=== PATIENT | female | born 1955 | race Caucasian/White ===

== ENCOUNTER 2019-05-03 12:09 | Emergency (ER) | payer MEDICARE, MEDICAID, SELFPAY ==
[2019-05-03 12:22] VITALS: BP 97/54; PULSE 56; RESP 16; TEMP 36.3; O2SAT 99
--- NOTE | 2019-05-03 13:05 | NUR.NOTE ---
Nursing Note: This scribe went in to perform secondary assessment on patient. Pt was not in room. This scribe checked the bathrooms and checked with front end drupal developer. PA saw patient leaving her room at one point but thought she was using the bathroom. Patient not seen. Per patient, patient was told to come to ER by [facility] for help with adjustment of medications per triage nurse. [facility] has been paged to notify them that she left without being seen.
== END 2019-05-03 13:05 | disposition left before discharge ==
PROVIDERS: Emergency Provider Physician Assistant; PCP Physician Assistant
DX: Z53.21 Procedure and treatment not carried out due to patient leaving prior to being seen by health care provider (principal)

== ENCOUNTER 2019-09-04 09:42 | Outpatient (CLI) | payer OTHER, MEDICAID, SELFPAY ==
[2019-09-04 10:14] LABS: Abs Immature Grans 0.02 k/cumm (0.0-0.09); Absolute Basophil Count 0.03 k/cumm (0.0-0.2); Absolute Eosinophil Count 0.23 k/cumm (0.0-0.7); Absolute Lymphocyte Count 2.85 k/cumm (1.2-3.4); Absolute Monocyte Count 0.62 k/cumm (0.11-0.7); Absolute Neutrophil Count 1.64 k/cumm (1.2-6.7); Basophils % 0.6; Eosinophils % 4.3; HCT 40.2 % (36.0-46.0); Immature Grans % 0.4 %; Lymphocytes % 52.9; Mean Corp. HGB Concentration 32.3 g/dL (32.0-36.0); Mean Corpuscular Hemoglobin 31.6 pg (27.0-33.0); Mean Corpuscular Volume 97.8 fL (80-95); Mean Platelet Volume 10.6 fL (8.0-11.0); Monocytes % 11.5; Neutrophils % 30.3; Platelet Count 169 x1000/uL (130-400); RBC 4.11 m/cumm (4.00-5.20); RBC Distribution Width 14.2 % (11.7-14.6); White Blood Cell Count 5.39 k/cumm (4.4-10.8)
[2019-09-04 10:27] LABS: VALPROIC ACID 104.6 ug/mL (50-100)
[2019-09-04 11:16] LABS: ALT 13 U/L (14-59); AST 23 U/L (15-37); Albumin 3.2 g/dL (3.4-5.0); Alkaline Phosphatase 89 U/L (46-116); Anion Gap 5.1 mmol/L (3-11); BUN 14 mg/dL (7-18); Bilirubin, Total 0.2 mg/dL (0.2-1.0); CO2 30.9 mmol/L (21.0-32.0); CREATININE 0.93 mg/dL (0.55-1.02); Calcium 9.3 mg/dL (8.5-10.1); Chloride 105 mmol/L (98-107); Glucose 76 mg/dL (74-106); Sodium 141 mmol/L (136-145); TSH 3.04 uIU/mL (0.36-3.74); Total Protein 6.3 g/dL (6.4-8.2)
== END 2019-09-04 10:02 ==
PROVIDERS: PCP Physician Assistant; Visit Provider Nurse Practitioner Family
DX: F31.73 Bipolar disorder, in partial remission, most recent episode manic (principal); Z51.81 Encounter for therapeutic drug level monitoring; Z79.899 Other long term (current) drug therapy; R53.83 Other fatigue
CPT/HCPCS: 36415; 80053; 80164; 84443; 85025

== ENCOUNTER 2020-04-01 01:45 | Outpatient (CLI) | payer OTHER, MEDICAID, SELFPAY ==
[2020-04-01 08:32] LABS: Abs Immature Grans 0.05 10^3/uL (0.0-0.06); Absolute Basophil Count 0.07 10^3/uL (0.0-0.2); Absolute Eosinophil Count 0.39 10^3/uL (0.0-0.7); Absolute Lymphocyte Count 3.06 10^3/uL (1.2-3.4); Absolute Monocyte Count 0.68 10^3/uL (0.1-0.8); Absolute Neutrophil Count 2.05 10^3/uL (1.2-6.7); Basophils % 1.1; Eosinophils % 6.2; HCT 43.5 % (36.0-46.0); HGB 13.7 g/dL (11.2-15.7); Immature Grans % 0.8; Lymphocytes % 48.6; MCH 32.5 pg (27.0-33.0); MCHC 31.5 % (32.0-36.0); MCV 103.1 fL (80-95); MPV 11.4 fL (8.0-11.0); Monocytes % 10.8; Neutrophils % 32.5; Nucleated RBC 0 %; Platelet Count 185 10^3/uL (130-400); RBC 4.22 10^6/uL (3.93-5.22); RDW 13.1 % (11.7-14.6); RDW-SD 49.9 fL
[2020-04-01 08:47] LABS: VALPROIC ACID 86.5 ug/mL (50-100)
[2020-04-01 08:48] LABS: ALT 16 U/L (14-59); AST 15 U/L (15-37); Albumin 3.3 g/dL (3.4-5.0); Alkaline Phosphatase 119 U/L (46-116); Anion Gap 2.6 mmol/L (3-11); BUN 14 mg/dL (7-18); Bilirubin, Total 0.3 mg/dL (0.2-1.0); CO2 32.4 mmol/L (21.0-32.0); CREATININE 0.94 mg/dL (0.55-1.02); Calcium 9.6 mg/dL (8.5-10.1); Chloride 104 mmol/L (98-107); Estimated GFR 59.95 (mL/min/1.73m2); Glucose 80 mg/dL (74-106); Potassium 4.6 mmol/L (3.5-5.1); Sodium 139 mmol/L (136-145); Total Protein 6.9 g/dL (6.4-8.2)
== END 2020-04-01 02:05 ==
PROVIDERS: PCP Physician Assistant; Visit Provider Nurse Practitioner Family
DX: F31.73 Bipolar disorder, in partial remission, most recent episode manic (principal); Z79.899 Other long term (current) drug therapy
CPT/HCPCS: 36415; 80053; 80164; 85025

== ENCOUNTER 2020-06-22 13:02 | Outpatient (REF) | payer OTHER, MEDICAID, SELFPAY ==
[2020-06-23 17:38] LABS: COVID-19 RT-PCR Result Not Detected
== END 2020-06-22 13:22 ==
LOC: LBN 13:02
PROVIDERS: PCP Physician Assistant; Visit Provider Nurse Practitioner Adult Health
DX: Z11.59 Encounter for screening for other viral diseases (principal)
CPT/HCPCS: U0003

== ENCOUNTER 2020-06-29 01:32 | Outpatient (CLI) | payer OTHER, SELFPAY ==
--- NOTE | 2020-06-29 | DI.US_ITS ---
EXAM: US LOWER EXTREMITY VENOUS LT CLINICAL HISTORY: SWELLING, S/P HIP FX AND SURGERY TECHNIQUE: Left lower extremity venous ultrasound performed using grayscale, color-flow, and spectra l Doppler analysis. COMPARISON: No exams were available for comparison FINDINGS: The left common femoral, femoral and popliteal veins demonstrate normal compressibility, augmentation , and color Doppler. The posterior tibial veins are patent. The saphenofemoral junction is unremarka ble. There is no evidence of a Blackmon cyst. Mild edema in the soft tissues of the calf. IMPRESSION: No DVT. DATA REPOSITORY:
== END 2020-06-29 01:52 ==
PROVIDERS: PCP Physician Assistant; Visit Provider Nurse Practitioner Adult Health
DX: R60.9 Edema, unspecified (principal)
CPT/HCPCS: 93971

== ENCOUNTER 2020-06-30 01:46 | Outpatient (REF) | payer OTHER, SELFPAY ==
[2020-07-01 16:16] LABS: SARS-CoV-2 RNA Not Detected (NotDetected); SARS-CoV-2 RNA Source Nasal/Nares
== END 2020-06-30 02:06 ==
LOC: LBN 01:46
PROVIDERS: Nurse Practitioner Adult Health; PCP Physician Assistant; Visit Provider Family Medicine
DX: Z11.59 Encounter for screening for other viral diseases (principal)
CPT/HCPCS: U0003

== ENCOUNTER 2021-08-10 23:06 | Outpatient (REF) | payer OTHER, SELFPAY ==
[2021-08-12 15:45] LABS: COVID-19 RT-PCR UVMMC Result Negative (Negative)
== END 2021-08-10 23:07 | disposition home or self-care (01) ==
LOC: LBN 23:06
PROVIDERS: PCP Physician Assistant; Visit Provider Physician Assistant Medical
DX: Z20.822 Contact with and (suspected) exposure to COVID-19 (principal); J06.9 Acute upper respiratory infection, unspecified
CPT/HCPCS: U0003; U0005

== ENCOUNTER 2021-08-19 16:22 | Outpatient (REF) | payer OTHER, MEDICAID, SELFPAY ==
[2021-08-19 18:18] LABS: Abs Immature Grans 0.01 10^3/uL (0.0-0.06); Absolute Basophil Count 0.02 10^3/uL (0.0-0.2); Absolute Eosinophil Count 0.07 10^3/uL (0.0-0.7); Absolute Lymphocyte Count 1.57 10^3/uL (1.2-3.4); Absolute Monocyte Count 0.55 10^3/uL (0.1-0.8); Basophils % 0.6; HCT 37.6 % (36.0-46.0); HGB 11.7 g/dL (11.2-15.7); Immature Grans % 0.3; Lymphocytes % 43.9; MCH 33.3 pg (27.0-33.0); MCHC 31.1 % (32.0-36.0); MCV 107.1 fL (80-95); MPV 12.3 fL (8.0-11.0); Monocytes % 15.4; Neutrophils % 37.8; Nucleated RBC 0 %; Platelet Count 106 10^3/uL (130-400); RBC 3.51 10^6/uL (3.93-5.22); RDW 11.9 % (11.7-14.6); RDW-SD 47.2 fL; WBC 3.58 10^3/uL (4.4-10.8)
[2021-08-19 18:34] LABS: Absolute Neutrophil Count 1.35 10^3/uL (1.2-6.7)
[2021-08-19 18:48] LABS: Anion Gap 4.8 mmol/L (3-11); BUN 19 mg/dL (7-18); CO2 30.2 mmol/L (21.0-32.0); CREATININE 0.7 mg/dL (0.55-1.02); Chloride 105 mmol/L (98-107); Glucose 69 mg/dL (74-106); Potassium 4.8 mmol/L (3.5-5.1); Sodium 140 mmol/L (136-145); TSH 1.09 uIU/mL (0.36-3.74)
== END 2021-08-19 16:23 | disposition home or self-care (01) ==
LOC: LBN 16:22
PROVIDERS: PCP Physician Assistant; Visit Provider Physician Assistant Medical
DX: R42 Dizziness and giddiness (principal); F41.9 Anxiety disorder, unspecified; J02.9 Acute pharyngitis, unspecified; H61.23 Impacted cerumen, bilateral
CPT/HCPCS: 80048; 84443; 85025

== ENCOUNTER 2021-08-26 16:49 | Outpatient (REF) | payer OTHER, MEDICAID, SELFPAY ==
[2021-08-29 09:56] LABS: COVID-19 RT-PCR UVMMC Result Negative (Negative)
== END 2021-08-26 16:50 | disposition home or self-care (01) ==
LOC: LBN 16:49
PROVIDERS: PCP Physician Assistant; Visit Provider Physician Assistant Medical
DX: Z20.822 Contact with and (suspected) exposure to COVID-19 (principal); J06.9 Acute upper respiratory infection, unspecified
CPT/HCPCS: U0003

== ENCOUNTER 2021-08-26 17:12 | Outpatient (CLI) | payer OTHER, MEDICAID, SELFPAY ==
--- NOTE | 2021-08-26 | DI.RAD_ITS ---
Exam(s) XR CHEST 2V PA LATERAL EXAM: XR CHEST 2V PA LATERAL CLINICAL HISTORY: UPPER RESPIRATORY INFECTION TECHNIQUE: COMPARISON: No exams were available for comparison FINDINGS: The lungs appear mildly hyperinflated but clear. No pleural effusion. Cardiac size within normal li mits. No mediastinal contour abnormality. IMPRESSION: No evidence of acute process. RADIATION DOSE DELIVERED: Total DLP
--- NOTE | 2021-08-26 18:03 | DI.VRAD_ITS ---
PROCEDURE INFORMATION: Exam: XR Chest Exam date and time: 08/26/2021 5:38 PM Age: 65 years old Clinical indication: Other: Upper respiratory infection TECHNIQUE: Imaging protocol: XR of the chest. Views: 2 views. Total images: 2 COMPARISON: No relevant prior studies available. FINDINGS: Lungs: Unremarkable. No consolidation. Pleural spaces: No pleural effusion. No pneumothorax. Heart/Mediastinum: Unremarkable. No cardiomegaly. Bones/joints: No acute bone abnormality. IMPRESSION: No acute findings. Dictated and Authenticated by: Naheed Griggs MD. Ordering:ALTAF Grayson MD
== END 2021-08-26 17:32 ==
PROVIDERS: PCP Physician Assistant; Visit Provider Physician Assistant Medical
DX: J06.9 Acute upper respiratory infection, unspecified (principal)
CPT/HCPCS: 71046

== ENCOUNTER 2021-09-02 15:22 | Outpatient (REF) | payer OTHER, MEDICAID, SELFPAY ==
[2021-09-05 15:36] LABS: Chlamydia Result Negative (Negative); GC Result Negative (Negative)
== END 2021-09-02 15:23 | disposition home or self-care (01) ==
LOC: LBN 15:22
PROVIDERS: PCP Physician Assistant; Visit Provider Physician Assistant Medical
DX: R30.0 Dysuria (principal); N89.9 Noninflammatory disorder of vagina, unspecified; Z11.3 Encounter for screening for infections with a predominantly sexual mode of transmission; Z72.51 High risk heterosexual behavior
CPT/HCPCS: 87491; 87591; 87086; 87480; 87510; 87660

== ENCOUNTER 2021-09-19 03:42 | Outpatient (CLI) | payer OTHER, MEDICAID, SELFPAY ==
[2021-09-19 14:09] LABS: Abs Immature Grans 0.01 10^3/uL (0.0-0.06); Absolute Basophil Count 0.03 10^3/uL (0.0-0.2); Absolute Eosinophil Count 0.11 10^3/uL (0.0-0.7); Absolute Lymphocyte Count 1.68 10^3/uL (1.2-3.4); Absolute Monocyte Count 0.58 10^3/uL (0.1-0.8); Absolute Neutrophil Count 1.15 10^3/uL (1.2-6.7); Basophils % 0.8; Eosinophils % 3.1; HCT 36.2 % (36.0-46.0); HGB 11.7 g/dL (11.2-15.7); Immature Grans % 0.3; Lymphocytes % 47.2; MCHC 32.3 % (32.0-36.0); MPV 10.9 fL (8.0-11.0); Monocytes % 16.3; Neutrophils % 32.3; Nucleated RBC 0 %; Platelet Count 133 10^3/uL (130-400); RBC 3.55 10^6/uL (3.93-5.22); RDW 11.9 % (11.7-14.6); RDW-SD 44.7 fL; WBC 3.56 10^3/uL (4.4-10.8)
[2021-09-19 14:29] LABS: VALPROIC ACID 143.6 ug/mL
[2021-09-19 14:31] LABS: Hemoglobin A1C 4.9 % (<5.7)
[2021-09-19 15:22] LABS: ALT 13 U/L (14-59); AST 16 U/L (15-37); Albumin 3.2 g/dL (3.4-5.0); Alkaline Phosphatase 88 U/L (46-116); Anion Gap 4.8 mmol/L (3-11); BUN 20 mg/dL (7-18); Bilirubin, Total 0.3 mg/dL (0.2-1.0); CO2 28.2 mmol/L (21.0-32.0); CREATININE 0.8 mg/dL (0.55-1.02); Calcium 9.2 mg/dL (8.5-10.1); Calculated LDL 98 mg/dL (<100); Chloride 99 mmol/L (98-107); Cholesterol 168 mg/dL (<200); Ferritin 129 ng/mL (8-252); Folate 13.9 ng/mL (8.6-20.0); Glucose 57 mg/dL (74-106); HDL Cholesterol 57 mg/dL (40-60); Magnesium 1.8 mg/dL (1.8-2.4); Potassium 3.8 mmol/L (3.5-5.1); Sodium 132 mmol/L (136-145); TSH 1.62 uIU/mL (0.36-3.74); Total Protein 6.6 g/dL (6.4-8.2); Triglyceride 66 mg/dL (<150); Vitamin B12 813 pg/mL (193-986)
[2021-09-19 15:43] LABS: C-Reactive Protein 0.16 mg/dL (0.0-0.3); FREE T4 1.12 ng/dL (0.76-1.46)
[2021-09-19 16:15] LABS: Vitamin D 25 Total 96.8 ng/mL (30-100)
[2021-09-19 22:44] LABS: T3,Free 3.2 pg/mL (2.8-5.3)
== END 2021-09-19 03:43 | disposition home or self-care (01) ==
LOC: LBO 03:43
PROVIDERS: PCP Physician Assistant; Visit Provider Psychiatry & Neurology Psychiatry
DX: F31.73 Bipolar disorder, in partial remission, most recent episode manic (principal); Z51.81 Encounter for therapeutic drug level monitoring; Z79.899 Other long term (current) drug therapy
CPT/HCPCS: 36415; 80053; 80061; 82306; 80164; 82607; 82728; 82746; 83036; 83735; 84439; 84443; 84481; 85025; 86140

== ENCOUNTER 2021-10-25 18:19 | Emergency (ER) | payer MEDICARE, MEDICAID, SELFPAY ==
[2021-10-25 18:31] VITALS: BP 126/52; PULSE 91; RESP 16; TEMP 36.4; O2SAT 99
--- NOTE | 2021-10-25 19:29 | ED.GENADUL_ITS ---
Discharge Plan Discharge Details Chief Complaint: PsychEval Primary Care Provider: Maryuri Shah V ED Provider: Daria Gallagher Home Meds and New Rx's Prescriptions: No Action albuterol sulfate 90 mcg/actuation HFA aerosol inhaler 2 puff inhalation Q6H PRN0RF ibuprofen 400 mg tablet 400 mg PO Q8H 0RF cholecalciferol (vitamin D3) 25 mcg (1,000 unit) capsule 25 mcg PO DAILY 0RF divalproex [Depakote] 500 mg tablet,delayed release (DR/EC) 500 mg PO BID 0RF venlafaxine [Effexor XR] 150 mg capsule,extended release 24hr 150 mg PO DAILY 0RF levothyroxine [Synthroid] 50 MCG tablet 50 mcg PO DAILY 0RF Medical Decision Making 65-year-old female presents to the ER with chief complaint of manic episode and inability to sleep. Patient reports that she has had recent changes to her medications for the last 2 to 3 weeks and ran out of her Depakote which he restarted approximately 4 days ago. Patient reports racing thoughts, inability to focus and inability to sleep. She does state that she did sleep Sunday nig but has not slept since and did not sleep approximately week or more before that. She denies any illicit drugs, alcohol. She does report suicidal thoughts but no plan. She denies any homicidal thoughts. She is alert and oriented. She is also complaining of some dysuria. Urine was taken at urgent care per report prior to arrival which showed no evidence for UTI. 1953: Spoke with Abhishek PARK regarding patient case and details she will pass along to her oncoming provider her shift is about 10 and. At this time medical clearance is ongoing. Urine drug screen is negative. Patient remains cooperative and appropriate. 2020: [facility] performing tele-health eval at this time. 2110: Spoke with Yulissa with [facility] who reports she evaluated patient in the office yesterday and patient is on list for care bed placement however they are full at this time. She is also going to seek inpatient placement for further treatment. Patient is voluntary at this time. 2233: Screening labs ordered, patient sleeping in room, remains cooperative and appears much more comfortable after Lorazepam administration. Labs appear largely at baseline, urinalysis shows trace ketones trace leukocytes with, contamination however due to the patient report of dysuria will give fosfomycin 3 g once. Urine drug screen is negative valproic acid level is 92.1, Tylenol level within normal limit salicylate within normal limits. Ethyl alcohol less than 3.0. Care is to be handed off to ER provider Dr. Jamie Rao pending placement and disposition. Patient has remained calm and cooperative and appropriate throughout her stay here in the ER. Sitter is at the bedside. Daily medication orders placed. HPI General Mode of arrival: ambulatory . Date/Time Provider Initiated Documentation: 10/25/21 18:22 . Limitations to Documentation: no limitations . Information obtained by: patient, RN/MD ([facility]), RN notes reviewed and old records reviewed . HPI Narrative: 65-year-old female presents to the ER with chief complaint of manic episode and inability to sleep. Patient reports that she has had recent changes to her medications for the last 2 to 3 weeks and ran out of her Depakote which he restarted approximately 4 days ago. Patient reports racing thoughts, inability to focus and inability to sleep. She does state that she did sleep Sunday night but has not slept since and did not sleep approximately week or more before that. She denies any illicit drugs, alcohol. She does report suicidal thoughts but no plan. She denies any homicidal thoughts. She is alert and oriented. She is also complaining of some dysuria. Urine was taken at urgent care per report prior to arrival which showed no evidence for UTI. Related Data Home Medications Medication Instructions Recorded Confirmed levothyroxine 50 mcg tablet 50 mcg PO DAILY 12/29/15 10/25/21 (Synthroid) albuterol sulfate 90 mcg/actuation 2 puff INHALATION Q6H PRN 09/22/21 10/25/21 aerosol inhaler cholecalciferol (vitamin D3) 25 25 mcg PO DAILY 09/22/21 10/25/21 mcg (1,000 unit) capsule divalproex 500 mg tablet,delayed 500 mg PO BID 09/22/21 10/25/21 release (Depakote) ibuprofen 400 mg tablet 400 mg PO Q8H 09/22/21 10/25/21 venlafaxine 150 mg 150 mg PO DAILY 09/22/21 10/25/21 capsule,extended release 24 hr (Effexor XR) Allergies Allergy/AdvReac Type Severity Reaction Status Date / Time acetaminophen [From Vicodin] Allergy Mild facial Verified 10/25/21 18:39 swelling bupropion [From Wellbutrin] Allergy Mild facial Verified 10/25/21 18:39 swelling doxycycline Allergy Mild unknown Verified 10/25/21 18:39 fluticasone Allergy Mild dizziness Verified 10/25/21 18:39 [From Advair Diskus] hydrocodone [From Vicodin] Allergy Mild facial Verified 10/25/21 18:39 swelling levofloxacin [From Levaquin] Allergy Mild dizziness Verified 10/25/21 18:39 morphine Allergy Mild hallucinati Verified 10/25/21 18:39 on omeprazole Allergy Mild rash, Verified 10/25/21 18:39 upset stomach oxycodone Allergy Mild hallucinati Verified 10/25/21 18:39 ons prednisone Allergy Mild dizziness Verified 10/25/21 18:39 quetiapine [From Seroquel] Allergy Mild dizziness Verified 10/25/21 18:39 risperidone Allergy Mild sever Verified 10/25/21 18:39 nightmares salmeterol Allergy Mild dizziness Verified 10/25/21 18:39 [From Advair Diskus] tramadol Allergy Mild dizziness, Verified 10/25/21 18:39 hallucinations erythromycin base Allergy Unverified 10/25/21 18:39 propoxyphene HCl Allergy Unverified 10/25/21 18:39 [From Darvon] General Stated Complaint: PsychEval SEB: 2 Review of Systems All systems reviewed & are unremarkable except as noted in HPI and below Neurologic Neurologic: Reports behavioral changes Psychiatric Psychiatric: Reports as per HPI, Reports behavioral changes, Reports difficulty concentrating and Reports suicidal ideation PFSH All Active Problems Bipolar 1 disorder, mixed (Acute) History of colon polyps (Acute) Diarrhea (Acute) Unintentional weight loss (Acute) Screening for colon cancer (Acute) Medical History Anxiety Cerumen impaction Dizziness Headache Weakness Social History Smoking/Tobacco Use Status: Current every day Tobacco Type: cigarettes Smoking risk assessment performed?: Yes Alcohol Intake: former Drug use: Never Substance use type: does not use Do you feel safe at home: Yes Do you feel safe in your relationship?: Yes Exam Narrative Exam Narrative: Constitutional: Alert and oriented x3. Appears stated age. Normal body habitus. Appears anxious. Head: Normocephalic, no trauma. Eyes: Pupils PERRL, Red reflex noted, EOM's intact. Eyelids symmetrical without lesions, discharge, or swelling. ENT: Bilateral TM's WNL, External ear normal to inspection, no mastoid TTP, swelling, or erythema, Nasal turbinates WNL, no nasal discharge. Normal dentition, Posterior pharynx WNL, no exudate. Chest: RRR, Normal S1, S2, distal pulses intact. Resp: Lungs clear to auscultation bilaterally, no wheezes, rales, or rhonchi. Abdomen: Soft, non-distended, Normoactive bowel sounds all 4 quads. Musculoskeletal: Normal gait, 5/5 strength to all four extremities. Skin: No suspicious rashes or lesions. Capillary refill less than 2 sec. Neurologic: Cranial nerves II-XII intact. Alert and oriented x 3. Motor: No deficits noted. Sensory: Intact bilaterally all 4 extremities. Reflexes: DTR's intact bilaterally.. Hematologic/Lymphatic: No ecchymosis, no lymphadenopathy. Psych Appearance: disheveled Speech and Movement: restless Mood: manic mood Affect: normal affect Attitude: cooperative Thought Process: flight of ideas Thought Content: normal and suicidality Insight: insight good Judgment: judgment good Course Vital Signs Vital signs: Vital Signs Temperature 36.4 C L 10/25/21 18:31 Pulse 91 H 10/25/21 18:31 Respiratory Rate 16 10/25/21 18:31 Blood Pressure 126/52 L 10/25/21 18:31 Pulse Oximetry 99 10/25/21 18:31 Temperature 36.4 C L 10/25/21 18:31 Temperature Source Skin 10/25/21 18:31 Pulse 91 H 10/25/21 18:31 Respiratory Rate 16 10/25/21 18:31 Respiratory Effort 10/25/21 18:31 Blood Pressure 126/52 L 10/25/21 18:31 Blood Pressure Position Sitting 10/25/21 18:31 Pulse Oximetry 99 10/25/21 18:31 Oxygen Delivery Method Room Air 10/25/21 18:31 Oxygen Flow Rate 0 10/25/21 18:31 Pain Level 9 10/25/21 18:31 Lab/Test Results Lab/Test Results: POC- Test(urine) Negative Sign Out Sign Out Data: Sign Out Comment: Pending Voluntary inpatient psych placement or care bed placement. Hx of Bipolar, Patient reports manic episode and trouble sleeping x 2-3 weeks. Recently out of Depakote but taking it last 4 days. Suicidal ideation, no concrete plan. Cooperative, appropriate, and calm. Last updated by Daria Gallagher at 10/25/21 23:11
[2021-10-25 19:45] LABS: *AMPHETAMINES SCREEN URINE Negative (Negative); *BARBITURATES SCREEN URINE Negative (Negative); *BENZODIAZEPINES SCREEN URINE Negative (Negative); Cannabinoids THC Negative (Negative); Cocaine Screen,Urine Negative (Negative); METHADONE URINE SCREEN Negative (Negative); OPIATES URINE SCREEN Negative (Negative)
[2021-10-25 19:47] LABS: Tricyclic Antidepressants Negative (Negative)
[2021-10-25 19:58] LABS: Bilirubin Negative (Negative); Blood Negative (Negative); Clarity Clear (Clear); Glucose Negative (Negative); Ketones Trace mg/dL (Negative); Leukocyte Esterase Trace (Negative); Nitrite Negative (Negative); Specific Gravity >= 1.030 (1.005-1.025); Urobilinogen 0.2 EU/dL (Up TO 0.2); pH 6.5 (5-8)
[2021-10-25] MEDS: LORazepam 0.5 MG TAB PO (20:03)
[2021-10-25 20:10] LABS: Bacteria Many HPF (Negative); C & S Indicated? No/Sq. Contamination; Casts Negative LPF (Negative); Crystals Negative HPF (Negative); Epithelial Cells Many HPF (Negative); Mucus Negative (Negative); RBC Negative HPF (0-2)
[2021-10-25] MEDS: Bacitracin 1 PACKET (20:17)
[2021-10-25 22:40] LABS: Abs Immature Grans 0.01 10^3/uL (0.0-0.06); Absolute Basophil Count 0.02 10^3/uL (0.0-0.2); Absolute Eosinophil Count 0.19 10^3/uL (0.0-0.7); Absolute Lymphocyte Count 2.38 10^3/uL (1.2-3.4); Absolute Monocyte Count 0.36 10^3/uL (0.1-0.8); Absolute Neutrophil Count 1.18 10^3/uL (1.2-6.7); Basophils % 0.5; Eosinophils % 4.6; HCT 30.6 % (36.0-46.0); HGB 9.6 g/dL (11.2-15.7); Immature Grans % 0.2; Lymphocytes % 57.5; MCH 31.9 pg (27.0-33.0); MCHC 31.4 % (32.0-36.0); MCV 101.7 fL (80-95); MPV 10.5 fL (8.0-11.0); Monocytes % 8.7; Neutrophils % 28.5; Nucleated RBC 0 %; Platelet Count 167 10^3/uL (130-400); RBC 3.01 10^6/uL (3.93-5.22); RDW 12.7 % (11.7-14.6); RDW-SD 47.2 fL; WBC 4.14 10^3/uL (4.4-10.8)
[2021-10-25 23:04] LABS: Acetaminophen 3 ug/mL (10-30); Salicylate < 2.8 mg/dL (<2.8)
[2021-10-25 23:10] LABS: VALPROIC ACID 92.1 ug/mL
[2021-10-25 23:13] LABS: Anion Gap 5.4 mmol/L (3-11); BUN 19 mg/dL (7-18); CO2 27.6 mmol/L (21.0-32.0); Calcium 8.7 mg/dL (8.5-10.1); Chloride 108 mmol/L (98-107); Estimated GFR 55.64 (mL/min/1.73m2); Glucose 119 mg/dL (74-106); Potassium 3.9 mmol/L (3.5-5.1); Sodium 141 mmol/L (136-145); TSH (W/Ref FT4) 0.62 uIU/mL (0.36-3.74)
[2021-10-25 23:14] LABS: ETHANOL BLOOD < 3.0 mg/dL (<10)
[2021-10-25] MEDS: Fosfomycin Tromethamine 3 GM PACKET PO (23:53)
[2021-10-26] MEDS: Levothyroxine 50 MCG TAB PO (06:30)
[2021-10-26 07:19] VITALS: BP 120/72; PULSE 86; RESP 16; TEMP 37.1; O2SAT 96
[2021-10-26 07:29] LABS: Source Nasal/Nares
[2021-10-26 08:20] LABS: COVID-19 PCR Negative (Negative)
[2021-10-26] MEDS: Venlafaxine 150 MG CAPCR PO (08:36)
[2021-10-26] MEDS: Cholecalciferol (Vitamin D3) 1,000 UNIT TAB 1000 UNITS PO (08:36)
[2021-10-26] MEDS: Divalproex 500 MG TABEC PO (08:36)
--- NOTE | 2021-10-26 10:59 | PDOC.CMSAFED ---
- If Service Date Differs Date of service: 10/26/21 Time of Service: 10:59 Care Management Safety Plan Status: Voluntary - Reason for Wait Reason for Wait: Inpatient Admission VOLUNTARY FOR INPATIENT PSYCHIATRIC STABILIZATION. Patient is appropriate in all interactions since arriving at [facility]; Pt has demonstrated appropriate coping and communication skills, has articulated his or her needs and concerns and is fully engaged during staff interactions. A huddle is done with Dr. Chay Howe, ED provider, Khushbu, nursing supervisor paste mixing, and DA Ordonez. Other staff are unable to attend huddle due to volume of patients in the ED. Safety plan has been established with patient, and care team, to adhere to patient goals, identify restrictions based on behavioral status, address nutrition, and determine allowed personal belongings, tools for hygiene and personal care. Determine level of activity including ambulation, level of supervision, visitors, and determine privileges based on behaviors and level of engagement by pt. SAFETY PLAN: 1. Will remain on suicide precautions. In Paper Clothes 2. Will remain in room under direct supervision of one-on-one staff at all times provided by [employer]PSO, CLEVE, ACCOUNTING AUDITOR fisher swordfish. 3. May have paper cups, plates, finger foods as well as a cardboard spoon with which to eat meals. 4. Follow [facility] Management of the Admitted Behavioral Health Patient policy. 5. Shower permitted with escort at RN discretion. 6. No personal belongings with the exception of eyeglasses. 7. Visitors-none at this time. 8. Activities: soft cart items, music tablet, television and remote, and other activities at RN discretion. 9. Bathroom privileges with escort in the ED, available in room without limitation on M/S. 10. Phone: May use [employer] phone at RN discretion. 11. Due to VOLUNTARY status, if patient wishes to leave [facility], staff will contact [facility] Crisis Screener ([phone]) and On-Call Manufactured Buildings Repairer ([phone]) as soon as possible. In the event of elopement, notify [place] [employer] ([phone]). Patient is currently voluntarily at [facility] and seeking inpatient admission when a bed becomes available. [facility] Frontline Fabricator Artificial Breast will continue seeking placement. Please contact the Artist Relationship Manager Manufactured Buildings Repairer ([phone]) and [facility] Fabricator Artificial Breast ([phone]) for any needed changes in the Safety Plan. Safety plan has been provided to interdepartmental care team.
--- NOTE | 2021-10-26 12:16 | NUR.NOTE ---
Addendum entered by Negar Kumar 10/26/21 14:24: Dominique Dacosta [phone] Original Note: Nursing Note: Patient gave permission to give Dominique Olesya, friend, information regarding her and her visit. I called her and gave Dominique information about the patient and at the patient's request I asked Dominique to call the patient's daughter and son and notify them that she is at [facility] waiting placement. Negar Kumar
[2021-10-26] MEDS: metroNIDAZOLE 500 MG TAB PO (12:20)
[2021-10-26] MEDS: Ibuprofen 400 MG TAB PO (12:20)
--- NOTE | 2021-10-26 13:45 | NUR.NOTE ---
1340 Received call from [facility] for possible acceptance . Will call for doc to doc report.
[2021-10-26 14:25] VITALS: BP 124/55; PULSE 72; RESP 12; TEMP 37; O2SAT 96
--- NOTE | 2021-10-26 14:52 | PDOC.ERCMPRO ---
- If Service Date Differs Date of service: 10/26/21 Time of Service: 14:52 Care Management Progress Note S/O: Cindy is a 65 year old female who lives alone in an apartment in [facility]. She has a diagnosis of record of Bipolar Disorder and receives services through [facility]. Padmini is sitting up in bed when CM comes to meet with her. She is pleasant and easily engages in conversation. She reports racing thoughts and an inability to sleep or eat for several days. DA discusses psychiatric inpatient hospitalization with her and Cindy shares that she was at the [facility] a while ago and would be agreeable to returning there for treatment. A: Cindy presents in the ED for an inability to sleep and a manic episode. P: Cindy is accepted for a voluntary admission at [facility]. She will follow up with her PCP, [facility] providers, and plan of care as instructed upon discharge from the [facility]. Cindy is transported by [facility] to [place]. - Status Status: Voluntary - Reason for Wait Reason for Wait: Inpatient Admission ([facility])
--- NOTE | 2021-10-26 15:39 | PDOC.MHCN ---
Date of service: 10/26/21 Time of Service: 11:27 Mental Health Crisis Note Presenting Issue How did you arrive at the ED and why did you come: Client was brought to ED by friend, Client reports Bipolar diagnosis and that she is current presenting with manic features. Precipitating Factors Client reports she has been depressed for the past two months and the last 3 weeks she describes herself as manic and having thoughts of SI with a plan of driving her car very fast and crashing with the intent to . Client reports she has found herself driving twice in the past 3 weeks. Disposition BEHAVIOR: Clients behavior is cooperative EYE CONTACT: Client makes consistent eye contact. MOOD: Client reports mood as pretty good but also reports she gets mad easily and has no patience. AFFECT: Client affect is unremarkable. APPETITE: Client reports her appetite has been good. SLEEP(trouble falling/staying asleep: Client reports prior to going to the hospital she was struggling to fall and stay asleep. Client reports with the assitance of a low dose of ativan last night she slept well and felt well rested in the morning. Plan Client is currently seeking voluntary placement for in patient treatment. Referrals have been sent to admitting psych hospitals. Client will be assessed daily while awaiting placement. Signature Clinician's Name/Title: Roni Chou BA
--- NOTE | 2021-10-26 16:01 | NUR.NOTE ---
Nursing Note: Called Ama intake nurse for [facility] and notified her that the patient just left and is on her way. Negar Kumar
== END 2021-10-26 15:33 | disposition short-term general hospital (02) ==
PROVIDERS: Registered Nurse Emergency; Student in an Organized Health Care Education/Training Program; Emergency Provider Emergency Medicine; PCP Physician Assistant
DX: F31.9 Bipolar disorder, unspecified (principal); N76.0 Acute vaginitis; B96.89 Other specified bacterial agents as the cause of diseases classified elsewhere; Z79.899 Other long term (current) drug therapy
CPT/HCPCS: 36415; 80048; 80307; 81025; 87635; 99285; 80164; 80320; 80329; 81003; 81015; 84443; 85025; J3490

== ENCOUNTER 2021-10-25 18:30 | Outpatient (REF) | payer OTHER, MEDICAID, SELFPAY ==
--- NOTE | 2021-10-25 21:06 | PDOC.MHCN_ITS ---
Date of service: 10/25/21 Time of Service: 21:06 Mental Health Crisis Note Presenting Issue How did you arrive at the ED and why did you come: Client arrived at [facility] ED after seeing PCP and feeling overwhelmed with depression and SI. Precipitating Factors Client states that she has fleeting thoughts of SI, It would be better off if I was no longer here.Client denies intent or plan at this time. Disposition BEHAVIOR: Client is laying down in hospital bed dressed in proper paper hospital attire when this proposal manager writer arrives via zoom. Client is familiar with this proposal manager writer as she was seen at the office yesterday 10/24/21. Client presents with pressured speech, however answers all questions that are asked of her. EYE CONTACT: Clients eye contact is minimal as she is fidgeting with things on the bed and the bandages on her fingers during the assessment. MOOD: Clients mood appears to be depressed, she is tearful at times throughout assessment as well. AFFECT: Clients affect is flat. APPETITE: Client states that her appetite has not been well, she has been eating minimally. SLEEP(trouble falling/staying asleep: Client states that she has not slept in about 3 weeks, states that she slept about 3 -4 hours last night. Plan Client will stay at [facility] pending care bed placement or inpatient voluntary placement. Due to client not following outpatient services this proposal manager writer does not feel a safety plan home would be the best option. Care bed is currently full, although referral has been made. Crisis beds across the [facility] will be explored tomorrow morning and inpatient referrals will be sent to [facility], [facility], [facility], and [facility]. Signature Clinician's Name/Title: Yulissa Glover [facility] Emergency Clinician.
== END 2021-10-25 18:31 | disposition home or self-care (01) ==
LOC: LBN 18:30
PROVIDERS: PCP Physician Assistant; Visit Provider Nurse Practitioner Family
DX: N89.8 Other specified noninflammatory disorders of vagina (principal)
CPT/HCPCS: 87480; 87510; 87660

== ENCOUNTER 2021-11-11 18:22 | Outpatient (REF) | payer MEDICARE, MEDICAID, SELFPAY ==
[2021-11-11 20:05] LABS: Anion Gap 8.8 mmol/L (3-11); BUN 14 mg/dL (7-18); CO2 26.2 mmol/L (21.0-32.0); CREATININE 0.7 mg/dL (0.55-1.02); Calcium 9.4 mg/dL (8.5-10.1); Chloride 106 mmol/L (98-107); Glucose 88 mg/dL (74-106); Potassium 4.1 mmol/L (3.5-5.1); Sodium 141 mmol/L (136-145)
[2021-11-11 20:10] LABS: HCT 35.5 % (36.0-46.0); MCH 31.4 pg (27.0-33.0); MCV 101.4 fL (80-95); Platelet Count 267 10^3/uL (130-400); RDW 13.5 % (11.7-14.6); RDW-SD 49.5 fL; WBC 4.96 10^3/uL (4.4-10.8)
== END 2021-11-11 18:23 | disposition home or self-care (01) ==
LOC: NCHCN 18:22
PROVIDERS: PCP Physician Assistant; Visit Provider Nurse Practitioner Family
DX: R60.0 Localized edema (principal); D64.9 Anemia, unspecified
CPT/HCPCS: 80048; 85027

== ENCOUNTER 2021-11-14 04:26 | Emergency (ER) | payer MEDICARE, MEDICAID, SELFPAY ==
[2021-11-14 04:37] VITALS: BP 140/73; PULSE 72; RESP 16; TEMP 36.4; O2SAT 99
--- NOTE | 2021-11-14 05:00 | DI.RAD_ITS ---
Exam(s) XR HIP PELVIS ADULT BL EXAM: XR HIP PELVIS ADULT BL CLINICAL HISTORY: bilateral chronic hip pain. TECHNIQUE: 2D digital imaging was performed. COMPARISON: No exams were available for comparison FINDINGS: Five views There are bilateral hip prostheses. No pelvic fractures. No loosening of either prosthesis. No rad iographic evidence of osteomyelitis. IMPRESSION: DATA REPOSITORY: RADIATION DOSE DELIVERED:
--- NOTE | 2021-11-14 05:00 | DI.CT_ITS ---
Exam(s) CT HEAD CERVICAL SPINE WO EXAM: CT HEAD CERVICAL SPINE WO CLINICAL HISTORY: neck and head pain after trauma. TECHNIQUE: Imaging Protocol: Axial computed tomography images with coronal and sagittal reformatted images were created and reviewed COMPARISON: CT HEAD WITH/WITHOUT CONTRAST from 03/12/2009 FINDINGS: BRAIN: There are no skull fractures nor fluid in the visualized paranasal sinuses. There is no evidence of intracranial hemorrhage, mass effect, or shift of midline structures. There are no extra-axial fluid collections. The ventricles are not enlarged or shifted and there is no blo od within the ventricular system nor within the basal cisterns. Septum cavum pellucidum again noted, unchanged. CERVICAL SPINE: There is no evidence of fracture. There is mild degenerative anterolisthesis of C4 upon C5, related to facet arthropathy.. No significant prevertebral soft tissue swelling. Advanced disc space narrowing at C5-6 and C6-7 levels and anterior osteophytes at these 2 levels. Multilevel facet arthropathy. There is no significant facet joint malalignment. No significant osseous lesions evident. IMPRESSION: No acute intracranial findings on this noninfused CT scan of the brain. No evidence of cervical spine fracture, malalignment, nor acute compromise of the cervical spinal can al. Mild degenerative anterolisthesis of C4 upon C5 noted as well as chronic degenerative disc space narrowing at C5-6 and C6-7 levels. RADIATION DOSE DELIVERED: 892.55mGy.cm Total DLP DATA REPOSITORY: All CT scans at this facility are submitted to the National Radiology Data Registry (NRDR) Dose Index Registry (DIR) with the [employer] (ACR). RADIATION OPTIMIZATION: All CT scans at this facility use at least one of these dose optimization te chniques: automated exposure control; mA and/or kV adjustment per patient size (includes targeted exa ms where dose is matched to clinical indication); or iterative reconstruction.
--- NOTE | 2021-11-14 05:02 | W.ED.GENAD ---
Discharge Plan Disposition Patient Disposition: HOME Condition: Good Discharge Details Clinical Impression: Bipolar disorder Primary Care Provider: Maryuri Shah V ED Provider: Andrzej Rao Home Meds and New Rx's Prescriptions: Continued albuterol sulfate 90 mcg/actuation HFA aerosol inhaler 2 puff inhalation Q6H PRN0RF ibuprofen 400 mg tablet 400 mg PO Q8H 0RF cholecalciferol (vitamin D3) 25 mcg (1,000 unit) capsule 25 mcg PO DAILY 0RF venlafaxine [Effexor XR] 150 mg capsule,extended release 24hr 75 mg PO DAILY 0RF levothyroxine [Synthroid] 50 MCG tablet 25 mcg PO DAILY 0RF haloperidol 0.5 mg tablet 1 mg PO HS 0RF haloperidol 1 mg tablet 0.5 mg PO DAILY 0RF vitamin B complex Capsule 1 cap PO DAILY 0RF Discharge Instructions Additional Instructions: Our mental health advocates will contact you tonight for tomorrow for close check-in's and reassessment. Please follow-up closely with your counselor and psychiatrist. If you notice any worsening of your symptoms, or any new symptoms such as vomiting, diarrhea, fever, chills, shortness of breath, chest pain, numbness, weakness, or fainting , please return immediately to the emergency department for reevaluation. Please follow up with your primary care provider as soon as possible for reassessment and reevaluation. As always, it was a pleasure participating in your medical care today. Referrals: Maryuri Shah V [Primary Care Provider] - Medical Decision Making This is a 65-year-old female with a past medical history of previous hip replacement, depression, bipolar, yu, thyroid dysfunction, reactive airway disease, who presents today for mental health evaluation. Patient was recently discharged from [facility] 5 days ago, and she states that she has felt manic since then. Today she was driving the car when she heard a funny sound, pulled over, called EMS, and requested to be brought to the ER for evaluation as she stated she felt too manic to go home. Currently the patient denies any homicidal or suicidal ideations. She states that she does feel down occasionally but not depressed. She denies any auditory or visual hallucinations. She does admit to chronic bilateral hip pain but denies any falls or trauma. No other complaints at this time. No other modifying factors. She has been taking some of her medications intermittently. Physical exam is unremarkable. Patient does not show any pressured speech, flight of ideas, or other signs of severe yu. She does complain of mild bilateral hip pain which she states is chronic. We will give the patient her morning medications for Haldol, we will have mental health evaluate patient after she has been medically cleared. I do feel that she will likely be a good candidate for outpatient management. She has no homicidal or suicidal ideations currently. No indication right now for a one-to-one observer. We will continue to monitor closely and reassess. 7:17 AM Patient has been medically cleared, CT scan of the head neck is negative for acute process. Laboratory work-up unremarkable. Patient remained stable, calm and shows no signs of significant yu. Patient feels well and feels comfortable going home. Mental health advocates will follow up closely with the patient again tonight and tomorrow per our conversation. I did contact the patient's daughter discussed this with her as well. She agrees to plan. Patient will be discharged home. I have extensively reviewed the treatment plan and discharge instructions with the patient. I have addressed all patient concerns at this time. The patient was made aware of what symptoms to monitor for that would warrant a return to the emergency department. Discussed the plan with the patient, they demonstrate verbal understanding and agreement with our assessment and plan at this time. The documentation in this chart was dictated using [employer] dictation software. Please excuse any dictation errors. FINDINGS: Generalized volume loss and periventricular white matter hypodensity consistent with chronic small vessel ischemic change. There is no evidence of intraparenchymal hemorrhage, mass effect or extra-axial collection. Ventricular size is concordant with degree of volume loss. Visualized intraorbital soft tissues are normal. The sinuses are well-aerated. IMPRESSION: No acute intracranial process. FINDINGS: Grade 1 anterolisthesis of C4 on C5 by 4 mm due to spondylosis. No acute fracture . Multilevel degenerative changes are noted. No critical canal stenosis. Multilevel moderate to severe foraminal stenoses. No evidence of prevertebral soft tissue swelling. IMPRESSION: 1. No evidence of fracture or dislocation. 2. Multilevel degenerative changes noted. Thank you for allowing us to participate in the care of your patient. Dictated and Authenticated by: Sophia Vega MD 11/14/2021 6:05 AM Eastern Time ([place] HPI General Date/Time Provider Initiated Documentation: 11/14/21 04:42. HPI Narrative: This is a 65-year-old female with a past medical history of previous hip replacement, depression, bipolar, yu, thyroid dysfunction, reactive airway disease, who presents today for mental health evaluation. Patient was recently discharged from [facility] 5 days ago, and she states that she has felt manic since then. Today she was driving the car when she heard a funny sound, pulled over, called EMS, and requested to be brought to the ER for evaluation as she stated she felt too manic to go home. Currently the patient denies any homicidal or suicidal ideations. She states that she does feel down occasionally but not depressed. She denies any auditory or visual hallucinations. She does admit to chronic bilateral hip pain but denies any falls or trauma. No other complaints at this time. No other modifying factors. She has been taking some of her medications intermittently. Related Data Home Medications Medication Instructions Recorded Confirmed levothyroxine 50 mcg tablet 25 mcg PO DAILY 12/29/15 11/14/21 (Synthroid) albuterol sulfate 90 mcg/actuation 2 puff INHALATION Q6H PRN 09/22/21 11/14/21 aerosol inhaler cholecalciferol (vitamin D3) 25 25 mcg PO DAILY 09/22/21 11/14/21 mcg (1,000 unit) capsule ibuprofen 400 mg tablet 400 mg PO Q8H 09/22/21 11/14/21 venlafaxine 150 mg 75 mg PO DAILY 09/22/21 11/14/21 capsule,extended release 24 hr (Effexor XR) haloperidol 0.5 mg tablet 1 mg PO HS 11/14/21 11/14/21 haloperidol 1 mg tablet 0.5 mg PO DAILY 11/14/21 11/14/21 vitamin B complex 1 cap PO DAILY 11/14/21 11/14/21 Allergies Allergy/AdvReac Type Severity Reaction Status Date / Time acetaminophen [From Vicodin] Allergy Mild facial Verified 11/14/21 04:43 swelling bupropion [From Wellbutrin] Allergy Mild facial Verified 11/14/21 04:43 swelling doxycycline Allergy Mild unknown Verified 11/14/21 04:43 fluticasone Allergy Mild dizziness Verified 11/14/21 04:43 [From Advair Diskus] hydrocodone [From Vicodin] Allergy Mild facial Verified 11/14/21 04:43 swelling levofloxacin [From Levaquin] Allergy Mild dizziness Verified 11/14/21 04:43 morphine Allergy Mild hallucinati Verified 11/14/21 04:43 on omeprazole Allergy Mild rash, Verified 11/14/21 04:43 upset stomach oxycodone Allergy Mild hallucinati Verified 11/14/21 04:43 ons prednisone Allergy Mild dizziness Verified 11/14/21 04:43 quetiapine [From Seroquel] Allergy Mild dizziness Verified 11/14/21 04:43 risperidone Allergy Mild sever Verified 11/14/21 04:43 nightmares salmeterol Allergy Mild dizziness Verified 11/14/21 04:43 [From Advair Diskus] tramadol Allergy Mild dizziness, Verified 11/14/21 04:43 hallucinations erythromycin base Allergy Unverified 11/14/21 04:43 propoxyphene HCl Allergy Unverified 11/14/21 04:43 [From Darvon] General Stated Complaint: PsychEval SEB: 2 Review of Systems All systems reviewed & are unremarkable except as noted in HPI and below PFSH All Active Problems (Updated 11/14/21 @ 07:15 by Andrzej Rao DO) Bipolar disorder (Acute) Suicidal thoughts (Acute) Bacterial vaginosis (Acute) Bipolar 1 disorder, mixed (Acute) History of colon polyps (Acute) Diarrhea (Acute) Unintentional weight loss (Acute) Screening for colon cancer (Acute) Medical History Anxiety Cerumen impaction Dizziness Headache Weakness Social History Smoking/Tobacco Use Status: Current every day Tobacco Type: cigarettes Smoking risk assessment performed?: Yes Alcohol Intake: former Drug use: Never Substance use type: does not use Do you feel safe at home: Yes Do you feel safe in your relationship?: Yes Exam Narrative Exam Narrative: 1.Const: Well-nourished, Well-developed, appearing stated age 2.Eyes: PERRL, no conjunctival injection, and symmetrical lids. 3.ENT: Atraumatic external nose and ears. Moist MM. Neck: Symmetric, trachea midline, No thyromegaly. 4.CVS: +S1/S2, No murmurs or gallops. Peripheral pulses 2+ and equal in all extremities. Brisk capillary refill in all extremities. 5.RESP: Unlabored respiratory effort. Clear to auscultation bilaterally. No wheezes rales or rhonchi 6.GI: Soft, Nontender/Nondistended, No hepatosplenomegaly. No guarding or rebound. 7.MSK: Normocephalic/Atraumatic, Extremities w/o deformity or ttp No cyanosis or clubbing, Normal movement of all extremities, however patient does complain of achiness in her head 8.Skin: Warm, Dry. No rashes or lesions. 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 Sensation grossly intact, no focal neurologic deficits. 10.Psych: (AAO) x3. Appropriate mood and affect, no pressured speech. Course Vital Signs Vital signs: Vital Signs Temperature 36.4 C L 11/14/21 04:37 Pulse 72 11/14/21 04:37 Respiratory Rate 16 11/14/21 04:37 Blood Pressure 140/73 11/14/21 04:37 Pulse Oximetry 99 11/14/21 04:37 Temperature 36.4 C L 11/14/21 04:37 Pulse 72 11/14/21 04:37 Respiratory Rate 16 11/14/21 04:37 Blood Pressure 140/73 11/14/21 04:37 Pulse Oximetry 99 11/14/21 04:37 Pain Level 4 11/14/21 04:37
[2021-11-14 05:26] LABS: Source Nasal/Nares
[2021-11-14 05:27] LABS: Abs Immature Grans 0.01 10^3/uL (0.0-0.06); Absolute Basophil Count 0.04 10^3/uL (0.0-0.2); Absolute Eosinophil Count 0.06 10^3/uL (0.0-0.7); Absolute Lymphocyte Count 1.99 10^3/uL (1.2-3.4); Absolute Monocyte Count 0.79 10^3/uL (0.1-0.8); Absolute Neutrophil Count 2.21 10^3/uL (1.2-6.7); Basophils % 0.8; Eosinophils % 1.2; HCT 35.6 % (36.0-46.0); HGB 11.2 g/dL (11.2-15.7); Immature Grans % 0.2; MCH 31.7 pg (27.0-33.0); MCHC 31.5 % (32.0-36.0); MCV 100.8 fL (80-95); MPV 10.6 fL (8.0-11.0); Monocytes % 15.5; Neutrophils % 43.3; Nucleated RBC 0 %; Platelet Count 238 10^3/uL (130-400); RBC 3.53 10^6/uL (3.93-5.22); RDW 13.2 % (11.7-14.6); RDW-SD 48.9 fL
[2021-11-14] MEDS: Acetaminophen 500 MG TAB 1000 MG PO (05:28)
[2021-11-14 05:38] LABS: Ammonia 15 umol/L (11-32)
[2021-11-14 05:41] LABS: Salicylate < 2.8 mg/dL (<2.8)
[2021-11-14 05:46] LABS: Acetaminophen < 2 ug/mL (10-30)
[2021-11-14 05:47] LABS: ALT 19 U/L (14-59); AST 21 U/L (15-37); Albumin 3.9 g/dL (3.4-5.0); Alkaline Phosphatase 91 U/L (46-116); Anion Gap 8.7 mmol/L (3-11); BUN 21 mg/dL (7-18); Bilirubin, Total 0.5 mg/dL (0.2-1.0); CO2 26.3 mmol/L (21.0-32.0); CREATININE 0.9 mg/dL (0.55-1.02); Calcium 9.3 mg/dL (8.5-10.1); Chloride 107 mmol/L (98-107); Glucose 75 mg/dL (74-106); Potassium 3.5 mmol/L (3.5-5.1); Sodium 142 mmol/L (136-145); Total Protein 7.4 g/dL (6.4-8.2)
[2021-11-14 05:48] LABS: *AMPHETAMINES SCREEN URINE Negative (Negative); *BARBITURATES SCREEN URINE Negative (Negative); *BENZODIAZEPINES SCREEN URINE Negative (Negative); Cannabinoids THC Negative (Negative); Cocaine Screen,Urine Negative (Negative); METHADONE URINE SCREEN Negative (Negative); OPIATES URINE SCREEN Negative (Negative)
[2021-11-14 05:49] LABS: Tricyclic Antidepressants Negative (Negative)
[2021-11-14 05:50] LABS: TSH (W/Ref FT4) 1.63 uIU/mL (0.36-3.74)
[2021-11-14 05:58] LABS: ETHANOL BLOOD < 3.0 mg/dL (<10)
[2021-11-14 06:01] LABS: COVID-19 PCR Negative (Negative)
--- NOTE | 2021-11-14 06:06 | DI.VRAD_ITS ---
PROCEDURE INFORMATION: Exam: CT Head Without Contrast Exam date and time: 11/14/2021 5:21 AM Age: 65 years old Clinical indication: Injury or trauma; Blunt trauma (contusions or hematomas); Consciousness not specified; Injury date: 11/13/21; Injury details: Fall yesterday, neck and head pain after trauma TECHNIQUE: Imaging protocol: Computed tomography of the head without contrast. Radiation optimization: All CT scans at this facility use at least one of these dose optimization techniques: automated exposure control; mA and/or kV adjustment per patient size (includes targeted exams where dose is matched to clinical indication); or iterative reconstruction. COMPARISON: No relevant prior studies available. FINDINGS: Generalized volume loss and periventricular white matter hypodensity consistent with chronic small vessel ischemic change. There is no evidence of intraparenchymal hemorrhage, mass effect or extra-axial collection. Ventricular size is concordant with degree of volume loss. Visualized intraorbital soft tissues are normal. The sinuses are well-aerated. IMPRESSION: No acute intracranial process. PROCEDURE INFORMATION: Exam: CT Cervical Spine Without Contrast Exam date and time: 11/14/2021 5:21 AM Age: 65 years old Clinical indication: Injury or trauma; Blunt trauma (contusions or hematomas); Consciousness not specified; Injury date: 11/13/21; Injury details: Fall yesterday, neck and head pain after trauma TECHNIQUE: Imaging protocol: Computed tomography images of the cervical spine without contrast. Radiation optimization: All CT scans at this facility use at least one of these dose optimization techniques: automated exposure control; mA and/or kV adjustment per patient size (includes targeted exams where dose is matched to clinical indication); or iterative reconstruction. COMPARISON: No relevant prior studies available. FINDINGS: Grade 1 anterolisthesis of C4 on C5 by 4 mm due to spondylosis. No acute fracture . Multilevel degenerative changes are noted. No critical canal stenosis. Multilevel moderate to severe foraminal stenoses. No evidence of prevertebral soft tissue swelling. IMPRESSION: 1. No evidence of fracture or dislocation. 2. Multilevel degenerative changes noted. Dictated and Authenticated by: Sophia Vega MD. Ordering:FERDINAND Donnelly MD
[2021-11-14] MEDS: Lactated Ringers 1,000 ML 1000 ML IV (06:22)
[2021-11-14 06:25] LABS: Bilirubin Negative (Negative); Blood Large (Negative); Clarity Clear (Clear); Glucose Negative (Negative); Ketones Negative (Negative); Leukocyte Esterase Negative (Negative); Nitrite Negative (Negative); Urobilinogen 0.2 EU/dL (Up TO 0.2); pH 6.5 (5-8)
[2021-11-14 06:26] LABS: Bacteria Few HPF (Negative); C & S Indicated? No; Casts Negative LPF (Negative); Crystals Negative HPF (Negative); Epithelial Cells Many HPF (Negative); Mucus Negative (Negative); RBC 20-50 HPF (0-2); WBC 0-2 HPF (0-5)
--- NOTE | 2021-11-14 07:30 | DI.VRAD_ITS ---
PROCEDURE INFORMATION: Exam: XR Right Hip Exam date and time: 11/14/2021 5:39 AM Age: 65 years old Clinical indication: Prior surgery; Surgery date: 6+ months; Surgery type: Bilat hip; Patient HX: Bilateral chronic hip pain TECHNIQUE: Imaging protocol: XR Right hip. Views: 2 or 3 views hip with pelvis when performed. COMPARISON: No relevant prior studies available. FINDINGS: Bones/joints: Post status post bilateral hip arthroplasty with intact hardware. No evidence of fracture or dislocation. Degenerative changes in the visualized lower spine. Soft tissues: Unremarkable. IMPRESSION: No acute fracture or dislocation. Bilateral hip replacements with intact hardware. Dictated and Authenticated by: Brandon Montano MD. Ordering:FERDINAND Donnelly MD
[2021-11-14 07:38] VITALS: BP 108/51; PULSE 76; RESP 20; TEMP 37; O2SAT 99
[2021-11-14 08:29] VITALS: BP 108/51; PULSE 76; RESP 20; TEMP 37; O2SAT 99
== END 2021-11-14 08:14 | disposition home or self-care (01) ==
PROVIDERS: Emergency Provider Student in an Organized Health Care Education/Training Program; PCP Physician Assistant
DX: F31.9 Bipolar disorder, unspecified (principal); M25.551 Pain in right hip; M25.552 Pain in left hip; R51.9 Headache, unspecified; M54.2 Cervicalgia; Z79.899 Other long term (current) drug therapy
CPT/HCPCS: 73521; 80053; 80307; 87635; 96360; 99284; 70450; 72125; 80320; 80329; 81003; 81015; 82140; 84443; 85025

== ENCOUNTER 2021-11-16 21:23 | Outpatient (REF) | payer MEDICARE, MEDICAID, SELFPAY ==
[2021-11-18 13:12] LABS: COVID-19 RT-PCR UVMMC Result Negative (Negative)
== END 2021-11-16 21:24 | disposition home or self-care (01) ==
LOC: LBN 21:23
PROVIDERS: PCP Physician Assistant; Visit Provider Physician Assistant Medical
DX: R42 Dizziness and giddiness (principal); N89.8 Other specified noninflammatory disorders of vagina
CPT/HCPCS: U0003; U0005; 87086; 87480; 87510; 87660

== ENCOUNTER 2021-11-26 22:37 | Emergency (ER) | payer MEDICARE, MEDICAID, SELFPAY ==
[2021-11-26 22:40] VITALS: BP 179/99; PULSE 104; RESP 20; TEMP 36.5; O2SAT 100
--- NOTE | 2021-11-26 22:56 | ED.GENADUL_ITS ---
Discharge Plan Disposition Patient Disposition: [facility] Condition: Stable Discharge Details Clinical Impression: Bipolar 1 disorder, mixed, Suicidal ideation Primary Care Provider: Maryuri Shah V ED Provider: Adnrzej Rao Home Meds and New Rx's Prescriptions: No Action albuterol sulfate 90 mcg/actuation HFA aerosol inhaler 2 puff inhalation Q6H PRN0RF ibuprofen 400 mg tablet 400 mg PO Q8H 0RF cholecalciferol (vitamin D3) 25 mcg (1,000 unit) capsule 25 mcg PO DAILY 0RF venlafaxine [Effexor XR] 150 mg capsule,extended release 24hr 75 mg PO DAILY 0RF levothyroxine [Synthroid] 50 MCG tablet 25 mcg PO DAILY 0RF furosemide 20 mg tablet 10 mg PO DAILY 0RF haloperidol 0.5 mg tablet 0.5 mg PO PRN PRN0RF haloperidol 1 mg tablet 0.5 mg PO BID 0RF vitamin B complex Capsule 1 cap PO DAILY 0RF Discharge Data Discharge Date/Time-TO BE ENTERED AT DEPARTURE: 11/30/21 20:40 Medical Decision Making 65 yo female with hx of bipolar who was released from [place] a few weeks ago comes in with her daughter with concerns for SI. Pt arrives speaking very fast and with pressured speech but is caox4. She states the last two days she has thoughts of wanting to kill herself by throwing herself off a bridge because she can't live with bipolar anymore. She denies ingesting anything or attempting to harm herself. The daughter reports she has been letting homeless people live in her home and use drugs and alcohol, patient denies using drugs or alcohol. She has no focal motor or sensation deficits, is intermittently agitated when she talks about living with bipolar but is redirectable. Suspect this is bipolar and has no findings on exam or history to suggest unerlying medical process. Will obtain labs and if no concerning findings will consult mental health. Will also order oral haldol and ativan to help calm her and she is agreeable to this pt's labs unremarkable, seen by mental health and is voluntary. She is now sleeping and easily arousable, will remain in the ED until placement found or beds available upstairs. 11/27/21 Dr. Munoz: 0800 --Case endorsed to continue to monitor while awaiting placement. 1000 --patient evaluated by Zeenat with [facility]. She is still endorsing thoughts of suicide. She remains voluntary. Likely no bed placement available today. 1530 --patient became agitated and demanding her belongings and would like to leave. Angela patterson called. Discussed with Zeenat who will now file EE due to persistent concern for poor judgement and self harm. Patient was able to be verbally deescalated and she willingly took p.o. Haldol and Ativan. 1920 --EE completed. Patient too drowsy to evaluate for second certificate so mental health and psychiatrist will reevaluate at 8:30 PM tonight. ML- Patient now involuntary as she wanted to leave earlier and took PO meds, sleeping now and plan for second cert tomorrow morning KJS, 1351: Patient signed out to me at time of shift change this morning with second completed. Patient stated that she felt somewhat anxious this morning and received 1 mg p.o. Ativan. Patient developed vomiting 1 to 2 hours thereafter. Patient states that she has had vomiting in the past secondary to multiple medications including benzodiazepines. Patient with persistent vomiting in the emergency department despite ODT Zofran, complaining of left lower quadrant pain. Patient had IV placement, IV fluid hydration, IV Zofran, screening labs sent, and underwent CT abdomen/pelvis. Per radiology there was no acute process on CT. Labs show lipase elevated at 554. Anion gap 6.6, WBC 7.97. Patient reassessed after CT and medications, reports feeling significantly improved. Patient did have encounter with Dr. Noble of psychiatry, who recommends patient receive olanzapine 2.5 mg p.o. twice daily and clonidine 0.05 mg 3 times daily. These were ordered. At this time, plan to leave IV in place, patient with no further vomiting, no abdominal pain. Patient signed out to Dr. Drew at time of shift change with reassessment, inpatient placement pending. Dr Rao Patient was signed out to me my colleague Dr. Chay Howe. Please refer to his HPI, physical exam, assessment and plan. At time of signout we are waiting reassessment by mental health and disposition. We have been contacted by mental health and they state that the patient is now appropriate for transfer to [place] for continued at health assessment. Patient remains medically stable. Case was discussed with Dr Whitley. I have extensively reviewed the treatment plan with the patient. I have addressed all patient concerns at this time. I have also discussed the plan with the admitting physician and they agree with the current assessment and plan and have agreed to assume responsibility for the patient. All parties demonstrate verbal understanding and agreement with our assessment and plan at this time. The documentation in this chart was dictated using [employer] dictation software. Please excuse any dictation errors. Differential Diagnosis Differential Diagnosis: manic, depression, bipolar Medical Records Medical records reviewed: Yes I reviewed the patient's medical records. Imaging Data Radiologic Study: Radiologist's impression: EXAM: ? CT ABDOMEN ? PELVIS W CLINICAL HISTORY: ? LLQ pain, vomiting. ? TECHNIQUE:? Imaging Protocol: Axial computed tomography images with coronal and sagittal reformatted images were created and reviewed CONTRAST MATERIAL:? Intravenous: Omnipaque 80cc Oral: None COMPARISON:? No exams were available for comparison FINDINGS: VISUALIZED LUNG BASES: No nodules nor pleural effusions evident.? ABDOMEN: There is no ascites. LIVER: There are no focal hepatic lesions evident .? GALLBLADDER/BILIARY: No obvious gallbladder pathology.? CBD is not dilated. PANCREAS: No evidence of pancreatic mass nor dilatation of the pancreatic duct.? SPLEEN: Spleen is not enlarged.? No obvious intrasplenic lesions.? Splenic and portal veins are patent. ADRENALS: There are no significant adrenal masses. KIDNEYS:There are small cysts in both kidneys.? The largest is in the superior pole of the left kidney and measures 1.3 x 1.1 cm.? No solid lesions seen in either kidney.? No calculi.? No hydronephrosis nor hydroureter.? Urinary bladder cannot be evaluated because of beam hardening artifact from bilateral hip prostheses.? The bladder, however, does not appear distended. ABDOMINAL AORTA: Abdominal aorta is not enlarged. LYMPH NODES:There is no retroperitoneal nor paraaortic adenopathy. ABDOMINAL WALL: No evidence of significant anterior abdominal wall nor inguinal hernia. GI: There is evidence of previous right partial hemicolectomy.? No bowel obstruction.? No free air.? Abundant fecal material is noted in the rectum and sigmoid but without obvious diverticular disease. However, please note that lower sigmoid is difficult to evaluate because of beam hardening artifact from the bilateral hip prostheses. PELVIS:? GI: Appendix is absent.No evidence of obvious diverticulitis. LYMPH NODES: There is no intrapelvic nor inguinal adenopathy. REPRODUCTIVE: Uterus is atrophic or surgically absent. URINARY BLADDER: Cannot be evaluated because of beam hardening artifact from bilateral hip prostheses OSSEOUS: Bilateral hip prostheses. Schmorl's node invagination in the superior aspect of L5.? Chronic advanced disc space narrowing at L4-5 and L5-S1 levels.? Moderate disc space narrowing at L3- 4 level. IMPRESSION: 1. There is evidence of partial right hemicolectomy.? There is no evidence of bowel obstruction, free air, nor abscess and there are no concerning focal hepatic lesions. 2. There is abundant fecal material in the rectosigmoid (which is itself redundant).? However, there is no evidence of volvulus nor obvious diverticulitis.? Please note that the lower sigmoid is difficult to evaluate because of beam hardening artifact from the bilateral hip prostheses.? Urinary bladder is also difficult to evaluate for the same reason. 3. Uterus is atrophic or surgically absent.? No free fluid 4. Bilateral hip prostheses.? No lytic osseous lesions evident Lab Data Lab results reviewed: Yes I reviewed the patient's lab results. Labs: Laboratory Tests Range/Units 11/26/21 11/26/21 11/26/21 22:50 22:50 23:00 WBC (4.4-10.8) 10^3/uL RBC (3.93-5.22) 10^6/uL Hgb (11.2-15.7) g/dL Hct (36.0-46.0) % MCV (80-95) fL MCH (27.0-33.0) pg MCHC (32.0-36.0) % RDW (11.7-14.6) % Plt Count (130-400) 10^3/uL MPV (8.0-11.0) fL Immature Gran % Neutrophils % Lymphocytes % Monocytes % Eosinophils % Basophils % Nucleated RBC % % Absolute Neutrophils (1.2-6.7) 10^3/uL Absolute Lymphocytes (1.2-3.4) 10^3/uL Absolute Monocytes (0.1-0.8) 10^3/uL Absolute Eosinophils (0.0-0.7) 10^3/uL Absolute Basophils (0.0-0.2) 10^3/uL Sodium (136-145) mmol/L Potassium (3.5-5.1) mmol/L Chloride (98-107) mmol/L Carbon Dioxide (21.0-32.0) mmol/L Anion Gap (3-11) mmol/L BUN (7-18) mg/dL Creatinine (0.55-1.02) mg/dL Estimated GFR/1.73 m2 (mL/min/1.73m2) Glucose (74-106) mg/dL Calcium (8.5-10.1) mg/dL Total Bilirubin (0.2-1.0) mg/dL AST (15-37) U/L ALT (14-59) U/L Alkaline Phosphatase (46-116) U/L Total Protein (6.4-8.2) g/dL Albumin (3.4-5.0) g/dL Lipase (73-393) U/L TSH (0.36-3.74) uIU/mL Urine Color (Yellow) Yellow Urine Clarity (Clear) Clear Urine pH (5-8) 6.0 Ur Specific [place] (1.005-1.025) 1.025 Urine Protein (Negative) mg/dL Negative Urine Ketones (Negative) mg/dL Negative Urine Blood (Negative) Trace-intact H Urine Nitrite (Negative) Negative Urine Bilirubin (Negative) Negative Urine Urobilinogen (Up TO 0.2) EU/dL 0.2 Ur Leukocyte Esterase (Negative) Negative Urine RBC (0-2) HPF 0-2 Urine WBC (0-5) HPF 0-2 Ur Epithelial Cells (Negative) HPF Moderate Urine Crystals (Negative) HPF Negative Urine Bacteria (Negative) HPF Rare Urine Casts (Negative) LPF Urine Mucus (Negative) Trace Urine Other (Negative) Ur Culture Indicated? No/Sq. Contamination Urine Glucose (Negative) mg/dL Negative Salicylates (<2.8) mg/dL Urine Opiates Screen (Negative) Negative Urine Methadone Screen (Negative) Negative Acetaminophen (10-30) ug/mL Ur Barbiturates Screen (Negative) Negative Ur Tricyclics Screen (Negative) Negative Ur Amphetamines Screen (Negative) Negative U Benzodiazepines Scrn (Negative) Negative Urine Cocaine Screen (Negative) Negative Ur THC Screen (Negative) Positive A Ethyl Alcohol (<10) mg/dL COVID-19 Source Nasal/Nares SARS-CoV-2 (PCR) (Negative) Negative Range/Units 11/26/21 11/26/21 11/26/21 23:03 23:10 23:10 WBC (4.4-10.8) 10^3/uL RBC (3.93-5.22) 10^6/uL Hgb (11.2-15.7) g/dL Hct (36.0-46.0) % MCV (80-95) fL MCH (27.0-33.0) pg MCHC (32.0-36.0) % RDW (11.7-14.6) % Plt Count (130-400) 10^3/uL MPV (8.0-11.0) fL Immature Gran % Neutrophils % Lymphocytes % Monocytes % Eosinophils % Basophils % Nucleated RBC % % Absolute Neutrophils (1.2-6.7) 10^3/uL Absolute Lymphocytes (1.2-3.4) 10^3/uL Absolute Monocytes (0.1-0.8) 10^3/uL Absolute Eosinophils (0.0-0.7) 10^3/uL Absolute Basophils (0.0-0.2) 10^3/uL Sodium (136-145) mmol/L 144 Potassium (3.5-5.1) mmol/L 3.6 Chloride (98-107) mmol/L 109 H Carbon Dioxide (21.0-32.0) mmol/L 24.0 Anion Gap (3-11) mmol/L 11.0 BUN (7-18) mg/dL 11 Creatinine (0.55-1.02) mg/dL 0.8 Estimated GFR/1.73 m2 (mL/min/1.73m2) >= 60.00 Glucose (74-106) mg/dL 100 Calcium (8.5-10.1) mg/dL 9.7 Total Bilirubin (0.2-1.0) mg/dL 0.6 AST (15-37) U/L 19 ALT (14-59) U/L 20 Alkaline Phosphatase (46-116) U/L 113 Total Protein (6.4-8.2) g/dL 7.6 Albumin (3.4-5.0) g/dL 4.1 Lipase (73-393) U/L TSH (0.36-3.74) uIU/mL 1.26 Urine Color (Yellow) Cancelled Urine Clarity (Clear) Cancelled Urine pH (5-8) Cancelled Ur Specific [place] (1.005-1.025) Cancelled Urine Protein (Negative) mg/dL Cancelled Urine Ketones (Negative) mg/dL Cancelled Urine Blood (Negative) Cancelled Urine Nitrite (Negative) Cancelled Urine Bilirubin (Negative) Cancelled Urine Urobilinogen (Up TO 0.2) EU/dL Cancelled Ur Leukocyte Esterase (Negative) Cancelled Urine RBC (0-2) HPF Urine WBC (0-5) HPF Ur Epithelial Cells (Negative) HPF Urine Crystals (Negative) HPF Urine Bacteria (Negative) HPF Urine Casts (Negative) LPF Urine Mucus (Negative) Urine Other (Negative) Ur Culture Indicated? Urine Glucose (Negative) mg/dL Cancelled Salicylates (<2.8) mg/dL < 2.8 Urine Opiates Screen (Negative) Urine Methadone Screen (Negative) Acetaminophen (10-30) ug/mL 10 Ur Barbiturates Screen (Negative) Ur Tricyclics Screen (Negative) Ur Amphetamines Screen (Negative) U Benzodiazepines Scrn (Negative) Urine Cocaine Screen (Negative) Ur THC Screen (Negative) Ethyl Alcohol (<10) mg/dL < 3.0 COVID-19 Source SARS-CoV-2 (PCR) (Negative) Range/Units 11/26/21 11/28/21 11/28/21 23:10 14:27 14:27 WBC (4.4-10.8) 10^3/uL 6.33 7.97 RBC (3.93-5.22) 10^6/uL 3.80 L 4.04 Hgb (11.2-15.7) g/dL 11.7 12.5 Hct (36.0-46.0) % 38.2 40.2 MCV (80-95) fL 100.5 H 99.5 H MCH (27.0-33.0) pg 30.8 30.9 MCHC (32.0-36.0) % 30.6 L 31.1 L RDW (11.7-14.6) % 13.0 13.0 Plt Count (130-400) 10^3/uL 305 282 MPV (8.0-11.0) fL 10.3 10.4 Immature Gran % 0.2 0.3 Neutrophils % 36.8 81.5 Lymphocytes % 49.1 12.3 Monocytes % 8.5 3.5 Eosinophils % 4.3 2.0 Basophils % 1.1 0.4 Nucleated RBC % % 0 0 Absolute Neutrophils (1.2-6.7) 10^3/uL 2.33 6.50 Absolute Lymphocytes (1.2-3.4) 10^3/uL 3.11 0.98 L Absolute Monocytes (0.1-0.8) 10^3/uL 0.54 0.28 Absolute Eosinophils (0.0-0.7) 10^3/uL 0.27 0.16 Absolute Basophils (0.0-0.2) 10^3/uL 0.07 0.03 Sodium (136-145) mmol/L 142 Potassium (3.5-5.1) mmol/L 4.5 D Chloride (98-107) mmol/L 107 Carbon Dioxide (21.0-32.0) mmol/L 28.4 Anion Gap (3-11) mmol/L 6.6 BUN (7-18) mg/dL 23 H D Creatinine (0.55-1.02) mg/dL 0.9 Estimated GFR/1.73 m2 (mL/min/1.73m2) >= 60.00 Glucose (74-106) mg/dL 104 Calcium (8.5-10.1) mg/dL 9.2 Total Bilirubin (0.2-1.0) mg/dL 0.5 AST (15-37) U/L 20 ALT (14-59) U/L 22 Alkaline Phosphatase (46-116) U/L 104 Total Protein (6.4-8.2) g/dL 7.2 Albumin (3.4-5.0) g/dL 3.7 Lipase (73-393) U/L 554 H TSH (0.36-3.74) uIU/mL Urine Color (Yellow) Urine Clarity (Clear) Urine pH (5-8) Ur Specific [place] (1.005-1.025) Urine Protein (Negative) mg/dL Urine Ketones (Negative) mg/dL Urine Blood (Negative) Urine Nitrite (Negative) Urine Bilirubin (Negative) Urine Urobilinogen (Up TO 0.2) EU/dL Ur Leukocyte Esterase (Negative) Urine RBC (0-2) HPF Urine WBC (0-5) HPF Ur Epithelial Cells (Negative) HPF Urine Crystals (Negative) HPF Urine Bacteria (Negative) HPF Urine Casts (Negative) LPF Urine Mucus (Negative) Urine Other (Negative) Ur Culture Indicated? Urine Glucose (Negative) mg/dL Salicylates (<2.8) mg/dL Urine Opiates Screen (Negative) Urine Methadone Screen (Negative) Acetaminophen (10-30) ug/mL Ur Barbiturates Screen (Negative) Ur Tricyclics Screen (Negative) Ur Amphetamines Screen (Negative) U Benzodiazepines Scrn (Negative) Urine Cocaine Screen (Negative) Ur THC Screen (Negative) Ethyl Alcohol (<10) mg/dL COVID-19 Source SARS-CoV-2 (PCR) (Negative) Range/Units 11/28/21 15:28 WBC (4.4-10.8) 10^3/uL RBC (3.93-5.22) 10^6/uL Hgb (11.2-15.7) g/dL Hct (36.0-46.0) % MCV (80-95) fL MCH (27.0-33.0) pg MCHC (32.0-36.0) % RDW (11.7-14.6) % Plt Count (130-400) 10^3/uL MPV (8.0-11.0) fL Immature Gran % Neutrophils % Lymphocytes % Monocytes % Eosinophils % Basophils % Nucleated RBC % % Absolute Neutrophils (1.2-6.7) 10^3/uL Absolute Lymphocytes (1.2-3.4) 10^3/uL Absolute Monocytes (0.1-0.8) 10^3/uL Absolute Eosinophils (0.0-0.7) 10^3/uL Absolute Basophils (0.0-0.2) 10^3/uL Sodium (136-145) mmol/L Potassium (3.5-5.1) mmol/L Chloride (98-107) mmol/L Carbon Dioxide (21.0-32.0) mmol/L Anion Gap (3-11) mmol/L BUN (7-18) mg/dL Creatinine (0.55-1.02) mg/dL Estimated GFR/1.73 m2 (mL/min/1.73m2) Glucose (74-106) mg/dL Calcium (8.5-10.1) mg/dL Total Bilirubin (0.2-1.0) mg/dL AST (15-37) U/L ALT (14-59) U/L Alkaline Phosphatase (46-116) U/L Total Protein (6.4-8.2) g/dL Albumin (3.4-5.0) g/dL Lipase (73-393) U/L TSH (0.36-3.74) uIU/mL Urine Color (Yellow) Yellow Urine Clarity (Clear) Clear Urine pH (5-8) 7.0 Ur Specific [place] (1.005-1.025) 1.015 Urine Protein (Negative) mg/dL Negative Urine Ketones (Negative) mg/dL Negative Urine Blood (Negative) Trace-intact H Urine Nitrite (Negative) Negative Urine Bilirubin (Negative) Negative Urine Urobilinogen (Up TO 0.2) EU/dL 0.2 Ur Leukocyte Esterase (Negative) Negative Urine RBC (0-2) HPF 0-2 Urine WBC (0-5) HPF 0-2 Ur Epithelial Cells (Negative) HPF Moderate Urine Crystals (Negative) HPF Negative Urine Bacteria (Negative) HPF Negative Urine Casts (Negative) LPF Negative Urine Mucus (Negative) Moderate Urine Other (Negative) Negative Ur Culture Indicated? No Urine Glucose (Negative) mg/dL Negative Salicylates (<2.8) mg/dL Urine Opiates Screen (Negative) Urine Methadone Screen (Negative) Acetaminophen (10-30) ug/mL Ur Barbiturates Screen (Negative) Ur Tricyclics Screen (Negative) Ur Amphetamines Screen (Negative) U Benzodiazepines Scrn (Negative) Urine Cocaine Screen (Negative) Ur THC Screen (Negative) Ethyl Alcohol (<10) mg/dL COVID-19 Source SARS-CoV-2 (PCR) (Negative) ECG Data Attestation: I personally reviewed and interpreted this ECG (s) as follows: Interpretation: EKG shows sinus rhythm at 63, normal axis, QTC 431, no STEMI HPI General Mode of arrival: ambulatory . Date/Time Provider Initiated Documentation: 11/26/21 22:38 . Limitations to Documentation: no limitations . Information obtained by: patient and family . History of Present Illness 65 year old F presents to the emergency department with the chief complaint of suicidal, described as moderate, Patient started experiencing this day(s) (2) and it has been constant. improves with No relieving factors improve symptom(s), No exacerbating factors reported . Related Data Home Medications Medication Instructions Recorded Confirmed levothyroxine 50 mcg tablet 25 mcg PO DAILY 12/29/15 11/26/21 (Synthroid) albuterol sulfate 90 mcg/actuation 2 puff INHALATION Q6H PRN 09/22/21 11/14/21 aerosol inhaler cholecalciferol (vitamin D3) 25 25 mcg PO DAILY 09/22/21 11/26/21 mcg (1,000 unit) capsule ibuprofen 400 mg tablet 400 mg PO Q8H 09/22/21 11/14/21 venlafaxine 150 mg 75 mg PO DAILY 09/22/21 11/26/21 capsule,extended release 24 hr (Effexor XR) haloperidol 0.5 mg tablet 0.5 mg PO PRN PRN 11/14/21 11/26/21 haloperidol 1 mg tablet 0.5 mg PO BID 11/14/21 11/26/21 vitamin B complex 1 cap PO DAILY 11/14/21 11/26/21 furosemide 20 mg tablet 10 mg PO DAILY 11/26/21 11/26/21 Allergies Allergy/AdvReac Type Severity Reaction Status Date / Time acetaminophen [From Vicodin] Allergy Mild facial Verified 11/26/21 22:46 swelling bupropion [From Wellbutrin] Allergy Mild facial Verified 11/26/21 22:46 swelling doxycycline Allergy Mild unknown Verified 11/26/21 22:46 fluticasone Allergy Mild dizziness Verified 11/26/21 22:46 [From Advair Diskus] hydrocodone [From Vicodin] Allergy Mild facial Verified 11/26/21 22:46 swelling levofloxacin [From Levaquin] Allergy Mild dizziness Verified 11/26/21 22:46 morphine Allergy Mild hallucinati Verified 11/26/21 22:46 on omeprazole Allergy Mild rash, Verified 11/26/21 22:46 upset stomach oxycodone Allergy Mild hallucinati Verified 11/26/21 22:46 ons prednisone Allergy Mild dizziness Verified 11/26/21 22:46 quetiapine [From Seroquel] Allergy Mild dizziness Verified 11/26/21 22:46 risperidone Allergy Mild sever Verified 11/26/21 22:46 nightmares salmeterol Allergy Mild dizziness Verified 11/26/21 22:46 [From Advair Diskus] tramadol Allergy Mild dizziness, Verified 11/26/21 22:46 hallucinations erythromycin base Allergy Unverified 11/26/21 22:46 propoxyphene HCl Allergy Unverified 11/26/21 22:46 [From Darananya] General Stated Complaint: PsychEval SEB: 2 Review of Systems All systems reviewed & are unremarkable except as noted in HPI and below Constitutional Constitutional: Denies chills, Denies fever(s) and Denies weakness Eyes Eyes: Denies loss of vision Cardiovascular Cardiovascular: Denies chest pain and Denies dyspnea Respiratory Respiratory: Denies cough and Denies dyspnea Gastrointestinal Gastrointestinal: Denies abdominal pain, Denies nausea and Denies vomiting Genitourinary Genitourinary: Denies dysuria Musculoskeletal Musculoskeletal: Denies joint swelling Integumentary/Breasts Skin/Breast: Denies rash Neurologic Neurologic: Denies loss of vision and Denies weakness PFSH All Active Problems (Updated 11/29/21 @ 19:53 by Chay Howe MD) Suicidal ideation (Acute) PTSD (post-traumatic stress disorder) (Acute) Bipolar 1 disorder, mixed (Acute) History of colon polyps (Acute) Diarrhea (Acute) Unintentional weight loss (Acute) Screening for colon cancer (Acute) Medical History Anxiety Cerumen impaction Dizziness Headache Weakness Social History Smoking/Tobacco Use Status: Current every day Tobacco Type: cigarettes Smoking risk assessment performed?: Yes Alcohol Intake: former Drug use: Never Substance use type: does not use Do you feel safe at home: Yes Do you feel safe in your relationship?: Yes Exam Const General: anxious Orientation: alert HENMT Head: normal to inspection Ears: external ears normal General nose exam: external nose normal Mouth: moist mucous membranes Eyes General: appearance normal, both eyes and all related structures Neck Neck: normal visual inspection Resp Effort & Inspection: normal respiratory effort and able to speak in complete sentences Cardio Rate: regular rate Skin General skin exam: no rashes or lesions noted Neuro General: patient alert and patient oriented x3 Extrem General: normal to inspection Psych Appearance: disheveled Course Vital Signs Vital signs: Vital Signs Temperature 36.5 C 11/26/21 22:40 Pulse 104 H 11/26/21 22:40 Respiratory Rate 20 11/26/21 22:40 Blood Pressure 179/99 H 11/26/21 22:40 Pulse Oximetry 100 11/26/21 22:40 Temperature 36.5 C 11/26/21 22:40 Temperature Source Skin 11/26/21 22:40 Pulse 104 H 11/26/21 22:40 Respiratory Rate 20 11/26/21 22:40 Blood Pressure 179/99 H 11/26/21 22:40 Pulse Oximetry 100 11/26/21 22:40 Sign Out Sign Out Data: Sign Out Comment: history of bipolar, came in for depression/thoughts of self harm. initially anxious and intermittently screaming but calm after oral meds. Voluntary currently Last updated by Miah Hair MD at 11/27/21 00:37 Sign Out Comment: Angela patterson called today after pt became agitated and demanding to leave. Able to verbally deescalate and she willingly took PO haldol and ativan. EE completed. Second certificate to happen this evening around 830pm. Last updated by Mahi Munoz DO at 11/27/21 19:21 Sign Out Comment: bipolar with SI, initially voluntary but then EE'd after she wanted to leave, was medicated and slept, awaiting second cert this morning Last updated by Miah Hair MD at 11/27/21 23:12 Sign Out Comment: Patient signed out to Dr. Drew at time of shift change with inpatient placement, reassessment for vomiting pending. Patient is EE status. Last updated by Lori Howe MD at 11/28/21 16:36 Sign Out Comment: EE. Awaits placement. Last updated by Paco Drew MD at 11/28/21 21:32 Sign Out Comment: no events overnight, sleeping; EE awaiting placement Last updated by Suleman Pineda MD at 11/29/21 08:00 Sign Out Comment: slight agitation overnight, relieved with ativan, resting comfortably, awaiting placement Last updated by Suleman Pineda MD at 11/30/21 07:17
[2021-11-26 23:02] LABS: Source Nasal/Nares
[2021-11-26 23:03] LABS: Bilirubin Negative (Negative); Blood Trace-intact (Negative); Clarity Clear (Clear); Glucose Negative (Negative); Ketones Negative (Negative); Leukocyte Esterase Negative (Negative); Nitrite Negative (Negative); Specific Gravity 1.025 (1.005-1.025); Urobilinogen 0.2 EU/dL (Up TO 0.2)
[2021-11-26 23:17] LABS: *AMPHETAMINES SCREEN URINE Negative (Negative); *BARBITURATES SCREEN URINE Negative (Negative); *BENZODIAZEPINES SCREEN URINE Negative (Negative); Cannabinoids THC Positive (Negative); Cocaine Screen,Urine Negative (Negative); METHADONE URINE SCREEN Negative (Negative); OPIATES URINE SCREEN Negative (Negative)
[2021-11-26 23:18] LABS: Abs Immature Grans 0.01 10^3/uL (0.0-0.06); Absolute Basophil Count 0.07 10^3/uL (0.0-0.2); Absolute Eosinophil Count 0.27 10^3/uL (0.0-0.7); Absolute Lymphocyte Count 3.11 10^3/uL (1.2-3.4); Absolute Monocyte Count 0.54 10^3/uL (0.1-0.8); Absolute Neutrophil Count 2.33 10^3/uL (1.2-6.7); Basophils % 1.1; Eosinophils % 4.3; HCT 38.2 % (36.0-46.0); HGB 11.7 g/dL (11.2-15.7); Immature Grans % 0.2; Lymphocytes % 49.1; MCH 30.8 pg (27.0-33.0); MCHC 30.6 % (32.0-36.0); MCV 100.5 fL (80-95); MPV 10.3 fL (8.0-11.0); Monocytes % 8.5; Neutrophils % 36.8; Nucleated RBC 0 %; Platelet Count 305 10^3/uL (130-400); RDW-SD 48.5 fL; WBC 6.33 10^3/uL (4.4-10.8)
[2021-11-26] MEDS: Haloperidol 5 MG TAB PO (23:22)
[2021-11-26 23:23] LABS: Tricyclic Antidepressants Negative (Negative)
[2021-11-26] MEDS: LORazepam 1 MG TAB PO (23:23)
[2021-11-26 23:30] LABS: Bacteria Rare HPF (Negative); C & S Indicated? No/Sq. Contamination; Crystals Negative HPF (Negative); Epithelial Cells Moderate HPF (Negative); Mucus Trace (Negative); RBC 0-2 HPF (0-2); WBC 0-2 HPF (0-5)
[2021-11-26 23:40] LABS: ALT 20 U/L (14-59); AST 19 U/L (15-37); Albumin 4.1 g/dL (3.4-5.0); Alkaline Phosphatase 113 U/L (46-116); BUN 11 mg/dL (7-18); Bilirubin, Total 0.6 mg/dL (0.2-1.0); CREATININE 0.8 mg/dL (0.55-1.02); Calcium 9.7 mg/dL (8.5-10.1); Chloride 109 mmol/L (98-107); Glucose 100 mg/dL (74-106); Potassium 3.6 mmol/L (3.5-5.1); Sodium 144 mmol/L (136-145); TSH (W/Ref FT4) 1.26 uIU/mL (0.36-3.74); Total Protein 7.6 g/dL (6.4-8.2)
[2021-11-26 23:42] LABS: COVID-19 PCR Negative (Negative)
[2021-11-26 23:55] LABS: ETHANOL BLOOD < 3.0 mg/dL (<10)
[2021-11-27 00:03] LABS: Acetaminophen 10 ug/mL (10-30); Salicylate < 2.8 mg/dL (<2.8)
[2021-11-27] MEDS: Ibuprofen 400 MG TAB PO (06:20)
[2021-11-27] MEDS: Furosemide 20 MG TAB 10 MG PO (07:50)
[2021-11-27] MEDS: Vitamins B Comp w/C TAB 1 TAB PO (07:51)
[2021-11-27] MEDS: Venlafaxine 37.5 MG CAPCR 75 MG PO (07:51)
[2021-11-27] MEDS: Levothyroxine 25 MCG TAB PO (07:51)
[2021-11-27 11:25] VITALS: BP 128/77; PULSE 78; RESP 16; TEMP 36.9; O2SAT 96
[2021-11-27] MEDS: Haloperidol 5 MG TAB PO ×2 (16:31→16:32)
[2021-11-27] MEDS: LORazepam 1 MG TAB 2 MG PO (16:31)
--- NOTE | 2021-11-27 18:25 | PDOC.MHCN ---
Date of service: 11/27/21 Time of Service: 18:26 Mental Health Crisis Note Presenting Issue How did you arrive at the ED and why did you come: Pt arrived on 11.26.2021 for a voluntary admission. When reassessed on 11.27.2021 she remained voluntary until the afternoon when she demanded to get her things and go home. Precipitating Factors Pt rates her SI at a 10/10 Pt was endorsing visual hallucinations. Disposition BEHAVIOR: Pt went from voluntary and cooperative to uncooperative during her 3rd assessment and not willing to stay so an EE will be written. EYE CONTACT: consistent MOOD: angry, verbally aggressive and demanding. AFFECT: congruent APPETITE: eating this am. SLEEP(trouble falling/staying asleep: reported sleeping well last night. Plan Pt will remain at [facility] on EE status pending her second certification. [facility] will re-assess twice daily until placement is found. Signature Clinician's Name/Title: Zeenat Guerrero MS, [facility], [place]
--- NOTE | 2021-11-27 18:42 | PDOC.CMSAFED ---
- If Service Date Differs Date of service: 11/27/21 Time of Service: 18:42 Care Management Safety Plan Status: Involuntary - Reason for Wait Reason for Wait: Inpatient Admission
--- NOTE | 2021-11-27 18:45 | CMSP_ITS ---
- If Service Date Differs Date of service: 11/27/21 Time of Service: 18:46 Care Management Safety Plan Status: Involuntary - Reason for Wait Reason for Wait: Inpatient Admission INVOLUNTARY FOR INPATIENT PSYCHIATRIC STABILIZATION. Cindy is a 65 year old woman with a history of bipolar disorder who presented to the ED with her daughter on 11/26/21 with SI. She verbalized that she had been thinking of killing herself by jumping off a bridge for the previous few days. She was admitting as voluntarily seeking psychiatric stabilization however her behavior escalated this afternoon and she informed staff she intended to leave. Zeenat Guerrero from [facility] spoke to her on Zoom. Cindy became verbally abusive and was shouting during the exchange. EE paperwork was filed and Cindy remains at [facility] in Involuntary status. Safety plan has been established to meet the needs of the patient, and consideration of the care team, to adhere to patient goals, identify restrictions based on behavioral status, address nutrition, and determine allowed personal belongings, tools for hygiene and personal care. Determine level of activity including ambulation, level of supervision, visitors, and determine privileges based on behaviors and level of engagement by pt. SAFETY PLAN: 1. Will remain on SI/HI precautions. In Paper Clothes 2. Will remain in room under direct supervision of one-on-one staff at all times provided by [employer]; CLEVE, CANDY DIPPER journeyman power plant operator. 3. May have paper cups, plates, finger foods as well as a cardboard spoon 4. Follow [facility] Management of the Admitted Behavioral Health Patient policy. 5. Comfort bath system only. May shower at nursing discretion. 6. No personal belongings 7. Visitors: none at this time. 8. Activities: may have soft items from activity cart and may watch tv if available 9. Bathroom privileges with supervision 10. Phone: may speak to daughter and other family members on hospital portable phone at nursing discretion.None at this time 11. Due to INVOLUNTARY status, patient is being held at [facility] by the Department of Mental Health (DM) until 2nd certification by [facility] Psychiatrist can be performed (within 24 hours). Staff will provide de-escalation support (CPI) as needed. If patient wishes to leave [facility], staff will contact [facility] Crisis Screener ([phone]) and On-Call Land Leasing Information Clerk ([phone]) as soon as possible. In the event of elopement, notify [facility] Police ([phone]). Patient is currently involuntarily at [facility]. [facility] Frontline Business Sales Consultant will continue seeking placement. Please contact the Superintendent Horticulture Land Leasing Information Clerk ) for any needed changes to Safety Plan. Safety plan has been provided to interdepartmental care team. Patient will be transported by poll clerk at time of discharge.
[2021-11-27 19:36] VITALS: BP 104/65; PULSE 88; RESP 16; TEMP 37.1; O2SAT 95
--- NOTE | 2021-11-28 03:30 | NUR.NOTE ---
unable to access patient observation tab in worklist. Pt remains asleep.
[2021-11-28] MEDS: Ibuprofen 400 MG TAB PO (05:22)
[2021-11-28] MEDS: Levothyroxine 25 MCG TAB PO (06:32)
[2021-11-28 07:14] VITALS: BP 133/80; PULSE 77; RESP 18; TEMP 36.6; O2SAT 95
[2021-11-28] MEDS: Furosemide 20 MG TAB 10 MG PO (09:05)
[2021-11-28] MEDS: Vitamins B Comp w/C TAB 1 TAB PO (09:05)
[2021-11-28] MEDS: Venlafaxine 37.5 MG CAPCR 75 MG PO (09:05)
[2021-11-28] MEDS: LORazepam 1 MG TAB PO (09:29)
[2021-11-28] MEDS: Ondansetron O.D.T. 4 MG TABEF (09:42)
--- NOTE | 2021-11-28 12:00 | RT.EKG_ITS ---
APPROVED REPORT Exam: Resting ECG Reason for Exam: QT [place] Patient Location: E HR:63 bpm ECG Measurements Heart Rate 63 AXIS MD 106 P 66 QRSd 83 QRS 69 QT 422 T 76 QTc 431 Conclusion Sinus rhythm...normal P axis, V-rate 60- 99 sinus rhythm at 63, normal axis, QTC 431, no STEMI
[2021-11-28] MEDS: Acetaminophen 500 MG TAB 1000 MG PO (12:15)
[2021-11-28] MEDS: Ondansetron O.D.T. 4 MG TABEF PO (12:19)
--- NOTE | 2021-11-28 13:45 | DI.CT_ITS ---
Exam(s) CT ABDOMEN PELVIS W EXAM: CT ABDOMEN PELVIS W CLINICAL HISTORY: LLQ pain, vomiting. TECHNIQUE: Imaging Protocol: Axial computed tomography images with coronal and sagittal reformatted images were created and reviewed CONTRAST MATERIAL: Intravenous: Omnipaque 80cc Oral: None COMPARISON: No exams were available for comparison FINDINGS: VISUALIZED LUNG BASES: No nodules nor pleural effusions evident. ABDOMEN: There is no ascites. LIVER: There are no focal hepatic lesions evident . GALLBLADDER/BILIARY: No obvious gallbladder pathology. CBD is not dilated. PANCREAS: No evidence of pancreatic mass nor dilatation of the pancreatic duct. SPLEEN: Spleen is not enlarged. No obvious intrasplenic lesions. Splenic and portal veins are paten t. ADRENALS: There are no significant adrenal masses. KIDNEYS:There are small cysts in both kidneys. The largest is in the superior pole of the left kidne y and measures 1.3 x 1.1 cm. No solid lesions seen in either kidney. No calculi. No hydronephrosis nor hydroureter. Urinary bladder cannot be evaluated because of beam hardening artifact from bilate ral hip prostheses. The bladder, however, does not appear distended. ABDOMINAL AORTA: Abdominal aorta is not enlarged. LYMPH NODES:There is no retroperitoneal nor paraaortic adenopathy. ABDOMINAL WALL: No evidence of significant anterior abdominal wall nor inguinal hernia. GI: There is evidence of previous right partial hemicolectomy. No bowel obstruction. No free air. Abundant fecal material is noted in the rectum and sigmoid but without obvious diverticular disease. However, please note that lower sigmoid is difficult to evaluate because of beam hardening artifact f rom the bilateral hip prostheses. PELVIS: GI: Appendix is absent.No evidence of obvious diverticulitis. LYMPH NODES: There is no intrapelvic nor inguinal adenopathy. REPRODUCTIVE: Uterus is atrophic or surgically absent. URINARY BLADDER: Cannot be evaluated because of beam hardening artifact from bilateral hip prostheses OSSEOUS: Bilateral hip prostheses. Schmorl's node invagination in the superior aspect of L5. Chronic advanced disc space narrowing at L 4-5 and L5-S1 levels. Moderate disc space narrowing at L3-4 level. IMPRESSION: 1. There is evidence of partial right hemicolectomy. There is no evidence of bowel obstruction, free air, nor abscess and there are no concerning focal hepatic lesions. 2. There is abundant fecal material in the rectosigmoid (which is itself redundant). However, there is no evidence of volvulus nor obvious diverticulitis. Please note that the lower sigmoid is difficu lt to evaluate because of beam hardening artifact from the bilateral hip prostheses. Urinary bladder is also difficult to evaluate for the same reason. 3. Uterus is atrophic or surgically absent. No free fluid 4. Bilateral hip prostheses. No lytic osseous lesions evident RADIATION DOSE DELIVERED: 555.81mGy.cm Total DLP DATA REPOSITORY: All CT scans at this facility are submitted to the National Radiology Data Registry (NRDR) Dose Index Registry (DIR) with the [employer] (ACR). RADIATION OPTIMIZATION: All CT scans at this facility use at least one of these dose optimization te chniques: automated exposure control; mA and/or kV adjustment per patient size (includes targeted exa ms where dose is matched to clinical indication); or iterative reconstruction.
[2021-11-28] MEDS: Normal Saline 500 ML IV (14:31)
[2021-11-28] MEDS: Ondansetron 4 MG/2 ML VIAL IVP (14:32)
[2021-11-28 14:39] LABS: Abs Immature Grans 0.02 10^3/uL (0.0-0.06); Absolute Basophil Count 0.03 10^3/uL (0.0-0.2); Absolute Eosinophil Count 0.16 10^3/uL (0.0-0.7); Absolute Lymphocyte Count 0.98 10^3/uL (1.2-3.4); Absolute Monocyte Count 0.28 10^3/uL (0.1-0.8); Basophils % 0.4; HCT 40.2 % (36.0-46.0); HGB 12.5 g/dL (11.2-15.7); Immature Grans % 0.3; Lymphocytes % 12.3; MCH 30.9 pg (27.0-33.0); MCHC 31.1 % (32.0-36.0); MCV 99.5 fL (80-95); MPV 10.4 fL (8.0-11.0); Monocytes % 3.5; Neutrophils % 81.5; Nucleated RBC 0 %; Platelet Count 282 10^3/uL (130-400); RBC 4.04 10^6/uL (3.93-5.22); RDW-SD 47.6 fL; WBC 7.97 10^3/uL (4.4-10.8)
[2021-11-28 14:51] LABS: ALT 22 U/L (14-59); AST 20 U/L (15-37); Albumin 3.7 g/dL (3.4-5.0); Alkaline Phosphatase 104 U/L (46-116); Anion Gap 6.6 mmol/L (3-11); BUN 23 mg/dL (7-18); Bilirubin, Total 0.5 mg/dL (0.2-1.0); CO2 28.4 mmol/L (21.0-32.0); CREATININE 0.9 mg/dL (0.55-1.02); Calcium 9.2 mg/dL (8.5-10.1); Chloride 107 mmol/L (98-107); Glucose 104 mg/dL (74-106); Lipase 554 U/L (73-393); Potassium 4.5 mmol/L (3.5-5.1); Sodium 142 mmol/L (136-145); Total Protein 7.2 g/dL (6.4-8.2)
[2021-11-28] MEDS: Omnipaque 350 MG/ML 100 ML BTL IJ (15:15)
[2021-11-28] MEDS: Normal Saline Flush 10 ML SYR IVP (15:16)
[2021-11-28 15:44] LABS: Bilirubin Negative (Negative); Blood Trace-intact (Negative); Clarity Clear (Clear); Glucose Negative (Negative); Ketones Negative (Negative); Leukocyte Esterase Negative (Negative); Nitrite Negative (Negative); Specific Gravity 1.015 (1.005-1.025); Urobilinogen 0.2 EU/dL (Up TO 0.2)
[2021-11-28 15:51] LABS: Bacteria Negative HPF (Negative); C & S Indicated? No; Casts Negative LPF (Negative); Crystals Negative HPF (Negative); Epithelial Cells Moderate HPF (Negative); Mucus Moderate (Negative); Other Cells Negative (Negative); RBC 0-2 HPF (0-2); WBC 0-2 HPF (0-5)
[2021-11-28] MEDS: Metoclopramide 10 MG/2 ML VIAL IVP (16:15)
--- NOTE | 2021-11-28 16:49 | CMSP_ITS ---
- If Service Date Differs Date of service: 11/28/21 Time of Service: 16:49 Care Management Safety Plan Status: Involuntary - Guarianship if Applicable Guardianship: Parent - Reason for Wait Reason for Wait: Inpatient Admission INVOLUNTARY FOR INPATIENT PSYCHIATRIC STABILIZATION. Cindy is a 65 year old woman with a history of bipolar disorder who presented to the ED with her daughter on 11/26/21 with SI. She verbalized that she had been thinking of killing herself by jumping off a bridge for the previous few days. She was admitting as voluntarily seeking psychiatric stabilization however her behavior escalated this afternoon and she informed staff she intended to leave. Zeenat Guerrero from [facility] spoke to her on Zoom. Cindy became verbally abusive and was shouting during the exchange. EE paperwork was filed and Cindy remains at [facility] in Involuntary status. Safety plan has been established to meet the needs of the patient, and consideration of the care team, to adhere to patient goals, identify restrictions based on behavioral status, address nutrition, and determine allowed personal belongings, tools for hygiene and personal care. Determine level of activity including ambulation, level of supervision, visitors, and determine privileges based on behaviors and level of engagement by pt. SAFETY PLAN: 1. Will remain on SI/HI precautions. In Paper Clothes 2. Will remain in room under direct supervision of one-on-one staff at all times provided by [employer]; CLEVE, RAIL SIGNAL WORKER director of teacher education. 3. May have paper cups, plates, finger foods as well as a cardboard spoon 4. Follow [facility] Management of the Admitted Behavioral Health Patient policy. 5. Comfort bath system only. May shower at nursing discretion. 6. No personal belongings 7. Visitors: none at this time. 8. Activities: may have soft items from activity cart and may watch tv if available 9. Bathroom privileges with supervision 10. Phone: may speak to daughter and other family members on hospital portable phone at nursing discretion. 11. Due to INVOLUNTARY status, patient is being held at [facility] by the Department of Mental Health (DM) until 2nd certification by [facility] Psychiatrist can be performed (within 24 hours). Staff will provide de-escalation support (CPI) as needed. If patient wishes to leave [facility], staff will contact [facility] Crisis Screener ([phone]) and On-Call Geology Teacher ([phone]) as soon as possible. In the event of elopement, notify [facility] Police ([phone]). Patient is currently involuntarily at [facility]. [facility] Frontline Therapy Director will continue seeking placement. Please contact the Felting Machine Operator Geology Teacher ([phone]) for any needed changes to Safety Plan. Safety plan has been provided to interdepartmental care team. Patient will be transported by solar project coordination specialist at time of discharge.
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
[2021-11-28] MEDS: Acetaminophen 325 MG TAB 650 MG PO (18:38)
--- NOTE | 2021-11-28 19:52 | PDOC.MHCN_ITS ---
Date of service: 11/28/21 Time of Service: 19:52 Mental Health Crisis Note Presenting Issue How did you arrive at the ED and why did you come: Pt arrived on 11.26.2021 seeking a voluntary admission for manic episode with SI, plan and intent. Precipitating Factors Pt denied SI today during her second certification. In the past 2 days she self-reported her risk in the past two days at a 10/10. She denied HI. She is not displaying delusions however is disorganized. Disposition BEHAVIOR: Pt was upset that this clinician was present during the second cert so this clinician shut off her camera. She is labile and angry. EYE CONTACT: Pt made fair eye contact with the screen. MOOD: Pt's mood is depressed and angry. AFFECT: congruent with mood APPETITE: Pt is eating well. SLEEP(trouble falling/staying asleep: Sleep is consistent with medications. Plan Pt will remain at [facility] and be screened twice daily by [facility] as Dr. Stanley certified her EE. She will remain at [facility] until placement is secured. Signature Clinician's Name/Title: Zeenat Guerrero MS, [facility] Emergency Services Clinician, [facility]
--- NOTE | 2021-11-28 20:09 | PDOC.MHCN_ITS ---
Date of service: 11/27/21 Time of Service: 20:09 Mental Health Crisis Note Presenting Issue How did you arrive at the ED and why did you come: Pt arrived on 11.26.2021 seeking voluntary admission for yu and SI. Precipitating Factors Pt rated her SI a 10/10 if she were to go home and not be admitted for treatment. Disposition BEHAVIOR: Pt was agitated at the initial assessment, tearful and apologetic during the second and agitated during the 3rd assessment today. She was seeking treatment initially and then was agitated demanding to get her things and leave. EYE CONTACT: Pt made fair eye contact. MOOD: labile and unpredictable. AFFECT: congruent. APPETITE: poor per report. SLEEP(trouble falling/staying asleep: Poor per report. Plan Pt was voluntary but when she demanded to leave after rating her SI a 10/10 she was placed on EE status. Pt will remain on EE status pending a second cert from [facility] psychiatrist. Signature Clinician's Name/Title: Zeenat Guerrero MS, [facility] Emergency Services Clinician, [facility]
[2021-11-28] MEDS: cloNIDine 0.1 MG TAB 0.05 MG PO (20:37)
[2021-11-28] MEDS: OLANZapine 2.5 MG TAB PO (20:37)
--- NOTE | 2021-11-28 20:48 | NUR.NOTE ---
Addendum entered by Shahida Abernathy 11/28/21 20:53: correct time was 2044 Original Note: Nursing Note: 1644 patient is lying on the bed, appears to be sleeping at this time, about 10 min ago she voided and we changed her bedding
--- NOTE | 2021-11-28 21:00 | NUR.NOTE ---
Nursing Note @2100 patient appears to be sleeping :
[2021-11-29 08:41] VITALS: BP 101/62; PULSE 86; RESP 16; TEMP 37.6; O2SAT 94
[2021-11-29] MEDS: Venlafaxine 37.5 MG CAPCR 75 MG PO (09:34)
[2021-11-29] MEDS: OLANZapine 2.5 MG TAB PO (09:34)
[2021-11-29] MEDS: Levothyroxine 25 MCG TAB PO (09:34)
[2021-11-29] MEDS: Furosemide 20 MG TAB 10 MG PO (09:34)
--- NOTE | 2021-11-29 09:34 | PDOC.CMSAFED ---
- If Service Date Differs Date of service: 11/29/21 Time of Service: 09:41 Care Management Safety Plan Status: Involuntary - Guarianship if Applicable Guardianship: Parent INVOLUNTARY FOR INPATIENT PSYCHIATRIC STABILIZATION. Cindy is a 65 year old woman with a history of bipolar disorder who presented to the ED with her daughter on 11/26/21 with SI. She verbalized that she had been thinking of killing herself by jumping off a bridge for the previous few days. She was admitting as voluntarily seeking psychiatric stabilization however her behavior escalated this afternoon and she informed staff she intended to leave. Zeenat Guerrero from [facility] spoke to her on Zoom. Cindy became verbally abusive and was shouting during the exchange. EE paperwork was filed and Cindy remains at [facility] in Involuntary status. 11/29/21 0845: DA spoke with RNCM through [facility]: Iris Drew who reports attempting to work with Cindy for an extended period of time; prior to her relocation to [facility] from [facility]. Iris reports that Cindy ran out of her medication prior to presenting to [facility] and Iris coordinated her blister pack medications to be provided from [facility]-and states she was not notified that medications were not delivered. Iris reports baseline bizarre behavior such as Cindy calling six times in a row but not leaving a message, and not answering the phone when Iris attempts to connect with her. Iris requests notification on discharge plan-offers coordination of community based services upon discharge from [facility] or psychiatric hospitalization. [facility] Nurse Floriculturist: Iris Viki (c) [facility] Counselor (temporarily filling in) Priscila Hurley Psychiatrist: Dr. Calero PCP: Sanya Baker Safety plan has been established to meet the needs of the patient, and consideration of the care team, to adhere to patient goals, identify restrictions based on behavioral status, address nutrition, and determine allowed personal belongings, tools for hygiene and personal care. Determine level of activity including ambulation, level of supervision, visitors, and determine privileges based on behaviors and level of engagement by pt. SAFETY PLAN: 1. Will remain on SI/HI precautions. In Paper Clothes 2. Will remain in room under direct supervision of one-on-one staff at all times provided by [employer]; CLEVE, WEAVING PROFESSOR ged tutor. 3. May have paper cups, plates, finger foods as well as a cardboard spoon 4. Follow [facility] Management of the Admitted Behavioral Health Patient policy. 5. Comfort bath system only. May shower at nursing discretion. 6. No personal belongings 7. Visitors: none at this time. 8. Activities: may have soft items from activity cart and may watch tv if available 9. Bathroom privileges with supervision 10. Phone: may speak to daughter and other family members on hospital portable phone at nursing discretion. 11. Due to INVOLUNTARY status, patient is being held at [facility] by the Department of Mental Health ([facility]) until 2nd certification by [facility] Psychiatrist can be performed (within 24 hours). Staff will provide de-escalation support (CPI) as needed. If patient wishes to leave [facility], staff will contact [facility] Crisis Screener ([phone]) and On-Call Wood Caulker ([phone]) as soon as possible. In the event of elopement, notify [facility] Police ([phone]). Patient is currently involuntarily at [facility]. [facility] Frontline Design Engineering Technician will continue seeking placement. Please contact the Asset Protection Assistant Wood Caulker ([phone]) for any needed changes to Safety Plan. Safety plan has been provided to interdepartmental care team. Patient will be transported by table games floor supervisor at time of discharge.
[2021-11-29] MEDS: cloNIDine 0.1 MG TAB 0.05 MG PO ×3 (09:35→20:17)
[2021-11-29] MEDS: Vitamins B Comp w/C TAB 1 TAB PO (09:35)
[2021-11-29] MEDS: Ibuprofen 400 MG TAB PO ×2 (13:10→23:38)
--- NOTE | 2021-11-29 13:11 | NUR.NOTE ---
Nursing Note: Pt c/o arthritis pain request & receive Motrin PO as ordered, cont. to monitor.
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
--- NOTE | 2021-11-29 19:51 | W.EDPROG ---
Date of service: 11/29/21 Time of Service: 19:54 Medical Decision Making Patient seen by Dr. Noble who recommended increasing olanzapine to 5 mg twice daily. Continue other medications as prescribed. Patient calm and cooperative today. Remains on EE hold awaiting bed placement. Sign Out Sign Out Data: Sign Out Comment: history of bipolar, came in for depression/thoughts of self harm. initially anxious and intermittently screaming but calm after oral meds. Voluntary currently Last updated by Miah Hair MD at 11/27/21 00:37 Sign Out Comment: Angela patterson called today after pt became agitated and demanding to leave. Able to verbally deescalate and she willingly took PO haldol and ativan. EE completed. Second certificate to happen this evening around 830pm. Last updated by Mahi Munoz DO at 11/27/21 19:21 Sign Out Comment: bipolar with SI, initially voluntary but then EE'd after she wanted to leave, was medicated and slept, awaiting second cert this morning Last updated by Miah Hair MD at 11/27/21 23:12 Sign Out Comment: Patient signed out to Dr. Drew at time of shift change with inpatient placement, reassessment for vomiting pending. Patient is EE status. Last updated by Lori Howe MD at 11/28/21 16:36 Sign Out Comment: EE. Awaits placement. Last updated by Paco Drew MD at 11/28/21 21:32 Sign Out Comment: no events overnight, sleeping; EE awaiting placement Last updated by Suleman Pineda MD at 11/29/21 08:00 Discharge Plan Disposition Patient Disposition: STILL A PATIENT Condition: Stable Discharge Details Clinical Impression: Bipolar 1 disorder, mixed, Suicidal ideation Primary Care Provider: Maryuri Shah V ED Provider: Chay Howe Home Meds and New Rx's Prescriptions: No Action albuterol sulfate 90 mcg/actuation HFA aerosol inhaler 2 puff inhalation Q6H PRN0RF ibuprofen 400 mg tablet 400 mg PO Q8H 0RF cholecalciferol (vitamin D3) 25 mcg (1,000 unit) capsule 25 mcg PO DAILY 0RF venlafaxine [Effexor XR] 150 mg capsule,extended release 24hr 75 mg PO DAILY 0RF levothyroxine [Synthroid] 50 MCG tablet 25 mcg PO DAILY 0RF furosemide 20 mg tablet 10 mg PO DAILY 0RF haloperidol 0.5 mg tablet 0.5 mg PO PRN PRN0RF haloperidol 1 mg tablet 0.5 mg PO BID 0RF vitamin B complex Capsule 1 cap PO DAILY 0RF
[2021-11-29] MEDS: OLANZapine 2.5 MG TAB 5 MG PO (20:18)
[2021-11-30] MEDS: LORazepam 1 MG TAB PO ×3 (02:39→17:35)
[2021-11-30] MEDS: Levothyroxine 25 MCG TAB PO (07:56)
[2021-11-30] MEDS: Vitamins B Comp w/C TAB 1 TAB PO (07:57)
[2021-11-30] MEDS: Venlafaxine 37.5 MG CAPCR 75 MG PO (07:57)
[2021-11-30] MEDS: OLANZapine 2.5 MG TAB 5 MG PO ×2 (07:59→20:20)
[2021-11-30] MEDS: cloNIDine 0.1 MG TAB 0.05 MG PO ×3 (08:05→20:20)
[2021-11-30] MEDS: Furosemide 20 MG TAB 10 MG PO (08:06)
[2021-11-30 11:20] VITALS: BP 90/46; PULSE 98; RESP 10; TEMP 37; O2SAT 98
[2021-11-30 11:49] VITALS: BP 118/67
[2021-11-30] MEDS: Ondansetron O.D.T. 4 MG TABEF PO (14:39)
--- NOTE | 2021-11-30 14:59 | PDOC.MHCN ---
<Zeenat Guerrero - Last Filed: 12/01/21 21:26> Date of service: 11/30/21 Time of Service: 14:59 Mental Health Crisis Note <Zeenat Guerrero - Last Filed: 12/01/21 21:26> Presenting Issue How did you arrive at the ED and why did you come: Pt arrived on 11.26.2021 seeking voluntary admission. By 11.27.2021 Pt was not voluntarily willing to stay and so an EE was written. Precipitating Factors Pt still reported a 10/10 for SI. She denied HI and did self injure last night during a flashback experience and nightmares. Disposition BEHAVIOR: Pt is cooperative and grateful that she got a piece of angle food cake (her favorite) to celebrate her birthday. She is smiling and happy today. EYE CONTACT: Consistent MOOD: Depressed and tired. AFFECT: tearful, smiling and falling asleep. APPETITE: Pt reported she wants to eat however, she has been getting sick and this happens when she has been eating dairy. She reported she is going to try to avoid dairy for a bit. SLEEP(trouble falling/staying asleep: Good. Plan Pt is still meeting criteria for inpatient treatment. [facility] has accepted her pending prior authorization. This clinician worked on this today and by 5:30 had finally heard back and got the prior auth code. This clinician made [facility] and [facility] as well as [facility] aware. Pt left [facility] via secure transport this evening to go to [facility]. Signature Clinician's Name/Title: Zeenat Guerrero MS, [facility] Emergency Services Clinician
--- NOTE | 2021-11-30 15:07 | W.EDPROG ---
Date of service: 11/30/21 Time of Service: 15:09 Medical Decision Making Patient has had intermittent anxiety today and was given Ativan as needed. She did have some mild nausea and was given Zofran. Patient otherwise stable. Awaiting psychiatric treatment center placement. Sign Out Sign Out Data: Sign Out Comment: history of bipolar, came in for depression/thoughts of self harm. initially anxious and intermittently screaming but calm after oral meds. Voluntary currently Last updated by Miah Hair MD at 11/27/21 00:37 Sign Out Comment: Angela patterson called today after pt became agitated and demanding to leave. Able to verbally deescalate and she willingly took PO haldol and ativan. EE completed. Second certificate to happen this evening around 830pm. Last updated by Mahi Munoz DO at 11/27/21 19:21 Sign Out Comment: bipolar with SI, initially voluntary but then EE'd after she wanted to leave, was medicated and slept, awaiting second cert this morning Last updated by Miah Hair MD at 11/27/21 23:12 Sign Out Comment: Patient signed out to Dr. Drew at time of shift change with inpatient placement, reassessment for vomiting pending. Patient is EE status. Last updated by Lori Howe MD at 11/28/21 16:36 Sign Out Comment: EE. Awaits placement. Last updated by Paco Drew MD at 11/28/21 21:32 Sign Out Comment: no events overnight, sleeping; EE awaiting placement Last updated by Suleman Pineda MD at 11/29/21 08:00 Sign Out Comment: slight agitation overnight, relieved with ativan, resting comfortably, awaiting placement Last updated by Suleman Pineda MD at 11/30/21 07:17 Discharge Plan Disposition Patient Disposition: STILL A PATIENT Condition: Stable Discharge Details Clinical Impression: Bipolar 1 disorder, mixed, Suicidal ideation Primary Care Provider: Maryuri Shah V ED Provider: Chay Howe Home Meds and New Rx's Prescriptions: No Action albuterol sulfate 90 mcg/actuation HFA aerosol inhaler 2 puff inhalation Q6H PRN0RF ibuprofen 400 mg tablet 400 mg PO Q8H 0RF cholecalciferol (vitamin D3) 25 mcg (1,000 unit) capsule 25 mcg PO DAILY 0RF venlafaxine [Effexor XR] 150 mg capsule,extended release 24hr 75 mg PO DAILY 0RF levothyroxine [Synthroid] 50 MCG tablet 25 mcg PO DAILY 0RF furosemide 20 mg tablet 10 mg PO DAILY 0RF haloperidol 0.5 mg tablet 0.5 mg PO PRN PRN0RF haloperidol 1 mg tablet 0.5 mg PO BID 0RF vitamin B complex Capsule 1 cap PO DAILY 0RF
--- NOTE | 2021-11-30 15:29 | CMSP_ITS ---
- If Service Date Differs Date of service: 11/30/21 Time of Service: 15:30 Care Management Safety Plan Status: Voluntary - Guarianship if Applicable Guardianship: Parent - Reason for Wait Reason for Wait: Inpatient Admission INVOLUNTARY FOR INPATIENT PSYCHIATRIC STABILIZATION. Cindy is a 65 year old woman with a history of bipolar disorder who presented to the ED with her daughter on 11/26/21 with SI. She verbalized that she had been thinking of killing herself by jumping off a bridge for the previous few days. She was admitting as voluntarily seeking psychiatric stabilization however her behavior escalated this afternoon and she informed staff she intended to leave. Zeenat Guerrero from [facility] spoke to her on Zoom. Cindy became verbally abusive and was shouting during the exchange. EE paperwork was filed and Cindy remains at [facility] in Involuntary status. 11/29/21 0845: DA spoke with RNCM through [facility]: Iris Drew who reports attempting to work with Cindy for an extended period of time; prior to her relocation to [facility] from [facility]. Iris reports that Cindy ran out of her medication prior to presenting to [facility] and Iris coordinated her blister pack medications to be provided from [facility]-and states she was not notified that medications were not delivered. Iris reports baseline bizarre behavior such as Cindy calling six times in a row but not leaving a message, and not answering the phone when Iris attempts to connect with her. Iris requests notification on discharge plan-offers coordination of community based services upon discharge from [facility] or psychiatric hospitalization. [facility] Nurse Migratory Game Bird Biologist: Iris Drew (c) [facility] Counselor (temporarily filling in) Priscila Hurley Psychiatrist: Dr. Calero PCP: Sanya Baker 11/30/21: CM huddled with staff in the ED; no changes to the safety plan. Per [facility], she is being considered at [facility] for admission. She was seen by Dr. Noble today, who reported that if she remains stable over the next few days, it may be appropriate to consider a step down to a care bed. Safety plan has been established to meet the needs of the patient, and cons ideration of the care team, to adhere to patient goals, identify restrictions based on behavioral status, address nutrition, and determine allowed personal belongings, tools for hygiene and personal care. Determine level of activity including ambulation, level of supervision, visitors, and determine privileges based on behaviors and level of engagement by pt. SAFETY PLAN: 1. Will remain on SI/HI precautions. In Paper Clothes 2. Will remain in room under direct supervision of one-on-one staff at all times provided by [employer]; CLEVE, COMPUTER DESIGNER senior electrical designer. 3. May have paper cups, plates, finger foods as well as a cardboard spoon 4. Follow [facility] Management of the Admitted Behavioral Health Patient policy. 5. Comfort bath system only. May shower at nursing discretion. 6. No personal belongings 7. Visitors: none at this time. 8. Activities: may have soft items from activity cart and may watch tv if available 9. Bathroom privileges with supervision 10. Phone: may speak to daughter and other family members on hospital portable phone at nursing discretion. 11. Due to INVOLUNTARY status, patient is being held at [facility] by the Department of Mental Health ([facility]) until 2nd certification by [facility] Psychiatrist can be performed (within 24 hours). Staff will provide de-escalation support (CPI) as needed. If patient wishes to leave [facility], staff will contact [facility] Crisis Screener ([phone]) and On-Call Slot Floorperson ([phone]) as soon as possible. In the event of elopement, notify [place] [employer] ([phone]). Patient is currently involuntarily at [facility]. [facility] Frontline [employer] will continue seeking placement. Please contact the Cab Supervisor Slot Floorperson ([phone]) for any needed changes to Safety Plan. Safety plan has been provided to interdepartmental care team. Patient will be transported by [employer] at time of discharge.
--- NOTE | 2021-11-30 16:15 | PDOC.MHCN ---
Date of service: 11/30/21 Time of Service: 16:15 Mental Health Crisis Note Presenting Issue How did you arrive at the ED and why did you come: Client presented with daughter at [facility] ED and reports experiencing a manic episode. Precipitating Factors Client reports daily thoughts of SI with intent and plan of driving at high speeds off embankment. Disposition BEHAVIOR: cooperative sitting on bed. EYE CONTACT: maintains normal eye contact. MOOD: Client reports irritable and tired. AFFECT: Congruent with mood. APPETITE: Client reports appetite has been fine but she has been struggling with bowel issues. SLEEP(trouble falling/staying asleep: Client reports some nights she sleeps a lot and last night she only slept what felt like an hour. Client reports issues falling and staying asleep. Plan Client is on an EE for involuntary placement and will be reassessed daily until placement is found. Signature Clinician's Name/Title: Roni Chou BA
[2021-11-30 19:31] VITALS: BP 98/60; RESP 16; TEMP 37; O2SAT 97
[2021-11-30 20:30] VITALS: BP 98/60; PULSE 98; RESP 16; TEMP 37; O2SAT 97
== END 2021-11-30 20:40 | disposition short-term general hospital (02) ==
PROVIDERS: Emergency Medicine; Student in an Organized Health Care Education/Training Program; Emergency Provider Student in an Organized Health Care Education/Training Program; PCP Physician Assistant
DX: F31.60 Bipolar disorder, current episode mixed, unspecified (principal); R45.851 Suicidal ideations
CPT/HCPCS: 36415; 80053; 80307; 83690; 87635; 93005; 96361; 96374; 96375; 99285; Q3014; 74177; 80320; 80329; 81003; 81015; 84443; 85025; 93010; J2405; J2765; J3490

== ENCOUNTER 2021-12-25 17:48 | Emergency (ER) | payer MEDICARE, MEDICAID, SELFPAY ==
[2021-12-25 17:59] VITALS: BP 128/59; PULSE 74; RESP 16; TEMP 36.4; O2SAT 99
--- NOTE | 2021-12-25 18:12 | ED.GENADUL_ITS ---
Discharge Plan Disposition Patient Disposition: HOME Condition: Improving Discharge Details Clinical Impression: Peripheral edema, Chest pain, Anemia Primary Care Provider: Maryuri Shah V ED Provider: Paco Drew Home Meds and New Rx's Prescriptions: Continued ibuprofen 400 mg tablet 400 mg PO Q8H 0RF cholecalciferol (vitamin D3) 25 mcg (1,000 unit) capsule 25 mcg PO DAILY 0RF levothyroxine [Synthroid] 50 MCG tablet 25 mcg PO DAILY 0RF furosemide 20 mg tablet 10 mg PO DAILY 0RF lamotrigine 25 mg tablet 25 mg PO DAILY 0RF prazosin 1 mg capsule 1 mg PO DAILY 0RF olanzapine [Zyprexa] 7.5 mg Tablet 7.5 mg PO DAILY 0RF multivitamin with folic acid [Daily-Deonte (with folic acid)] 400 mcg tablet 1 tab PO DAILY 0RF Discharge Instructions Instructions: Chest Pain (ED), Leg Edema (ED) Additional Instructions: Your work-up in the ER included a CAT scan of the chest, blood work with cardiac troponin. You will have a follow-up ultrasound tomorrow. It is recommended that you increase your Lasix from 10 mg to 40 mg once daily for the next 3 days. An order for an outpatient leg ultrasound has been placed. You will be contacted by the radiology department regarding scheduling this test. You will be given a dose of Eliquis here and doses for home until you are able to follow- up for outpatient leg ultrasound. Follow-up with your primary care doctor in 1 week. Return to the emergency department with any worsening or new concerning symptoms. Discharge Data Discharge Physician: Mahi Munoz Medical Decision Making <Mahi Munoz DO - Last Filed: 12/25/21 20:05> 1820 -- 66-year-old female with a history of anxiety, depression, PTSD and hypothyroidism presents for bilateral leg swelling for the past 2 days. Vitals within normal limits. Patient appears comfortable and nontoxic. She has 2+ pitting edema to the bilateral lower extremities. Distal pulses intact. There is very minimal faint erythema to the legs but they do not appear consistent with cellulitis. She does have tenderness to palpation of her legs, specifically her left leg. Suspect most likely dependent edema but will obtain screening labs including D-dimer and CRP to rule out possible cellulitis or DVT. We do not have ultrasound capability here but if D-dimer significantly elevated will consider treating with Eliquis with plan for outpatient ultrasound tomorrow. 1844 --patient now complaining of substernal cramping chest pain that is intermittent with occasional radiation to her right arm. Will obtain troponin, magnesium and chest x-ray. EKG notes rate of 60, sinus, no STEMI nondiagnostic. Labs and imaging reviewed. White blood cell count 5. Hemoglobin 9.6 which is decreased compared to her recent baseline at 12. D-dimer minimally elevated at 795. Troponin pending. Chest x-ray no obvious acute disease. Will order CT chest to rule out PE. 1999 --Case endorsed to follow-up on CT chest with plan for repeat troponin EKG at 2200. If work-up unremarkable and symptoms improved, will give a dose of Eliquis prior to discharge in addition to Eliquis to go on until able to obtain outpatient bilateral leg ultrasound. Also recommend increasing her Lasix to 40 mg once daily for the next 3 days. Medical Records Medical records reviewed: Yes I reviewed the patient's medical records. <Paco Drew MD - Last Filed: 12/25/21 22:04> Medical Records Medical records reviewed: Yes I reviewed the patient's medical records. Medical records narrative: Received signout from Dr. Munoz. Please see her note regarding details of the initial presentation, exam and plan of care. Patient remains comfortable with no further complaints at this time. Chest x-ray and subsequent CT scan of the chest showed dependent atelectasis, no other acute findings. Patient observed and repeat troponin obtained & negqtaive. As per Dr. Munoz's plan, we will initiate Leeis, patient to follow-up for lower extremity ultrasound tomorrow. HPI <Mahi Munoz DO - Last Filed: 12/25/21 20:05> General Mode of arrival: ambulatory . Date/Time Provider Initiated Documentation: 12/25/21 18:10 . Limitations to Documentation: no limitations . Information obtained by: patient . HPI Narrative: Patient is a 66-year-old female with a history of bipolar disorder, PTSD, hypothyroidism presents for bilateral leg swelling for the past 2 days. Patient states she was recently at [facility] for mental illness and was started on Lasix for leg swelling at that time. She states she had Doppler ultrasounds of her legs at that time which were negative for DVT. She states the leg swelling has become significantly worse since then, specifically since last night and she feels it is worse in her left leg. She denies any significant sodium intake. She does admit to pain in her legs but mainly her left leg. She denies any fever, cough, chest pain, shortness of breath, abdominal pain, vomiting, diarrhea, recent travel or recent surgery. Related Data Home Medications Medication Instructions Recorded Confirmed levothyroxine 50 mcg tablet 25 mcg PO DAILY 12/29/15 12/25/21 (Synthroid) cholecalciferol (vitamin D3) 25 25 mcg PO DAILY 09/22/21 12/25/21 mcg (1,000 unit) capsule ibuprofen 400 mg tablet 400 mg PO Q8H 09/22/21 12/25/21 furosemide 20 mg tablet 10 mg PO DAILY 11/26/21 12/25/21 lamotrigine 25 mg tablet 25 mg PO DAILY 12/25/21 12/25/21 multivitamin with folic acid 400 1 tab PO DAILY 12/25/21 12/25/21 mcg tablet (Daily-Deonte (with folic acid)) olanzapine 7.5 mg tablet (Zyprexa) 7.5 mg PO DAILY 12/25/21 12/25/21 prazosin 1 mg capsule 1 mg PO DAILY 12/25/21 12/25/21 Allergies Allergy/AdvReac Type Severity Reaction Status Date / Time acetaminophen [From Vicodin] Allergy Mild facial Verified 12/25/21 18:04 swelling bupropion [From Wellbutrin] Allergy Mild facial Verified 12/25/21 18:04 swelling doxycycline Allergy Mild unknown Verified 12/25/21 18:04 fluticasone Allergy Mild dizziness Verified 12/25/21 18:04 [From Advair Diskus] hydrocodone [From Vicodin] Allergy Mild facial Verified 12/25/21 18:04 swelling levofloxacin [From Levaquin] Allergy Mild dizziness Verified 12/25/21 18:04 morphine Allergy Mild hallucinati Verified 12/25/21 18:04 on omeprazole Allergy Mild rash, Verified 12/25/21 18:04 upset stomach oxycodone Allergy Mild hallucinati Verified 12/25/21 18:04 ons prednisone Allergy Mild dizziness Verified 12/25/21 18:04 quetiapine [From Seroquel] Allergy Mild dizziness Verified 12/25/21 18:04 risperidone Allergy Mild sever Verified 12/25/21 18:04 nightmares salmeterol Allergy Mild dizziness Verified 12/25/21 18:04 [From Advair Diskus] tramadol Allergy Mild dizziness, Verified 12/25/21 18:04 hallucinations erythromycin base Allergy Unverified 12/25/21 18:04 propoxyphene HCl Allergy Unverified 12/25/21 18:04 [From Darvon] General Stated Complaint: GenMedical SEB: 3 Review of Systems <Mahi Munoz DO - Last Filed: 12/25/21 20:05> All systems reviewed & are unremarkable except as noted in HPI and below Constitutional Constitutional: Denies chills, Denies excessive sweating, Denies fatigue, Denies fever(s), Denies weakness and Denies weight loss Eyes Eyes: Reports system reviewed and no additional complaints, except as documented and Denies blurry vision ENT Ears, Nose, Mouth, and Throat: Denies vertigo, Denies dizziness, Denies otalgia, Denies nasal congestion, Denies sore throat and Denies throat swelling Cardiovascular Cardiovascular: Reports chest pain, Denies syncope, Denies rapid heart rate, Reports leg edema and Denies dyspnea Respiratory Respiratory: Denies chest congestion, Denies cough, Denies pain on inspiration and Denies dyspnea Gastrointestinal Gastrointestinal: Denies abdominal pain, Denies diarrhea and Denies vomiting Genitourinary Genitourinary: Denies hematuria, Denies dysuria and Denies flank pain Musculoskeletal Musculoskeletal: Denies back pain and Denies joint swelling Comments: R arm pain Integumentary/Breasts Skin/Breast: Denies lesions and Denies rash Neurologic Neurologic: Denies behavioral changes, Denies confusion, Denies vertigo, Denies dizziness, Denies syncope, Denies localized weakness and Denies weakness Psychiatric Psychiatric: Denies behavioral changes, Denies confusion and Denies depression Endocrine Endocrine: Denies excessive sweating and Denies fatigue Hematologic/Lymphatic Hematologic/Lymphatic: Denies easy bruising and Denies lymphadenopathy Allergic/Immunologic Allergic/Immunologic: Denies throat swelling PFSH <Mahi Munoz DO - Last Filed: 12/25/21 20:05> All Active Problems (Updated 12/25/21 @ 20:05 by Mahi Munoz DO) Peripheral edema (Acute) Chest pain (Acute) Anemia (Chronic) Suicidal ideation (Acute) History of colon polyps (Acute) Diarrhea (Acute) Unintentional weight loss (Acute) Screening for colon cancer (Acute) Medical History (Updated 12/25/21 @ 20:05 by Mahi Munoz DO) Anxiety Bipolar 1 disorder, mixed PTSD (post-traumatic stress disorder) Surgical History (Updated 12/25/21 @ 19:42 by Mahi Munoz DO) History of hip replacement History of knee replacement Social History Smoking/Tobacco Use Status: Current every day Tobacco Type: cigarettes Smoking risk assessment performed?: Yes Alcohol Intake: former Drug use: Never Substance use type: does not use Do you feel safe at home: Yes Do you feel safe in your relationship?: Yes Exam <Mahi Munoz DO - Last Filed: 12/25/21 20:05> Const General: cooperative Orientation: alert, awake and oriented x3 HENMT Head: normal to inspection Ears: hearing grossly normal bilaterally, external ears normal and TM's normal bilaterally General nose exam: external nose normal Face and sinus: normal facial exam Mouth: oral mucosae normal Teeth and gingiva: dentition normal Throat: posterior oropharynx normal Eyes General: appearance normal, both eyes and all related structures Eyelids: eyelids normal Pupils: PERRL EOM: EOM intact bilaterally Neck Neck: normal visual inspection Lymphatic: no lymphadenopathy noted Chest Chest: normal inspection of the chest Resp Effort & Inspection: normal respiratory effort and able to speak in complete sentences Auscultation: clear to auscultation bilaterally Cardio Rate: regular rate Rhythm: regular rhythm GI Inspection: normal to inspection Palpation: soft, not firm, no guarding, no hepatosplenomegaly, no masses and nontender Auscultation: normal bowel sounds Back/Spine/Pelvis Back: no CVA tenderness Skin General skin exam: no rashes or lesions noted Neuro General: patient alert and patient awake Cognition: normal cognition Speech: speech normal Gait: normal gait Motor: muscle tone normal throughout Sensory Exam: no sensory deficits noted Extrem General: edema Laterality: bilateral (2+ pitting b/l lower extremities, minimal faint erythema) Psych Appearance: grossly normal Mental Status: mental status grossly normal Speech and Movement: speech and movement normal Affect: normal affect Thought Process: normal Course <Mahi Munoz DO - Last Filed: 12/25/21 20:05> Vital Signs Vital signs: Vital Signs Temperature 97.5 F L 12/25/21 17:59 Pulse 74 12/25/21 17:59 Respiratory Rate 16 12/25/21 17:59 Blood Pressure 128/59 L 12/25/21 17:59 Pulse Oximetry 99 12/25/21 17:59 Temperature 97.5 F L 12/25/21 17:59 Pulse 74 12/25/21 17:59 Respiratory Rate 16 12/25/21 17:59 Blood Pressure 128/59 L 12/25/21 17:59 Blood Pressure Position Sitting 12/25/21 17:59 Pulse Oximetry 99 12/25/21 17:59 Oxygen Delivery Method Room Air 12/25/21 17:59 Oxygen Flow Rate 0 12/25/21 17:59 Pain Level 10 12/25/21 17:59 Sign Out <Mahi Munoz DO - Last Filed: 12/25/21 20:05> Sign Out Data: Sign Out Comment: Follow-up on CT chest with plan for repeat troponin and EKG. If work-up unremarkable and pain improves, plan for return for outpatient leg ultrasound to rule out DVT with dose of Eliquis administered prior to discharge and for home in addition to increase in her Lasix to 40 mg once daily for the next 3 days. Last updated by Mahi Munoz DO at 12/25/21 19:50
--- NOTE | 2021-12-25 18:45 | DI.RAD_ITS ---
Exam(s) XR CHEST 2V PA LATERAL EXAM: XR CHEST 2V PA LATERAL CLINICAL HISTORY: chest pain, r/o acute disease TECHNIQUE: 2D digital imaging was performed. COMPARISON: CR,XR XR CHEST 2V PA LATERAL from 08/26/2021 FINDINGS: MEDIASTINUM: Normal. HEART: Normal. PULMONARY VASCULATURE: Normal. LUNGS: Minimal linear atelectasis left costophrenic angle, otherwise clear. PLEURAL SPACE: No pleural effusion or pneumothorax. BONE:Unremarkable for age. IMPRESSION: No acute abnormality. DATA REPOSITORY: RADIATION DOSE DELIVERED:
--- NOTE | 2021-12-25 18:45 | RT.EKG_ITS ---
APPROVED REPORT Exam: Resting ECG Reason for Exam: chest pain Patient Location: E HR:60 bpm ECG Measurements Heart Rate 60 AXIS MD 108 P 73 QRSd 81 QRS 74 QT 433 T 68 QTc 432 Conclusion Sinus rhythm...normal P axis, V-rate 60- 99
[2021-12-25 19:07] LABS: Abs Immature Grans 0.01 10^3/uL (0.0-0.06); Absolute Basophil Count 0.04 10^3/uL (0.0-0.2); Absolute Eosinophil Count 0.16 10^3/uL (0.0-0.7); Absolute Lymphocyte Count 2.17 10^3/uL (1.2-3.4); Absolute Monocyte Count 0.73 10^3/uL (0.1-0.8); Absolute Neutrophil Count 2.41 10^3/uL (1.2-6.7); Basophils % 0.7; Eosinophils % 2.9; HCT 30.2 % (36.0-46.0); HGB 9.6 g/dL (11.2-15.7); Immature Grans % 0.2; Lymphocytes % 39.3; MCH 30.9 pg (27.0-33.0); MCHC 31.8 % (32.0-36.0); MCV 97 fL (80-95); MPV 9.4 fL (8.0-11.0); Monocytes % 13.2; Neutrophils % 43.7; Platelet Count 271 10^3/uL (130-400); RBC 3.11 10^6/uL (3.93-5.22); RDW 13.3 % (11.7-14.6); RDW-SD 47.7 fL; WBC 5.52 10^3/uL (4.4-10.8)
[2021-12-25 19:29] LABS: ALT 25 U/L (14-59); AST 22 U/L (15-37); Albumin 3.6 g/dL (3.4-5.0); Alkaline Phosphatase 132 U/L (46-116); Anion Gap 6.9 mmol/L (3-11); BUN 12 mg/dL (7-18); Bilirubin, Total 0.2 mg/dL (0.2-1.0); CO2 26.1 mmol/L (21.0-32.0); CREATININE 0.8 mg/dL (0.55-1.02); Calcium 8.8 mg/dL (8.5-10.1); Chloride 109 mmol/L (98-107); Glucose 90 mg/dL (74-106); Potassium 3.7 mmol/L (3.5-5.1); Sodium 142 mmol/L (136-145); Total Protein 6.8 g/dL (6.4-8.2)
[2021-12-25 19:35] LABS: D-Dimer 795 ng/mlFEU (<500)
--- NOTE | 2021-12-25 19:45 | DI.CT_ITS ---
Exam(s) CT CHEST PE CTA EXAM: CT CHEST PE CTA CLINICAL HISTORY: pleuritic chest pain, elevated d dimer, r/o PE. TECHNIQUE: Imaging Protocol: Axial CT angiography was performed with multi-slice acquisition and mu lti-planar reconstructions as well as axial, coronal and sagittal MIP reconstructions. CONTRAST MATERIAL: Intravenous: Omnipaque 350 Contrast volume:100 ml COMPARISON: CT CT ABDOMEN PELVIS W from 11/28/2021 CR,XR XR CHEST 2V PA LATERAL from 12/25/2021 FINDINGS: Pulmonary Arteries: No evidence of filling defect to suggest pulmonary emboli. Tracheobronchial tree: Patent where visualized. Mediastinum and Nicol: No dominant adenopathy or fluid collection. Pulmonary parenchyma: No consolidation or dominant measurable mass. Pleura: No effusion or pneumothorax. Heart: The heart is not dilated. No coronary artery calcifications are seen. Aorta: Thoracic aorta non-dilated. No aneurysm. No dissection. Upper abdomen: Unremarkable. Bones: Unremarkable for age. Tubes, Catheters, and Lines: None IMPRESSION: No evidence of pulmonary embolism or other acute abnormality.. RADIATION DOSE DELIVERED: 233.15mGy.cm Total DLP DATA REPOSITORY: All CT scans at this facility are submitted to the National Radiology Data Registry (NRDR) Dose Index Registry (DIR) with the [employer] (A[employer]). RADIATION OPTIMIZATION: All CT scans at this facility use at least one of these dose optimization te chniques: automated exposure control; mA and/or kV adjustment per patient size (includes targeted exa ms where dose is matched to clinical indication); or iterative reconstruction.
[2021-12-25 19:46] LABS: C-Reactive Protein 0.54 mg/dL (0.0-0.3)
[2021-12-25] MEDS: Furosemide 40 MG TAB PO (19:53)
[2021-12-25] MEDS: Ibuprofen 600 MG TAB PO (19:53)
[2021-12-25] MEDS: Omnipaque 350 MG/ML 100 ML BTL IJ (20:01)
[2021-12-25] MEDS: Normal Saline Flush 10 ML SYR IVP (20:04)
[2021-12-25 20:07] LABS: Magnesium 2.1 mg/dL (1.8-2.4); Troponin I < 50 ng/L (<or=60)
--- NOTE | 2021-12-25 20:50 | DI.VRAD_ITS ---
PROCEDURE INFORMATION: Exam: CTA Chest With Contrast Exam date and time: 12/25/2021 8:04 PM Age: 66 years old Clinical indication: Pain and abnormal findings; Abnormal diagnostic tests; Elevated d-dimer; Patient HX: Pleuritic chest pain, elevated d dimer, R/O pe TECHNIQUE: Imaging protocol: Computed tomographic angiography of the chest with contrast. 3D rendering (Not supervised by radiologist): MIP and/or 3D reconstructed images were created by the technologist. Radiation optimization: All CT scans at this facility use at least one of these dose optimization techniques: automated exposure control; mA and/or kV adjustment per patient size (includes targeted exams where dose is matched to clinical indication); or iterative reconstruction. Contrast material: OMNIPAQUE 350; Contrast volume: 61 ml; Contrast route: INTRAVENOUS (IV); COMPARISON: CR XR CHEST 2V PA LATERAL 12/25/2021 7:41 PM FINDINGS: Pulmonary arteries: Normal. No pulmonary emboli. Aorta: Unremarkable. No aortic aneurysm. No aortic dissection. Lungs: There is bibasilar dependent atelectasis. There is no consolidation. Pleural spaces: No pneumothorax. No pleural effusion. Heart: No cardiomegaly. No pericardial effusion. Lymph nodes: No enlarged lymph nodes. Bones/joints: No acute fracture. Soft tissues: Unremarkable. IMPRESSION: 1. No acute pulmonary process. 2. No pulmonary embolism or aortic dissection. Dictated and Authenticated by: Clifton Dixon MD. Ordering:RAYMOND Champagne MD
--- NOTE | 2021-12-25 20:50 | DI.VRAD_ITS ---
PROCEDURE INFORMATION: Exam: XR Chest Exam date and time: 12/25/2021 7:41 PM Age: 66 years old Clinical indication: Other: General; Patient HX: Chest pain, R/O acute disease TECHNIQUE: Imaging protocol: XR of the chest. Views: 2 views. COMPARISON: CR XR CHEST 2V PA LATERAL 08/26/2021 5:36 PM FINDINGS: Lungs: There is left basilar subsegmental atelectasis. No focal consolidation. Pleural spaces: Unremarkable. No pleural effusion. No pneumothorax. Heart/Mediastinum: Unremarkable. No cardiomegaly. Diaphragm: There is ventilation of the right hemidiaphragm. Bones/joints: Unremarkable. IMPRESSION: No acute pulmonary process Dictated and Authenticated by: Clifton Dixon MD. Ordering:RAYMOND Champagne MD
[2021-12-25 21:33] VITALS: BP 122/78; PULSE 88; RESP 18; O2SAT 95
[2021-12-25 21:51] LABS: Troponin I < 50 ng/L (<or=60)
[2021-12-25] MEDS: Apixaban 5 MG TAB 10 MG PO ×2 (22:10→22:11)
== END 2021-12-25 22:09 | disposition home or self-care (01) ==
PROVIDERS: Physician Assistant; Emergency Provider Emergency Medicine; PCP Physician Assistant
DX: R60.0 Localized edema (principal); R07.9 Chest pain, unspecified; D64.9 Anemia, unspecified; R79.1 Abnormal coagulation profile
CPT/HCPCS: 71275; 80053; 93005; 99285; 71046; 83735; 83880; 84484; 85025; 85379; 86140; 93010; 99284; J3490

== ENCOUNTER → 2021-12-26 10:02 | Outpatient (CLI) | payer MEDICARE, MEDICAID, SELFPAY ==
--- NOTE | 2021-12-26 | DI.US_ITS ---
Exam(s) US EXTREMITY VENOUS BI EXAM: US EXTREMITY VENOUS BI CLINICAL HISTORY: BILAT LEG SWELLING. TECHNIQUE: Bilateral lower extremity venous ultrasound performed using grayscale, color-flow, and sp ectral Doppler analysis. COMPARISON: No exams were available for comparison FINDINGS: The bilateral common femoral, femoral and popliteal veins demonstrate normal compressibility, augment ation, and color Doppler. The posterior tibial veins are patent. No superficial venous thrombosis or Blackmon's cyst. Edema is noted in the subcutaneous fat of the lower legs, left greater than right. N o drainable collection. IMPRESSION: Right: Negative for DVT Left: Negative for DVT DATA REPOSITORY:
== END ==
PROVIDERS: PCP Physician Assistant; Visit Provider Physician Assistant
DX: R22.43 Localized swelling, mass and lump, lower limb, bilateral (principal)
CPT/HCPCS: 93970

== ENCOUNTER 2021-12-26 11:13 | Emergency (ER) | payer MEDICARE, MEDICAID, SELFPAY ==
[2021-12-26 11:16] VITALS: BP 125/62; PULSE 65; RESP 16; TEMP 36.7; O2SAT 100
--- NOTE | 2021-12-26 11:43 | ED.GENADUL_ITS ---
Discharge Plan Disposition Patient Disposition: HOME Condition: Stable Discharge Details Clinical Impression: Edema Primary Care Provider: Maryuri Shah V ED Provider: Suleman Pineda Home Meds and New Rx's Prescriptions: Continued ibuprofen 400 mg tablet 400 mg PO Q8H 0RF cholecalciferol (vitamin D3) 25 mcg (1,000 unit) capsule 25 mcg PO DAILY 0RF levothyroxine [Synthroid] 50 MCG tablet 25 mcg PO DAILY 0RF furosemide 20 mg tablet 10 mg PO DAILY 0RF lamotrigine 25 mg tablet 25 mg PO DAILY 0RF prazosin 1 mg capsule 1 mg PO DAILY 0RF olanzapine [Zyprexa] 7.5 mg Tablet 7.5 mg PO DAILY 0RF multivitamin with folic acid [Daily-Deonte (with folic acid)] 400 mcg tablet 1 tab PO DAILY 0RF Discharge Instructions Instructions: Edema (ED) Additional Instructions: Elevate leg, continue with activity, consider compression stockings, please return to emergency department if you develop redness fevers chills signs of infection worsening pain shortness of breath or other abnormal symptoms. Medical Decision Making 66-year-old female presents with a symmetric edema left lower extremity greater than right, negative work-up in the department yesterday presents today for ultrasound, ultrasound was negative for DVT, patient is on chronic Lasix, consider venous insufficiency versus poor lymphatic drainage versus mild chronic CHF without respiratory symptoms, no evidence of DVT on ultrasound, no evidence of cellulitis or deep space infection. Home care instructions and return precautions given. Patient will continue to take her Lasix will follow up with primary care. Given instructions to elevate leg consider compression stockings and continue with activity at home HPI General Date/Time Provider Initiated Documentation: 12/26/21 11:19 . HPI Narrative: 66-year-old female history of peripheral edema, presents for repeat examination for asymmetrical lower extreme edema left greater than right, negative work-up yesterday, had an ultrasound performed today. No shortness of breath no fevers no chills Related Data Home Medications Medication Instructions Recorded Confirmed levothyroxine 50 mcg tablet 25 mcg PO DAILY 12/29/15 12/25/21 (Synthroid) cholecalciferol (vitamin D3) 25 25 mcg PO DAILY 09/22/21 12/25/21 mcg (1,000 unit) capsule ibuprofen 400 mg tablet 400 mg PO Q8H 09/22/21 12/25/21 furosemide 20 mg tablet 10 mg PO DAILY 11/26/21 12/25/21 lamotrigine 25 mg tablet 25 mg PO DAILY 12/25/21 12/25/21 multivitamin with folic acid 400 1 tab PO DAILY 12/25/21 12/25/21 mcg tablet (Daily-Deonte (with folic acid)) olanzapine 7.5 mg tablet (Zyprexa) 7.5 mg PO DAILY 12/25/21 12/25/21 prazosin 1 mg capsule 1 mg PO DAILY 12/25/21 12/25/21 Allergies Allergy/AdvReac Type Severity Reaction Status Date / Time acetaminophen [From Vicodin] Allergy Mild facial Verified 12/25/21 18:04 swelling bupropion [From Wellbutrin] Allergy Mild facial Verified 12/25/21 18:04 swelling doxycycline Allergy Mild unknown Verified 12/25/21 18:04 fluticasone Allergy Mild dizziness Verified 12/25/21 18:04 [From Advair Diskus] hydrocodone [From Vicodin] Allergy Mild facial Verified 12/25/21 18:04 swelling levofloxacin [From Levaquin] Allergy Mild dizziness Verified 12/25/21 18:04 morphine Allergy Mild hallucinati Verified 12/25/21 18:04 on omeprazole Allergy Mild rash, Verified 12/25/21 18:04 upset stomach oxycodone Allergy Mild hallucinati Verified 12/25/21 18:04 ons prednisone Allergy Mild dizziness Verified 12/25/21 18:04 quetiapine [From Seroquel] Allergy Mild dizziness Verified 12/25/21 18:04 risperidone Allergy Mild sever Verified 12/25/21 18:04 nightmares salmeterol Allergy Mild dizziness Verified 12/25/21 18:04 [From Advair Diskus] tramadol Allergy Mild dizziness, Verified 12/25/21 18:04 hallucinations erythromycin base Allergy Unverified 12/25/21 18:04 propoxyphene HCl Allergy Unverified 12/25/21 18:04 [From Darvon] General Stated Complaint: Recheck SEB: 4 Review of Systems Narrative: Review of Systems Constitutional: negative Eyes: negative ENT: negative Cardiovascular: negative Respiratory: negative Gastrointestinal: negative : negative Musculoskeletal: Leg swelling Skin: negative Neurologic: negative Psych: negative PFSH All Active Problems (Updated 12/26/21 @ 11:47 by Suleman Pineda MD) Peripheral edema (Acute) Chest pain (Acute) Anemia (Chronic) Edema (Acute) Suicidal ideation (Acute) History of colon polyps (Acute) Diarrhea (Acute) Unintentional weight loss (Acute) Screening for colon cancer (Acute) Medical History (Updated 12/26/21 @ 11:47 by Suleman Pineda MD) Anxiety Bipolar 1 disorder, mixed PTSD (post-traumatic stress disorder) Surgical History (Updated 12/25/21 @ 19:42 by Mahi Munoz DO) History of hip replacement History of knee replacement Social History Smoking/Tobacco Use Status: Current every day Tobacco Type: cigarettes Smoking risk assessment performed?: Yes Alcohol Intake: former Drug use: Never Substance use type: does not use Do you feel safe at home: Yes Do you feel safe in your relationship?: Yes Exam Narrative Exam Narrative: Physical Examination General: alert, awake, cooperative, resting comfortably, no acute distress HEENT: normocephalic, atraumatic; PERRL, EOM intact, conjunctiva normal; no nasal discharge; moist mucous membranes, oral and pharyngeal mucosa normal, tolerating secretions Neck: supple, trachea midline; full ROM Chest: normal to inspection Respiratory: normal respiratory effort, speaking in full sentences, clear to auscultation, no wheezing, rales or rhonchi Cardiac: regular rate, regular rhythm, S1S2 intact, no murmurs rubs or gallops GI: abdomen soft, non-tender, non-distended; no palpable mass or hepatosplenomegaly Skin: no lesions, rashes or trauma appreciated Neuro: AAOx3, normal speech, moving all extremities Extremities: Left lower extremity edema pitting to level of shins, mild edema to level of ankle right lower extremity, left lower extremity is not red is no more warm than her right lower extremity, no signs of trauma, no crepitus no bulla Psych: Appropriate mood and affect Course Vital Signs Vital signs: Vital Signs Temperature 36.7 C 12/26/21 11:16 Pulse 65 12/26/21 11:16 Respiratory Rate 16 12/26/21 11:16 Blood Pressure 125/62 12/26/21 11:16 Pulse Oximetry 100 12/26/21 11:16 Temperature 36.7 C 12/26/21 11:16 Temperature Source Temporal Artery Scan 12/26/21 11:16 Pulse 65 12/26/21 11:16 Respiratory Rate 16 12/26/21 11:16 Respiratory Effort Non-Labored 12/26/21 11:20 Blood Pressure 125/62 12/26/21 11:16 Blood Pressure Position Sitting 12/26/21 11:16 Pulse Oximetry 100 12/26/21 11:16 Oxygen Delivery Method Room Air 12/26/21 11:16 Oxygen Flow Rate 0 12/26/21 11:16
== END 2021-12-26 11:50 | disposition home or self-care (01) ==
LOC: ER 11:48
PROVIDERS: Emergency Provider Emergency Medicine; PCP Physician Assistant
DX: R60.0 Localized edema (principal)

== ENCOUNTER 2021-12-27 11:28 | Outpatient (REF) | payer MEDICARE, MEDICAID, SELFPAY ==
[2021-12-27 14:23] LABS: ALT 24 U/L (14-59); AST 21 U/L (15-37); Albumin 3.7 g/dL (3.4-5.0); Alkaline Phosphatase 138 U/L (46-116); Anion Gap 8.8 mmol/L (3-11); BUN 8 mg/dL (7-18); Bilirubin, Total 0.2 mg/dL (0.2-1.0); CO2 27.2 mmol/L (21.0-32.0); CREATININE 0.8 mg/dL (0.55-1.02); Calcium 8.8 mg/dL (8.5-10.1); Chloride 108 mmol/L (98-107); Glucose 91 mg/dL (74-106); Potassium 4.1 mmol/L (3.5-5.1); Sodium 144 mmol/L (136-145); Total Protein 6.7 g/dL (6.4-8.2)
== END 2021-12-27 11:29 | disposition home or self-care (01) ==
LOC: LBN 11:28
PROVIDERS: PCP Nurse Practitioner Family; Visit Provider Nurse Practitioner Family
DX: R60.0 Localized edema (principal)
CPT/HCPCS: 80053

== ENCOUNTER 2022-01-10 10:20 | Observation (INO) | payer MEDICARE, MEDICAID, SELFPAY ==
[2022-01-10 10:51] VITALS: BP 108/62; PULSE 84; RESP 14; TEMP 36.7; O2SAT 98
--- NOTE | 2022-01-10 11:26 | ED.GENADUL_ITS ---
Discharge Plan Disposition Patient Disposition: [facility] INPATIENT Condition: Stable Discharge Details Clinical Impression: Suicidal ideation Primary Care Provider: Sanya Baker ED Provider: Daria Gallagher Home Meds and New Rx's Prescriptions: No Action ibuprofen 400 mg tablet 400 mg PO Q8H cholecalciferol (vitamin D3) 25 mcg (1,000 unit) capsule 25 mcg PO DAILY levothyroxine [Synthroid] 50 MCG tablet 25 mcg PO DAILY furosemide 20 mg tablet 10 mg PO DAILY lamotrigine 25 mg tablet 25 mg PO DAILY prazosin 1 mg capsule 1 mg PO DAILY olanzapine [Zyprexa] 7.5 mg Tablet 7.5 mg PO DAILY multivitamin with folic acid [Daily-Deonte (with folic acid)] 400 mcg tablet 1 tab PO DAILY Medical Decision Making 66-year-old female with a history of bipolar disorder PTSD and anxiety presents to the ER with chief complaint of suicidal ideation. Patient reports that for the last couple of weeks she has been super depressed she does become tearful when speaking with her, she has had thoughts of slashing my wrists. She denies taking any extra medications or doing anything to harm herself recently. She does have a history of suicidal ideation. She denies any abdominal pain, nausea vomiting , fever or chills. Report she does report some diarrhea over the last week which she attributes to nerves. She did take her normal daily medications today. 1130: UDS urinalysis ordered, CPSO at bedside, patient is in line of sight of nurses station, is in paper scrubs. Zeenat PARK is here in the department and is available for bedside assessment happening at this time. 1144: Per Zeenat PARK patient's SI is a rating of 9/10. They will be seeking voluntary psychiatric placement at this time. Patient is calm and cooperative is requesting lunch. Lab orders placed. 1413: Labs are all unremarkable, will page hospitalist for possible admission for voluntary psychiatric placement. 1448: Hospitalist Paged [phone]: Spoke with hospitalist team who accepts patient for admission. Patient is remained calm and cooperative throughout her stay here hemodynamically stable th roughout stay. Patient transported to floor hemodynamically stable and cooperative condition. Medical Records Medical records reviewed: Yes I reviewed the patient's medical records. Lab Data Lab results reviewed: Yes I reviewed the patient's lab results. Labs: Laboratory Tests Range/Units 01/10/22 01/10/22 01/10/22 11:19 11:19 12:21 WBC (4.4-10.8) 10^3/uL RBC (3.93-5.22) 10^6/uL Hgb (11.2-15.7) g/dL Hct (36.0-46.0) % MCV (80-95) fL MCH (27.0-33.0) pg MCHC (32.0-36.0) % RDW (11.7-14.6) % Plt Count (130-400) 10^3/uL MPV (8.0-11.0) fL Immature Gran % Neutrophils % Lymphocytes % Monocytes % Eosinophils % Basophils % Nucleated RBC % (0.0-0.3) % Absolute Neutrophils (1.2-6.7) 10^3/uL Absolute Lymphocytes (1.2-3.4) 10^3/uL Absolute Monocytes (0.1-0.8) 10^3/uL Absolute Eosinophils (0.0-0.7) 10^3/uL Absolute Basophils (0.0-0.2) 10^3/uL Sodium (136-145) mmol/L Potassium (3.5-5.1) mmol/L Chloride (98-107) mmol/L Carbon Dioxide (21.0-32.0) mmol/L Anion Gap (3-11) mmol/L BUN (7-18) mg/dL Creatinine (0.55-1.02) mg/dL Estimated GFR/1.73 m2 (mL/min/1.73m2) Glucose (74-106) mg/dL Calcium (8.5-10.1) mg/dL Total Bilirubin (0.2-1.0) mg/dL AST (15-37) U/L ALT (14-59) U/L Alkaline Phosphatase (46-116) U/L Total Protein (6.4-8.2) g/dL Albumin (3.4-5.0) g/dL TSH (0.36-3.74) uIU/mL Urine Color (Yellow) Yellow Urine Clarity (Clear) Clear Urine pH (5-8) 5.5 Ur Specific Astor (1.005-1.025) 1.015 Urine Protein (Negative) mg/dL Negative Urine Ketones (Negative) mg/dL Negative Urine Blood (Negative) Negative Urine Nitrite (Negative) Negative Urine Bilirubin (Negative) Negative Urine Urobilinogen (Up TO 0.2) EU/dL 0.2 Ur Leukocyte Esterase (Negative) Negative Urine Glucose (Negative) mg/dL Negative Salicylates (<2.8) mg/dL Urine Opiates Screen (Negative) Negative Urine Methadone Screen (Negative) Negative Acetaminophen (10-30) ug/mL Ur Barbiturates Screen (Negative) Negative Ur Tricyclics Screen (Negative) Negative Ur Amphetamines Screen (Negative) Negative U Benzodiazepines Scrn (Negative) Negative Urine Cocaine Screen (Negative) Negative Ur THC Screen (Negative) Negative Ethyl Alcohol (<10) mg/dL COVID-19 Source Nasal/Nares SARS-CoV-2 (PCR) (Negative) Negative Range/Units 01/10/22 01/10/22 01/10/22 13:19 13:19 13:19 WBC (4.4-10.8) 10^3/uL 5.87 RBC (3.93-5.22) 10^6/uL 3.90 L Hgb (11.2-15.7) g/dL 11.5 Hct (36.0-46.0) % 37.3 MCV (80-95) fL 96 H MCH (27.0-33.0) pg 29.5 MCHC (32.0-36.0) % 30.8 L RDW (11.7-14.6) % 12.8 Plt Count (130-400) 10^3/uL 333 MPV (8.0-11.0) fL 10.2 Immature Gran % 0.2 Neutrophils % 62.2 Lymphocytes % 27.6 Monocytes % 7.2 Eosinophils % 1.9 Basophils % 0.9 Nucleated RBC % (0.0-0.3) % 0.0 Absolute Neutrophils (1.2-6.7) 10^3/uL 3.66 Absolute Lymphocytes (1.2-3.4) 10^3/uL 1.62 Absolute Monocytes (0.1-0.8) 10^3/uL 0.42 Absolute Eosinophils (0.0-0.7) 10^3/uL 0.11 Absolute Basophils (0.0-0.2) 10^3/uL 0.05 Sodium (136-145) mmol/L 142 Potassium (3.5-5.1) mmol/L 4.1 Chloride (98-107) mmol/L 104 Carbon Dioxide (21.0-32.0) mmol/L 30.2 Anion Gap (3-11) mmol/L 7.8 BUN (7-18) mg/dL 14 Creatinine (0.55-1.02) mg/dL 0.8 Estimated GFR/1.73 m2 (mL/min/1.73m2) >= 60.00 Glucose (74-106) mg/dL 98 Calcium (8.5-10.1) mg/dL 9.5 Total Bilirubin (0.2-1.0) mg/dL 0.3 AST (15-37) U/L 17 ALT (14-59) U/L 19 Alkaline Phosphatase (46-116) U/L 150 H Total Protein (6.4-8.2) g/dL 8.1 Albumin (3.4-5.0) g/dL 4.1 TSH (0.36-3.74) uIU/mL 1.05 Urine Color (Yellow) Urine Clarity (Clear) Urine pH (5-8) Ur Specific Astor (1.005-1.025) Urine Protein (Negative) mg/dL Urine Ketones (Negative) mg/dL Urine Blood (Negative) Urine Nitrite (Negative) Urine Bilirubin (Negative) Urine Urobilinogen (Up TO 0.2) EU/dL Ur Leukocyte Esterase (Negative) Urine Glucose (Negative) mg/dL Salicylates (<2.8) mg/dL < 2.8 Urine Opiates Screen (Negative) Urine Methadone Screen (Negative) Acetaminophen (10-30) ug/mL < 2 Ur Barbiturates Screen (Negative) Ur Tricyclics Screen (Negative) Ur Amphetamines Screen (Negative) U Benzodiazepines Scrn (Negative) Urine Cocaine Screen (Negative) Ur THC Screen (Negative) Ethyl Alcohol (<10) mg/dL < 3.0 COVID-19 Source SARS-CoV-2 (PCR) (Negative) HPI General Mode of arrival: ambulatory . Date/Time Provider Initiated Documentation: 01/10/22 10:21 . Limitations to Documentation: no limitations . Information obtained by: patient, RN notes reviewed and old records reviewed . HPI Narrative: 66-year-old female with a history of bipolar disorder PTSD and anxiety presents to the ER with chief complaint of suicidal ideation. Patient reports that for the last couple of weeks she has been super depressed she does become tearful when speaking with her, she has had thoughts of slashing my wrists. She denies taking any extra medications or doing anything to harm herself recently. She does have a history of suicidal ideation. She denies any abdominal pain, nausea vomiting , fever or chills. Report she does report some diarrhea over the last week which she attributes to nerves. She did take her normal daily medications today. Related Data Home Medications Medication Instructions Recorded Confirmed levothyroxine 50 mcg tablet 25 mcg PO DAILY 12/29/15 01/10/22 (Synthroid) cholecalciferol (vitamin D3) 25 25 mcg PO DAILY 09/22/21 01/10/22 mcg (1,000 unit) capsule ibuprofen 400 mg tablet 400 mg PO Q8H 09/22/21 01/10/22 furosemide 20 mg tablet 10 mg PO DAILY 11/26/21 01/10/22 lamotrigine 25 mg tablet 25 mg PO DAILY 12/25/21 01/10/22 multivitamin with folic acid 400 1 tab PO DAILY 12/25/21 01/10/22 mcg tablet (Daily-Deonte (with folic acid)) olanzapine 7.5 mg tablet (Zyprexa) 7.5 mg PO DAILY 12/25/21 01/10/22 prazosin 1 mg capsule 1 mg PO DAILY 12/25/21 01/10/22 Allergies Allergy/AdvReac Type Severity Reaction Status Date / Time acetaminophen [From Vicodin] Allergy Mild facial Verified 01/10/22 10:59 swelling bupropion [From Wellbutrin] Allergy Mild facial Verified 01/10/22 10:59 swelling doxycycline Allergy Mild unknown Verified 01/10/22 10:59 fluticasone Allergy Mild dizziness Verified 01/10/22 10:59 [From Advair Diskus] hydrocodone [From Vicodin] Allergy Mild facial Verified 01/10/22 10:59 swelling levofloxacin [From Levaquin] Allergy Mild dizziness Verified 01/10/22 10:59 morphine Allergy Mild hallucinati Verified 01/10/22 10:59 on omeprazole Allergy Mild rash, Verified 01/10/22 10:59 upset stomach oxycodone Allergy Mild hallucinati Verified 01/10/22 10:59 ons prednisone Allergy Mild dizziness Verified 01/10/22 10:59 quetiapine [From Seroquel] Allergy Mild dizziness Verified 01/10/22 10:59 risperidone Allergy Mild sever Verified 01/10/22 10:59 nightmares salmeterol Allergy Mild dizziness Verified 01/10/22 10:59 [From Advair Diskus] tramadol Allergy Mild dizziness, Verified 01/10/22 10:59 hallucinations erythromycin base Allergy Unverified 01/10/22 10:59 propoxyphene HCl Allergy Unverified 01/10/22 10:59 [From Darvon] General Stated Complaint: PsychEval SEB: 2 Review of Systems All systems reviewed & are unremarkable except as noted in HPI and below Constitutional Constitutional: Denies fever(s) and Denies headache(s) Eyes Eyes: Denies loss of vision ENT Ears, Nose, Mouth, and Throat: Denies dizziness and Denies headache(s) Cardiovascular Cardiovascular: Denies chest pain and Denies dyspnea Respiratory Respiratory: Denies dyspnea Gastrointestinal Gastrointestinal: Denies abdominal pain, Reports diarrhea, Denies nausea and Denies vomiting Neurologic Neurologic: Denies abnormal speech, Denies dizziness, Denies headache(s) and Denies loss of vision Psychiatric Psychiatric: Reports as per HPI, Reports anxiety, Reports depression, Denies auditory hallucinations, Denies visual hallucinations, Denies homicidal ideation and Reports suicidal ideation PFSH All Active Problems (Updated 01/10/22 @ 14:59 by Niharika Lloyd NP) Bipolar 1 disorder, mixed (Acute) Peripheral edema (Acute) Chest pain (Acute) Anemia (Chronic) Edema (Acute) Suicidal ideation (Acute) Suicidal ideation (Acute) History of colon polyps (Acute) Diarrhea (Acute) Unintentional weight loss (Acute) Screening for colon cancer (Acute) Medical History Anxiety Bipolar 1 disorder, mixed PTSD (post-traumatic stress disorder) Surgical History History of hip replacement History of knee replacement Social History Smoking/Tobacco Use Status: Current every day Tobacco Type: cigarettes Smoking risk assessment performed?: Yes Alcohol Intake: former Drug use: Never Substance use type: does not use Do you feel safe at home: Yes Do you feel safe in your relationship?: Yes Exam Narrative Exam Narrative: Constitutional: Alert and oriented x3. Appears stated age. Normal body habitus. Head: Normocephalic, no trauma. Eyes: Pupils PERRL, Red reflex noted, EOM's intact. Eyelids symmetrical without lesions, discharge, or swelling. ENT: Bilateral TM's WNL, External ear normal to inspection, no mastoid TTP, swelling, or erythema, Nasal turbinates WNL, no nasal discharge. Normal denti tion, Posterior pharynx WNL, no exudate. Chest: RRR, Normal S1, S2, distal pulses intact. Resp: Lungs clear to auscultation bilaterally, no wheezes, rales, or rhonchi. Abdomen: Soft, non-distended, Normoactive bowel sounds all 4 quads. Musculoskeletal: Normal gait, 5/5 strength to all four extremities. Skin: No suspicious rashes or lesions. Capillary refill less than 2 sec. Neurologic: Cranial nerves II-XII intact. Alert and oriented x 3. Motor: No deficits noted. Sensory: Intact bilaterally all 4 extremities. Reflexes: DTR's intact bilaterally.. Hematologic/Lymphatic: No ecchymosis, no lymphadenopathy. Psych Appearance: grossly normal Speech and Movement: speech and movement normal Mood: congruent mood Affect: sad Attitude: cooperative Thought Process: normal Thought Content: no hallucinations, no homicidality and suicidality Insight: insight good Judgment: poor Course Vital Signs Vital signs: Vital Signs Temperature 36.7 C 01/10/22 10:51 Pulse 84 01/10/22 10:51 Respiratory Rate 14 01/10/22 10:51 Blood Pressure 108/62 01/10/22 10:51 Pulse Oximetry 98 01/10/22 10:51 Temperature 36.7 C 01/10/22 10:51 Temperature Source Tympanic 01/10/22 10:51 Pulse 84 01/10/22 10:51 Respiratory Rate 14 01/10/22 10:51 Respiratory Effort Non-Labored 01/10/22 10:55 Blood Pressure 108/62 01/10/22 10:51 Blood Pressure Position Sitting 01/10/22 10:51 Pulse Oximetry 98 01/10/22 10:51 Oxygen Delivery Method Room Air 01/10/22 10:51 Oxygen Flow Rate 0 01/10/22 10:51 Pain Level 0 01/10/22 10:51
[2022-01-10 11:47] LABS: Bilirubin Negative (Negative); Blood Negative (Negative); Clarity Clear (Clear); Glucose Negative (Negative); Ketones Negative (Negative); Leukocyte Esterase Negative (Negative); Nitrite Negative (Negative); Specific Gravity 1.015 (1.005-1.025); Urobilinogen 0.2 EU/dL (Up TO 0.2); pH 5.5 (5-8)
[2022-01-10 11:58] LABS: *AMPHETAMINES SCREEN URINE Negative (Negative); *BARBITURATES SCREEN URINE Negative (Negative); *BENZODIAZEPINES SCREEN URINE Negative (Negative); Cannabinoids THC Negative (Negative); Cocaine Screen,Urine Negative (Negative); METHADONE URINE SCREEN Negative (Negative); OPIATES URINE SCREEN Negative (Negative)
[2022-01-10 11:59] LABS: Tricyclic Antidepressants Negative (Negative)
--- NOTE | 2022-01-10 12:57 | CMSP_ITS ---
- If Service Date Differs Date of service: 01/10/22 Time of Service: 12:57 Care Management Safety Plan Status: Voluntary - Reason for Wait Reason for Wait: Inpatient Admission VOLUNTARY FOR INPATIENT PSYCHIATRIC STABILIZATION. Patient is appropriate in all interactions since arriving at [facility]; Pt has demonstrated appropriate coping and communication skills, has articulated his or her needs and concerns and is fully engaged during staff interactions. Chief Complaint: Cindy presents in the ED for worsening depression and suicidal ideation. She has a diagnosis of Bipolar Disorder and was hospitalized at [facility] last month due to yu. Since her discharge home on December 20, 2021, she has been sad and increasingly more depressed. Cindy was evaluated by Zeenat, [facility] crisis screener, in the ED and was found to meet criteria for a voluntary hospitalization. Referrals are faxed to [facility], [facility], and [facility] for review. Cindy will remain at [facility] and will be reassessed daily by [facility] until a placement can be secured for her. CM will continue to follow. Safety plan has been established with patient, and care team, to adhere to patient goals, identify restrictions based on behavioral status, address nutrition, and determine allowed personal belongings, tools for hygiene and personal care. Determine level of activity including ambulation, level of supervision, visitors, and determine privileges based on behaviors and level of engagement by pt. SAFETY PLAN: 1. Will remain on suicide precautions. In Paper Clothes 2. Will remain in room under direct supervision of one-on-one staff at all times provided by CPSO, [employer], [employer] director of reservations. 3. May have paper cups, plates, finger foods as well as a cardboard spoon with which to eat meals. 4. Follow [facility] Management of the Admitted Behavioral Health Patient policy. 5. Shower permitted with escort at RN discretion. 6. No personal belongings. 7. Visitors: Per [facility] visitor policy and at RN discretion. 8. Activities: soft cart items, music tablet, television, and other activities at RN discretion. 9. Bathroom privileges with escort in the ED, available in room without limitation on M/S. 10. Phone: may use [employer] hospital phone at RN discretion. 11. Due to VOLUNTARY status, if patient wishes to leave [facility], staff will contact [facility] Crisis Screener ([phone]) and On-Call Toys Inspector ([phone]) as soon as possible. In the event of elopement, notify [facility] Police ([phone]). Patient is currently voluntarily at [facility] and seeking inpatient admission when a bed becomes available. [facility] Frontline Nutrition Instructor will continue seeking placement. Please contact the Remote Ruby On Rails Developer Toys Inspector ([phone]) and [facility] Nutrition Instructor ([phone]) for any needed changes in the Safety Plan. Safety plan has been provided to interdepartmental care team.
--- NOTE | 2022-01-10 12:57 | PDOC.CMSAFED ---
- If Service Date Differs Date of service: 01/10/22 Time of Service: 12:57 Care Management Safety Plan Status: Voluntary - Reason for Wait Reason for Wait: Inpatient Admission VOLUNTARY FOR INPATIENT PSYCHIATRIC STABILIZATION. Patient is appropriate in all interactions since arriving at [facility]; Pt has demonstrated appropriate coping and communication skills, has articulated his or her needs and concerns and is fully engaged during staff interactions. Chief Complaint: Cindy presents in the ED for worsening depression and suicidal ideation. She has a diagnosis of Bipolar Disorder and was hospitalized at [facility] last month due to yu. Since her discharge home on December 20, 2021, she has been sad and increasingly more depressed. Cindy was evaluated by Zeenat, [facility] crisis screener, in the ED and was found to meet criteria for a voluntary hospitalization. Referrals are faxed to [facility], [facility], and [facility] for review. Cindy will remain at [facility] and will be reassessed daily by [facility] until a placement can be secured for her. CM will continue to follow. Safety plan has been established with patient, and care team, to adhere to patient goals, identify restrictions based on behavioral status, address nutrition, and determine allowed personal belongings, tools for hygiene and personal care. Determine level of activity including ambulation, level of supervision, visitors, and determine privileges based on behaviors and level of engagement by pt. SAFETY PLAN: 1. Will remain on suicide precautions. In Paper Clothes 2. Will remain in room under direct supervision of one-on-one staff at all times provided by [employer], MOBILE QA TESTER, RAILROAD CROSSING PROTECTION MAINTAINER structural steel worker apprentice. 3. May have paper cups, plates, finger foods as well as a cardboard spoon with which to eat meals. 4. Follow [facility] Management of the Admitted Behavioral Health Patient policy. 5. Shower permitted with escort at RN discretion. 6. No personal belongings. 7. Visitors: Per [facility] visitor policy and at RN discretion. 8. Activities: soft cart items, music tablet, television, and other activities at RN discretion. 9. Bathroom privileges with escort in the ED, available in room without limitation on M/S. 10. Phone: may use E96 hospital phone at RN discretion. 11. Due to VOLUNTARY status, if patient wishes to leave [facility], staff will contact [facility] Crisis Screener ([phone]) and On-Call Toucher Up ([phone]) as soon as possible. In the event of elopement, notify [facility] Police ([phone]). Patient is currently voluntarily at [facility] and seeking inpatient admission when a bed becomes available. [facility] Frontline Apparatus Engineering Technologist will continue seeking placement. Please contact the Fat Pressroom Worker Toucher Up ([phone]) and [facility] Apparatus Engineering Technologist ([phone]) for any needed changes in the Safety Plan. Safety plan has been provided to interdepartmental care team.
[2022-01-10 13:32] LABS: Source Nasal/Nares
[2022-01-10 13:35] LABS: Abs Immature Grans 0.01 10^3/uL (0.0-0.06); Absolute Basophil Count 0.05 10^3/uL (0.0-0.2); Absolute Eosinophil Count 0.11 10^3/uL (0.0-0.7); Absolute Lymphocyte Count 1.62 10^3/uL (1.2-3.4); Absolute Monocyte Count 0.42 10^3/uL (0.1-0.8); Absolute Neutrophil Count 3.66 10^3/uL (1.2-6.7); Basophils % 0.9; Eosinophils % 1.9; HCT 37.3 % (36.0-46.0); HGB 11.5 g/dL (11.2-15.7); Immature Grans % 0.2; Lymphocytes % 27.6; MCH 29.5 pg (27.0-33.0); MCHC 30.8 % (32.0-36.0); MCV 96 fL (80-95); MPV 10.2 fL (8.0-11.0); Monocytes % 7.2; Neutrophils % 62.2; Platelet Count 333 10^3/uL (130-400); RDW 12.8 % (11.7-14.6); RDW-SD 45.1 fL; WBC 5.87 10^3/uL (4.4-10.8)
[2022-01-10 13:56] LABS: Acetaminophen < 2 ug/mL (10-30); Salicylate < 2.8 mg/dL (<2.8)
[2022-01-10 13:57] LABS: ALT 19 U/L (14-59); AST 17 U/L (15-37); Albumin 4.1 g/dL (3.4-5.0); Alkaline Phosphatase 150 U/L (46-116); Anion Gap 7.8 mmol/L (3-11); BUN 14 mg/dL (7-18); Bilirubin, Total 0.3 mg/dL (0.2-1.0); CO2 30.2 mmol/L (21.0-32.0); CREATININE 0.8 mg/dL (0.55-1.02); Calcium 9.5 mg/dL (8.5-10.1); Chloride 104 mmol/L (98-107); ETHANOL BLOOD < 3.0 mg/dL (<10); Glucose 98 mg/dL (74-106); Potassium 4.1 mmol/L (3.5-5.1); Sodium 142 mmol/L (136-145); TSH (W/Ref FT4) 1.05 uIU/mL (0.36-3.74); Total Protein 8.1 g/dL (6.4-8.2)
[2022-01-10 14:24] LABS: COVID-19 PCR Negative (Negative)
--- NOTE | 2022-01-10 14:56 | HPE_ITS ---
Date of service: 01/10/22 Time of Service: 13:56 Assessment and Plan Assessment and plan (1) Suicidal ideation: Status: Acute Assessment and plan: medically cleared in ED screened by mental health and awaiting inpatient psychiatric placement maintain CPSO, and behavioral health plan with suicidal precautions/protocol. (2) Bipolar 1 disorder, mixed: Status: Acute Assessment and plan: continue home medication lamotrigine and olanzapine. check lamotrigine level (3) Hypothyroidism: Status: Chronic Assessment and plan: TSH is 1.05, will continue home levothyroxine dosing. (4) Discharge planning issues: Status: Acute Assessment and plan: anticipate discharge to inpatient psychiatric facility for further management and treatment. discussed with DR Allred. History of Present Illness History of Present Illness Chief Complaint: suicidal ideation Narrative: presents to the ED for evaluation of suicidal ideation. reports she wants to slit her wrists. medically screened with no acute medical condition identified. Mental health screening completed and patient is agreeable to voluntary inpatient psychiatric placement. she has had no behavioral issues while in the emergency department Review of Systems All systems reviewed & are unremarkable except as noted in HPI and below Constitutional Constitutional: Denies fever(s) and Reports lethargy Cardiovascular Cardiovascular: Denies chest pain Respiratory Respiratory: Denies cough Psychiatric Psychiatric: Reports depression and Reports suicidal ideation [facility] All Active Problems (Updated 01/10/22 @ 16:55 by Niharika Lloyd NP) Discharge planning issues (Acute) Hypothyroidism (Chronic) Bipolar 1 disorder, mixed (Acute) Peripheral edema (Acute) Chest pain (Acute) Anemia (Chronic) Edema (Acute) Suicidal ideation (Acute) Suicidal ideation (Acute) History of colon polyps (Acute) Diarrhea (Acute) Unintentional weight loss (Acute) Screening for colon cancer (Acute) Medical History Anxiety Bipolar 1 disorder, mixed PTSD (post-traumatic stress disorder) Surgical History History of hip replacement History of knee replacement Social History Smoking/Tobacco Use Status: Current every day Tobacco Type: cigarettes Smoking risk assessment performed?: Yes Alcohol Intake: former Drug use: Never Substance use type: does not use Do you feel safe at home: Yes Do you feel safe in your relationship?: Yes Meds Allergies and Home Medications Allergies Allergy/AdvReac Type Severity Reaction Status Date / Time acetaminophen [From Vicodin] Allergy Mild facial Verified 01/10/22 10:59 swelling bupropion [From Wellbutrin] Allergy Mild facial Verified 01/10/22 10:59 swelling doxycycline Allergy Mild unknown Verified 01/10/22 10:59 fluticasone Allergy Mild dizziness Verified 01/10/22 10:59 [From Advair Diskus] hydrocodone [From Vicodin] Allergy Mild facial Verified 01/10/22 10:59 swelling levofloxacin [From Levaquin] Allergy Mild dizziness Verified 01/10/22 10:59 morphine Allergy Mild hallucinati Verified 01/10/22 10:59 on omeprazole Allergy Mild rash, Verified 01/10/22 10:59 upset stomach oxycodone Allergy Mild hallucinati Verified 01/10/22 10:59 ons prednisone Allergy Mild dizziness Verified 01/10/22 10:59 quetiapine [From Seroquel] Allergy Mild dizziness Verified 01/10/22 10:59 risperidone Allergy Mild sever Verified 01/10/22 10:59 nightmares salmeterol Allergy Mild dizziness Verified 01/10/22 10:59 [From Advair Diskus] tramadol Allergy Mild dizziness, Verified 01/10/22 10:59 hallucinations erythromycin base Allergy Unverified 01/10/22 10:59 propoxyphene HCl Allergy Unverified 01/10/22 10:59 [From Darvon] Home Medications Medication Instructions Recorded Confirmed Type levothyroxine 50 mcg tablet 25 mcg PO DAILY 12/29/15 01/10/22 History (Synthroid) cholecalciferol (vitamin D3) 25 25 mcg PO DAILY 09/22/21 01/10/22 History mcg (1,000 unit) capsule ibuprofen 400 mg tablet 400 mg PO Q8H 09/22/21 01/10/22 History furosemide 20 mg tablet 10 mg PO DAILY 11/26/21 01/10/22 History lamotrigine 25 mg tablet 25 mg PO DAILY 12/25/21 01/10/22 History multivitamin with folic acid 400 1 tab PO DAILY 12/25/21 01/10/22 History mcg tablet (Daily-Deonte (with folic acid)) olanzapine 7.5 mg tablet (Zyprexa) 7.5 mg PO DAILY 12/25/21 01/10/22 History prazosin 1 mg capsule 1 mg PO DAILY 12/25/21 01/10/22 History Exam Const General: cooperative, healthy appearing, comfortable and no acute distress Nutritional Appearance: average body habitus Orientation: alert, awake and oriented x3 HENMT Head: normal to inspection, normocephalic and atraumatic Mouth: oral mucosae normal Chest Chest: normal inspection of the chest Resp Effort & Inspection: normal respiratory effort Cardio Rate: regular rate GI Palpation: soft and nontender Auscultation: normal bowel sounds Skin General skin exam: no rashes or lesions noted Neuro General: patient alert, patient awake, patient oriented x3 and no focal motor deficits Extrem General: normal to inspection and no pedal edema Psych Appearance: grossly normal Speech and Movement: speech and movement normal Mood: congruent mood Affect: sad Attitude: cooperative Thought Process: normal Thought Content: no hallucinations, no homicidality and suicidality Insight: insight good Judgment: poor Results Labs Result diagrams: 01/10/22 13:19 01/10/22 13:19 Labs: Laboratory Results - last 24 hr 01/10/22 01/10/22 01/10/22 11:19 11:19 12:21 WBC RBC Hgb Hct MCV MCH MCHC RDW Plt Count MPV Immature Gran % Neutrophils % Lymphocytes % Monocytes % Eosinophils % Basophils % Nucleated RBC % Absolute Neutrophils Absolute Lymphocytes Absolute Monocytes Absolute Eosinophils Absolute Basophils Sodium Potassium Chloride Carbon Dioxide Anion Gap BUN Creatinine Estimated GFR/1.73 m2 Glucose Calcium Total Bilirubin AST ALT Alkaline Phosphatase Total Protein Albumin TSH Urine Color Yellow Urine Clarity Clear Urine pH 5.5 Ur Specific [place] 1.015 Urine Protein Negative Urine Ketones Negative Urine Blood Negative Urine Nitrite Negative Urine Bilirubin Negative Urine Urobilinogen 0.2 Ur Leukocyte Esterase Negative Urine Glucose Negative Salicylates Urine Opiates Screen Negative Urine Methadone Screen Negative Acetaminophen Ur Barbiturates Screen Negative Ur Tricyclics Screen Negative Ur Amphetamines Screen Negative U Benzodiazepines Scrn Negative Urine Cocaine Screen Negative Ur THC Screen Negative Ethyl Alcohol COVID-19 Source Nasal/Nares SARS-CoV-2 (PCR) Negative 01/10/22 01/10/22 01/10/22 13:19 13:19 13:19 WBC 5.87 RBC 3.90 L Hgb 11.5 Hct 37.3 MCV 96 H MCH 29.5 MCHC 30.8 L RDW 12.8 Plt Count 333 MPV 10.2 Immature Gran % 0.2 Neutrophils % 62.2 Lymphocytes % 27.6 Monocytes % 7.2 Eosinophils % 1.9 Basophils % 0.9 Nucleated RBC % 0.0 Absolute Neutrophils 3.66 Absolute Lymphocytes 1.62 Absolute Monocytes 0.42 Absolute Eosinophils 0.11 Absolute Basophils 0.05 Sodium 142 Potassium 4.1 Chloride 104 Carbon Dioxide 30.2 Anion Gap 7.8 BUN 14 Creatinine 0.8 Estimated GFR/1.73 m2 >= 60.00 Glucose 98 Calcium 9.5 Total Bilirubin 0.3 AST 17 ALT 19 Alkaline Phosphatase 150 H Total Protein 8.1 Albumin 4.1 TSH 1.05 Urine Color Urine Clarity Urine pH Ur Specific [place] Urine Protein Urine Ketones Urine Blood Urine Nitrite Urine Bilirubin Urine Urobilinogen Ur Leukocyte Esterase Urine Glucose Salicylates < 2.8 Urine Opiates Screen Urine Methadone Screen Acetaminophen < 2 Ur Barbiturates Screen Ur Tricyclics Screen Ur Amphetamines Screen U Benzodiazepines Scrn Urine Cocaine Screen Ur THC Screen Ethyl Alcohol < 3.0 COVID-19 Source SARS-CoV-2 (PCR) Last Vital Signs Temp 36.7 C 01/10/22 10:51 Pulse 84 01/10/22 10:51 Resp 14 01/10/22 10:51 BP 108/62 01/10/22 10:51 Pulse Ox 98 01/10/22 10:51
[2022-01-10 15:45] VITALS: BP 132/80; PULSE 75; RESP 18; TEMP 36.8; O2SAT 99
[2022-01-10 15:48] VITALS: BP 147/79; PULSE 86; RESP 18; TEMP 36.8; O2SAT 99
[2022-01-10] MEDS: Ibuprofen 400 MG TAB PO (16:49)
[2022-01-10 19:57] VITALS: BP 106/56; PULSE 77; RESP 18; TEMP 35.9; O2SAT 100
[2022-01-10] MEDS: Prazosin 1 MG CAP PO (22:26)
[2022-01-10] MEDS: OLANZapine 2.5 MG TAB 7.5 MG PO (22:26)
[2022-01-10] MEDS: Melatonin 3 MG TAB PO (22:26)
[2022-01-11] MEDS: Levothyroxine 50 MCG TAB 25 MCG PO (06:40)
[2022-01-11] MEDS: Furosemide 20 MG TAB 10 MG PO (09:03)
[2022-01-11] MEDS: Multivitamin w/Minerals TAB 1 TAB PO (09:03)
[2022-01-11] MEDS: Nicotine 21 MG/24 HR PATCH TD (09:04)
[2022-01-11] MEDS: lamoTRIgine 25 MG TAB PO (09:04)
--- NOTE | 2022-01-11 09:22 | PGE_ITS ---
Date of Service Date of service: 01/11/22 Time of Service: 08:23 Objective Last Vital Signs Temp 96.6 F L 01/10/22 19:57 Pulse 77 01/10/22 19:57 Resp 18 01/10/22 19:57 BP 106/56 L 01/10/22 19:57 Pulse Ox 100 01/10/22 19:57 Laboratory Results - last 24 hr 01/10/22 01/10/22 01/10/22 11:19 11:19 12:21 WBC RBC Hgb Hct MCV MCH MCHC RDW Plt Count MPV Immature Gran % Neutrophils % Lymphocytes % Monocytes % Eosinophils % Basophils % Nucleated RBC % Absolute Neutrophils Absolute Lymphocytes Absolute Monocytes Absolute Eosinophils Absolute Basophils Sodium Potassium Chloride Carbon Dioxide Anion Gap BUN Creatinine Estimated GFR/1.73 m2 Glucose Calcium Total Bilirubin AST ALT Alkaline Phosphatase Total Protein Albumin TSH Urine Color Yellow Urine Clarity Clear Urine pH 5.5 Ur Specific [place] 1.015 Urine Protein Negative Urine Ketones Negative Urine Blood Negative Urine Nitrite Negative Urine Bilirubin Negative Urine Urobilinogen 0.2 Ur Leukocyte Esterase Negative Urine Glucose Negative Salicylates Urine Opiates Screen Negative Urine Methadone Screen Negative Acetaminophen Ur Barbiturates Screen Negative Ur Tricyclics Screen Negative Ur Amphetamines Screen Negative U Benzodiazepines Scrn Negative Urine Cocaine Screen Negative Ur THC Screen Negative Ethyl Alcohol COVID-19 Source Nasal/Nares SARS-CoV-2 (PCR) Negative 01/10/22 01/10/22 01/10/22 13:19 13:19 13:19 WBC 5.87 RBC 3.90 L Hgb 11.5 Hct 37.3 MCV 96 H MCH 29.5 MCHC 30.8 L RDW 12.8 Plt Count 333 MPV 10.2 Immature Gran % 0.2 Neutrophils % 62.2 Lymphocytes % 27.6 Monocytes % 7.2 Eosinophils % 1.9 Basophils % 0.9 Nucleated RBC % 0.0 Absolute Neutrophils 3.66 Absolute Lymphocytes 1.62 Absolute Monocytes 0.42 Absolute Eosinophils 0.11 Absolute Basophils 0.05 Sodium 142 Potassium 4.1 Chloride 104 Carbon Dioxide 30.2 Anion Gap 7.8 BUN 14 Creatinine 0.8 Estimated GFR/1.73 m2 >= 60.00 Glucose 98 Calcium 9.5 Total Bilirubin 0.3 AST 17 ALT 19 Alkaline Phosphatase 150 H Total Protein 8.1 Albumin 4.1 TSH 1.05 Urine Color Urine Clarity Urine pH Ur Specific [place] Urine Protein Urine Ketones Urine Blood Urine Nitrite Urine Bilirubin Urine Urobilinogen Ur Leukocyte Esterase Urine Glucose Salicylates < 2.8 Urine Opiates Screen Urine Methadone Screen Acetaminophen < 2 Ur Barbiturates Screen Ur Tricyclics Screen Ur Amphetamines Screen U Benzodiazepines Scrn Urine Cocaine Screen Ur THC Screen Ethyl Alcohol < 3.0 COVID-19 Source SARS-CoV-2 (PCR)
--- NOTE | 2022-01-11 10:28 | W.PM.DS.N ---
Date of service: 01/11/22 Time of Service: 10:28 DS: Diagnosis Discharge Diagnosis (1) Suicidal ideation: Status: Acute Asessment and Plan: ?Assessment and plan: medically cleared in ED screened by mental health yesterday and was awaiting inpatient psychiatric placement. She was accepted by [facility] and will go today Will maintain CPSO, and behavioral health plan with suicidal precautions/protocol until discharged. (2) Bipolar 1 disorder, mixed: Status: Acute Asessment and Plan: Will continue home medication until discharged lamotrigine and olanzapine in progress.? Lamotrigine level pending (3) Hypothyroidism: Status: Chronic Asessment and Plan: Will continue Levothyroxine as ordered as TSH level was 1.05 (4) Discharge planning issues: Status: Acute Asessment and Plan: Patient was accepted by [facility] for inpatient psychiatric care.She will be discharged and transported there today. Care management will coordinate transport. Discharge Plan Disposition Patient Disposition: [facility] Condition: Stable Discharge Details Reason For Visit: Suicidal ideation Admit Date/Time: 01/10/22 14:54 Admit Provider: Seth Allred Attending Provider: Seth Allred Primary Care Provider: Sanya Baker Hospital Course Hospital Course: Patient presented to ED department with chief complaint of suicidal ideation. She was evaluated for suicidal ideation as she reported wanting to slit her wrists.No acute medical condition found during screening at that time and she was agreeable to inpatient psychiatric placement post mental health screening. She was admitted with CPSO and behavioral health assessment as per policy. Patient did no exhibit any behavioral issues during her stay at [facility] but remains depressed. Provider to provider intervention was completed by Niharika Lloyd BUNDLE PACKER with Dr. French from [facility] where the patient was accepted. discharge discussed with Dr Allred I have independently examined the patient and am in agreement with with assessment and plan Home Meds and New Rx's Prescriptions: Continued ibuprofen 400 mg tablet 400 mg PO Q8H cholecalciferol (vitamin D3) 25 mcg (1,000 unit) capsule 25 mcg PO DAILY levothyroxine [Synthroid] 50 MCG tablet 25 mcg PO DAILY furosemide 20 mg tablet 10 mg PO DAILY lamotrigine 25 mg tablet 25 mg PO DAILY prazosin 1 mg capsule 1 mg PO DAILY olanzapine [Zyprexa] 7.5 mg Tablet 7.5 mg PO DAILY multivitamin with folic acid [Daily-Deonte (with folic acid)] 400 mcg tablet 1 tab PO DAILY Discharge Instructions Instructions: Depression (DC), Suicide Prevention (DC) Referrals: Sanya Baker BUNDLE PACKER [Primary Care Provider] - (pcp upon discharge from inpatient psychiatric hospitalization) Activity:: Activity as Tolerated Equipment/Supplies:: No Equipment Needed Diet:: Normal Diet Discharge Orders Discharge Orders: Discharge Order (Routine); Ordered 01/11/22 Ordered By: Niharika Lloyd DS: Summary Time Spent with Patient providing and/or coordinating discharge services: Greater than 30 minutes Status at Discharge Functional status at discharge: independent ambulation Overall status at discharge: patient is progressing back to baseline Mental Status: other (Depressed) Speech and Movement: speech and movement normal Mood: congruent mood and other (Depressed) Affect: sad Exam Narrative Exam Narrative: Patient is lying in bed, pleasant and cooperative; smiling [facility] Const General: cooperative, healthy appearing, comfortable and no acute distress Nutritional Appearance: average body habitus Orientation: alert, awake and oriented x3 HENMT Head: normal to inspection, normocephalic and atraumatic Mouth: oral mucosae normal Eyes General: appearance normal, both eyes and all related structures Neck Neck: normal visual inspection, full ROM and no lymphadenopathy Chest Chest: normal inspection of the chest Resp Effort & Inspection: normal respiratory effort Auscultation: clear to auscultation bilaterally Cardio Rate: regular rate Rhythm: regular rhythm Heart Sounds: S1 normal and S2 normal Pulses: radial pulses present and dorsalis pedis present GI Inspection: normal to inspection Palpation: soft and nontender Auscultation: normal bowel sounds General: No CVA tenderness Skin General skin exam: no rashes or lesions noted Other: Bilateral knee surgical scars noted. Neuro General: patient alert, patient awake, patient oriented x3 and no focal motor deficits Speech: speech normal Motor: strength 5/5 throughout Extrem General: normal to inspection and full ROM Psych Appearance: grossly normal Mental Status: other (Depressed) Speech and Movement: speech and movement normal Mood: congruent mood and other (Depressed) Affect: sad Attitude: cooperative Thought Process: normal Thought Content: no hallucinations, no homicidality and suicidality Insight: insight good Judgment: poor DS: Data Vitals/I&O Vitals and I&O: Vital Signs Temperature 96.6 F L 01/10/22 19:57 Temperature Source Tympanic 01/10/22 19:57 Pulse 77 01/10/22 19:57 Pulse Rhythm Regular 01/10/22 19:49 Respiratory Rate 18 01/10/22 19:57 Respiratory Effort 01/10/22 19:49 Respiratory Depth Normal 01/10/22 19:49 Respiratory Pattern Normal 01/10/22 19:49 Blood Pressure 106/56 L 01/10/22 19:57 Blood Pressure Position Sitting 01/10/22 10:51 Pulse Oximetry 100 01/10/22 19:57 Oxygen Delivery Method Room Air 01/10/22 19:57 Oxygen Flow Rate 0 01/10/22 19:57 Pain Level 0 01/10/22 19:57 Intake & Output 01/10/22 01/10/22 01/11/22 11:59 23:59 11:59 Intake Total 240 / 240 600 / 600 Balance 240 / 240 600 / 600 Weight 132 lb Intake: Oral 240 / 240 600 / 600 Other: Comment UA Obtained and sent to Lab. Urinated independently. Used Bathroom independently to urinate. No urinary complaints. pt voided in toilet and flushed Voiding Methods Toilet Toilet Toilet Data Completed and Pending Labs on day of discharge: Labs from last 24 hours 01/10/22 01/10/22 01/10/22 21:30 13:19 13:19 WBC 5.87 RBC 3.90 L Hgb 11.5 Hct 37.3 MCV 96 H MCH 29.5 MCHC 30.8 L RDW 12.8 Plt Count 333 MPV 10.2 Immature Gran % 0.2 Neutrophils % 62.2 Lymphocytes % 27.6 Monocytes % 7.2 Eosinophils % 1.9 Basophils % 0.9 Nucleated RBC % 0.0 Absolute Neutrophils 3.66 Absolute Lymphocytes 1.62 Absolute Monocytes 0.42 Absolute Eosinophils 0.11 Absolute Basophils 0.05 Sodium Potassium Chloride Carbon Dioxide Anion Gap BUN Creatinine Estimated GFR/1.73 m2 Glucose Calcium Total Bilirubin AST ALT Alkaline Phosphatase Total Protein Albumin TSH Urine Color Urine Clarity Urine pH Ur Specific [place] Urine Protein Urine Ketones Urine Blood Urine Nitrite Urine Bilirubin Urine Urobilinogen Ur Leukocyte Esterase Urine Glucose Salicylates < 2.8 Urine Opiates Screen Urine Methadone Screen Acetaminophen < 2 Ur Barbiturates Screen Lamotrigine Pending Ur Tricyclics Screen Ur Amphetamines Screen U Benzodiazepines Scrn Urine Cocaine Screen Ur THC Screen Ethyl Alcohol COVID-19 Source SARS-CoV-2 (PCR) 01/10/22 01/10/22 01/10/22 13:19 12:21 11:19 WBC RBC Hgb Hct MCV MCH MCHC RDW Plt Count MPV Immature Gran % Neutrophils % Lymphocytes % Monocytes % Eosinophils % Basophils % Nucleated RBC % Absolute Neutrophils Absolute Lymphocytes Absolute Monocytes Absolute Eosinophils Absolute Basophils Sodium 142 Potassium 4.1 Chloride 104 Carbon Dioxide 30.2 Anion Gap 7.8 BUN 14 Creatinine 0.8 Estimated GFR/1.73 m2 >= 60.00 Glucose 98 Calcium 9.5 Total Bilirubin 0.3 AST 17 ALT 19 Alkaline Phosphatase 150 H Total Protein 8.1 Albumin 4.1 TSH 1.05 Urine Color Yellow Urine Clarity Clear Urine pH 5.5 Ur Specific [place] 1.015 Urine Protein Negative Urine Ketones Negative Urine Blood Negative Urine Nitrite Negative Urine Bilirubin Negative Urine Urobilinogen 0.2 Ur Leukocyte Esterase Negative Urine Glucose Negative Salicylates Urine Opiates Screen Urine Methadone Screen Acetaminophen Ur Barbiturates Screen Lamotrigine Ur Tricyclics Screen Ur Amphetamines Screen U Benzodiazepines Scrn Urine Cocaine Screen Ur THC Screen Ethyl Alcohol < 3.0 COVID-19 Source Nasal/Nares SARS-CoV-2 (PCR) Negative 01/10/22 11:19 WBC RBC Hgb Hct MCV MCH MCHC RDW Plt Count MPV Immature Gran % Neutrophils % Lymphocytes % Monocytes % Eosinophils % Basophils % Nucleated RBC % Absolute Neutrophils Absolute Lymphocytes Absolute Monocytes Absolute Eosinophils Absolute Basophils Sodium Potassium Chloride Carbon Dioxide Anion Gap BUN Creatinine Estimated GFR/1.73 m2 Glucose Calcium Total Bilirubin AST ALT Alkaline Phosphatase Total Protein Albumin TSH Urine Color Urine Clarity Urine pH Ur Specific [place] Urine Protein Urine Ketones Urine Blood Urine Nitrite Urine Bilirubin Urine Urobilinogen Ur Leukocyte Esterase Urine Glucose Salicylates Urine Opiates Screen Negative Urine Methadone Screen Negative Acetaminophen Ur Barbiturates Screen Negative Lamotrigine Ur Tricyclics Screen Negative Ur Amphetamines Screen Negative U Benzodiazepines Scrn Negative Urine Cocaine Screen Negative Ur THC Screen Negative Ethyl Alcohol COVID-19 Source SARS-CoV-2 (PCR) PFSH All Active Problems (Updated 01/10/22 @ 16:55 by Niharika Lloyd NP) Discharge planning issues (Acute) Hypothyroidism (Chronic) Bipolar 1 disorder, mixed (Acute) Peripheral edema (Acute) Chest pain (Acute) Anemia (Chronic) Edema (Acute) Suicidal ideation (Acute) Suicidal ideation (Acute) History of colon polyps (Acute) Diarrhea (Acute) Unintentional weight loss (Acute) Screening for colon cancer (Acute) Medical History Anxiety Bipolar 1 disorder, mixed PTSD (post-traumatic stress disorder) Surgical History History of hip replacement History of knee replacement Social History Smoking/Tobacco Use Status: Current every day Tobacco Type: cigarettes Smoking risk assessment performed?: Yes Alcohol Intake: former Drug use: Never Substance use type: does not use Do you feel safe at home: Yes Do you feel safe in your relationship?: Yes
[2022-01-11] MEDS: Acetaminophen 325 MG TAB 650 MG PO (11:44)
[2022-01-11] MEDS: ARIPiprazole 5 MG TAB PO (13:16)
--- NOTE | 2022-01-11 15:45 | PDOC.CMPRO ---
- If Service Date Differs Date of service: 01/11/22 Time of Service: 15:46 Care Management Progress Note S/O: Cindy was lying in bed when DA met with her. She stated that she was informed already that she would be going to [facility] later this afternoon for inpatient psychiatric care. She stated that she is concerned that is not going to be able to help her. DA discussed this with her, stating that healing your mental health takes time, and her engagement with the program will be an important part of the healing process. CM encouraged her to connect with [facility] upon her discharge from in order to keep in contact with her support in the community. She is happy to be accepted to so quickly, and remains voluntary for inpatient psychiatric treatment. She will transport via [facility], coordinated by DA. CM will continue to follow. A: Cindy is a 66 year old female admitted to [facility] on 01/10/22 with suicidal ideation. P: Cindy in voluntary for inpatient psychiatric treatment. She was accepted today at [facility], and will transport there by [facility], coordinated by DA. She will follow up with [facility], her PCP and her discharge plan of care. CM will continue to follow.
--- NOTE | 2022-01-11 19:25 | PDOC.MHCN_ITS ---
Date of service: 01/10/22 Time of Service: 18:25 Mental Health Crisis Note Presenting Issue How did you arrive at the ED and why did you come: Pt arrived after she met with her med provider and was referred for placement. Precipitating Factors Pt endorsed SI and denied HI and NSSI. She is not experiencing delusions at this time however, presents as significantly depressed. Disposition BEHAVIOR: Pt is engaged in the assessment. She presents with good insight and judgment however, has poor short term memory. She is seeking voluntary inpatient treatment. EYE CONTACT: Good MOOD: Depressed, sad and sad. AFFECT: Tearful. APPETITE: Fair SLEEP(trouble falling/staying asleep: Pt reported that she wakes in the middle of the night. Plan Pt meets criteria for inpatient treatment and is voluntarily seeking treatment. Pt will remain at [facility] pending admission to a psychiatric hospital. Referrals were sent to [facility], [facility], and [facility]. She will be assessed daily by [facility] until placement is found. Signature Clinician's Name/Title: Zeenat Guerrero MS, [facility] Emergency Services Clinician, [facility]
[2022-01-12 16:31] LABS: Lamotrigine 0.6 mcg/mL (2.5 - 15.0)
== END 2022-01-11 15:22 | disposition short-term general hospital (02) ==
LOC: ER 14:57 → MS 15:37
PROVIDERS: Nurse Practitioner Acute Care; Admitting Provider Internal Medicine; Emergency Provider Registered Nurse Emergency; PCP Nurse Practitioner Family; Visit Provider Internal Medicine
DX: F31.60 Bipolar disorder, current episode mixed, unspecified (principal); R45.851 Suicidal ideations; F43.10 Post-traumatic stress disorder, unspecified; Z20.822 Contact with and (suspected) exposure to COVID-19; E03.9 Hypothyroidism, unspecified; D64.9 Anemia, unspecified; Z86.010 Personal history of colon polyps; F41.9 Anxiety disorder, unspecified; Z96.649 Presence of unspecified artificial hip joint; Z96.659 Presence of unspecified artificial knee joint; F17.210 Nicotine dependence, cigarettes, uncomplicated; Z79.899 Other long term (current) drug therapy
CPT/HCPCS: 36415; 80053; 80175; 80307; 87635; 99285; 80320; 80329; 81003; 84443; 85025; 99220; 99239; G0378

== ENCOUNTER 2022-01-27 10:25 | Emergency (ER) | payer MEDICARE, MEDICAID, SELFPAY ==
--- NOTE | 2022-01-27 10:32 | W.ED.GENAD ---
Discharge Plan Disposition Patient Disposition: HOME Condition: Stable Discharge Details Clinical Impression: Depression Primary Care Provider: Sanya Baker ED Provider: Brie Buck Home Meds and New Rx's Prescriptions: Continued ibuprofen 400 mg tablet 400 mg PO Q8H cholecalciferol (vitamin D3) 25 mcg (1,000 unit) capsule 25 mcg PO DAILY levothyroxine [Synthroid] 50 MCG tablet 25 mcg PO DAILY benzonatate 200 mg capsule 1 cap PO PRN PRN mirtazapine 15 mg tablet 15 mg PO .QHS albuterol sulfate 90 mcg/actuation HFA aerosol inhaler 2 inh INHALATION PRN fluticasone propionate 50 mcg/actuation [place],Suspension 2 spray INTRANASAL BID sertraline 50 mg tablet 50 mg PO DAILY vitamin B complex Capsule 1 cap PO DAILY docusate sodium 100 mg capsule 1 cap PO BID lamotrigine 25 mg tablet 50 mg PO DAILY multivitamin with folic acid [Daily-Deonte (with folic acid)] 400 mcg tablet 1 tab PO DAILY Discharge Instructions Instructions: Depression (ED), Suicide Prevention (ED) Additional Instructions: Plan is for you to go home with frequent check ins with mental health. They are [facility], 8:30 in the morning and 2 PM tomorrow afternoon. They will call you on the same times on Sunday as well. You also have an appointment with Janis on Sunday. If it anytime you would like to speak with mental health not during the scheduled time, you may call their phone number at [phone]. If you develop recurrent thoughts of harming yourself or harming someone else, please return to the emergency department. A message has been left with your daughter Lorena, please stay in contact with her, hopefully spending time at her house, so that you may also be with family this weekend. Please also follow up with your primary care next week. Referrals: Sanya Baker, [employer] [Primary Care Provider] - Discharge Data Discharge Date/Time-TO BE ENTERED AT DEPARTURE: 01/27/22 17:02 Medical Decision Making <Rcihard Cervantes MD - Last Filed: 01/27/22 12:01> Patient is medically cleared for psychiatric evaluation. 12:00 case d/w Zeenat Guerrero from [facility], Zeenat will reach out to [facility] and the patient's daughter <WHITNEY Sanford - Last Filed: 01/29/22 20:40> Patient is medically cleared for psychiatric evaluation. 12:00 case d/w Zeenat Guerrero from [facility], Zeenat will reach out to [facility] and the patient's daughter Heber Care transition myself from Dr. Cervantes, please see his initial note regarding history, presentation and exam. In brief, patient is a pleasant 66-year-old female past medical history of depression and bipolar who has been in and out of inpatient psychiatric facilities recently. At the time I assumed care, disposition pending based on recommendations for mental health. Patient was again evaluated by mental health. They recommended patient be discharged to home and that they will have scheduled check ins with her over the weekend, 8 PM tonight, 830 tomorrow morning and 2 PM tomorrow afternoon. They also arrange for a follow-up appointment with Janis, her medication prescriber on Sunday. Recommended that if possible, patient be able to stay with her daughter Lorena as she does find a large amount of macey with her grandchildren. I discussed this plan with the patient. She feels safe and comfortable going home with these frequent check-in. Her daughter does not get out of work till 5. I did offer to allow her to stay here until able to speak with her daughter but patient preferred to go home and will follow up with her daughter as her work is done. I did leave a message for her daughter, Kena [phone], after speaking with the patient to discuss disposition. Patient feels safe with the plan, feels like she will be successful and follow through. Return precautions and contact information for given to the patient. All of her qyestions and concerns were addressed, she is in agreement with this plan. HPI <Richard Cervantes MD - Last Filed: 01/27/22 12:01> General Date/Time Provider Initiated Documentation: 01/27/22 10:32. HPI Narrative: 66-year-old presented to the emergency department for evaluation of depression. She has been having ongoing feelings of sadness, recurrent thoughts of suicide. She is unsure if she would cut her wrists or take her pills. She was recently discharged from [facility], since Sunday, she was admitted for depression. During her hospitalization was talked about maybe sending her to [facility] for someECT, but she tells me she preferred the doctors that she was fine to go home. She has been taking occasions. She for 3 cigarettes a day. He denies any alcohol or any drug use. Severity of symptoms are moderate to severe. No aggravating factors. No alleviating factors. No associated factors. Related Data Home Medications Medication Instructions Recorded Confirmed levothyroxine 50 mcg tablet 25 mcg PO DAILY 12/29/15 01/27/22 (Synthroid) cholecalciferol (vitamin D3) 25 25 mcg PO DAILY 09/22/21 01/27/22 mcg (1,000 unit) capsule ibuprofen 400 mg tablet 400 mg PO Q8H 09/22/21 01/27/22 lamotrigine 25 mg tablet 50 mg PO DAILY 12/25/21 01/27/22 multivitamin with folic acid 400 1 tab PO DAILY 12/25/21 01/27/22 mcg tablet (Daily-Deonte (with folic acid)) albuterol sulfate 90 mcg/actuation 2 inh inhalation PRN 01/27/22 aerosol inhaler benzonatate 200 mg capsule 1 cap PO PRN PRN 01/27/22 01/27/22 docusate sodium 100 mg capsule 1 cap PO BID 01/27/22 01/27/22 fluticasone propionate 50 2 spray intranasal BID 01/27/22 01/27/22 mcg/actuation nasal spray,suspension mirtazapine 15 mg tablet 15 mg PO .QHS 01/27/22 01/27/22 sertraline 50 mg tablet 50 mg PO DAILY 01/27/22 01/27/22 vitamin B complex 1 cap PO DAILY 01/27/22 01/27/22 Allergies Allergy/AdvReac Type Severity Reaction Status Date / Time acetaminophen [From Vicodin] Allergy Mild facial Verified 01/27/22 10:39 swelling bupropion [From Wellbutrin] Allergy Mild facial Verified 01/27/22 10:39 swelling doxycycline Allergy Mild unknown Verified 01/27/22 10:39 fluticasone Allergy Mild dizziness Verified 01/27/22 10:39 [From Advair Diskus] hydrocodone [From Vicodin] Allergy Mild facial Verified 01/27/22 10:39 swelling levofloxacin [From Levaquin] Allergy Mild dizziness Verified 01/27/22 10:39 morphine Allergy Mild hallucinati Verified 01/27/22 10:39 on omeprazole Allergy Mild rash, Verified 01/27/22 10:39 upset stomach oxycodone Allergy Mild hallucinati Verified 01/27/22 10:39 ons prednisone Allergy Mild dizziness Verified 01/27/22 10:39 quetiapine [From Seroquel] Allergy Mild dizziness Verified 01/27/22 10:39 risperidone Allergy Mild sever Verified 01/27/22 10:39 nightmares salmeterol Allergy Mild dizziness Verified 01/27/22 10:39 [From Advair Diskus] tramadol Allergy Mild dizziness, Verified 01/27/22 10:39 hallucinations erythromycin base Allergy Unverified 01/27/22 10:39 propoxyphene HCl Allergy Unverified 01/27/22 10:39 [From Darvon] General SEB: 2 Review of Systems <Richard Cervantes MD - Last Filed: 01/27/22 12:01> Narrative: Constitutional negative for fevers chills, malaise and fatigue HEENT no sore throat Cardiovascular no chest pain or palpitations Respiratory no cough no shortness of breath GI no abdominal pain no diarrhea no nausea no vomiting no dysuria MSK no myalgias or arthralgias Neuro no headaches no paresthesias no focal weakness Skin no rashes Psych see HPI Endo mild weight gain Hematological not on blood thinners Allergic negative PFSH <Richard Cervantes MD - Last Filed: 01/27/22 12:01> All Active Problems (Updated 01/27/22 @ 16:50 by WHITNEY Sanford) Depression (Chronic) Hypothyroidism (Chronic) Bipolar 1 disorder, mixed (Acute) Suicidal ideation (Acute) Suicidal ideation (Acute) History of colon polyps (Acute) Diarrhea (Acute) Unintentional weight loss (Acute) Screening for colon cancer (Acute) Medical History Anxiety Bipolar 1 disorder, mixed PTSD (post-traumatic stress disorder) Surgical History History of hip replacement History of knee replacement Social History Smoking/Tobacco Use Status: Current every day Tobacco Type: cigarettes Smoking risk assessment performed?: Yes Alcohol Intake: former Drug use: Never Substance use type: does not use Do you feel safe at home: Yes Do you feel safe in your relationship?: Yes Exam <Richard Cervantes MD - Last Filed: 01/27/22 12:01> Narrative Exam Narrative: Awake alert oriented x3 calm tearful crying in the room cooperative PERRLA EOMI MMM anicteric Supple neck Chest is clear to auscultation bilaterally Regular rhythm and rate no murmurs Abdomen soft nontender nondistended Back no CVAT. Skin no rashes Neuro 2-12 grossly intact strength 5/5 bilateral Extremities no edema Psych tearful endorses suicidal ideation, Sign Out <Richard Cervantes MD - Last Filed: 01/27/22 12:01> Sign Out Data: Sign Out Comment: s/o - medically cleared. calm in the ED. Persistent SI. Three recent back toback admission at [facility]. Case d/w [facility]. Awaiting final psych dispo. admission vs crisis bed vs D/c home to care of daughter Last updated by Richard Cervantes MD at 01/27/22 15:24
[2022-01-27 10:33] VITALS: BP 134/72; PULSE 102; RESP 16; TEMP 36.8; O2SAT 98
[2022-01-27 11:05] LABS: Bilirubin Negative (Negative); Blood Trace-intact (Negative); Clarity Clear (Clear); Glucose Negative (Negative); Ketones Negative (Negative); Leukocyte Esterase Negative (Negative); Nitrite Negative (Negative); Specific Gravity 1.015 (1.005-1.025); Urobilinogen 0.2 EU/dL (Up TO 0.2); pH 6.5 (5-8)
[2022-01-27 11:11] LABS: *AMPHETAMINES SCREEN URINE Negative (Negative); *BARBITURATES SCREEN URINE Negative (Negative); *BENZODIAZEPINES SCREEN URINE Negative (Negative); Bacteria Rare HPF (Negative); C & S Indicated? No; Cannabinoids THC Negative (Negative); Casts Negative LPF (Negative); Cocaine Screen,Urine Negative (Negative); Crystals Negative HPF (Negative); Epithelial Cells Many HPF (Negative); METHADONE URINE SCREEN Negative (Negative); Mucus Negative (Negative); OPIATES URINE SCREEN Negative (Negative); RBC 0-2 HPF (0-2); Tricyclic Antidepressants Negative (Negative); WBC Negative HPF (0-5)
[2022-01-27 11:31] LABS: Source Nasal/Nares
[2022-01-27 11:36] LABS: Abs Immature Grans 0.04 10^3/uL (0.0-0.06); Absolute Basophil Count 0.06 10^3/uL (0.0-0.2); Absolute Eosinophil Count 0.18 10^3/uL (0.0-0.7); Absolute Lymphocyte Count 1.81 10^3/uL (1.2-3.4); Absolute Monocyte Count 0.58 10^3/uL (0.1-0.8); Absolute Neutrophil Count 5.11 10^3/uL (1.2-6.7); Basophils % 0.8; Eosinophils % 2.3; HCT 40.1 % (36.0-46.0); HGB 12.6 g/dL (11.2-15.7); Immature Grans % 0.5; Lymphocytes % 23.3; MCH 28.8 pg (27.0-33.0); MCHC 31.4 % (32.0-36.0); MCV 92 fL (80-95); MPV 10.2 fL (8.0-11.0); Monocytes % 7.5; Neutrophils % 65.6; Platelet Count 330 10^3/uL (130-400); RBC 4.37 10^6/uL (3.93-5.22); RDW 13.1 % (11.7-14.6); RDW-SD 44.6 fL; WBC 7.78 10^3/uL (4.4-10.8)
[2022-01-27 11:58] LABS: ALT 16 U/L (14-59); AST 18 U/L (15-37); Albumin 4.1 g/dL (3.4-5.0); Alkaline Phosphatase 152 U/L (46-116); Anion Gap 7.8 mmol/L (3-11); BUN 19 mg/dL (7-18); Bilirubin, Total 0.3 mg/dL (0.2-1.0); CO2 25.2 mmol/L (21.0-32.0); CREATININE 0.9 mg/dL (0.55-1.02); Calcium 9.7 mg/dL (8.5-10.1); Chloride 104 mmol/L (98-107); ETHANOL BLOOD < 3.0 mg/dL (<10); Glucose 96 mg/dL (74-106); Potassium 4.6 mmol/L (3.5-5.1); Sodium 137 mmol/L (136-145); TSH (W/Ref FT4) 0.74 uIU/mL (0.36-3.74); Total Protein 8.2 g/dL (6.4-8.2)
[2022-01-27 12:00] LABS: Acetaminophen < 2 ug/mL (10-30); Salicylate < 2.8 mg/dL (<2.8)
[2022-01-27 12:28] LABS: COVID-19 PCR Negative (Negative)
--- NOTE | 2022-01-27 14:03 | CMSP_ITS ---
- If Service Date Differs Date of service: 01/27/22 Time of Service: 14:03 Care Management Safety Plan Status: Voluntary - Reason for Wait Reason for Wait: Inpatient Admission VOLUNTARY FOR INPATIENT PSYCHIATRIC STABILIZATION. Patient is appropriate in all interactions since arriving at [facility]; Pt has demonstrated appropriate coping and communication skills, has articulated his or her needs and concerns and is fully engaged during staff interactions. Chief Complaint: Cindy presents in the ED for depression and intermittent suicidal ideation. She has a diagnosis of Bipolar Disorder and was hospitalized at [facility] in November due to yu and at [facility] in December for worsening depression. Cindy discharged home from the [facility] a few days ago. Cindy met with Zeenat [facility] crisis screener, via zoom today. Zeenat is arranging for Cindy to go to [facility] for ECT treatment and if [facility] is unable to accept Cindy in a timely manner, then Zeenat will contact Cindy's daughter to inquire if she can stay with her while she awaits an appointment for ECT at [facility]. CM will continue to follow. Safety plan has been established with patient, and care team, to adhere to patient goals, identify restrictions based on behavioral status, address nutrition, and determine allowed personal belongings, tools for hygiene and personal care. Determine level of activity including ambulation, level of sup ervision, visitors, and determine privileges based on behaviors and level of engagement by pt. SAFETY PLAN: 1. Will remain on suicide precautions. In Paper Clothes 2. Will remain in room under direct supervision of one-on-one staff at all times provided by CPS[employer], LIVESTOCK TRUCKER, CELL RELINER structural steel shop supervisor. 3. May have paper cups, plates, finger foods as well as a cardboard spoon with which to eat meals. 4. Follow [facility] Management of the Admitted Behavioral Health Patient policy. 5. Shower permitted with escort at RN discretion. 6. No personal belongings. 7. Visitors: Per [facility] visitor policy and at RN discretion. 8. Activities: soft cart items, music tablet, television, and other activities at RN discretion. 9. Bathroom privileges with escort in the ED, available in room without limitation on M/S. 10. Phone: may use [employer] phone at RN discretion. 11. Due to VOLUNTARY status, if patient wishes to leave [facility], staff will contact [facility] Crisis Screener ([phone]) and On-Call Film Producer ([phone]) as soon as possible. In the event of elopement, notify [facility] Police ([phone]). Patient is currently voluntarily at [facility] and seeking inpatient admission when a bed becomes available. [facility] [employer] will continue seeking placement. Please contact the Oxidized Finish Plater Film Producer ([phone]) and [facility] Water Proofer ([phone]) for any needed changes in the Safety Plan. Safety plan has been provided to interdepartmental care team.
--- NOTE | 2022-01-27 14:03 | PDOC.CMSAFED ---
- If Service Date Differs Date of service: 01/27/22 Time of Service: 14:03 Care Management Safety Plan Status: Voluntary - Reason for Wait Reason for Wait: Inpatient Admission VOLUNTARY FOR INPATIENT PSYCHIATRIC STABILIZATION. Patient is appropriate in all interactions since arriving at [facility]; Pt has demonstrated appropriate coping and communication skills, has articulated his or her needs and concerns and is fully engaged during staff interactions. Chief Complaint: Cindy presents in the ED for depression and intermittent suicidal ideation. She has a diagnosis of Bipolar Disorder and was hospitalized at [facility] in November due to yu and at [facility] in December for worsening depression. Cindy discharged home from the [place] a few days ago. Cindy met with Zeenat [facility] crisis screener, via zoom today. Zeenat is arranging for Cindy to go to [facility] for ECT treatment and if [facility] is unable to accept Cindy in a timely manner, then Zeenat will contact Cindy's daughter to inquire if she can stay with her while she awaits an appointment for ECT at [facility]. CM will continue to follow. Safety plan has been established with patient, and care team, to adhere to patient goals, identify restrictions based on behavioral status, address nutrition, and determine allowed personal belongings, tools for hygiene and personal care. Determine level of activity including ambulation, level of supervision, visitors, and determine privileges based on behaviors and level of engagement by pt. SAFETY PLAN: 1. Will remain on suicide precautions. In Paper Clothes 2. Will remain in room under direct supervision of one-on-one staff at all times provided by [employer], CLEVE, SLOT MACHINE MECHANIC gore cutter. 3. May have paper cups, plates, finger foods as well as a cardboard spoon with which to eat meals. 4. Follow [facility] Management of the Admitted Behavioral Health Patient policy. 5. Shower permitted with escort at RN discretion. 6. No personal belongings. 7. Visitors: Per [facility] visitor policy and at RN discretion. 8. Activities: soft cart items, music tablet, television, and other activities at RN discretion. 9. Bathroom privileges with escort in the ED, available in room without limitation on M/S. 10. Phone: may use [employer] phone at RN discretion. 11. Due to VOLUNTARY status, if patient wishes to leave [facility], staff will contact [facility] Crisis Screener ([phone]) and On-Call Council Member ([phone]) as soon as possible. In the event of elopement, notify [facility] Police ([phone]). Patient is currently voluntarily at [facility] and seeking inpatient admission when a bed becomes available. [facility] [employer]line [employer] will continue seeking placement. Please contact the Accountant Bookkeeper Council Member ([phone]) and [facility] Flake [employer]ats ([phone]) for any needed changes in the Safety Plan. Safety plan has been provided to interdepartmental care team.
[2022-01-27 17:02] VITALS: BP 139/82; PULSE 72; RESP 18; TEMP 36.4; O2SAT 95
--- NOTE | 2022-01-27 22:22 | PDOC.MHCN_ITS ---
Date of service: 01/27/22 Time of Service: 21:22 Mental Health Crisis Note Presenting Issue How did you arrive at the ED and why did you come: Client arrived via herself seeking her 4th inpatient placement in just a couple of months. Client was just released from [facility] two days ago. Precipitating Factors Client denied HI but endorsed SI initially and was not willing to go home. She is not displaying any symptoms of delusions. Disposition BEHAVIOR: Initially, client was strong willed and unwilling to accept anything less than inpatient treatment. This clinician was able to hold a discussion with the client that going back to a hospital this soon is not conducive to her senior care treatment plans and that if we are to seek placement which is already in place with her providers it should be with a hospital that offers ECT which is what she is in need of. During the follow up check in the client was more amendable to safety planning home. EYE CONTACT: Eye contact is good. MOOD: Mood is depressed, sad and emotional. AFFECT: Affect is congruent. APPETITE: Appetite is reported by client to be poor. SLEEP(trouble falling/staying asleep: Sleep is reported by client to be interrupted. Plan Client consequently agreed to a safety plan home. [facility] will outreach to her at 8:30 am, 1pm, and 8pm daily starting tonight. Client's med provider has already started the application for ECT treatments at both [facility] and [facility]. Client agreed to a referral for services with [facility] for case management and Dorinda from care management agreed to put that referral in for this clinician if client agreed. Signature Clinician's Name/Title: Zeenat Guerrero MS, [facility] Emergency Services Clinician, [facility]
== END 2022-01-27 17:02 | disposition home or self-care (01) ==
PROVIDERS: Emergency Medicine; Emergency Provider Physician Assistant; PCP Nurse Practitioner Family
DX: F32.A Depression, unspecified (principal); R45.851 Suicidal ideations
CPT/HCPCS: 80053; 80307; 87635; 99283; 99285; 80320; 80329; 81003; 81015; 84443; 85025

== ENCOUNTER 2022-02-05 10:23 | Emergency (ER) | payer MEDICARE, MEDICAID, SELFPAY ==
[2022-02-05 10:30] VITALS: BP 135/63; PULSE 63; RESP 16; TEMP 37; O2SAT 97
--- NOTE | 2022-02-05 10:40 | ED.GENADUL_ITS ---
Discharge Plan Disposition Patient Disposition: HOME Condition: Stable Discharge Details Clinical Impression: Dysuria Primary Care Provider: Sanya Baker ED Provider: Aki Murray Home Meds and New Rx's Prescriptions: New ibuprofen [IBU] 600 mg tablet 600 mg PO QID PRN (Reason: pain) Qty: 20 0RF phenazopyridine [Pyridium] 100 mg tablet 100 mg PO TID PRN (Reason: pain) Qty: 6 0RF Continued cholecalciferol (vitamin D3) 25 mcg (1,000 unit) capsule 25 mcg PO DAILY levothyroxine [Synthroid] 50 MCG tablet 25 mcg PO DAILY benzonatate 200 mg capsule 1 cap PO PRN PRN mirtazapine 15 mg tablet 15 mg PO .QHS albuterol sulfate 90 mcg/actuation HFA aerosol inhaler 2 inh INHALATION PRN fluticasone propionate 50 mcg/actuation [place],Suspension 2 spray INTRANASAL BID sertraline 50 mg tablet 50 mg PO DAILY vitamin B complex Capsule 1 cap PO DAILY docusate sodium 100 mg capsule 1 cap PO BID lamotrigine [Lamictal] 100 mg Tablet 100 mg PO DAILY aripiprazole [Abilify] 5 mg Tablet 5 mg PO DAILY lamotrigine 25 mg tablet 50 mg PO DAILY multivitamin with folic acid [Daily-Deonte (with folic acid)] 400 mcg tablet 1 tab PO DAILY Discontinued ibuprofen 400 mg tablet 400 mg PO Q8H Discharge Instructions Instructions: Dysuria (ED) Additional Instructions: At this time there were no signs of infection in your urine but we have sent for urine culture. You may take the prescribed urinary pain control as needed for comfort. This may make your urine turn orange to red and this is a normal finding and not worrisome. If you develop fever chills, nausea vomiting, or significant worsening of symptoms please return immediately to the emergency department for reassessment. I have also prescribed you some higher dose ibuprofen for your arm pain and you should follow-up with your orthopedist for reassessment as needed. Referrals: Sanya Baker, [employer] [Primary Care Provider] - (As needed for reassessment or if not improving) Discharge Data Discharge Date/Time-TO BE ENTERED AT DEPARTURE: 02/05/22 11:56 Medical Decision Making Patient presents to the emergency department for chief complaint of burning with urination and urinary frequency. She states this is similar to her previous episodes of urinary tract infections. Patient denies all other symptoms except for is requesting a prescription for ibuprofen due to her left wrist injury. She states that she was prescribed oxycodone but due to her allergies and intolerances cannot take it. She does states she has been taking acetaminophen. Physical exam is unremarkable and shows no worrisome findings for pyelonephritis or systemic illness. We will plan on checking urinalysis otherwise no other interventions are needed pending results. Review of urinalysis is unremarkable for any acute signs of infection. We will send for urine culture for further evaluation treat patient with Pyridium for symptoms until urine culture has returned. Given that patient is stating that she cannot take her prescribed narcotics will give her a prescription for ibuprofen. Patient encouraged to follow-up with primary care provider if not improving or return for new or worsening symptoms. After discussion of diagnosis and plan of care patient has no further needs, questions, or concerns and states clear understanding to return to the emergency department for any worsening symptoms. This documentation was generated using [employer] dictation system, please disregard any oddities of phrase or misspellings. Lab Data Lab results reviewed: Yes I reviewed the patient's lab results. Labs: Laboratory Tests Range/Units 02/05/22 10:47 Urine Color (Yellow) Yellow Urine Clarity (Clear) Clear Urine pH (5-8) 7.0 Ur Specific [place] (1.005-1.025) 1.020 Urine Protein (Negative) mg/dL Negative Urine Ketones (Negative) mg/dL Negative Urine Blood (Negative) Negative Urine Nitrite (Negative) Negative Urine Bilirubin (Negative) Negative Urine Urobilinogen (Up TO 0.2) EU/dL 0.2 Ur Leukocyte Esterase (Negative) Negative Urine Glucose (Negative) mg/dL Negative HPI General Mode of arrival: ambulatory . Date/Time Provider Initiated Documentation: 02/05/22 10:28 . Limitations to Documentation: no limitations . Information obtained by: patient, RN notes reviewed and old records reviewed . History of Present Illness 66 year old F presents to the emergency department with the chief complaint of UTI, burning, and frequency, described as moderate and similar to prior episodes, Quality is described as other (States left wrist pain secondary to previous injury), and is localized to the genitals. Patient reports no radiation. Patient started experiencing this day(s) (1) and it has been constant. No relieving factors improve symptom(s), No exacerbating factors reported . Patient notes no other symptoms.. Patient did receive the following treatments prior to arrival, NSAID Related Data Home Medications Medication Instructions Recorded Confirmed levothyroxine 50 mcg tablet 25 mcg PO DAILY 12/29/15 01/27/22 (Synthroid) cholecalciferol (vitamin D3) 25 25 mcg PO DAILY 09/22/21 01/27/22 mcg (1,000 unit) capsule lamotrigine 25 mg tablet 50 mg PO DAILY 12/25/21 01/27/22 multivitamin with folic acid 400 1 tab PO DAILY 12/25/21 01/27/22 mcg tablet (Daily-Deonte (with folic acid)) albuterol sulfate 90 mcg/actuation 2 inh inhalation PRN 01/27/22 aerosol inhaler benzonatate 200 mg capsule 1 cap PO PRN PRN 01/27/22 01/27/22 docusate sodium 100 mg capsule 1 cap PO BID 01/27/22 01/27/22 fluticasone propionate 50 2 spray intranasal BID 01/27/22 01/27/22 mcg/actuation nasal spray,suspension mirtazapine 15 mg tablet 15 mg PO .QHS 01/27/22 01/27/22 sertraline 50 mg tablet 50 mg PO DAILY 01/27/22 01/27/22 vitamin B complex 1 cap PO DAILY 01/27/22 01/27/22 aripiprazole 5 mg tablet (Abilify) 5 mg PO DAILY 02/05/22 02/05/22 ibuprofen 600 mg tablet (IBU) 600 mg PO QID PRN pain #20 tabs 02/05/22 lamotrigine 100 mg tablet 100 mg PO DAILY 02/05/22 02/05/22 (Lamictal) phenazopyridine 100 mg tablet 100 mg PO TID PRN pain 6 doses #6 02/05/22 (Pyridium) tabs Previous Rx's Medication Instructions Recorded ibuprofen 600 mg tablet (IBU) 600 mg PO QID PRN pain #20 tabs 02/05/22 phenazopyridine 100 mg tablet 100 mg PO TID PRN pain 6 doses #6 02/05/22 (Pyridium) tabs Allergies Allergy/AdvReac Type Severity Reaction Status Date / Time acetaminophen [From Vicodin] Allergy Mild facial Verified 02/05/22 10:34 swelling bupropion [From Wellbutrin] Allergy Mild facial Verified 02/05/22 10:34 swelling doxycycline Allergy Mild unknown Verified 02/05/22 10:34 fluticasone Allergy Mild dizziness Verified 02/05/22 10:34 [From Advair Diskus] hydrocodone [From Vicodin] Allergy Mild facial Verified 02/05/22 10:34 swelling levofloxacin [From Levaquin] Allergy Mild dizziness Verified 02/05/22 10:34 morphine Allergy Mild hallucinati Verified 02/05/22 10:34 on omeprazole Allergy Mild rash, Verified 02/05/22 10:34 upset stomach oxycodone Allergy Mild hallucinati Verified 02/05/22 10:34 ons prednisone Allergy Mild dizziness Verified 02/05/22 10:34 quetiapine [From Seroquel] Allergy Mild dizziness Verified 02/05/22 10:34 risperidone Allergy Mild sever Verified 02/05/22 10:34 nightmares salmeterol Allergy Mild dizziness Verified 02/05/22 10:34 [From Advair Diskus] tramadol Allergy Mild dizziness, Verified 02/05/22 10:34 hallucinations erythromycin base Allergy Unverified 02/05/22 10:34 propoxyphene HCl Allergy Unverified 02/05/22 10:34 [From Darvon] General Stated Complaint: Urinary SEB: 4 Review of Systems Constitutional Constitutional: Denies body ache(s), Denies chills, Denies fever(s), Denies malaise and Denies weakness Cardiovascular Cardiovascular: Denies chest pain Respiratory Respiratory: Reports system reviewed and no additional complaints, except as documented Gastrointestinal Gastrointestinal: Denies abdominal pain, Denies nausea and Denies vomiting Genitourinary Genitourinary: Reports as per HPI, Denies hematuria, Reports dysuria, Denies pelvic pain, Denies flank pain, Reports urinary urgency, Denies vaginal discharge and Denies vaginal odor Neurologic Neurologic: Denies weakness PFSH All Active Problems (Updated 02/05/22 @ 11:32 by Aki Murray NP) Depression (Chronic) Dysuria (Acute) Hypothyroidism (Chronic) Bipolar 1 disorder, mixed (Acute) Suicidal ideation (Acute) Suicidal ideation (Acute) History of colon polyps (Acute) Diarrhea (Acute) Unintentional weight loss (Acute) Screening for colon cancer (Acute) Medical History Anxiety PTSD (post-traumatic stress disorder) Surgical History History of hip replacement History of knee replacement Social History Smoking/Tobacco Use Status: Current every day Tobacco Type: cigarettes Smoking risk assessment performed?: Yes Alcohol Intake: former Drug use: Never Substance use type: does not use Do you feel safe at home: Yes Do you feel safe in your relationship?: Yes Exam Const General: cooperative and no acute distress Orientation: alert, awake and oriented x3 Resp Effort & Inspection: normal respiratory effort and able to speak in complete sentences Auscultation: clear to auscultation bilaterally Cardio Rate: regular rate Rhythm: regular rhythm Heart Sounds: S1 normal and S2 normal GI Palpation: nontender Back/Spine/Pelvis Back: no CVA tenderness Neuro General: patient alert, patient awake and patient oriented x3 Extrem General: capillary refill normal Course Vital Signs Vital signs: Vital Signs Temperature 37.0 C 02/05/22 10:30 Pulse 63 02/05/22 10:30 Respiratory Rate 16 02/05/22 10:30 Blood Pressure 135/63 02/05/22 10:30 Pulse Oximetry 97 02/05/22 10:30 Temperature 37.0 C 02/05/22 10:30 Pulse 63 02/05/22 10:30 Respiratory Rate 16 02/05/22 10:30 Respiratory Effort 02/05/22 10:36 Blood Pressure 135/63 02/05/22 10:30 Pulse Oximetry 97 02/05/22 10:30
[2022-02-05 11:06] LABS: Bilirubin Negative (Negative); Blood Negative (Negative); Clarity Clear (Clear); Glucose Negative (Negative); Ketones Negative (Negative); Leukocyte Esterase Negative (Negative); Nitrite Negative (Negative); Urobilinogen 0.2 EU/dL (Up TO 0.2)
[2022-02-05 11:40] VITALS: PULSE 68; RESP 16; O2SAT 99
== END 2022-02-05 11:56 | disposition home or self-care (01) ==
PROVIDERS: Emergency Provider Nurse Practitioner Family; PCP Nurse Practitioner Family
DX: R30.0 Dysuria (principal); M79.602 Pain in left arm; Z76.0 Encounter for issue of repeat prescription
CPT/HCPCS: 99283; 81003; 87086

== ENCOUNTER 2022-02-09 11:15 | Outpatient (CLI) | payer MEDICARE, MEDICAID, SELFPAY ==
[2022-02-09 10:55] LABS: Bilirubin Negative (Negative); Blood Negative (Negative); Clarity Clear (Clear); Glucose 100 mg/dL (Negative); Ketones Negative (Negative); Leukocyte Esterase Negative (Negative); Nitrite Positive (Negative); Urobilinogen 0.2 EU/dL (Up TO 0.2)
[2022-02-09 11:04] LABS: Epithelial Cells Many HPF (Negative); RBC 0-2 HPF (0-2); WBC 0-2 HPF (0-5)
[2022-02-09 11:05] LABS: Bacteria Rare HPF (Negative); C & S Indicated? No/Sq. Contamination; Casts 0-2 Hyaline LPF (Negative); Crystals Negative HPF (Negative); Mucus Trace (Negative)
[2022-02-09 11:24] LABS: Ammonia < 10 umol/L (11-32)
[2022-02-09 12:40] LABS: VALPROIC ACID < 3 ug/mL
== END 2022-02-09 11:16 | disposition home or self-care (01) ==
LOC: LBO 11:15
PROVIDERS: Nurse Practitioner Family; PCP Nurse Practitioner Family; Visit Provider Psychiatry & Neurology Psychiatry
DX: R30.0 Dysuria (principal); F31.73 Bipolar disorder, in partial remission, most recent episode manic; Z79.899 Other long term (current) drug therapy; Z51.81 Encounter for therapeutic drug level monitoring
CPT/HCPCS: 36415; 80164; 81003; 81015; 82140; 87086

== ENCOUNTER 2022-04-12 14:08 | Emergency (ER) | payer MEDICARE, MEDICAID, SELFPAY ==
[2022-04-12 14:08] VITALS: BP 127/67; PULSE 78; RESP 16; O2SAT 100
--- NOTE | 2022-04-12 14:14 | ED.GENADUL_ITS ---
Discharge Plan Disposition Patient Disposition: STILL A PATIENT Condition: Stable Discharge Details Chief Complaint: PsychEval Clinical Impression: Bipolar 1 disorder, mixed Primary Care Provider: Sanya Baker ED Provider: Seth Rojas Home Meds and New Rx's Prescriptions: No Action cholecalciferol (vitamin D3) 25 mcg (1,000 unit) capsule 25 mcg PO DAILY olanzapine 15 mg tablet 15 mg PO QHS divalproex 500 mg tablet,delayed release (DR/EC) 500 mg PO TID venlafaxine [Effexor XR] 37.5 mg capsule,extended release 24hr 75 mg PO DAILY valacyclovir 1 gram tablet 2,000 mg PO BID levothyroxine [Synthroid] 50 MCG tablet 25 mcg PO DAILY mirtazapine 15 mg tablet 15 mg PO .QHS albuterol sulfate 90 mcg/actuation HFA aerosol inhaler 2 inh INHALATION PRN PRN fluticasone propionate 50 mcg/actuation [place],Suspension 2 spray INTRANASAL BID sertraline 50 mg tablet 50 mg PO DAILY vitamin B complex Capsule 1 cap PO DAILY docusate sodium 100 mg capsule 1 cap PO BID aripiprazole [Abilify] 5 mg Tablet 5 mg PO DAILY ibuprofen [IBU] 600 mg tablet 600 mg PO QID PRN (Reason: pain) Qty: 20 0RF multivitamin with folic acid [Daily-Deonte (with folic acid)] 400 mcg tablet 1 tab PO DAILY clonazepam 1 mg tablet 1 tab PO QHS furosemide 20 mg tablet 0.5 tab PO DAILY Medical Decision Making This is a 66-year-old female presenting to the ER via EMS at the request of [facility] for a manic episode and placement to hopefully a [facility] hospital bed. Per our mental health screening team, patient has been noncompliant with her medications, selling her belongings, making other poor decisions and putting herself into compromising and unsafe situations. At this time she is a voluntary placement. Plan is to request a formal mental health evaluation, begin an interim care plan, and initiate a CPSO. We will obtain routine screening laboratory values as she has a history of hypothyroidism and does take Depakote. At time of signout patient is resting comfortably and has been cooperative. Urinalysis reveals moderate leuk esterase but negative for nitrates. 10-20 white cells, rare bacteria. Few epithelials. She denies any dysuria. Will await culture for treatment. Care signed out to my colleague RANDY Gallagher at 1530 This documentation was generated using [employer] dictation system, please disregard any oddities of phrase or misspellings. Medical Records Medical records reviewed: Yes I reviewed the patient's medical records. Lab Data Lab results reviewed: Yes I reviewed the patient's lab results. Labs: 04/12/22 14:15 Urine - Reflex from Ua Urine Culture - Pending Laboratory Tests Range/Units 04/12/22 04/12/22 14:15 15:05 Urine Color (Yellow) Yellow Urine Clarity (Clear) Clear Urine pH (5-8) 6.0 Ur Specific [place] (1.005-1.025) 1.015 Urine Protein (Negative) mg/dL Negative Urine Ketones (Negative) mg/dL Negative Urine Blood (Negative) Small H Urine Nitrite (Negative) Negative Urine Bilirubin (Negative) Negative Urine Urobilinogen (Up TO 0.2) EU/dL 0.2 Ur Leukocyte Esterase (Negative) Moderate H Urine RBC (0-2) HPF 3-5 H Urine WBC (0-5) HPF 10-20 H Ur Epithelial Cells (Negative) HPF Few Urine Crystals (Negative) HPF Negative Urine Bacteria (Negative) HPF Rare Urine Casts (Negative) LPF Negative Urine Mucus (Negative) Negative Urine Other (Negative) Moderate Renal Ur Culture Indicated? Yes Urine Glucose (Negative) mg/dL Negative COVID-19 Source Nasal/Nares HPI General Mode of arrival: EMS . Date/Time Provider Initiated Documentation: 04/12/22 14:12 . Limitations to Documentation: no limitations . Information obtained by: patient and EMS . HPI Narrative: This is a 66-year-old female, past medical history of hypothyroidism, bipolar type I disorder presenting to the ER via EMS for what she describes as a manic episode. Patient states that about 1 week ago she began making bad decisions, he is not sleeping well, began drinking alcohol which she has not drank in many years, smoking marijuana, etc. Patient states that she is taking all of her medication except her chronic pain which makes her sleepy the next day. She has no acute medical concerns or complaints. Denies any active suicidal or h omicidal ideations and reports feeling safe. Patient is voluntary but is afraid of going to a psychiatric facility because the other patients maker very uncomfortable. I was able to get additional information from Ariane from [facility] services, she reports that the patient has been selling her belongings, and putting herself into dangerous and compromising situations, and has not been compliant with her medications. She already spoke with the patient today and she would like to pursue care bed placement Related Data Home Medications Medication Instructions Recorded Confirmed levothyroxine 50 mcg tablet 25 mcg PO DAILY 12/29/15 04/12/22 (Synthroid) cholecalciferol (vitamin D3) 25 25 mcg PO DAILY 09/22/21 04/12/22 mcg (1,000 unit) capsule multivitamin with folic acid 400 1 tab PO DAILY 12/25/21 04/12/22 mcg tablet (Daily-Deonte (with folic acid)) albuterol sulfate 90 mcg/actuation 2 inh inhalation PRN PRN 01/27/22 04/12/22 aerosol inhaler docusate sodium 100 mg capsule 1 cap PO BID 01/27/22 04/12/22 fluticasone propionate 50 2 spray intranasal BID 01/27/22 01/27/22 mcg/actuation nasal spray,suspension mirtazapine 15 mg tablet 15 mg PO .QHS 01/27/22 01/27/22 sertraline 50 mg tablet 50 mg PO DAILY 01/27/22 04/12/22 vitamin B complex 1 cap PO DAILY 01/27/22 04/12/22 aripiprazole 5 mg tablet (Abilify) 5 mg PO DAILY 02/05/22 04/12/22 ibuprofen 600 mg tablet (IBU) 600 mg PO QID PRN pain #20 tabs 02/05/22 04/12/22 divalproex 500 mg tablet,delayed 500 mg PO TID 03/02/22 04/12/22 release olanzapine 15 mg tablet 15 mg PO QHS 03/02/22 04/12/22 valacyclovir 1 gram tablet 2,000 mg PO BID 03/02/22 venlafaxine 37.5 mg 75 mg PO DAILY 03/02/22 04/12/22 capsule,extended release 24 hr (Effexor XR) clonazepam 1 mg tablet 1 tab PO QHS 04/12/22 04/12/22 furosemide 20 mg tablet 0.5 tab PO DAILY 04/12/22 04/12/22 Previous Rx's Medication Instructions Recorded ibuprofen 600 mg tablet (IBU) 600 mg PO QID PRN pain #20 tabs 02/05/22 Allergies Allergy/AdvReac Type Severity Reaction Status Date / Time acetaminophen [From Vicodin] Allergy Mild facial Verified 04/12/22 14:22 swelling bupropion [From Wellbutrin] Allergy Mild facial Verified 04/12/22 14:22 swelling doxycycline Allergy Mild unknown Verified 04/12/22 14:22 fluticasone Allergy Mild dizziness Verified 04/12/22 14:22 [From Advair Diskus] hydrocodone [From Vicodin] Allergy Mild facial Verified 04/12/22 14:22 swelling levofloxacin [From Levaquin] Allergy Mild dizziness Verified 04/12/22 14:22 morphine Allergy Mild hallucinati Verified 04/12/22 14:22 on omeprazole Allergy Mild rash, Verified 04/12/22 14:22 upset stomach oxycodone Allergy Mild hallucinati Verified 04/12/22 14:22 ons prednisone Allergy Mild dizziness Verified 04/12/22 14:22 quetiapine [From Seroquel] Allergy Mild dizziness Verified 04/12/22 14:22 risperidone Allergy Mild sever Verified 04/12/22 14:22 nightmares salmeterol Allergy Mild dizziness Verified 04/12/22 14:22 [From Advair Diskus] tramadol Allergy Mild dizziness, Verified 04/12/22 14:22 hallucinations erythromycin base Allergy Unverified 04/12/22 14:22 propoxyphene HCl Allergy Unverified 04/12/22 14:22 [From Darvon] General SEB: 4 Review of Systems Constitutional Constitutional: Denies fever(s) and Denies weakness Eyes Eyes: Denies change in vision ENT Ears, Nose, Mouth, and Throat: Denies neck pain Cardiovascular Cardiovascular: Denies chest pain and Denies dyspnea Respiratory Respiratory: Denies cough and Denies dyspnea Gastrointestinal Gastrointestinal: Denies abdominal pain, Denies nausea and Denies vomiting Genitourinary Genitourinary: Denies dysuria Musculoskeletal Musculoskeletal: Denies neck pain Integumentary/Breasts Skin/Breast: Denies rash Neurologic Neurologic: Reports behavioral changes and Denies weakness Psychiatric Psychiatric: Reports behavioral changes, Denies homicidal ideation and Denies suicidal ideation Hematologic/Lymphatic Hematologic/Lymphatic: Denies easy bleeding and Denies easy bruising PFSH All Active Problems (Updated 04/12/22 @ 15:39 by WHITNEY Sanchez) Hypothyroidism (Chronic) Bipolar 1 disorder, mixed (Acute) Suicidal ideation (Acute) Suicidal ideation (Acute) History of colon polyps (Acute) Diarrhea (Acute) Unintentional weight loss (Acute) Screening for colon cancer (Acute) Medical History Anxiety Arm fracture Bipolar 1 disorder Chronic airway obstruction Chronic pain Diverticulitis Dizziness H/O adenomatous polyp of colon History of closed head injury Hypotension Ischemic colitis Late effect of fracture of neck of femur Lesion of skin of nose Lower extremity edema Neck pain Neuromuscular disorder Osteoarthritis, generalized Poor short term memory PTSD (post-traumatic stress disorder) Tremor Urinary incontinence Varicose veins of lower extremity Vitamin D deficiency Surgical History History of hip replacement History of knee replacement Social History Smoking/Tobacco Use Status: Current every day Tobacco Type: cigarettes Smoking risk assessment performed?: Yes Alcohol Intake: former Drug use: Daily Substance use type: marijuana Do you feel safe at home: Yes Do you feel safe in your relationship?: Yes Exam Const General: cooperative, healthy appearing, comfortable, no acute distress and other (Tearful) Orientation: alert, awake and oriented x3 HENMT Head: normal to inspection, normocephalic and atraumatic Face and sinus: normal facial exam Mouth: moist mucous membranes Eyes General: appearance normal, both eyes and all related structures Conjunctivae: conjunctivae normal Neck Neck: normal visual inspection, full ROM, no meningeal signs, trachea midline and supple Resp Effort & Inspection: normal respiratory effort and able to speak in complete sentences Auscultation: clear to auscultation bilaterally Cardio Rate: regular rate Rhythm: regular rhythm GI Palpation: soft and nontender Back/Spine/Pelvis Back: No back tenderness Skin General skin exam: no rashes or lesions noted Neuro General: patient alert, patient awake, patient oriented x3, moves all extremities and no focal motor deficits Cognition: normal cognition Speech: speech normal Gait: normal gait Motor: muscle tone normal throughout Sensory Exam: no sensory deficits noted Extrem General: normal to inspection, full ROM and capillary refill normal Psych Appearance: grossly normal Mental Status: mental status grossly normal Speech and Movement: speech and movement normal Mood: dysthymic mood Affect: sad Attitude: cooperative Thought Content: normal Insight: limited Judgment: limited
[2022-04-12 15:06] LABS: Bilirubin Negative (Negative); Blood Small (Negative); Clarity Clear (Clear); Glucose Negative (Negative); Ketones Negative (Negative); Leukocyte Esterase Moderate (Negative); Nitrite Negative (Negative); Specific Gravity 1.015 (1.005-1.025); Urobilinogen 0.2 EU/dL (Up TO 0.2)
[2022-04-12 15:10] LABS: Source Nasal/Nares
[2022-04-12 15:12] LABS: Epithelial Cells Few HPF (Negative)
[2022-04-12 15:13] LABS: Bacteria Rare HPF (Negative); C & S Indicated? Yes; Casts Negative LPF (Negative); Crystals Negative HPF (Negative); Mucus Negative (Negative); Other Cells Moderate Renal (Negative)
[2022-04-12 15:46] LABS: COVID-19 PCR Negative (Negative)
[2022-04-12] MEDS: Nicotine 4 MG LOZG (15:50)
--- NOTE | 2022-04-12 15:52 | ED.PROG_ITS ---
Date of service: 04/12/22 Time of Service: 15:52 Medical Decision Making Care assumed from provider (Seth OLSON) Please see their initial HPI, PE, and documentation. Discussed patient details and case and pending workup and disposition. Patient is hemodynamically stable, and alert and oriented. At the time of signout mental health, at this time. The. Psych liaison states that they are looking into 1 of 3 options hospitalization, care Bed, or discharged with a safety plan. 1915: Call made to with [facility] Doc-Doc report given. Patient has remained calm and cooperative throughout stay. Medical Records Medical records reviewed: Yes I reviewed the patient's medical records. Medical records narrative: I received signout on the patient morning of April 13. She has visibly been accepted to the facility, but refused transfer. She is reevaluated by crisis services for outpatient care and safety was made. Patient is stable and improved. She will be discharged to home. Exam Narrative Exam Narrative: Constitutional: Alert and oriented x3. Appears stated age. Normal body habitus. Head: Normocephalic, no trauma. Eyes: Pupils PERRL, Red reflex noted, EOM's intact. Eyelids symmetrical without lesions, discharge, or swelling. ENT: Bilateral TM's WNL, External ear normal to inspection, no mastoid TTP, swelling, or erythema, Nasal turbinates WNL, no nasal discharge. Normal dentition, Posterior pharynx WNL, no exudate. Chest: RRR, Normal S1, S2, distal pulses intact. Resp: Lungs clear to auscultation bilaterally, no wheezes, rales, or rhonchi. Abdomen: Soft, non-distended, Normoactive bowel sounds all 4 quads. Musculoskeletal: Normal gait, 5/5 strength to all four extremities. Skin: No suspicious rashes or lesions. Capillary refill less than 2 sec. Neurologic: Cranial nerves II-XII intact. Alert and oriented x 3. Motor: No deficits noted. Sensory: Intact bilaterally all 4 extremities. Reflexes: DTR's intact bilaterally.. Hematologic/Lymphatic: No ecchymosis, no lymphadenopathy. Psych Speech and Movement: pressured speech Mood: irritable mood Affect: animated Attitude: cooperative Insight: insight good Judgment: judgment good Sign Out Sign Out Data: Sign Out Comment: Bipolar, 1 week history of yu and poor decision-making. Voluntary placement. Hopeful for care bed. Awaiting laboratory values for medical clearance and then mental health evaluation. Patient has been cooperative. Last updated by Seth Rojas PA at 04/12/22 15:41 Sign Out Comment: Hx of Bipolar, Manic episode, awaiting admission to [facility] in morning. Doc-doc report given to . Regular meds ordered. Last updated by Daria Gallagher NP at 04/12/22 22:58 Sign Out Comment: Stable throughout the night. Pending admission in the morning to [facility] Last updated by Andrzej Rao DO at 04/13/22 06:57 Discharge Plan Disposition Patient Disposition: HOME Condition: Stable Discharge Details Clinical Impression: Bipolar 1 disorder, mixed Primary Care Provider: Sanya Baker ED Provider: Paco Drew Home Meds and New Rx's Prescriptions: Continued cholecalciferol (vitamin D3) 25 mcg (1,000 unit) capsule 25 mcg PO DAILY olanzapine 15 mg tablet 7.5 mg PO QHS divalproex 500 mg tablet,delayed release (DR/EC) 500 mg PO TID valacyclovir 1 gram tablet 2,000 mg PO BID mirtazapine 15 mg tablet 15 mg PO .QHS albuterol sulfate 90 mcg/actuation HFA aerosol inhaler 2 inh INHALATION PRN PRN fluticasone propionate 50 mcg/actuation [place],Suspension 2 spray INTRANASAL BID sertraline 50 mg tablet 50 mg PO DAILY vitamin B complex Capsule 1 cap PO DAILY docusate sodium 100 mg capsule 1 cap PO BID aripiprazole [Abilify] 5 mg Tablet 5 mg PO DAILY ibuprofen [IBU] 600 mg tablet 600 mg PO QID PRN (Reason: pain) Qty: 20 0RF multivitamin with folic acid [Daily-Deonte (with folic acid)] 400 mcg tablet 1 tab PO DAILY clonazepam 1 mg tablet 1 tab PO QHS furosemide 20 mg tablet 0.5 tab PO DAILY levothyroxine 25 mcg Tablet 25 mcg PO DAILY@0600 venlafaxine 75 mg Tablet Extended Release 24hr 75 mg PO DAILY Discharge Instructions Instructions: Bipolar Disorder (ED) Additional Instructions: Follow-up with the mental health team as discussed with them Continue your routine medications. Discharge Data Discharge Date/Time-TO BE ENTERED AT DEPARTURE: 04/13/22 11:36
--- NOTE | 2022-04-12 16:07 | NUR.NOTE ---
Once Lupis completed her interview with patient she called back to say that the patient needed something for nicotine. She also stated that they were going to look into hopsitalization, crisis bed, or safety plan with another person to go home. Nursing Note:
[2022-04-12 16:46] LABS: Abs Immature Grans 0.03 10^3/uL (0.0-0.06); Absolute Basophil Count 0.04 10^3/uL (0.0-0.2); Absolute Eosinophil Count 0.22 10^3/uL (0.0-0.7); Absolute Lymphocyte Count 1.83 10^3/uL (1.2-3.4); Absolute Monocyte Count 0.62 10^3/uL (0.1-0.8); Absolute Neutrophil Count 2.47 10^3/uL (1.2-6.7); Basophils % 0.8; Eosinophils % 4.2; HCT 36.4 % (36.0-46.0); HGB 11.9 g/dL (11.2-15.7); Immature Grans % 0.6; Lymphocytes % 35.1; MCH 28.6 pg (27.0-33.0); MCHC 32.7 % (32.0-36.0); MCV 88 fL (80-95); MPV 10.7 fL (8.0-11.0); Monocytes % 11.9; Neutrophils % 47.4; Platelet Count 166 10^3/uL (130-400); RBC 4.16 10^6/uL (3.93-5.22); RDW 15.7 % (11.7-14.6); RDW-SD 50.5 fL; WBC 5.21 10^3/uL (4.4-10.8)
--- NOTE | 2022-04-12 17:08 | CMSP_ITS ---
- If Service Date Differs Date of service: 04/12/22 Time of Service: 17:08 Care Management Safety Plan Status: Voluntary - Reason for Wait Reason for Wait: Inpatient Admission CHIEF COMPLAINT: Cindy presents in the ED via EMS for medical clearance as she is seeking a voluntary placement. She is sent to [facility] today by [facility] as she reportedly is noncompliant with medications and is engaging in unsafe behaviors. Cindy has a diagnosis of record of Bipolar Disorder. She has a significant psychiatric history with multiple hospitalizations for episodes of yu or severe depression. She was last hospitalized at [facility] in December of 2021. CM will continue to follow. VOLUNTARY FOR INPATIENT PSYCHIATRIC STABILIZATION. Patient is appropriate in all interactions since arriving at [facility]; Pt has demonstrated appropriate coping and communication skills, has articulated his or her needs and concerns and is fully engaged during staff interactions. Safety plan has been established with patient, and care team, to adhere to patient goals, identify restrictions based on behavioral status, address nutrition, and determine allowed personal belongings, tools for hygiene and personal care. Determine level of activity including ambulation, level of supervision, visitors, and determine privileges based on behaviors and level of engagement by pt. SAFETY PLAN: 1. Will remain on suicide precautions. In Paper Clothes 2. Will remain in room under direct supervision of one-on-one staff at all times provided by [employer], [employer] nuclear operator. 3. May have paper cups, plates, finger foods as well as a cardboard spoon with which to eat meals. 4. Follow [facility] Management of the Admitted Behavioral Health Patient policy. 5. Shower permitted with escort at RN discretion. 6. No personal belongings. 7. Visitors: Per [facility] visitor policy and at RN discretion. 8. Activities: soft cart items, music tablet, television, and other activities at RN discretion. 9. Bathroom privileges with escort in the ED, available in room without limitation on M/S. 10. Phone: may use [employer] hospital phone at RN discretion. 11. Due to VOLUNTARY status, if patient wishes to leave [facility], staff will contact [facility] Crisis Screener ([phone]) and On-Call Pourer ([phone]) as soon as possible. In the event of elopement, notify [facility] Police ([phone]). Patient is currently voluntarily at [facility] and seeking inpatient admission when a bed becomes available. [facility] Frontline Director Money will continue seeking placement. Please contact the Cooling Room Attendant Pourer ([phone]) and [facility] Director Money ([phone]) for any needed changes in the Safety Plan. Safety plan has been provided to interdepartmental care team.
[2022-04-12 17:09] LABS: ALT 13 U/L (14-59); AST 13 U/L (15-37); Albumin 3.3 g/dL (3.4-5.0); Alkaline Phosphatase 104 U/L (46-116); Anion Gap 5.8 mmol/L (3-11); BUN 13 mg/dL (7-18); Bilirubin, Total 0.2 mg/dL (0.2-1.0); CO2 31.2 mmol/L (21.0-32.0); CREATININE 0.8 mg/dL (0.55-1.02); Calcium 9.1 mg/dL (8.5-10.1); Chloride 105 mmol/L (98-107); Glucose 144 mg/dL (74-106); Potassium 4.3 mmol/L (3.5-5.1); Sodium 142 mmol/L (136-145); TSH (W/Ref FT4) 0.53 uIU/mL (0.36-3.74); Total Protein 7.1 g/dL (6.4-8.2)
[2022-04-12 17:17] LABS: VALPROIC ACID 86.4 ug/mL
[2022-04-12 17:21] LABS: ETHANOL BLOOD < 3.0 mg/dL (<10)
--- NOTE | 2022-04-12 18:31 | PDOC.MHCN ---
Date of service: 04/12/22 Time of Service: 15:05 PHQ-9 Over the last 2 weeks, how often have you been bothered by any of the following problems? 1. Little interest or pleasure in doing things: not at all 2. Feeling down, depressed, or hopeless: several days 3. Trouble falling or staying asleep, or sleeping too much: nearly every day 4. Feeling tired or having little energy: more than half the days 5. Poor appetite or overeating: nearly every day 6. Feeling bad about yourself - or that you are a failure or have let yourself and your family down: more than half the days 7. Trouble concentrating on things, such as reading the newspaper or watching television: not at all 8. Moving or speaking so slowly that other people could have noticed? - Or the opposite - being so fidgety or restless that you have been moving around a lot more than usual: several days 9. Thoughts that you would be better off or of hurting yourself in some way: not at all Total score: 12 If you checked off any problems, how difficult have these problems made it for you to do your work, take care of things at home, or get along with other people?: somewhat difficult Source: Developed by Drs. Alistair Kellogg, Deborah Ortiz, Pierre Abreu and colleagues, with an educational jacque from [employer]. Suicide Severity Rate CSSRS Have you wished you were or wished you could go to sleep and not wake up?: No Have you actually had any thoughts of killing yourself?: No CSSRS2 Have you been thinking about how you might do this?: No Have you had these thoughts and had some intention of acting on them?: No Have you started to work out or worked out the details of how to kill yourself? Do you intend to carry out this plan?: No CSSRS3 Have you ever done anything, started to do anything or prepared to do anything to end your life?: Yes CSSRS4 Was this within the past three months?: Yes Screening Score Total Score: 4 Screening: Positive Mental Health Emergency Note Release [facility] release signed:: Yes Reason for Visit Client is in a manic state and is making dangerous decisions In the last 2 weeks has the pt presented for ES prior to today?: No Client Information Client is: Adult Outpatient Current Treatment Team if applicable First care boarder steam: Name: Kim Martin Role: Enhanced Crisis Paleology ProfessorMonotyper Info: [phone] Non Suicidal Self Injury Current: No History: No Safety Risk/Harm to Self or Others Current Ideation to Harm Self or Others: No Risk: Does risk to harm exist?: No Duty to warn indicated: No Asssessment/Mental Status Appearance: Disheveled Attitude: Cooperative and Guarded Behavior: Unremarkable Speech: Pressured and Soft Affect: Constricted and Cogruent with mood Mood: Sad, Stressed, Depressed, Anxious and Irritable Thought process: Unremarkable Hallucinations: yes, (Client reports when she is in a manic state and drinks that she hears and see's things) Visual and Auditory Delusions: No Attention: Unremarkable Perception: Not impaired Orientation: Fully orientated Insight: Poor Judgement: Poor Neurovegetative Symptoms Sleep: Decrease Appetitie: Decrease Interests: No change Energy: Decrease Libido: Not applicable Substance Use: ETOH dependence and Other (Client reports she is using Marijuana) Do you use nicotine?: Yes Have you used substances in the last 7 days?: yes, Marijuana Additional Issues: Assaultive/Threatening Behavior: No Medical Concerns: No Client engaged in active self harm w/weapon: No Threatening to run away: No Voluntarily presenting for services: Yes Domestic violence is a concern: No Extreme Psychosis or extreme behavior is present: Yes Impression Client states she is in a state of yu and has made dangerous choices that has placed her in danger Resources Reosurces reviewed and given:: 988 and Crisis Bed Plan/Disposition Recommended Disposition: Hospitalization ([facility] [place], [place], [place], [place]) facilities contacted and Med management. Plan: Client will remain at [facility] ED until voluntary hospitalization can be secured or the Care bed has available beds. Facilities contacted if Applicable [facility] (No Beds Available) Not accepted, No bed available [facility] (No Beds Available) Not accepted, No bed available [facility] (Only accepting inhouse) Not accepted, No bed available, [facility] [place] 2[facility] (Pending acceptance) Not accepted, No bed available Reports/communication Reports: Reports made to [facility] Outcome discussed with: ED/Personnel Final Disposition/Discharge Transportation Checklist completed and faxed: No
[2022-04-12 18:32] LABS: *AMPHETAMINES SCREEN URINE Negative (Negative); *BARBITURATES SCREEN URINE Negative (Negative); *BENZODIAZEPINES SCREEN URINE Negative (Negative); Cannabinoids THC Negative (Negative); Cocaine Screen,Urine Negative (Negative); METHADONE URINE SCREEN Negative (Negative); OPIATES URINE SCREEN Negative (Negative)
[2022-04-12 18:35] LABS: Tricyclic Antidepressants Negative (Negative)
[2022-04-12] MEDS: clonazePAM 1 MG TAB PO (21:48)
[2022-04-12] MEDS: OLANZapine 10 MG, OLANZapine 5 MG 15 MG PO (21:48)
[2022-04-12] MEDS: Divalproex Sodium 500 MG TAB.ER.24H PO (21:48)
[2022-04-12] MEDS: Ibuprofen 600 MG TAB PO (21:50)
[2022-04-12] MEDS: Docusate Sodium 100 MG CAP PO (21:50)
[2022-04-12 22:55] VITALS: BP 112/64; PULSE 69; RESP 16; TEMP 37; O2SAT 95
[2022-04-13] MEDS: Levothyroxine 25 MCG TAB PO (06:32)
[2022-04-13] MEDS: Furosemide 20 MG TAB 10 MG PO (08:16)
[2022-04-13] MEDS: ARIPiprazole 5 MG TAB PO (08:16)
[2022-04-13] MEDS: Ibuprofen 600 MG TAB PO (08:16)
[2022-04-13] MEDS: Multivitamin TAB 1 TAB PO (08:16)
[2022-04-13] MEDS: Sertraline 50 MG TAB PO (08:17)
[2022-04-13] MEDS: Venlafaxine 75 MG CAPCR PO (08:17)
[2022-04-13 11:31] VITALS: BP 135/77; PULSE 66; RESP 16; TEMP 36.4; O2SAT 96
--- NOTE | 2022-04-13 11:32 | CMPROGNOTE_ITS ---
- If Service Date Differs Date of service: 04/13/22 Time of Service: 11:32 Care Management Progress Note Cindy is accepted by [facility] but refuses the inpatient placement. She meets with [facility] for a reassessment. A safety plan is created and she is discharged home. She will follow up with [facility] as agreed.
--- NOTE | 2022-04-13 11:32 | PDOC.ERCMPRO ---
- If Service Date Differs Date of service: 04/13/22 Time of Service: 11:32 Care Management Progress Note Cindy is accepted by [facility] but refuses the inpatient placement. She meets with [facility] for a reassessment. A safety plan is created and she is discharged home. She will follow up with [facility] as agreed.
--- NOTE | 2022-04-13 12:49 | PDOC.MHPN2 ---
Date of service: 04/13/22 Time of Service: 10:15 Mental Health Emergency Note Release [facility] release signed:: No Reason for Visit Client presented to [facility] ED on 04/12/22 in a manic state and demonstrating poor impulse control and poor insight and judgment. In the last 2 weeks has the pt presented for ES prior to today?: Yes, presented at [facility] and Therapist Client Information Client is: Adult Outpatient Well Housed: Yes Current Treatment Team if applicable First care steamship agent: Name: Kim Martin Role: ES case brieferclinical research manager Info: [phone] Second care steamship agent: Name: Janis Ray Role: [facility] medication provider Contact Info: [phone] Third care steamship agent: Name: Di Angely Role: [facility] therapist Contact Info: [phone] Non Suicidal Self Injury Current: No History: yes, Client has previously overdosed on her medications and driven erratically when in a manic state. Safety Risk/Harm to Self or Others Current Ideation to Harm Self or Others: No Risk: Does risk to harm exist?: No Duty to warn indicated: No Asssessment/Mental Status Appearance: Unremarkable Attitude: Cooperative Behavior: Unremarkable Speech: Normal Affect: Cogruent with mood Mood: Sad Thought process: Unremarkable Hallucinations: No Delusions: No Attention: Unremarkable Perception: Not impaired Orientation: Fully orientated Memory: Intact Insight: Good Judgement: Good Neurovegetative Symptoms Sleep: Increase Appetitie: No change Interests: No change Energy: No change Libido: No change Substance Use: Do you use nicotine?: Yes Have you used substances in the last 7 days?: yes, Client reports that she has drank alcohol and smoked marijuana Additional Issues: Assaultive/Threatening Behavior: No Medical Concerns: No Client engaged in active self harm w/weapon: No Threatening to run away: No Child reported abuse/neglect: No Voluntarily presenting for services: Yes Domestic violence is a concern: No Extreme Psychosis or extreme behavior is present: No Impression Client appears to be showing better insight and judgment as to what got her to the hospital at [facility] yesterday. Client was offered inpatient admission to [facility] for admission today, however declined as she states that she has been to treatment a lot and does not feel like her current state warrants inpatient treatment. This marine underwriter has conversation with client regarding what a safety plan would like. She states that she could stay with either her sister or her ex-, who is a positive support for her. Conversation was held with ex- who agrees to take responsibility of client and support her throughout the weekend. Resources Reosurces reviewed and given:: 988 (Clinet will utilize 988 as needed for support. ), Crisis Bed (Referral has been made for [facility] Care bed. ) and [facility] (Client has scheduled appoitment with [facility] therapist at 2:00 p.m. on 04/14/22. ) Plan/Disposition Recommended Disposition: Crisis bed, ([facility] crisis bed, no current bed available. ) facility contacted. Status of Crisis Bed acceptance: Other (Client was accepted at [facility], however client declined bed. ) and [facility] Services (Client dorcas follow-up with [facility] therapist tomorrow afternoon. ) [facility] Services: [employer] and Therapy. Person reported agreement to plan: Yes Reports/communication Outcome discussed with: ED/Personnel (Verbal passover given to [facility] ED before and after school daycare worker Mery Callahan) Final Disposition/Discharge Transportation Checklist completed and faxed: No
== END 2022-04-13 11:36 | disposition home or self-care (01) ==
PROVIDERS: Physician Assistant; Registered Nurse Emergency; Emergency Provider Emergency Medicine; PCP Nurse Practitioner Family
DX: F31.60 Bipolar disorder, current episode mixed, unspecified (principal); F17.210 Nicotine dependence, cigarettes, uncomplicated; Z20.822 Contact with and (suspected) exposure to COVID-19
CPT/HCPCS: 80053; 80307; 81025; 87635; 99283; 99284; 80164; 80320; 81003; 81015; 84443; 85025; 87086; J3490

== ENCOUNTER → 2022-05-10 11:00 | Outpatient (BNVA) | payer MEDICARE, MEDICAID, SELFPAY | PROVIDERS: Referring Provider Nurse Practitioner Family; Visit Provider Surgery | DX: R10.32 Left lower quadrant pain (principal); Z86.010 Personal history of colon polyps; Z98.890 Other specified postprocedural states | CPT/HCPCS: 99214 ==

== ENCOUNTER 2022-06-01 09:58 | Day surgery (SDC) | payer MEDICARE, MEDICAID, SELFPAY ==
--- NOTE | 2022-06-01 06:10 | W.PM.DSUDISC ---
Discharge Plan Disposition Patient Disposition: HOME Condition: Good Discharge Details Reason For Visit: Surveillance colonoscopy after hemicolectomy Attending Provider: Esteban Martinez Primary Care Provider: Unknown,Unknown Home Meds and New Rx's Prescriptions: Continued cholecalciferol (vitamin D3) 25 mcg (1,000 unit) capsule 25 mcg PO DAILY divalproex 500 mg tablet,delayed release (DR/EC) 500 mg PO TID valacyclovir 1 gram tablet 2,000 mg PO BID mirtazapine 15 mg tablet 15 mg PO .QHS albuterol sulfate 90 mcg/actuation HFA aerosol inhaler 2 inh INHALATION PRN PRN sertraline 50 mg tablet 50 mg PO DAILY vitamin B complex Capsule 1 cap PO DAILY docusate sodium 100 mg capsule 1 cap PO BID ibuprofen [IBU] 600 mg tablet 600 mg PO QID PRN (Reason: pain) Qty: 20 0RF multivitamin with folic acid [Daily-Deonte (with folic acid)] 400 mcg tablet 1 tab PO DAILY furosemide 20 mg tablet 0.5 tab PO DAILY levothyroxine 25 mcg Tablet 25 mcg PO DAILY@0600 venlafaxine 75 mg Tablet Extended Release 24hr 75 mg PO DAILY Discontinued polyethylene glycol 3350 17 gram/dose powder 238 g PO ONCE Qty: 238 0RF Rx Instructions: take per colonoscopy instructions bisacodyl [Dulcolax (bisacodyl)] 5 mg tablet,delayed release (DR/EC) 5 mg PO ONCE Qty: 4 0RF Rx Instructions: take per colonoscopy instructions No Action olanzapine 15 mg tablet 1 tab PO HS lamotrigine 100 mg tablet 1 tab PO HS aripiprazole 5 mg tablet 1 tab PO DAILY Discharge Instructions Instructions: Diverticulosis (DC), Colorectal Polyps (DC) Additional Instructions: 1. If tolerated, consume a soft, low fiber diet for 1-2 days. 2[address] Do not drive, drink alcohol, operate machinery, make critical decisions, or do activities that require coordination or balance for 24 hours. 3. Because air was put into your colon during the procedure, expelling air from your rectum (passing gas or farting) is normal. 4. You may not have a bowel movement for 1-3 days because of the colonoscopy prep. This is normal. 5. Go directly to the emergency room if you notice any of the following: Develop chills (warm to touch), or if you have a thermometer and your temperature is above 101 Difficulty breathing or difficultly swallowing Persistent vomiting Severe abdominal pain, other than gas cramps Severe chest pain Black, tarry stools Any bleeding ? exceeding one tablespoon 6. Call your physician if the site where your intravenous was started becomes red, swollen, painful, and warm to touch. 7. Your physician has reviewed your pre-procedure medications. Please continue to take those medications as previously ordered. You will be given specific information/education regarding any changes to your medications before leaving. Activity:: Activity as Tolerated Diet:: As Tolerated Discharge Orders Discharge Orders: Discharge Order (Routine); Ordered 06/01/22 Ordered By: Esteban Martinez
--- NOTE | 2022-06-01 06:14 | W.COLOREPORT ---
Colonoscopy Report Date of procedure: 06/01/22 Pre-op diagnosis general: Surveillance colonoscopy Post-op diagnosis procedure note: other (Colorectal polyps) Procedure: Colonoscopy Surgeon: Esteban Martinez Anesthesia Type: General:No Airway Estimated blood loss (mL): 30 Pathology: other (Polyp at 65 cm, polyp at 60 cm polyp at 45 cm) Complications: None Disposition: same day Indications: Cindy is a 66-year-old woman with past medical history of a right hemicolectomy for a concerning polyp. She was recommended to follow-up within the past year for another colonoscopy. Unfortunately, she was not able to make those appointments, and she returns this year for surveillance colonoscopy. Prep: Miralax/Dulcolax Procedure Start Time: 11:10 Procedure End Time: 11:37 Retraction Time: 14 Procedure Description: After the induction of monitored anesthetic care, and with the patient in left lateral decubitus position, I began by performing an external anorectal exam.? Perineum and skin were normal, as was the anal verge.? Next, I performed a digital rectal exam.? I did not appreciate any abnormal findings.? Next, I advanced a colonoscope into the rectal vault.? I performed retroflexion.?Using insufflation, I then advanced the colonoscope beyond the rectal folds and into the sigmoid colon before advancing towards the cecum.? The quality of the prep was adequate.? The scope was noted to be in the cecum by identification of the ileocecal valve and appendiceal orifice.? I then began withdrawing the colonoscope using repeated irrigation as necessary for full evaluation of the colonic mucosa. Around 65 cm from the anal verge I identified a 0.75 cm polyp. ?It appeared sessile in character. ?I was able to remove this with a cold forcep. Similarly, a 0.75 cm was identified at 60 cm, and a 0.5 cm polyp was identified at 45 cm. These were also removed with cold for?I examined the sites, and there was minimal bleeding. ?Once this was completed, I continued to withdraw the scope and examine the remainder of the colonic mucosa.?Once the scope was withdrawn to the level of the rectum, great care was taken to examine portions of the rectal folds.? Finally, the scope was withdrawn and the patient was brought to the same-day surgery recovery unit as the anesthetic wore off. ?The findings and instructions were shared with the patient prior to discharge.
[2022-06-01 10:41] VITALS: BP 102/65; PULSE 87; RESP 20; TEMP 37.1; O2SAT 95
--- NOTE | 2022-06-01 10:45 | W.ANESPRE ---
General Info Date of Service Date Performed: 06/01/22 Height: 5 ft 3 in Weight: 64 kg Body Mass Index (BMI): 25.0 Surgical Procedure: Operation Date: 06/01/22 11:35 Proposed Procedure Side Surgeon uyen Martinez MD Meds Allergies and Home Medications Allergies Allergy/AdvReac Type Severity Reaction Status Date / Time acetaminophen [From Vicodin] Allergy Mild facial Verified 06/01/22 10:28 swelling bupropion [From Wellbutrin] Allergy Mild facial Verified 06/01/22 10:28 swelling doxycycline Allergy Mild unknown Verified 06/01/22 10:28 hydrocodone [From Vicodin] Allergy Mild facial Verified 06/01/22 10:28 swelling omeprazole Allergy Mild rash, Verified 06/01/22 10:28 upset stomach erythromycin base Allergy Unknown Unverified 06/01/22 10:28 propoxyphene HCl Allergy Unknown Unverified 06/01/22 10:28 [From Darvon] fluticasone AdvReac Mild dizziness Verified 06/01/22 10:28 [From Advair Diskus] levofloxacin [From Levaquin] AdvReac Mild dizziness Verified 06/01/22 10:28 morphine AdvReac Mild hallucinati Verified 06/01/22 10:28 on oxycodone AdvReac Mild hallucinati Verified 06/01/22 10:28 ons prednisone AdvReac Mild dizziness Verified 06/01/22 10:28 quetiapine [From Seroquel] AdvReac Mild dizziness Verified 06/01/22 10:28 risperidone AdvReac Mild sever Verified 06/01/22 10:28 nightmares salmeterol AdvReac Mild dizziness Verified 06/01/22 10:28 [From Advair Diskus] tramadol AdvReac Mild dizziness, Verified 06/01/22 10:28 hallucinations Home Medication Medication Instructions Recorded cholecalciferol (vitamin D3) 25 25 mcg PO DAILY 09/22/21 mcg (1,000 unit) capsule multivitamin with folic acid 400 1 tab PO DAILY 12/25/21 mcg tablet (Daily-Deonte (with folic acid)) albuterol sulfate 90 mcg/actuation 2 inh inhalation PRN PRN 01/27/22 aerosol inhaler docusate sodium 100 mg capsule 1 cap PO BID 01/27/22 mirtazapine 15 mg tablet 15 mg PO .QHS 01/27/22 sertraline 50 mg tablet 50 mg PO DAILY 01/27/22 vitamin B complex 1 cap PO DAILY 01/27/22 ibuprofen 600 mg tablet (IBU) 600 mg PO QID PRN pain #20 tabs 02/05/22 divalproex 500 mg tablet,delayed 500 mg PO TID 03/02/22 release valacyclovir 1 gram tablet 2,000 mg PO BID 03/02/22 furosemide 20 mg tablet 0.5 tab PO DAILY 04/12/22 levothyroxine 25 mcg tablet 25 mcg PO DAILY@0600 04/13/22 venlafaxine 75 mg tablet,extended 75 mg PO DAILY 04/13/22 release 24 hr aripiprazole 5 mg tablet 1 tab PO DAILY 06/01/22 lamotrigine 100 mg tablet 1 tab PO HS 06/01/22 olanzapine 15 mg tablet 1 tab PO HS 06/01/22 Current Visit Medications: Current Medications Generic Name Dose Route Start Last Admin Trade Name Freq PRN Reason Stop Dose Admin Hyoscyamine Sulfate 0.125 mg 06/01/22 06:13 Hyoscyamine 0.125 Mg Sl/Oral/Chew SL DIRECTED PRN Ringer's Solution 1,000 mls @ 80 mls/hr 06/01/22 06:00 IV 06/30/22 23:59 [facility] IV Miscellaneous Supplies 1 each 06/01/22 06:00 Iv Access IV 06/30/22 23:59 DIRECTED CIRILO Ondansetron HCl 4 mg 06/01/22 06:13 Ondansetron 4 Mg/2 Ml Vial IVP Q4H PRN PRN Nausea / Vomiting Sodium Chloride 0 ml 06/01/22 06:00 Normal Saline Flush 10 Ml Syr IV 06/30/22 23:59 PRN PRN Sodium Chloride 0 ml 06/01/22 06:00 Normal Saline 10 Ml Vial IJ 06/30/22 23:59 DIRECTED PRN Sterile Water 0 ml 06/01/22 06:00 Water,Injection,Sterile 10 Ml Vial IJ 06/30/22 23:59 DIRECTED PRN PFSH Active Problems Active Problems: Problem Status Onset Code Screening for colon cancer Z12.11 Unintentional weight loss R63.4 Diarrhea R19.7 History of colon polyps Z86.010 Bipolar 1 disorder, mixed F31.60 Suicidal ideation R45.851 Suicidal ideation R45.851 Hypothyroidism E03.9 Tubulovillous adenoma ~12/01/20 D36.9 Medical History Medical History Anxiety Arm fracture Bipolar 1 disorder Chronic airway obstruction Chronic pain Diverticulitis Dizziness H/O adenomatous polyp of colon History of closed head injury Hypotension Ischemic colitis Late effect of fracture of neck of femur Lesion of skin of nose Lower extremity edema Neck pain Neuromuscular disorder Osteoarthritis, generalized Poor short term memory PTSD (post-traumatic stress disorder) Tremor Urinary incontinence Varicose veins of lower extremity Vitamin D deficiency Medical History Comments:: Gladis daily Surgical History Surgical History History of hemicolectomy (~12/14/20) History of hip replacement bilateral History of knee replacement left Hx of tubal ligation Tobacco Smoking/Tobacco Use Status: Current every day Tobacco Type: cigarettes Smoking cigarettes per day: 3 Alcohol Alcohol Intake: former Substance Use Substance use: Daily Substance use type: marijuana Vital Signs and Lab Results Vital Signs Most Recent Vital Signs in EMR: Most Recent Vital Signs Temp Pulse Resp BP Pulse Ox 37.1 C 87 20 102/65 95 06/01/22 10:41 06/01/22 10:41 06/01/22 10:41 06/01/22 10:41 06/01/22 10:41 Lab Results Blood Type / Crossmatch: No Data to Display Complete Blood Count: No Data to Display Complete Metabolic Panel: No Data to Display Liver Function Panel: No Data to Display Coagulation Panel: No Data to Display Cardiac Panel: No Data to Display Arterial Blood Gas: No Data to Display Venous Blood Gas: No Data to Display Pancreas Panel: No Data to Display Thyroid Panel: No Data to Display Infectious Disease: No Data to Display Blood Cultures: No Data to Display Toxicology Panel: No Data to Display Anesthesia Assessment and Plan Anesthesia History Personal History: No History of Anesthesia Complications Family History: No Family History of Anesthesia Complications Exercise Tolerance Exercise Tolerance: Metabolic Equivalents>4 Pertinent Negatives Pertinent Negatives: No Symptoms of GERD, No Major Cardiovascular Symptoms or Complaints and No Major Pulmonary Symptoms or Complaints (1/2 ppd cigarettes x 40 years, COPD, quit daily smoking marijuana 2 weeks agp) Cardiac & Pulmonary Exam Cardiac Exam: Normal S1/S2 Heart Sounds Pulmonary Exam: Clear Bilateral Breath Sounds Implantable Cardiac Device Does patient have a Pacemaker or an ICD?: No Airway Exam Known Difficult Airway: No Mallampati Class: 1 Mouth Opening: Normal (> 3cm) Thyromental Distance: Greater than 3 cm Neck Range of Motion: Full ROM Neck Circumference: Normal Teeth Condition: Generalized Poor Dentition (Bottom front teeth rotting, states that they are not loose) and Removable Dentures/Plates Lower ASA Classification ASA Score: ASA 2 Emergency Case?: No NPO Status NPO Status: NPO Clears >2 hours, Solids >8 hours Anesthesia Plan Resuscitation Status: Full Code Anesthesia Technique: General Anesthesia Airway Planned: Natural Airway Monitors Used: Standard Monitors
[2022-06-01] MEDS: Lactated Ringers 1,000 ML 80 ML IV (10:50)
[2022-06-01 10:52] VITALS: BMI 25.0
--- NOTE | 2022-06-01 11:26 | BOWEL_PTH ---
PATIENT: Cindy Roblero LOC: [facility] U#:[id number] AGE/SX: 66/F ROOM: RE06/01/[address]: Esteban Martinez MD : 1955 BED: DIS: 06/01/2022 SPEC #: [id number] RECD: 06/01/22 13:08 STATUS: SEAN REQ #: [id number] ERMA: 06/01/22 11:[address]: Esteban Martinez DEPT: Surgical Specimen RECD BY: Linda Maloney ENTERED: 06/01/22 13:10 SP TYPE: Bowel OTHR DR: Unknown,Unknown Tissues: 1 - BIOPSY BOWEL 2 - BIOPSY BOWEL 3 - BIOPSY BOWEL Procedures: GROSS AND MICRO LEVEL 4 Comments: [id number]
[2022-06-01 11:37] VITALS: BP 116/64; PULSE 73; RESP 20; TEMP 36.3; O2SAT 97
[2022-06-01] MEDS: Acetaminophen 500 MG TAB 1000 MG PO (12:02)
[2022-06-01 12:08] VITALS: BP 120/65; PULSE 60; RESP 18; TEMP 36.9; O2SAT 97
--- NOTE | 2022-06-01 13:05 | W.ANESPOSTOP ---
Postoperative Evaluation Date, Time and Location Date Performed: 06/01/22 Time Performed: 13:05 Patient Location: Day Surgery Unit Vital Signs Most Recent Imported Vital Signs: Most Recent Vital Signs Temp Pulse Resp BP Pulse Ox 36.9 C 60 18 120/65 97 06/01/22 12:08 06/01/22 12:08 06/01/22 12:08 06/01/22 12:08 06/01/22 12:08 Pain Score Most Recent Pain Score: Most Recent Pain Score Pain Level 3 06/01/22 12:08 Assessment Mental Status: Awake (Alert & Oriented to Patient Baseline) Airway and Respiratory Function: Patent airway with normal (patient baseline) respiratory exam Cardiovascular Function: Hemodynamically Stable Hydration Status: Adequately Hydrated Nausea & Vomiting: No Nausea or Vomiting Pain: Pt. Denies Any Pain Peripheral Nerve Block: Patient did not receive a nerve block Postoperative Comments:: Patient seen earlier today, denied questions and VS stable. Patient appropriate for discharge.
== END 2022-06-01 12:37 | disposition home or self-care (01) ==
PROVIDERS: Visit Provider Surgery
PROC: 0DJD8ZZ Inspection of Lower Intestinal Tract, Via Natural or Artificial Opening Endoscopic (ICD-10-PCS; CPT 45378; principal; 2022-06-01 11:30)
DX: Z09 Encounter for follow-up examination after completed treatment for conditions other than malignant neoplasm (principal); Z90.49 Acquired absence of other specified parts of digestive tract; R63.4 Abnormal weight loss; K63.5 Polyp of colon; Z86.010 Personal history of colon polyps
CPT/HCPCS: 45380; 88305; J2250

== ENCOUNTER 2022-08-13 21:26 | Emergency (ER) | payer MEDICARE, MEDICAID, SELFPAY ==
[2022-08-13 21:30] VITALS: BP 101/57; PULSE 69; RESP 16; TEMP 36.9; O2SAT 96
[2022-08-13] MEDS: Acetaminophen 325 MG TAB 650 MG PO (21:40)
--- NOTE | 2022-08-13 21:40 | ED.GENADUL_ITS ---
Discharge Plan Disposition Patient Disposition: Home Condition: Improving Discharge Details Clinical Impression: Left ankle sprain Primary Care Provider: Nuha Baker RN,[place] ED Provider: Paco Drew Home Meds and New Rx's Prescriptions: Continued cholecalciferol (vitamin D3) 25 mcg (1,000 unit) capsule 25 mcg PO DAILY divalproex 500 mg tablet,delayed release (DR/EC) 500 mg PO TID valacyclovir 1 gram tablet 2,000 mg PO BID mirtazapine 15 mg tablet 15 mg PO .QHS albuterol sulfate 90 mcg/actuation HFA aerosol inhaler 2 inh INHALATION PRN PRN sertraline 50 mg tablet 50 mg PO DAILY vitamin B complex Capsule 1 cap PO DAILY docusate sodium 100 mg capsule 1 cap PO BID ibuprofen [IBU] 600 mg tablet 600 mg PO QID PRN (Reason: pain) Qty: 20 0RF multivitamin with folic acid [Daily-Deonte (with folic acid)] 400 mcg tablet 1 tab PO DAILY furosemide 20 mg tablet 0.5 tab PO DAILY levothyroxine 25 mcg Tablet 25 mcg PO DAILY@0600 venlafaxine 75 mg Tablet Extended Release 24hr 75 mg PO DAILY olanzapine 15 mg tablet 1 tab PO HS lamotrigine 100 mg tablet 1 tab PO HS aripiprazole 5 mg tablet 1 tab PO DAILY Discharge Instructions Instructions: Ankle Sprain (ED) Additional Instructions: Remove Paul bandage at bedtime. May use during the daytime 2 to 3 days. Return for any acute concerns. Medical Decision Making 66-year-old female slipped on the ice. She presents with mild ankle sprain. She is ambulatory without change to her gait. Minimal pain. Consistent with mild sprain/contusion. Do not feel she requires radiograph. Given Paul bandage and she is stable for discharge to home HPI General Mode of arrival: ambulatory . Date/Time Provider Initiated Documentation: 08/13/22 21:29 . Limitations to Documentation: no limitations . Information obtained by: patient . History of Present Illness 66 year old F presents to the emergency department with the chief complaint of Left ankle injury, described as mild, Quality is described as dull and constant, and is localized to the left and lower extremity. Patient reports no radiation. Patient started experiencing this minute(s) and it has been constant. No relieving factors improve symptom(s), Movement worsens symptoms . Patient notes no other symptoms.. Patient did receive the following treatments prior to arrival, none Related Data Home Medications Medication Instructions Recorded Confirmed cholecalciferol (vitamin D3) 25 25 mcg PO DAILY 09/22/21 06/01/22 mcg (1,000 unit) capsule multivitamin with folic acid 400 1 tab PO DAILY 12/25/21 06/01/22 mcg tablet (Daily-Deonte (with folic acid)) albuterol sulfate 90 mcg/actuation 2 inh inhalation PRN PRN 01/27/22 06/01/22 aerosol inhaler docusate sodium 100 mg capsule 1 cap PO BID 01/27/22 06/01/22 mirtazapine 15 mg tablet 15 mg PO .QHS 01/27/22 06/01/22 sertraline 50 mg tablet 50 mg PO DAILY 01/27/22 06/01/22 vitamin B complex 1 cap PO DAILY 01/27/22 06/01/22 ibuprofen 600 mg tablet (IBU) 600 mg PO QID PRN pain #20 tabs 02/05/22 06/01/22 divalproex 500 mg tablet,delayed 500 mg PO TID 03/02/22 06/01/22 release valacyclovir 1 gram tablet 2,000 mg PO BID 03/02/22 06/01/22 furosemide 20 mg tablet 0.5 tab PO DAILY 04/12/22 06/01/22 levothyroxine 25 mcg tablet 25 mcg PO DAILY@0600 04/13/22 06/01/22 venlafaxine 75 mg tablet,extended 75 mg PO DAILY 04/13/22 06/01/22 release 24 hr aripiprazole 5 mg tablet 1 tab PO DAILY 06/01/22 06/01/22 lamotrigine 100 mg tablet 1 tab PO HS 06/01/22 06/01/22 olanzapine 15 mg tablet 1 tab PO HS 06/01/22 06/01/22 Previous Rx's Medication Instructions Recorded ibuprofen 600 mg tablet (IBU) 600 mg PO QID PRN pain #20 tabs 02/05/22 Allergies Allergy/AdvReac Type Severity Reaction Status Date / Time acetaminophen [From Vicodin] Allergy Mild facial Verified 06/01/22 10:28 swelling bupropion [From Wellbutrin] Allergy Mild facial Verified 06/01/22 10:28 swelling doxycycline Allergy Mild unknown Verified 06/01/22 10:28 hydrocodone [From Vicodin] Allergy Mild facial Verified 06/01/22 10:28 swelling omeprazole Allergy Mild rash, Verified 06/01/22 10:28 upset stomach erythromycin base Allergy Unknown Unverified 06/01/22 10:28 propoxyphene HCl Allergy Unknown Unverified 06/01/22 10:28 [From Darvon] fluticasone AdvReac Mild dizziness Verified 06/01/22 10:28 [From Advair Diskus] levofloxacin [From Levaquin] AdvReac Mild dizziness Verified 06/01/22 10:28 morphine AdvReac Mild hallucinati Verified 06/01/22 10:28 on oxycodone AdvReac Mild hallucinati Verified 06/01/22 10:28 ons prednisone AdvReac Mild dizziness Verified 06/01/22 10:28 quetiapine [From Seroquel] AdvReac Mild dizziness Verified 06/01/22 10:28 risperidone AdvReac Mild sever Verified 06/01/22 10:28 nightmares salmeterol AdvReac Mild dizziness Verified 06/01/22 10:28 [From Advair Diskus] tramadol AdvReac Mild dizziness, Verified 06/01/22 10:28 hallucinations General Stated Complaint: Orthopedic SEB: 4 Review of Systems Narrative: Denies other injury. Ambulatory. 6 systems reviewed and otherwise negative. PFSH All Active Problems (Updated 08/13/22 @ 21:42 by Paco Drew MD) Screening for colon cancer (Acute) Unintentional weight loss (Acute) Diarrhea (Acute) History of colon polyps (Acute) Bipolar 1 disorder, mixed (Acute) Suicidal ideation (Acute) Suicidal ideation (Acute) Hypothyroidism (Chronic) Tubulovillous adenoma (Acute ~12/01/20) Left ankle sprain (Acute) Medical History Anxiety Arm fracture Bipolar 1 disorder Chronic airway obstruction Chronic pain Diverticulitis Dizziness H/O adenomatous polyp of colon History of closed head injury Hypotension Ischemic colitis Late effect of fracture of neck of femur Lesion of skin of nose Lower extremity edema Neck pain Neuromuscular disorder Osteoarthritis, generalized Poor short term memory PTSD (post-traumatic stress disorder) Tremor Urinary incontinence Varicose veins of lower extremity Vitamin D deficiency Surgical History History of hemicolectomy (~12/14/20) History of hip replacement bilateral History of knee replacement left Hx of tubal ligation Social History Smoking/Tobacco Use Status: Current every day Tobacco Type: cigarettes Smoking risk assessment performed?: Yes Alcohol Intake: former Drug use: Daily Substance use type: marijuana Do you feel safe at home: Yes Do you feel safe in your relationship?: Yes Additional Social history: lives alone Exam Narrative Exam Narrative: GEN: awake, alert, oriented 3. Pleasant, well groomed, interactive. HEAD: Normocephalic, atraumatic ENT: Mucous membranes moist, oropharynx unremarkable, External ear exam unremark able EYES: PERRL, EOMI NECK: Full ROM, no LENNY, no menigismus CHEST/RESP: No respiratory distress EXT: Full ROM, no edema, no rash, subtle tenderness left lateral malleolus. Neuro: Grossly normal neurologic exam, conversant, interactive. Psych: Speech fluent, thoughts congruent, affect normal Course Vital Signs Vital signs: Vital Signs Temperature 36.9 C 08/13/22 21:30 Pulse 69 08/13/22 21:30 Respiratory Rate 16 08/13/22 21:30 Blood Pressure 101/57 L 08/13/22 21:30 Pulse Oximetry 96 08/13/22 21:30 Temperature 36.9 C 08/13/22 21:30 Pulse 69 08/13/22 21:30 Respiratory Rate 16 08/13/22 21:30 Respiratory Effort 08/13/22 21:35 Blood Pressure 101/57 L 08/13/22 21:30 Blood Pressure Position Sitting 08/13/22 21:30 Pulse Oximetry 96 08/13/22 21:30 Oxygen Delivery Method Room Air 08/13/22 21:30 Oxygen Flow Rate 0 08/13/22 21:30 Pain Level 6 08/13/22 21:35
--- NOTE | 2022-08-13 21:41 | NUR.NOTE ---
Nursing Note: Paul bandage applied by to L ankle. +CSMTs NAD noted. Able to ambulate independently without difficulty.
== END 2022-08-13 21:47 | disposition home or self-care (01) ==
PROVIDERS: Emergency Provider Emergency Medicine
DX: S93.492A Sprain of other ligament of left ankle, initial encounter (principal); W00.0XXA Fall on same level due to ice and snow, initial encounter
CPT/HCPCS: 99282

== ENCOUNTER 2022-08-26 18:57 | Outpatient (REF) | payer MEDICARE, MEDICAID, SELFPAY ==
[2022-08-26 20:08] LABS: Abs Immature Grans 0.01 10^3/uL (0.0-0.06); Absolute Basophil Count 0.03 10^3/uL (0.0-0.2); Absolute Eosinophil Count 0.15 10^3/uL (0.0-0.7); Absolute Lymphocyte Count 1.59 10^3/uL (1.2-3.4); Absolute Monocyte Count 0.46 10^3/uL (0.1-0.8); Absolute Neutrophil Count 1.36 10^3/uL (1.2-6.7); Basophils % 0.8; Eosinophils % 4.2; HGB 11.8 g/dL (11.2-15.7); Immature Grans % 0.3; Lymphocytes % 44.2; MCH 30.6 pg (27.0-33.0); MCHC 31.9 % (32.0-36.0); MCV 96 fL (80-95); MPV 11.1 fL (8.0-11.0); Monocytes % 12.8; Neutrophils % 37.7; Platelet Count 181 10^3/uL (130-400); RBC 3.85 10^6/uL (3.93-5.22); RDW 13.8 % (11.7-14.6); RDW-SD 48.9 fL
[2022-08-26 20:24] LABS: ALT 14 U/L (14-59); AST 16 U/L (15-37); Albumin 3.4 g/dL (3.4-5.0); Alkaline Phosphatase 95 U/L (46-116); Anion Gap 5.4 mmol/L (3-11); BUN 17 mg/dL (7-18); Bilirubin, Total 0.4 mg/dL (0.2-1.0); CO2 29.6 mmol/L (21.0-32.0); CREATININE 0.8 mg/dL (0.55-1.02); Calcium 9.1 mg/dL (8.5-10.1); Chloride 107 mmol/L (98-107); Estimated GFR 81.21 (mL/min/1.73m2); Glucose 78 mg/dL (74-106); Potassium 4.7 mmol/L (3.5-5.1); Sodium 142 mmol/L (136-145); TSH (W/Ref FT4) 0.68 uIU/mL (0.36-3.74); Total Protein 6.5 g/dL (6.4-8.2)
[2022-08-28 20:44] LABS: COVID-19 RT-PCR UVMMC Result Negative (Negative)
== END 2022-08-26 18:58 | disposition home or self-care (01) ==
LOC: LBN 18:57
PROVIDERS: Visit Provider Physician Assistant Medical
DX: R53.83 Other fatigue (principal); B34.9 Viral infection, unspecified; R05.8 Other specified cough; S00.01XA Abrasion of scalp, initial encounter
CPT/HCPCS: 80053; U0003; 84443; 85025

== ENCOUNTER 2022-09-13 09:44 | Outpatient (CLI) | payer MEDICARE, MEDICAID, SELFPAY ==
[2022-09-13 10:10] LABS: Abs Immature Grans 0.01 10^3/uL (0.0-0.06); Absolute Basophil Count 0.04 10^3/uL (0.0-0.2); Absolute Eosinophil Count 0.09 10^3/uL (0.0-0.7); Absolute Lymphocyte Count 1.45 10^3/uL (1.2-3.4); Absolute Monocyte Count 0.34 10^3/uL (0.1-0.8); Absolute Neutrophil Count 1.55 10^3/uL (1.2-6.7); Basophils % 1.1; Eosinophils % 2.6; HCT 41.1 % (36.0-46.0); HGB 13.2 g/dL (11.2-15.7); Immature Grans % 0.3; Lymphocytes % 41.7; MCH 30.6 pg (27.0-33.0); MCHC 32.1 % (32.0-36.0); MCV 95 fL (80-95); MPV 10.7 fL (8.0-11.0); Monocytes % 9.8; Neutrophils % 44.5; Platelet Count 193 10^3/uL (130-400); RBC 4.32 10^6/uL (3.93-5.22); RDW 13.5 % (11.7-14.6); RDW-SD 47.5 fL; WBC 3.48 10^3/uL (4.4-10.8)
[2022-09-13 10:31] LABS: VALPROIC ACID 75.7 ug/mL
[2022-09-13 11:35] LABS: ALT 14 U/L (14-59); AST 18 U/L (15-37); Albumin 3.5 g/dL (3.4-5.0); Alkaline Phosphatase 103 U/L (46-116); Anion Gap 0.3 mmol/L (3-11); BUN 22 mg/dL (7-18); Bilirubin, Total 0.4 mg/dL (0.2-1.0); CO2 30.7 mmol/L (21.0-32.0); Calcium 9.5 mg/dL (8.5-10.1); Chloride 105 mmol/L (98-107); Estimated GFR 62.13 (mL/min/1.73m2); FREE T4 0.77 ng/dL (0.76-1.46); Glucose 82 mg/dL (74-106); Magnesium 1.8 mg/dL (1.8-2.4); Potassium 4.2 mmol/L (3.5-5.1); Sodium 136 mmol/L (136-145); TSH 1.24 uIU/mL (0.36-3.74); Total Protein 7.3 g/dL (6.4-8.2)
[2022-09-13 12:12] LABS: Vitamin B12 862 pg/mL (193-986)
[2022-09-13 12:20] LABS: Folate > 20.0 ng/mL (8.6-20.0)
[2022-09-15 08:19] LABS: Homocysteine 14.7 umol/L (5.0-13.9)
== END 2022-09-13 09:45 | disposition home or self-care (01) ==
LOC: LBO 09:44
PROVIDERS: Visit Provider Psychiatry & Neurology Psychiatry
DX: F60.3 Borderline personality disorder (principal); F31.73 Bipolar disorder, in partial remission, most recent episode manic; F43.9 Reaction to severe stress, unspecified; Z79.899 Other long term (current) drug therapy
CPT/HCPCS: 36415; 80053; 80061; 83090; 80164; 82607; 82746; 83036; 83735; 84439; 84443; 85025

== ENCOUNTER 2022-11-17 16:04 | Emergency (ER) | payer MEDICARE, MEDICAID, SELFPAY ==
[2022-11-17 16:06] VITALS: BP 107/61; PULSE 75; RESP 18; TEMP 36.6; O2SAT 97
--- NOTE | 2022-11-17 16:14 | ED.GENADUL_ITS ---
Discharge Plan Disposition Patient Disposition: Home Condition: Good Discharge Details Clinical Impression: Metacarpal bone fracture Primary Care Provider: [facility] Provider: Alistair Abbasi Meds and New Rx's Prescriptions: Continued cholecalciferol (vitamin D3) 25 mcg (1,000 unit) capsule 25 mcg PO DAILY divalproex 500 mg tablet,delayed release (DR/EC) 500 mg PO TID mirtazapine 15 mg tablet 15 mg PO .QHS albuterol sulfate 90 mcg/actuation HFA aerosol inhaler 2 inh INHALATION PRN PRN sertraline 50 mg tablet 50 mg PO DAILY vitamin B complex Capsule 1 cap PO DAILY docusate sodium 100 mg capsule 1 cap PO BID ibuprofen [IBU] 600 mg tablet 600 mg PO QID PRN (Reason: pain) Qty: 20 0RF multivitamin with folic acid [Daily-Deonte (with folic acid)] 400 mcg tablet 1 tab PO DAILY furosemide 20 mg tablet 0.5 tab PO DAILY levothyroxine 25 mcg Tablet 25 mcg PO DAILY@0600 venlafaxine 75 mg Tablet Extended Release 24hr 75 mg PO DAILY olanzapine 15 mg tablet 1 tab PO HS aripiprazole 5 mg tablet 1 tab PO DAILY Discharge Instructions Instructions: Splint Care (ED) Additional Instructions: You were seen after a fall this morning. You sustained fractures to the fourth and fifth metacarpal bones in your hand. You should wear the splint at all times and follow-up with orthopedics next week. You may call the office tomorrow to make an appointment. Keep your hand elevated, use acetaminophen or ibuprofen for pain, do not let your splint get wet. Return to ED for significantly worsening pain, numbness, discolored fingertips. Referrals: [facility] [Provider Group] Medical Decision Making Patient presenting with left hand injury. She sustained this this morning after a fall. Denies injury elsewhere. Will obtain x-ray of left hand to evaluate for potential fracture. X-ray per my read shows fourth and fifth metacarpal fractures. Minimal angulation to the fractures. No reduction attempted. Patient placed in a ulnar gutter splint by me. She tolerated this well. She will be referred to orthopedics for follow-up next week. Encouraged to keep her hand elevated, ice, acetaminophen or ibuprofen for pain. Return precautions provided. HPI General Date/Time Provider Initiated Documentation: 11/17/22 16:12 . Information obtained by: patient . HPI Narrative: Patient is a [id number] female presenting with left hand injury that occurred this morning while getting out of bed. She got tangled up in the bedding and fell forward landing on her left hand. She did not strike her head. She has no complaint of neck pain, back pain, chest pain, shortness of breath. Left hand has been swollen and bruised despite elevation, ice, ibuprofen. She had presented to express care and was referred to ED for evaluation. She denies injury elsewhere. She denies numbness or weakness to the hand but has difficulty with the ring and little finger of that hand because of pain. Related Data Home Medications Medication Instructions Recorded Confirmed cholecalciferol (vitamin D3) 25 25 mcg PO DAILY 09/22/21 11/17/22 mcg (1,000 unit) capsule multivitamin with folic acid 400 1 tab PO DAILY 12/25/21 11/17/22 mcg tablet (Daily-Deonte (with folic acid)) albuterol sulfate 90 mcg/actuation 2 inh inhalation PRN PRN 01/27/22 11/17/22 aerosol inhaler docusate sodium 100 mg capsule 1 cap PO BID 01/27/22 11/17/22 mirtazapine 15 mg tablet 15 mg PO .QHS 01/27/22 11/17/22 sertraline 50 mg tablet 50 mg PO DAILY 01/27/22 11/17/22 vitamin B complex 1 cap PO DAILY 01/27/22 11/17/22 ibuprofen 600 mg tablet (IBU) 600 mg PO QID PRN pain #20 tabs 02/05/22 11/17/22 divalproex 500 mg tablet,delayed 500 mg PO TID 03/02/22 11/17/22 release furosemide 20 mg tablet 0.5 tab PO DAILY 04/12/22 11/17/22 levothyroxine 25 mcg tablet 25 mcg PO DAILY@0600 04/13/22 11/17/22 venlafaxine 75 mg tablet,extended 75 mg PO DAILY 04/13/22 11/17/22 release 24 hr aripiprazole 5 mg tablet 1 tab PO DAILY 06/01/22 11/17/22 olanzapine 15 mg tablet 1 tab PO HS 06/01/22 11/17/22 Previous Rx's Medication Instructions Recorded ibuprofen 600 mg tablet (IBU) 600 mg PO QID PRN pain #20 tabs 02/05/22 Allergies Allergy/AdvReac Type Severity Reaction Status Date / Time acetaminophen [From Vicodin] Allergy Mild facial Verified 11/17/22 18:10 swelling bupropion [From Wellbutrin] Allergy Mild facial Verified 11/17/22 18:10 swelling doxycycline Allergy Mild unknown Verified 11/17/22 18:10 hydrocodone [From Vicodin] Allergy Mild facial Verified 11/17/22 18:10 swelling omeprazole Allergy Mild rash, Verified 11/17/22 18:10 upset stomach erythromycin base Allergy Unknown Unverified 11/17/22 18:10 propoxyphene HCl Allergy Unknown Unverified 11/17/22 18:10 [From Darvon] fluticasone AdvReac Mild dizziness Verified 11/17/22 18:10 [From Advair Diskus] levofloxacin [From Levaquin] AdvReac Mild dizziness Verified 11/17/22 18:10 morphine AdvReac Mild hallucinati Verified 11/17/22 18:10 on oxycodone AdvReac Mild hallucinati Verified 11/17/22 18:10 ons prednisone AdvReac Mild dizziness Verified 11/17/22 18:10 quetiapine [From Seroquel] AdvReac Mild dizziness Verified 11/17/22 18:10 risperidone AdvReac Mild sever Verified 11/17/22 18:10 nightmares salmeterol AdvReac Mild dizziness Verified 11/17/22 18:10 [From Advair Diskus] tramadol AdvReac Mild dizziness, Verified 11/17/22 18:10 hallucinations General Stated Complaint: Orthopedic SEB: 4 Review of Systems Narrative: per HPI PFSH All Active Problems (Updated 11/17/22 @ 18:04 by Alistair Abbasi MD) Metacarpal bone fracture (Acute) Lower extremity edema (Acute) Neck pain (Acute) Screening for colon cancer (Acute) Unintentional weight loss (Acute) Diarrhea (Acute) History of colon polyps (Acute) Bipolar 1 disorder, mixed (Acute) Suicidal ideation (Acute) Suicidal ideation (Acute) Hypothyroidism (Chronic) Tubulovillous adenoma (Acute ~12/01/20) Medical History Anxiety Bipolar 1 disorder Chronic airway obstruction Chronic pain Diverticulitis Dizziness H/O adenomatous polyp of colon History of closed head injury Ischemic colitis Late effect of fracture of neck of femur Lesion of skin of nose Neuromuscular disorder Osteoarthritis, generalized Poor short term memory PTSD (post-traumatic stress disorder) Tremor Urinary incontinence Varicose veins of lower extremity Vitamin D deficiency Surgical History History of hemicolectomy (~12/14/20) History of hip replacement bilateral History of knee replacement left Hx of tubal ligation Social History Smoking/Tobacco Use Status: Current every day Tobacco Type: cigarettes Smoking risk assessment performed?: Yes Alcohol Intake: former Drug use: Daily Substance use type: marijuana Do you feel safe at home: Yes Do you feel safe in your relationship?: Yes Additional Social history: lives alone Exam Narrative Exam Narrative: Const: WDWN female in NAD. HEENT: NC/AT. Normal facial exam. Neck: Supple. Trachea midline. No tenderness. Lungs: Normal respiratory effort. Cor: RRR. Good radial pulses. Neuro: A+O x 3. Normal speech, mentation, gait. Cranial nerves II - XII grossly intact. No gross motor or sensory deficit. Ext: No C/C/E. Left elbow, forearm, wrist are normal. Left hand with bruising, swelling, tenderness to the ulnar aspect of the hand as well as the ring finger. Skin: Warm and dry without rash. Course Vital Signs Vital signs: Vital Signs Temperature 97.9 F 11/17/22 16:06 Pulse 75 11/17/22 16:06 Respiratory Rate 18 11/17/22 16:06 Blood Pressure 107/61 11/17/22 16:06 Pulse Oximetry 97 11/17/22 16:06 Temperature 97.9 F 11/17/22 16:06 Temperature Source Skin 11/17/22 16:06 Pulse 75 11/17/22 16:06 Respiratory Rate 18 11/17/22 16:06 Blood Pressure 107/61 11/17/22 16:06 Blood Pressure Position Sitting 11/17/22 16:06 Pulse Oximetry 97 11/17/22 16:06 Oxygen Delivery Method Room Air 11/17/22 16:06 Oxygen Flow Rate 0 11/17/22 16:06 Pain Level 10 11/17/22 16:06 Procedures Orthopedic Splinting/Casting Injury #1: Side: left Upper Extremity Injury Location: hand Upper Extremity Immobilizer: ulnar gutter
--- NOTE | 2022-11-17 17:32 | DI.RAD_ITS ---
Exam(s) XR HAND LT COMPLETE EXAM: XR HAND LT COMPLETE CLINICAL HISTORY: trauma. TECHNIQUE: 2D digital imaging was performed. Three views. COMPARISON: No exams were available for comparison FINDINGS: BONES: Acute oblique fractures proximal metaphyses fourth and fifth metacarpals. Mild displacement a nd angulation.No extension to the articular surface. No bony destructive lesion is seen. Bones are o steopenic. Chronic deformities distal radius and ulna. JOINTS: No dislocation present. SOFT TISSUE: Mild swelling. IMPRESSION: Fractures 4th and 5th metacarpals. DATA REPOSITORY: RADIATION DOSE DELIVERED:
--- NOTE | 2022-11-17 17:53 | DI.VRAD_ITS ---
PROCEDURE INFORMATION: Exam: XR Left Hand Exam date and time: 11/17/2022 5:32 PM Age: 66 years old Clinical indication: Injury or trauma; Fall; Blunt trauma (contusions or hematomas); Hand; Left; Injury date: 11/17/22 TECHNIQUE: Imaging protocol: Radiologic exam of the left hand. Views: 3 or more views. COMPARISON: US EXTREMITY VENOUS BI 12/26/2021 10:46 AM FINDINGS: Bones/joints: The bones are demineralized. Chronic distal ulnar deformity and chronic wrist findings could be assessed with wrist films. Acute oblique fractures, 4th and 5th metacarpal diaphysis, without intra-articular involvement. Mild apex dorsal angulation at both locations. Degenerative changes in the wrist and hand. Soft tissues: Soft tissue swelling surrounding the fracture sites. IMPRESSION: Acute oblique fractures, 4th and 5th metacarpal diaphysis, without intra-articular involvement. Mild apex dorsal angulation at both locations. Dictated and Authenticated by: Shelley Sprague MD. Ordering:SHAMA Sainz MD
== END 2022-11-17 18:29 | disposition home or self-care (01) ==
PROVIDERS: Emergency Provider Emergency Medicine; PCP Nurse Practitioner Family
DX: S62.395A Other fracture of fourth metacarpal bone, left hand, initial encounter for closed fracture (principal); S62.397A Other fracture of fifth metacarpal bone, left hand, initial encounter for closed fracture; W06.XXXA Fall from bed, initial encounter
CPT/HCPCS: 29125; 99283; 73130; 99284

== ENCOUNTER 2022-11-23 13:20 | Emergency (ER) | payer MEDICARE, MEDICAID, SELFPAY ==
[2022-11-23 13:21] VITALS: BP 118/78; PULSE 70; RESP 16; TEMP 36; O2SAT 97
--- NOTE | 2022-11-23 14:17 | ED.GENADUL_ITS ---
Discharge Plan Disposition Patient Disposition: Home Discharge Details Clinical Impression: Aftercare for cast or splint check or change Primary Care Provider: LA OLIVARES ED Provider: Aki Murray Home Meds and New Rx's Prescriptions: New ibuprofen [IBU] 400 mg tablet 400 mg PO Q6H PRNQty: 20 0RF Continued cholecalciferol (vitamin D3) 25 mcg (1,000 unit) capsule 25 mcg PO DAILY divalproex 500 mg tablet,delayed release (DR/EC) 500 - 1,000 mg PO BID Rx Instructions: 500mg qam 1000mg qpm mirtazapine 15 mg tablet 15 mg PO .QHS albuterol sulfate 90 mcg/actuation HFA aerosol inhaler 2 inh INHALATION PRN PRN vitamin B complex Capsule 1 cap PO DAILY docusate sodium 100 mg capsule 1 cap PO BID multivitamin with folic acid [Daily-Deonte (with folic acid)] 400 mcg tablet 1 tab PO DAILY furosemide 20 mg tablet 10 mg PO DAILY levothyroxine 25 mcg Tablet 25 mcg PO DAILY@0600 venlafaxine 75 mg Tablet Extended Release 24hr 37.5 mg PO DAILY olanzapine 15 mg tablet 5 mg PO HS aripiprazole 5 mg tablet 5 mg PO DAILY Discontinued ibuprofen [IBU] 600 mg tablet 400 mg PO QID PRN (Reason: pain) Discharge Instructions Additional Instructions: You may continue to use [id number] pain medications as needed for discomfort. Please keep splinting in place until you are seen and cleared by orthopedics. Please keep dry and clean and do not take splinting off. If you develop any new or significant worsening symptoms return the emergency department for reassessment. Referrals: [facility] [Provider Group] - 12/04/22 9:30 am Medical Decision Making Patient presenting to the emergency department for need of reassessment of splint. Patient attempted to call orthopedic office and was informed to come to the emergency department for casting of her broken metacarpals. Patient was seen approximately 1 week ago and was splinted in the emergency department referred to orthopedics. Patient denies any new or worsening condition and states she was only presenting due to the recommendation of the orthopedic office. Physical exam shows ulnar guttural splint in place no other worrisome findings noted. We did change patient's Paul wrap otherwise do not feel that any other interventions are needed. Did obtain appointment for patient to follow-up in orthopedic office. After discussion of diagnosis and plan of care patient has no further needs, questions, or concerns and states clear understanding to return to the emergency department for any worsening symptoms. This documentation was generated using [employer] system, please disregard any oddities of phrase or misspellings. HPI General Mode of arrival: ambulatory . Date/Time Provider Initiated Documentation: 11/23/22 13:35 . Information obtained by: patient and RN notes reviewed . History of Present Illness 66 year old F presents to the emergency department with the chief complaint of hand injury, Patient started experiencing this week(s) (1) and it has been constant. Patient notes no other symptoms.. Related Data Home Medications Medication Instructions Recorded Confirmed cholecalciferol (vitamin D3) 25 25 mcg PO DAILY 09/22/21 11/23/22 mcg (1,000 unit) capsule multivitamin with folic acid 400 1 tab PO DAILY 12/25/21 11/23/22 mcg tablet (Daily-Deonte (with folic acid)) albuterol sulfate 90 mcg/actuation 2 inh inhalation PRN PRN 01/27/22 11/23/22 aerosol inhaler docusate sodium 100 mg capsule 1 cap PO BID 01/27/22 11/23/22 mirtazapine 15 mg tablet 15 mg PO .QHS 01/27/22 11/23/22 vitamin B complex 1 cap PO DAILY 01/27/22 11/23/22 divalproex 500 mg tablet,delayed 500 - 1,000 mg PO BID 03/02/22 11/23/22 release furosemide 20 mg tablet 10 mg PO DAILY 04/12/22 11/23/22 levothyroxine 25 mcg tablet 25 mcg PO DAILY@0600 04/13/22 11/23/22 venlafaxine 75 mg tablet,extended 37.5 mg PO DAILY 04/13/22 11/23/22 release 24 hr aripiprazole 5 mg tablet 5 mg PO DAILY 06/01/22 11/23/22 olanzapine 15 mg tablet 5 mg PO HS 06/01/22 11/23/22 ibuprofen 400 mg tablet (IBU) 400 mg PO Q6H PRN #20 tabs 11/23/22 Previous Rx's Medication Instructions Recorded ibuprofen 400 mg tablet (IBU) 400 mg PO Q6H PRN #20 tabs 11/23/22 Allergies Allergy/AdvReac Type Severity Reaction Status Date / Time acetaminophen [From Vicodin] Allergy Mild facial Verified 11/23/22 13:33 swelling bupropion [From Wellbutrin] Allergy Mild facial Verified 11/23/22 13:33 swelling doxycycline Allergy Mild unknown Verified 11/23/22 13:33 hydrocodone [From Vicodin] Allergy Mild facial Verified 11/23/22 13:33 swelling omeprazole Allergy Mild rash, Verified 11/23/22 13:33 upset stomach erythromycin base Allergy Unknown Unverified 11/23/22 13:33 propoxyphene HCl Allergy Unknown Unverified 11/23/22 13:33 [From Darvon] fluticasone AdvReac Mild dizziness Verified 11/23/22 13:33 [From Advair Diskus] levofloxacin [From Levaquin] AdvReac Mild dizziness Verified 11/23/22 13:33 morphine AdvReac Mild hallucinati Verified 11/23/22 13:33 on oxycodone AdvReac Mild hallucinati Verified 11/23/22 13:33 ons prednisone AdvReac Mild dizziness Verified 11/23/22 13:33 quetiapine [From Seroquel] AdvReac Mild dizziness Verified 11/23/22 13:33 risperidone AdvReac Mild sever Verified 11/23/22 13:33 nightmares salmeterol AdvReac Mild dizziness Verified 11/23/22 13:33 [From Advair Diskus] tramadol AdvReac Mild dizziness, Verified 11/23/22 13:33 hallucinations General Stated Complaint: Orthopedic SEB: 4 Review of Systems Narrative: 6 systems reviewed and unremarkable except what is marked below. Musculoskeletal Musculoskeletal: Reports as per HPI Neurologic Neurologic: Denies paresthesias PFSH All Active Problems Metacarpal bone fracture (Acute) Aftercare for cast or splint check or change (Acute) Lower extremity edema (Acute) Neck pain (Acute) Screening for colon cancer (Acute) Unintentional weight loss (Acute) Diarrhea (Acute) History of colon polyps (Acute) Bipolar 1 disorder, mixed (Acute) Suicidal ideation (Acute) Suicidal ideation (Acute) Hypothyroidism (Chronic) Tubulovillous adenoma (Acute ~12/01/20) Medical History Anxiety Bipolar 1 disorder Chronic airway obstruction Chronic pain Diverticulitis Dizziness H/O adenomatous polyp of colon History of closed head injury Ischemic colitis Late effect of fracture of neck of femur Lesion of skin of nose Neuromuscular disorder Osteoarthritis, generalized Poor short term memory PTSD (post-traumatic stress disorder) Tremor Urinary incontinence Varicose veins of lower extremity Vitamin D deficiency Surgical History History of hemicolectomy (~12/14/20) History of hip replacement bilateral History of knee replacement left Hx of tubal ligation Social History Smoking/Tobacco Use Status: Current every day Tobacco Type: cigarettes Smoking risk assessment performed?: Yes Alcohol Intake: former Drug use: Daily Substance use type: marijuana Do you feel safe at home: Yes Do you feel safe in your relationship?: Yes Additional Social history: lives alone Exam Const General: cooperative, no acute distress and not ill appearing Orientation: alert, awake and oriented x3 Resp Effort & Inspection: normal respiratory effort, able to speak in complete sentences and no respiratory distress Neuro General: patient alert, patient awake, patient oriented x3 and no focal motor deficits Sensory Exam: no sensory deficits noted Extrem Left upper extremity: hand Details: ecchymosis Location: of the dorsal hand, of the 3rd digit, of the 4th digit and of the 5th digit and other (Ulnar guttural splinting in place) Course Vital Signs Vital signs: Vital Signs Temperature 36.0 C L 11/23/22 13:21 Pulse 70 11/23/22 13:21 Respiratory Rate 16 11/23/22 13:21 Blood Pressure 118/78 11/23/22 13:21 Pulse Oximetry 97 11/23/22 13:21 Temperature 36.0 C L 11/23/22 13:21 Temperature Source Tympanic 11/23/22 13:21 Pulse 70 11/23/22 13:21 Respiratory Rate 16 11/23/22 13:21 Blood Pressure 118/78 11/23/22 13:21 Blood Pressure Position Sitting 11/23/22 13:21 Pulse Oximetry 97 11/23/22 13:21 Oxygen Delivery Method Room Air 11/23/22 13:21 Oxygen Flow Rate 0 11/23/22 13:21 Pain Level 0 11/23/22 13:21
== END 2022-11-23 14:33 | disposition home or self-care (01) ==
PROVIDERS: Emergency Provider Nurse Practitioner Family; PCP Nurse Practitioner Family
DX: Z04.3 Encounter for examination and observation following other accident (principal)

== ENCOUNTER 2022-12-26 21:05 | Outpatient (REF) | payer MEDICARE, MEDICAID, SELFPAY ==
[2022-12-28 10:15] LABS: Hepatitis C Ab w Rflx HCV PCR Negative (Negative)
[2022-12-28 10:37] LABS: HIV-1/2 Ag & Ab Screen Negative (Negative)
[2022-12-28 11:20] LABS: Syphilis Serology (RPR) Negative (Negative)
[2022-12-28 12:40] LABS: Chlamydia Result Negative (Negative); GC Result Negative (Negative)
== END 2022-12-26 21:06 | disposition home or self-care (01) ==
LOC: LBN 21:05
PROVIDERS: PCP Nurse Practitioner Family; Visit Provider Nurse Practitioner Family
DX: Z11.3 Encounter for screening for infections with a predominantly sexual mode of transmission (principal); Z11.4 Encounter for screening for human immunodeficiency virus [HIV]; R39.15 Urgency of urination; Z11.59 Encounter for screening for other viral diseases
CPT/HCPCS: 86803; 87389; 87491; 87591; 86592; 87086

== ENCOUNTER 2023-01-07 16:02 | Emergency (ER) | payer OTHER, SELFPAY ==
[2023-01-07 16:08] VITALS: BP 129/74; PULSE 76; RESP 16; TEMP 36.6; O2SAT 96
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
[2023-01-07] MEDS: Acetaminophen 500 MG TAB 1000 MG PO (16:59)
[2023-01-07] MEDS: Lidocaine 5% Patch 1 PATCH TP (17:00)
== END 2023-01-07 17:13 | disposition home or self-care (01) ==
PROVIDERS: Emergency Provider Emergency Medicine; PCP Nurse Practitioner Family
DX: M54.9 Dorsalgia, unspecified (principal); V89.2XXA Person injured in unspecified motor-vehicle accident, traffic, initial encounter
CPT/HCPCS: 99283

== ENCOUNTER 2023-01-10 11:08 | Emergency (ER) | payer OTHER, MEDICAID, SELFPAY ==
[2023-01-10 11:18] VITALS: BP 97/60; PULSE 51; RESP 18; TEMP 36.9; O2SAT 100
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
[2023-01-10 12:19] LABS: Absolute Basophil Count 0.04 10^3/uL (0.0-0.2); Absolute Eosinophil Count 0.09 10^3/uL (0.0-0.7); Absolute Lymphocyte Count 1.83 10^3/uL (1.2-3.4); Absolute Monocyte Count 0.48 10^3/uL (0.1-0.8); Absolute Neutrophil Count 1.95 10^3/uL (1.2-6.7); Basophils % 0.9; Eosinophils % 2.1; HCT 40.7 % (36.0-46.0); HGB 13.1 g/dL (11.2-15.7); Lymphocytes % 41.7; MCH 30.1 pg (27.0-33.0); MCHC 32.2 % (32.0-36.0); MCV 94 fL (80-95); MPV 10.9 fL (8.0-11.0); Monocytes % 10.9; Neutrophils % 44.4; Platelet Count 184 10^3/uL (130-400); RBC 4.35 10^6/uL (3.93-5.22); RDW 12.6 % (11.7-14.6); RDW-SD 43.5 fL; WBC 4.39 10^3/uL (4.4-10.8)
[2023-01-10 12:34] LABS: ALT 13 U/L (14-59); AST 13 U/L (15-37); Albumin 3.4 g/dL (3.4-5.0); Alkaline Phosphatase 105 U/L (46-116); Anion Gap 2.7 mmol/L (3-11); BUN 20 mg/dL (7-18); Bilirubin, Total 0.4 mg/dL (0.2-1.0); CO2 32.3 mmol/L (21.0-32.0); CREATININE 0.9 mg/dL (0.55-1.02); Calcium 9.8 mg/dL (8.5-10.1); Chloride 104 mmol/L (98-107); Estimated GFR 70.07 (mL/min/1.73m2); Glucose 75 mg/dL (74-106); Potassium 4.7 mmol/L (3.5-5.1); Sodium 139 mmol/L (136-145)
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
[2023-01-10] MEDS: Omnipaque 350 MG/ML 100 ML BTL IJ (14:12)
[2023-01-10] MEDS: Normal Saline - Diluent 50 ML VIAL IJ (14:13)
[2023-01-10 15:34] VITALS: BP 117/62; PULSE 67; TEMP 36.7; O2SAT 97
== END 2023-01-10 15:38 | disposition home or self-care (01) ==
PROVIDERS: Emergency Provider Emergency Medicine; PCP Nurse Practitioner Family
DX: R51.9 Headache, unspecified (principal); R11.0 Nausea; Z04.1 Encounter for examination and observation following transport accident
CPT/HCPCS: 74177; 80053; 99284; 70450; 71260; 72125; 84484; 85025; J3490

== ENCOUNTER 2023-01-11 02:54 | Outpatient (CLI) | payer MEDICARE, MEDICAID, SELFPAY ==
[2023-01-11 10:57] LABS: VALPROIC ACID 71.2 ug/mL
== END 2023-01-11 02:55 | disposition home or self-care (01) ==
LOC: LBO 02:55
PROVIDERS: PCP Nurse Practitioner Family; Visit Provider Nurse Practitioner Psychiatric/Mental Health
DX: F31.89 Other bipolar disorder (principal); Z51.81 Encounter for therapeutic drug level monitoring; Z79.899 Other long term (current) drug therapy
CPT/HCPCS: 36415; 80164

== ENCOUNTER 2023-01-16 20:09 | Outpatient (REF) | payer MEDICARE, MEDICAID, SELFPAY | END 2023-01-16 20:10 | disposition home or self-care (01) | LOC: LBN 20:09 | PROVIDERS: PCP Nurse Practitioner Family; Visit Provider Nurse Practitioner Family | DX: R30.0 Dysuria (principal) | CPT/HCPCS: 87086 ==

== ENCOUNTER 2023-01-21 14:23 | Emergency (ER) | payer MEDICARE, MEDICAID, SELFPAY ==
[2023-01-21 14:26] VITALS: BP 111/53; PULSE 63; RESP 18; TEMP 36.9; O2SAT 98
[2023-01-21 14:41] LABS: Bilirubin Negative (Negative); Blood Trace-intact (Negative); Clarity Clear (Clear); Glucose Negative (Negative); Ketones Negative (Negative); Leukocyte Esterase Trace (Negative); Nitrite Negative (Negative); Urobilinogen 0.2 mg/dL (Up to 0.2); pH 5.5 (5-8)
[2023-01-21 14:48] LABS: Bacteria Rare HPF (Negative); C & S Indicated? Yes; Casts Negative LPF (Negative); Crystals Negative HPF (Negative); Epithelial Cells Rare HPF (Negative); Mucus Negative (Negative); RBC 0-2 HPF (0-2); WBC 0-2 HPF (0-5)
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
[2023-01-21] MEDS: Fosfomycin Tromethamine 3 GM PACKET PO (15:35)
[2023-01-21] MEDS: Fluconazole 150 MG TAB PO (15:35)
== END 2023-01-21 15:42 | disposition home or self-care (01) ==
PROVIDERS: Emergency Provider Emergency Medicine; PCP Nurse Practitioner Family
DX: R30.0 Dysuria (principal); R35.0 Frequency of micturition
CPT/HCPCS: 99283; 81003; 81015; 87086; J3490

== ENCOUNTER 2023-01-25 11:55 | Outpatient (REF) | payer MEDICARE, MEDICAID, SELFPAY | END 2023-01-25 11:56 | disposition home or self-care (01) | LOC: NCHCN 11:55 | PROVIDERS: PCP Nurse Practitioner Family; Visit Provider Nurse Practitioner Family | DX: L29.8 Other pruritus (principal) | CPT/HCPCS: 87480; 87510; 87660 ==

== ENCOUNTER 2023-03-09 15:03 | Outpatient (REF) | payer MEDICARE, MEDICAID, SELFPAY ==
[2023-03-09 14:44] LABS: Abs Immature Grans 0.02 10^3/uL (0.0-0.06); Absolute Basophil Count 0.04 10^3/uL (0.0-0.2); Absolute Eosinophil Count 0.23 10^3/uL (0.0-0.7); Absolute Lymphocyte Count 1.96 10^3/uL (1.2-3.4); Absolute Monocyte Count 0.59 10^3/uL (0.1-0.8); Basophils % 0.7; Eosinophils % 3.7; HCT 36.9 % (36.0-46.0); HGB 11.9 g/dL (11.2-15.7); Immature Grans % 0.3; Lymphocytes % 31.9; MCH 30.6 pg (27.0-33.0); MCHC 32.2 % (32.0-36.0); MCV 95 fL (80-95); MPV 11.6 fL (8.0-11.0); Monocytes % 9.6; Neutrophils % 53.8; Platelet Count 190 10^3/uL (130-400); RBC 3.89 10^6/uL (3.93-5.22); RDW 14.9 % (11.7-14.6); RDW-SD 51.8 fL; WBC 6.14 10^3/uL (4.4-10.8)
[2023-03-09 15:30] LABS: ALT 15 U/L (14-59); AST 19 U/L (15-37); Albumin 3.6 g/dL (3.4-5.0); Alkaline Phosphatase 103 U/L (46-116); Anion Gap 9.8 mmol/L (3-11); BUN 19 mg/dL (7-18); Bilirubin, Total 0.4 mg/dL (0.2-1.0); CO2 27.2 mmol/L (21.0-32.0); CREATININE 0.8 mg/dL (0.55-1.02); Calcium 9.5 mg/dL (8.5-10.1); Chloride 105 mmol/L (98-107); Estimated GFR 80.71 (mL/min/1.73m2); Glucose 77 mg/dL (74-106); Potassium 4.2 mmol/L (3.5-5.1); Sodium 142 mmol/L (136-145); TSH (W/Ref FT4) 0.66 uIU/mL (0.36-3.74); Total Protein 6.7 g/dL (6.4-8.2)
[2023-03-10 13:18] LABS: HIV-1/2 Ag & Ab Screen Negative (Negative)
[2023-03-12 09:25] LABS: Hepatitis B Surface Ag Negative (Negative)
[2023-03-12 10:22] LABS: Hepatitis C Ab w Rflx HCV PCR Negative (Negative)
== END 2023-03-09 15:04 | disposition home or self-care (01) ==
LOC: LBN 15:03
PROVIDERS: PCP Nurse Practitioner Family; Visit Provider Physician Assistant Medical
DX: E03.9 Hypothyroidism, unspecified (principal); Z11.3 Encounter for screening for infections with a predominantly sexual mode of transmission; Z11.4 Encounter for screening for human immunodeficiency virus [HIV]; Z11.59 Encounter for screening for other viral diseases; Z13.0 Encounter for screening for diseases of the blood and blood-forming organs and certain disorders involving the immune mechanism; Z01.84 Encounter for antibody response examination
CPT/HCPCS: 80053; 86803; 87340; 87389; 87491; 87591; 84443; 85025

== ENCOUNTER 2023-03-12 16:43 | Outpatient (REF) | payer MEDICARE, MEDICAID, SELFPAY ==
[2023-03-14 12:57] LABS: Chlamydia Result Negative (Negative); GC Result Negative (Negative)
== END 2023-03-12 16:44 | disposition home or self-care (01) ==
LOC: NCHCN 16:43
PROVIDERS: PCP Nurse Practitioner Family; Visit Provider Nurse Practitioner Family
DX: Z11.3 Encounter for screening for infections with a predominantly sexual mode of transmission (principal)
CPT/HCPCS: 87491; 87591

== ENCOUNTER 2023-03-14 10:43 | Outpatient (CLI) | payer MEDICARE, MEDICAID, SELFPAY ==
[2023-03-14 11:19] LABS: VALPROIC ACID 112.2 ug/mL
== END 2023-03-14 10:44 | disposition home or self-care (01) ==
LOC: LBO 10:43
PROVIDERS: PCP Nurse Practitioner Family; Visit Provider Nurse Practitioner Family
DX: Z51.81 Encounter for therapeutic drug level monitoring (principal)
CPT/HCPCS: 36415; 80164

== ENCOUNTER 2023-04-24 13:13 | Outpatient (REF) | payer MEDICARE, MEDICAID, SELFPAY | END 2023-04-24 13:14 | disposition home or self-care (01) | LOC: LBN 13:13 | PROVIDERS: PCP Nurse Practitioner Family; Visit Provider Nurse Practitioner Family | DX: N89.8 Other specified noninflammatory disorders of vagina (principal) | CPT/HCPCS: 87480; 87510; 87660 ==

== ENCOUNTER 2023-05-11 14:50 | Inpatient (IN) | payer MEDICARE, MEDICAID, SELFPAY ==
[2023-05-11] VITALS (175 sets, daily range): BP systolic 48–116; BP diastolic 24–100; PULSE 71–104; RESP 4–33; TEMP 36.7–37.7; O2SAT 84–97
--- NOTE | 2023-05-11 14:45 | RT.EKG_ITS ---
APPROVED REPORT Exam: Resting ECG Reason for Exam: Dyspnea Patient Location: E HR:74 bpm ECG Measurements Heart Rate 74 AXIS HI 120 P 67 QRSd 80 QRS 68 QT 344 T 224 QTc 384 Conclusion Sinus rhythm...normal P axis, V-rate 60- [address]-T changes Normal [place] There are no significant changes compared to prior EKG performed on 12/25/2021 at 19:03.
--- NOTE | 2023-05-11 15:00 | DI.RAD_ITS ---
Exam(s) XR CHEST 2V PA LATERAL EXAM: XR CHEST 2V PA LATERAL CLINICAL HISTORY: cough, SOB TECHNIQUE: 2D digital imaging was performed. COMPARISON: CR,XR XR CHEST 2V PA LATERAL from 12/25/[address] CHEST/ABD/PEL W from 01/10/2023 FINDINGS: HEART: Normal size. Aorta: Not dilated. PULMONARY VASCULATURE: Normal. LUNGS: Bibasilar infiltrates suspicious for pneumonia. PLEURAL SPACE: No pleural effusion or pneumothorax. BONE:Unremarkable for age. IMPRESSION: Bilateral lower lobe infiltrates. DATA REPOSITORY: RADIATION DOSE DELIVERED:
--- NOTE | 2023-05-11 15:01 | W.ED.GENAD ---
Discharge Plan Disposition Patient Disposition: Admit to [facility] Condition: Poor Discharge Details Clinical Impression: Bilateral pneumonia, Hypotension, AKASH (acute kidney injury), Hypoglycemia Admit Date/Time: 05/11/23 19:06 Admit Provider: Tono Meng Attending Provider: Tono Meng Primary Care Provider: LA OLIVARES ED Provider: Alistair Abbasi Discharge Data Discharge Date/Time-TO BE ENTERED AT DEPARTURE: 05/11/23 20:50 Medical Decision Making Patient is a 67-year-old female with history of COPD presenting with increasing cough and shortness of breath. Reports negative home COVID test. Does have congestion, vomiting, diarrhea in addition to her cough and shortness of breath. 88% room air sat per EMS and currently on 2 L nasal cannula. Lungs with only scattered wheeze at this time, diffuse rhonchi, diminished at right base. EKG from triage is sinus rhythm nonspecific ST changes unchanged from previous. She is only having chest pain with cough. Will obtain COVID PCR, laboratory studies, chest x-ray. Currently minimal wheezing and feels better after 1 DuoNeb so we will hold further nebs or steroids until chest x-ray and COVID test return. Patient's laboratory studies with a white count of 13. She is anemic with a hemoglobin of 10. She is also thrombocytopenic at this point with a platelet of 76. These have been normal in the past. Her VBG with slight amount of CO2 retention at 60 with a pH of 7.28. Electrolytes are normal. She does have evidence of AKASH with a BUN of 41 and creatinine 1.9 previously normal. Surprisingly glucose is low at 56 and a fingerstick done here after lab return is 60. She was given oral glucose, Korsh juice, able to eat half a tunafish sandwich. Magnesium a little low and that will be repleted. Liver function is normal. Nasal swab negative for COVID, flu, RSV. Chest x-ray per my read with bilateral lower lobe infiltrates. Patient written for IV ceftriaxone and oral Zithromax. Patient's blood pressure found to be low and given her AKASH and hypoglycemia suspect this is related to malnutrition and dehydration more so than sepsis. May be a component of sepsis. She is written for 2 L of LR and then we will reassess for floor admission versus ICU admission. Patient received 2 L LR and blood pressure better for about 45 minutes. She then began to drop. She received another 500 mL bolus of LR. Again blood pressure responded and she seemed to be good for close to an hour. Discussed with hospitalist for admission to [facility]. Patient accepted but while waiting for bed in the ED pressures began to drift down again. Oxygen saturation would also dip into the high 80s especially when she fell asleep. Currently on 4 L nasal cannula. She is mentating normally for the most part. However, because of her tenuous pressures and saturations we will plan to change to ICU admission for close monitoring. Lab Data Lab results reviewed: Yes I reviewed the patient's lab results. ECG Data Attestation: I personally reviewed and interpreted this ECG (s) as follows: Prior ECG tracings: available for review Interpretation: See EKG HPI General Date/Time Provider Initiated Documentation: 05/11/23 15:00. Information obtained by: patient. HPI Narrative: Patient presents to ED with increasing shortness of breath and cough since Sunday. She was seen at urgent care on Sunday. She had a home COVID test which was negative. She denies having fever. She has congestion, worsening cough, worsening shortness of breath. She has chest pain only with coughing. She has had some vomiting and diarrhea this week. Denies any abdominal pain. Does report history of COPD but is not on home oxygen and reports no nebulizer just inhalers. When questioned regarding rescue inhaler she reports that she does not think she has one. Today is worse than any other this week. She was found to be hypoxic for EMS and placed on oxygen. She received a DuoNeb in route and reports significant improvement in her shortness of breath but not her cough. Related Data Home Medications Medication Instructions Recorded Confirmed cholecalciferol (vitamin D3) 25 25 mcg PO DAILY 09/22/21 05/11/23 mcg (1,000 unit) capsule multivitamin with folic acid 400 1 tab PO DAILY 12/25/21 05/11/23 mcg tablet (Daily-Deonte (with folic acid)) albuterol sulfate 90 mcg/actuation 2 inh inhalation PRN PRN 01/27/22 05/11/23 aerosol inhaler docusate sodium 100 mg capsule 1 cap PO BID 01/27/22 05/11/23 mirtazapine 15 mg tablet 15 mg PO .QHS 01/27/22 05/11/23 vitamin B complex 1 cap PO DAILY 01/27/22 05/11/23 divalproex 500 mg tablet,delayed 500 - 1,000 mg PO BID 03/02/22 05/11/23 release furosemide 20 mg tablet 10 mg PO DAILY 04/12/22 05/11/23 levothyroxine 25 mcg tablet 25 mcg PO DAILY@0600 04/13/22 05/11/23 venlafaxine 75 mg tablet,extended 37.5 mg PO DAILY 04/13/22 05/11/23 release 24 hr aripiprazole 5 mg tablet 5 mg PO DAILY 06/01/22 05/11/23 olanzapine 15 mg tablet 5 mg PO HS 06/01/22 05/11/23 ibuprofen 400 mg tablet (IBU) 400 mg PO Q6H PRN #20 tabs 11/23/22 05/11/23 lidocaine 5 % topical patch 1 patch topical DAILY #15 ea 01/07/23 05/11/23 (Lidoderm) Previous Rx's Medication Instructions Recorded ibuprofen 400 mg tablet (IBU) 400 mg PO Q6H PRN #20 tabs 11/23/22 lidocaine 5 % topical patch 1 patch topical DAILY #15 ea 01/07/23 (Lidoderm) Allergies Allergy/AdvReac Type Severity Reaction Status Date / Time acetaminophen [From Vicodin] Allergy Mild facial Verified 01/21/23 14:29 swelling bupropion [From Wellbutrin] Allergy Mild facial Verified 01/21/23 14:29 swelling doxycycline Allergy Mild unknown Verified 01/21/23 14:29 hydrocodone [From Vicodin] Allergy Mild facial Verified 01/21/23 14:29 swelling omeprazole Allergy Mild rash, Verified 01/21/23 14:29 upset stomach erythromycin base Allergy Unknown Unverified 01/21/23 14:29 propoxyphene HCl Allergy Unknown Unverified 01/21/23 14:29 [From Darvon] fluticasone AdvReac Mild dizziness Verified 01/21/23 14:29 [From Advair Diskus] levofloxacin [From Levaquin] AdvReac Mild dizziness Verified 01/21/23 14:29 morphine AdvReac Mild hallucinati Verified 01/21/23 14:29 on oxycodone AdvReac Mild hallucinati Verified 01/21/23 14:29 ons prednisone AdvReac Mild dizziness Verified 01/21/23 14:29 quetiapine [From Seroquel] AdvReac Mild dizziness Verified 01/21/23 14:29 risperidone AdvReac Mild sever Verified 01/21/23 14:29 nightmares salmeterol AdvReac Mild dizziness Verified 01/21/23 14:29 [From Advair Diskus] tramadol AdvReac Mild dizziness, Verified 01/21/23 14:29 hallucinations General Stated Complaint: SOB SEB: 2 Review of Systems Narrative: per HPI PFSH All Active Problems Bilateral pneumonia (Acute) Hypotension (Acute) AKASH (acute kidney injury) (Acute) Hypoglycemia (Acute) Lower extremity edema (Acute) Neck pain (Acute) Screening for colon cancer (Acute) Unintentional weight loss (Acute) Diarrhea (Acute) History of colon polyps (Acute) Bipolar 1 disorder, mixed (Acute) Suicidal ideation (Acute) Suicidal ideation (Acute) Tubulovillous adenoma (Acute ~12/01/20) Medical History Anxiety Bipolar 1 disorder Chronic airway obstruction Chronic pain Diverticulitis Dizziness H/O adenomatous polyp of colon History of closed head injury Hypothyroidism Ischemic colitis Late effect of fracture of neck of femur Lesion of skin of nose Neuromuscular disorder Osteoarthritis, generalized Poor short term memory PTSD (post-traumatic stress disorder) Tremor Urinary incontinence Varicose veins of lower extremity Vitamin D deficiency Surgical History History of hemicolectomy (~12/14/20) History of hip replacement bilateral History of knee replacement left Hx of tubal ligation Social History Smoking/Tobacco Use Status: Current every day Tobacco Type: cigarettes Smoking risk assessment performed?: Yes Alcohol Intake: former Drug use: Daily Substance use type: marijuana Housing: apartment Do you feel safe at home: Yes Do you feel safe in your relationship?: Yes Additional Social history: lives alone Exam Narrative Exam Narrative: Const: WDWN female in NAD. HEENT: NC/AT. Normal facial exam. Eyes: Normal conjunctiva and sclera. Neck: Supple. Trachea midline. Lungs: Normal respiratory effort, mildly tachypneic. Diffuse rhonchi throughout, very few scattered wheezes, diminished breath sounds right base. Cor: RRR with murmur. Good radial pulses. GI: Soft/ND. Neuro: A+O x 3. Normal speech, mentation, gait. Cranial nerves II - XII grossly intact. No gross motor or sensory deficit. Ext: No C/C/E. Skin: Warm and dry without rash. Course Vital Signs Vital signs: Vital Signs Temperature 98.6 F 05/11/23 14:50 Pulse 73 05/11/23 14:50 Respiratory Rate 30 H 05/11/23 14:50 Blood Pressure 69/33 L 05/11/23 14:50 Pulse Oximetry 95 05/11/23 14:50 Temperature 98.6 F 05/11/23 14:50 Temperature Source Oral 05/11/23 14:50 Pulse 73 05/11/23 14:50 Respiratory Rate 30 H 05/11/23 14:50 Blood Pressure 69/33 L 05/11/23 14:50 Blood Pressure Position Supine 05/11/23 14:50 Pulse Oximetry 95 05/11/23 14:50 Oxygen Delivery Method Nasal Cannula 05/11/23 14:50 Oxygen Flow Rate 2 05/11/23 14:50 Critical Care Time Critical Care Time Critical Care Time: Yes Total Critical Care Time: 45 Attestation: Upon my evaluation, this patient had a high probability of imminent or life-threatening deterioration, which required my direct attention, intervention, and personal management. I have personally provided 45 minutes of critical care time exclusive of time spent on separately billable procedures. Time includes review of laboratory data, radiology results, discussion with consultants, and monitoring for potential decompensation. Interventions were performed as documented above.
[2023-05-11 15:25] LABS: HCT 31.3 % (36.0-46.0); HGB 10.1 g/dL (11.2-15.7); MCH 31.4 pg (27.0-33.0); MCHC 32.3 % (32.0-36.0); MCV 97 fL (80-95); MPV 12.3 fL (8.0-11.0); RBC 3.22 10^6/uL (3.93-5.22); RDW 14.1 % (11.7-14.6); RDW-SD 50.8 fL; WBC 13.23 10^3/uL (4.4-10.8)
[2023-05-11 15:47] LABS: ALT 15 U/L (14-59); AST 21 U/L (15-37); Albumin 2.4 g/dL (3.4-5.0); Alkaline Phosphatase 66 U/L (46-116); Anion Gap 7.5 mmol/L (3-11); BUN 41 mg/dL (7-18); Bilirubin, Total 0.3 mg/dL (0.2-1.0); CO2 27.5 mmol/L (21.0-32.0); CREATININE 1.9 mg/dL (0.55-1.02); Calcium 8.2 mg/dL (8.5-10.1); Chloride 107 mmol/L (98-107); Estimated GFR 28.58 (mL/min/1.73m2); Glucose 56 mg/dL (74-106); Magnesium 1.5 mg/dL (1.8-2.4); Potassium 3.5 mmol/L (3.5-5.1); Sodium 142 mmol/L (136-145); Total Protein 5.5 g/dL (6.4-8.2)
[2023-05-11 15:54] LABS: Platelet Count 76 10^3/uL (130-400)
[2023-05-11 15:59] LABS: Absolute Lymphocyte Count 1.06 10^3/uL (1.2-3.4); Absolute Monocyte Count 1.19 10^3/uL (0.1-0.8); Absolute Neutrophil Count 10.72 10^3/uL (1.2-6.7); Bands % 51; Diff Comment Manual Differential; Metamyelocytes % 2; RBC Morphology Normal
[2023-05-11 16:05] LABS: COVID-19 PCR Negative (Negative); Influenza A PCR Negative (Negative); Influenza B PCR Negative (Negative); RSV PCR Negative (Negative)
[2023-05-11 16:13] LABS: Source NASOPHARYNX
[2023-05-11 16:25] LABS: BE (Venous) 1 mmol/L (-2-3); HCO3 (Venous) 28 mmol/L (23-28); O2 Sat (Venous) 54 %; TCO2 (Venous) 27 mmol/L (24-29); pCO2 (Venous) 60 mmHg (41-51); pH (Venous) 7.28 (7.31-7.41); pO2 (Venous) 33 mmHg
[2023-05-11] MEDS: Lactated Ringers 1,000 ML 1000 ML IV ×2 (17:00)
[2023-05-11] MEDS: Normal Saline Flush 10 ML SYR IVP ×2 (17:00→21:30)
[2023-05-11] MEDS: Azithromycin 250 MG TAB 500 MG PO (17:11)
[2023-05-11] MEDS: cefTRIAXone 1 GM/50 ML BAG IVPB (17:11)
[2023-05-11] MEDS: Lactated Ringers 1,000 ML 100 ML IV ×2 (17:55→21:28)
[2023-05-11] MEDS: MAGNESIUM SULFATE 2 GM/50 ML BAG IVPB ×2 (18:18→21:20)
[2023-05-11 18:39] LABS: Bilirubin Negative (Negative); Blood Trace-intact (Negative); Clarity Clear (Clear); Glucose Negative (Negative); Ketones Negative (Negative); Leukocyte Esterase Negative (Negative); Nitrite Negative (Negative); Urobilinogen 0.2 mg/dL (Up to 0.2); pH 5.5 (5-8)
[2023-05-11 18:47] LABS: Bacteria Negative HPF (Negative); C & S Indicated? No; Casts Negative LPF (Negative); Crystals Negative HPF (Negative); Epithelial Cells Rare HPF (Negative); Mucus Negative (Negative); Other Cells Rare Transitional (Negative); WBC 0-2 HPF (0-5)
[2023-05-11] MEDS: Albuterol 2.5 MG/3 ML INH SOLN VIAL UPD ×2 (19:17→23:19)
[2023-05-11] MEDS: Lactated Ringers 500 ML IV (19:21)
--- NOTE | 2023-05-11 19:31 | W.PM.HP.N ---
Date of service: 05/11/23 Time of Service: 19:32 Assessment and Plan Assessment and plan (1) Bilateral pneumonia: Start date: 05/11/23 Status: Acute Assessment and plan: Is a 67-year-old lady with a history of COPD and recent respiratory symptoms presenting with bilateral pneumonia and acute respiratory failure with hypoxemia and hypercarbia. She was placed on BiPAP with repeat VBG appearing to be improved and she is oxygenating with supplement. She continues to be obtunded with respiratory failure. She also has hypotension with septic shock on norepinephrine for blood pressure support for MAP above 65. She has been fluid resuscitated in the ED. When her lactic acid was checked after 2 L of lactated Ringer's she had a normal lactic acid. She is a full code. She is appearing to respond to therapy. (2) Acute respiratory failure with hypoxia and hypercarbia: Start date: 05/11/23 Status: Acute Assessment and plan: Oxygen supplementation with BiPAP and aggressive treatment of COPD exacerbation as well as bilateral pneumonia. Weaning parameters as tolerated. Patient does not appear to be worsening and is not at risk for need for mechanical ventilation at this time. She is a full code. (3) Septic shock: Start date: 05/11/23 Status: Acute Assessment and plan: IV fluid resuscitation and now on norepinephrine for blood pressure control to a MAP above 65. To help with perfusion with patient also having dehydration with AKASH and elevated WBC though she would not tachycardic she was tachypneic. (4) Chronic airway obstruction: Assessment and plan: Chronically on rescue inhalers only and patient now exacerbated with Solu-Medrol to be administered especially with hypoglycemia. Aggressive respiratory treatment with nebulizers. O2 supplementation and BiPAP for hypercapnic respiratory failure. (5) AKASH (acute kidney injury): Start date: 05/11/23 Status: Acute Assessment and plan: Secondary to recent illness and poor intake along with being on furosemide chronically. IV fluid resuscitation will be continued with patient having no history of CHF. Update echocardiogram if indicated. This will not be performed over the weekend. (6) Hypoglycemia: Start date: 05/11/23 Status: Acute Assessment and plan: Patient has no history of diabetes and hyperglycemia may be secondary to acute septic shock the patient be given steroids which will also treat her COPD exacerbation. (7) Hypomagnesemia: Start date: 05/11/23 Status: Acute Assessment and plan: Replete with IV magnesium sulfate and follow-up lab in the morning. Patient is chronically on furosemide without potassium or magnesium supplement. Furosemide is being held for now. (8) Bipolar 1 disorder: Assessment and plan: Continue outpatient medications orally as patient tolerates. (9) Hypothyroidism: Assessment and plan: Check TSH with reflex free T4, continue supplement same for now. History of Present Illness History of Present Illness Chief Complaint: Increasing shortness of breath with cough and history of COPD Narrative: This is a 67-year-old female patient who has had progressive respiratory symptoms at home with cough and dyspnea but also has had some GI symptoms with vomiting and diarrhea. She has been ill over the week worsening the last 3 days. She also has had low blood pressure and low blood sugars in the ED along with altered mental status be more difficult to arouse with VBG revealing hypercapnic respiratory failure with her hypoxemia. It is not mentioned that she is on oxygen at home. Imaging did reveal bilateral lower lobe infiltrates and the patient was initiated on IV antibiotic therapy with IV fluid resuscitation now on her fourth liter of lactated Ringer's was continued hypotension. Patient also appeared to be dry with an increased creatinine from her baseline. She is arousable but has minimal conversation and appears somewhat obtunded by her respiratory failure. This also may be consequence of her low blood pressure with septic shock most likely since she had an elevated WBC with low-grade fever and tachypnea with altered mental status and source of infection being the lungs. She did not have significant fever at home. She would not tachycardic in the ED. Her map was below 65 until she arrived in the ICU and she was initiated on norepinephrine for pressor support. She is a full code. Patient not able to offer further history. Review of Systems Narrative: 13 point review of systems otherwise unrevealing or stable by history from family and ED with the patient not having weight gain or peripheral edema reported. He was not having chest pain prior to her worsening respiratory symptoms. She has no history of CHF by review and no echocardiogram was found. [facility] All Active Problems (Updated 05/12/23 @ 01:07 by Tono Meng) Hypomagnesemia (Acute) Septic shock (Acute) Acute respiratory failure with hypoxia and hypercarbia (Acute) Bilateral pneumonia (Acute) AKASH (acute kidney injury) (Acute) Hypoglycemia (Acute) Lower extremity edema (Acute) Neck pain (Acute) Screening for colon cancer (Acute) Unintentional weight loss (Acute) Diarrhea (Acute) History of colon polyps (Acute) Bipolar 1 disorder, mixed (Acute) Suicidal ideation (Acute) Suicidal ideation (Acute) Tubulovillous adenoma (Acute ~12/01/20) Medical History (Updated 05/12/23 @ 01:07 by Tono Meng) Anxiety Bipolar 1 disorder Chronic airway obstruction Chronic pain Diverticulitis Dizziness H/O adenomatous polyp of colon History of closed head injury Hypothyroidism Ischemic colitis Late effect of fracture of neck of femur Lesion of skin of nose Neuromuscular disorder Osteoarthritis, generalized Poor short term memory PTSD (post-traumatic stress disorder) Tremor Urinary incontinence Varicose veins of lower extremity Vitamin D deficiency Surgical History History of hemicolectomy (~12/14/20) History of hip replacement bilateral History of knee replacement left Hx of tubal ligation Social History Smoking/Tobacco Use Status: Current every day Tobacco Type: cigarettes Smoking risk assessment performed?: Yes Alcohol Intake: former Drug use: Daily Substance use type: marijuana Housing: apartment Do you feel safe at home: Yes Do you feel safe in your relationship?: Yes Additional Social history: lives alone Meds Allergies and Home Medications Allergies Allergy/AdvReac Type Severity Reaction Status Date / Time acetaminophen [From Vicodin] Allergy Mild facial Verified 01/21/23 14:29 swelling bupropion [From Wellbutrin] Allergy Mild facial Verified 01/21/23 14:29 swelling doxycycline Allergy Mild unknown Verified 01/21/23 14:29 hydrocodone [From Vicodin] Allergy Mild facial Verified 01/21/23 14:29 swelling omeprazole Allergy Mild rash, Verified 01/21/23 14:29 upset stomach erythromycin base Allergy Unknown Unverified 01/21/23 14:29 propoxyphene HCl Allergy Unknown Unverified 01/21/23 14:29 [From Darvon] fluticasone AdvReac Mild dizziness Verified 01/21/23 14:29 [From Advair Diskus] levofloxacin [From Levaquin] AdvReac Mild dizziness Verified 01/21/23 14:29 morphine AdvReac Mild hallucinati Verified 01/21/23 14:29 on oxycodone AdvReac Mild hallucinati Verified 01/21/23 14:29 ons prednisone AdvReac Mild dizziness Verified 01/21/23 14:29 quetiapine [From Seroquel] AdvReac Mild dizziness Verified 01/21/23 14:29 risperidone AdvReac Mild sever Verified 01/21/23 14:29 nightmares salmeterol AdvReac Mild dizziness Verified 01/21/23 14:29 [From Advair Diskus] tramadol AdvReac Mild dizziness, Verified 01/21/23 14:29 hallucinations Home Medications Medication Instructions Recorded Confirmed Type cholecalciferol (vitamin D3) 25 25 mcg PO DAILY 09/22/21 05/11/23 History mcg (1,000 unit) capsule multivitamin with folic acid 400 1 tab PO DAILY 12/25/21 05/11/23 History mcg tablet (Daily-Deonte (with folic acid)) albuterol sulfate 90 mcg/actuation 2 inh inhalation PRN PRN 01/27/22 05/11/23 History aerosol inhaler docusate sodium 100 mg capsule 1 cap PO BID 01/27/22 05/11/23 History mirtazapine 15 mg tablet 15 mg PO .QHS 01/27/22 05/11/23 History vitamin B complex 1 cap PO DAILY 01/27/22 05/11/23 History divalproex 500 mg tablet,delayed 500 - 1,000 mg PO BID 03/02/22 05/11/23 History release furosemide 20 mg tablet 10 mg PO DAILY 04/12/22 05/11/23 History levothyroxine 25 mcg tablet 25 mcg PO DAILY@0600 04/13/22 05/11/23 History venlafaxine 75 mg tablet,extended 37.5 mg PO DAILY 04/13/22 05/11/23 History release 24 hr aripiprazole 5 mg tablet 5 mg PO DAILY 06/01/22 05/11/23 History olanzapine 15 mg tablet 5 mg PO HS 06/01/22 05/11/23 History ibuprofen 400 mg tablet (IBU) 400 mg PO Q6H PRN #20 tabs 11/23/22 05/11/23 Rx lidocaine 5 % topical patch 1 patch topical DAILY #15 ea 01/07/23 05/11/23 Rx (Lidoderm) Exam Narrative Exam Narrative: General: Patient appears older than stated age, she arouses and opens her eyes but answers questions with only short words though her answers appear appropriate. She is at least alert and oriented to person and place. She is obtunded with respiratory failure. HEENT: Normocephalic, eyes with pupils equal react light symmetrically, extraocular move intact and sclera anicteric. Oropharynx with dry mucosa poor dentition. Neck: Supple without JVD. Back: Kyphotic without CVA tenderness. Lungs: Bronchovesicular breath sounds present diffusely with no increased expiratory phase expiratory wheeze, occasional rhonchi and scant expiratory wheeze, decreased aeration both bases but no expiratory coarse crackles or rales. Patient has poor expiratory effort. Breast: Exam deferred. Heart: Regular rate and rhythm with distant heart sounds, no appreciable murmur or gallop. Abdomen: Obese contour, soft nontender to palpation with no palpable hepatosplenomegaly. Genitalia/rectal: Exam deferred. Patient does have Fuentes catheter intact. Extremities: Nonpitting edema both lower extremities, well-healed scars over both knees status post TKA's bilaterally, no cyanosis or clubbing. Fair capillary refill. No mottling. Skin: Pale, warm and dry. Actinic changes over sun exposed areas. Neuro: Cranial nerves II through XII appear to be grossly intact, no focalizing motor deficits no tremor. Psych: Obtunded for respiratory failure with mood and affect not interpretable, manifesting no abnormal thought processes when awakened, remote and recent memory not testable with patient's obtundation. Results Imaging Imaging Studies: EXAM:? XR CHEST 2V PA ? LATERAL CLINICAL HISTORY:? cough, SOB TECHNIQUE:? 2D digital imaging was performed. COMPARISON:? CR,XR XR CHEST 2V PA ? LATERAL from 12/25/[address] CHEST/ABD/PEL W from 01/10/2023 FINDINGS: HEART: Normal size.? Aorta: Not dilated. PULMONARY VASCULATURE: Normal. LUNGS: Bibasilar infiltrates suspicious for pneumonia. PLEURAL SPACE: No pleural effusion or pneumothorax. BONE:Unremarkable for age.? IMPRESSION: Bilateral lower lobe infiltrates.? Labs 05/11/23 15:00 05/11/23 20:09 Labs: Laboratory Results - last 24 hr 05/11/23 05/11/23 05/11/23 15:00 15:00 15:20 WBC 13.23 H RBC 3.22 L Hgb 10.1 L Hct 31.3 L MCV 97 H MCH 31.4 MCHC 32.3 RDW 14.1 Plt Count 76 L MPV 12.3 H Immature Gran % See Differential Neutrophils % 30.0 Band Neutrophils % 51 Lymphocytes % 8.0 Monocytes % 9.0 Eosinophils % 0.0 Basophils % 0.0 Metamyelocytes % 2 Nucleated RBC % 0.0 Absolute Neutrophils 10.72 H Absolute Lymphocytes 1.06 L Absolute Monocytes 1.19 H Absolute Eosinophils 0.00 Absolute Basophils 0.00 RBC Morphology Normal VBG pH VBG pCO2 VBG pO2 VBG HCO3 VBG Total CO2 VBG O2 Saturation VBG Base Excess Sodium 142 Potassium 3.5 Chloride 107 Carbon Dioxide 27.5 Anion Gap 7.5 BUN 41 H Creatinine 1.9 H Est GFR (CKD-EPI 2020) 28.58 Glucose 56 L Calcium 8.2 L Magnesium 1.5 L Total Bilirubin 0.3 AST 21 ALT 15 Alkaline Phosphatase 66 Total Protein 5.5 L Albumin 2.4 L Urine Color Urine Clarity Urine pH Ur Specific [place] Urine Protein Urine Ketones Urine Blood Urine Nitrite Urine Bilirubin Urine Urobilinogen Ur Leukocyte Esterase Urine RBC Urine WBC Ur Epithelial Cells Urine Crystals Urine Bacteria Urine Casts Urine Mucus Urine Other Ur Culture Indicated? Urine Glucose COVID-19 Source NASOPHARYNX SARS-CoV-2 (PCR) Negative Influenza Type A (PCR) Negative Influenza Type B (PCR) Negative RSV (PCR) Negative 05/11/23 05/11/23 16:20 18:30 WBC RBC Hgb Hct MCV MCH MCHC RDW Plt Count MPV Immature Gran % Neutrophils % Band Neutrophils % Lymphocytes % Monocytes % Eosinophils % Basophils % Metamyelocytes % Nucleated RBC % Absolute Neutrophils Absolute Lymphocytes Absolute Monocytes Absolute Eosinophils Absolute Basophils RBC Morphology VBG pH 7.28 L VBG pCO2 60 H VBG pO2 33 VBG HCO3 28 VBG Total CO2 27 VBG O2 Saturation 54 VBG Base Excess 1 Sodium Potassium Chloride Carbon Dioxide Anion Gap BUN Creatinine Est GFR (CKD-EPI 2020) Glucose Calcium Magnesium Total Bilirubin AST ALT Alkaline Phosphatase Total Protein Albumin Urine Color Yellow Urine Clarity Clear Urine pH 5.5 Ur Specific [place] 1.010 Urine Protein Negative Urine Ketones Negative Urine Blood Trace-intact H Urine Nitrite Negative Urine Bilirubin Negative Urine Urobilinogen 0.2 Ur Leukocyte Esterase Negative Urine RBC 3-5 H Urine WBC 0-2 Ur Epithelial Cells Rare Urine Crystals Negative Urine Bacteria Negative Urine Casts Negative Urine Mucus Negative Urine Other Rare Transitional Ur Culture Indicated? No Urine Glucose Negative COVID-19 Source SARS-CoV-2 (PCR) Influenza Type A (PCR) Influenza Type B (PCR) RSV (PCR) Last Vital Signs Temp 37.0 C 05/11/23 14:50 Pulse 92 H 05/11/23 19:02 Resp 23 05/11/23 19:04 BP 96/52 L 05/11/23 19:02 Pulse Ox 91 L 05/11/23 19:01 Time Spent Time spent with Patient: >75 minutes Time was spent: preparing to see the patient(eg.review tests), obtaining and/or reviewing separately otained hiistory, ordering medications,tests, procedures, referring, communicating with other health transitional care nurse, indepentently interpreting results and care coordination
[2023-05-11 20:16] LABS: BE (Venous) 1 mmol/L (-2-3); HCO3 (Venous) 28 mmol/L (23-28); O2 Sat (Venous) 80 %; TCO2 (Venous) 27 mmol/L (24-29); pH (Venous) 7.26 (7.31-7.41); pO2 (Venous) 51 mmHg
[2023-05-11 20:18] LABS: pCO2 (Venous) 61 mmHg (41-51)
[2023-05-11 20:19] LABS: Lactate 1.3 mmol/L (0.6-1.4)
[2023-05-11 20:33] LABS: Anion Gap 5.6 mmol/L (3-11); BUN 40 mg/dL (7-18); CO2 28.4 mmol/L (21.0-32.0); CREATININE 1.7 mg/dL (0.55-1.02); Chloride 108 mmol/L (98-107); Estimated GFR 32.66 (mL/min/1.73m2); Glucose 81 mg/dL (74-106); Potassium 3.7 mmol/L (3.5-5.1); Sodium 142 mmol/L (136-145)
[2023-05-11] MEDS: Glucose Oral Gel 15 GM/37.5 GM TUBE (21:11)
[2023-05-11] MEDS: Albuterol/Ipratropium 3 ML UPD VIAL UPD (21:26)
[2023-05-11] MEDS: methylPREDNISolone SUCC 125 MG VIAL 80 MG IVP (21:28)
[2023-05-11] MEDS: Docusate Sodium 100 MG CAP PO (21:30)
[2023-05-11] MEDS: Divalproex 500 MG TABEC 1000 MG PO (21:31)
[2023-05-11] MEDS: Enoxaparin 40 MG/0.4 ML SYR SC (21:32)
[2023-05-11] MEDS: OLANZapine 5 MG TAB PO (21:32)
[2023-05-11] MEDS: Mirtazapine 15 MG TAB PO (21:41)
[2023-05-11 22:46] LABS: BE (Venous) 0 mmol/L (-2-3); HCO3 (Venous) 26 mmol/L (23-28); O2 Sat (Venous) 86 %; TCO2 (Venous) 25 mmol/L (24-29); pCO2 (Venous) 51 mmHg (41-51); pH (Venous) 7.32 (7.31-7.41); pO2 (Venous) 53 mmHg
[2023-05-11] MEDS: Norepinephrine in D5W 8 MG/250 ML BAG 9.375 MG IV (22:47)
[2023-05-12] VITALS (105 sets, daily range): BP systolic 87–126; BP diastolic 46–90; PULSE 63–105; RESP 4–35; TEMP 36.8–37.7; O2SAT 87–98
[2023-05-12] MEDS: Albuterol/Ipratropium 3 ML UPD VIAL UPD ×4 (01:07→19:17)
[2023-05-12 01:27] LABS: BE (Venous) 0 mmol/L (-2-3); HCO3 (Venous) 26 mmol/L (23-28); O2 Sat (Venous) 90 %; TCO2 (Venous) 24 mmol/L (24-29); pCO2 (Venous) 48 mmHg (41-51); pH (Venous) 7.33 (7.31-7.41); pO2 (Venous) 60 mmHg
[2023-05-12] MEDS: Lactated Ringers 1,000 ML 150 ML IV ×3 (02:37→18:50)
[2023-05-12] MEDS: methylPREDNISolone SUCC 125 MG VIAL 80 MG IVP (03:23)
[2023-05-12 06:47] LABS: HGB 11.2 g/dL (11.2-15.7); MCH 31.3 pg (27.0-33.0); MCV 98 fL (80-95); MPV 11.2 fL (8.0-11.0); RBC 3.58 10^6/uL (3.93-5.22); RDW 14.2 % (11.7-14.6); RDW-SD 51.5 fL; WBC 16.13 10^3/uL (4.4-10.8)
[2023-05-12 06:49] LABS: Platelet Count 118 10^3/uL (130-400)
[2023-05-12 07:10] LABS: ALT 15 U/L (14-59); AST 16 U/L (15-37); Albumin 2.4 g/dL (3.4-5.0); Alkaline Phosphatase 82 U/L (46-116); BUN 29 mg/dL (7-18); Bilirubin, Total 0.2 mg/dL (0.2-1.0); CREATININE 1.2 mg/dL (0.55-1.02); Calcium 9.2 mg/dL (8.5-10.1); Chloride 111 mmol/L (98-107); Estimated GFR 49.61 (mL/min/1.73m2); Glucose 131 mg/dL (74-106); Magnesium 2.6 mg/dL (1.8-2.4); Potassium 4.3 mmol/L (3.5-5.1); Sodium 143 mmol/L (136-145)
[2023-05-12 07:14] LABS: TSH (W/Ref FT4) 0.32 uIU/mL (0.36-3.74)
[2023-05-12 07:30] LABS: FREE T4 1.28 ng/dL (0.76-1.46)
[2023-05-12] MEDS: ARIPiprazole 5 MG TAB PO (09:46)
[2023-05-12] MEDS: Lidocaine 5% Patch 1 PATCH TP (09:47)
[2023-05-12] MEDS: guaiFENesin 600 MG TABCR PO ×2 (09:47→20:01)
[2023-05-12] MEDS: Venlafaxine 37.5 MG CAPCR PO (09:47)
[2023-05-12] MEDS: Cholecalciferol (Vitamin D3) 1,000 UNIT TAB 1000 UNITS PO (09:47)
[2023-05-12] MEDS: Benzonatate 100 MG CAP PO ×3 (09:47→19:56)
[2023-05-12] MEDS: Divalproex 500 MG TABEC PO (09:47)
[2023-05-12] MEDS: Docusate Sodium 100 MG CAP PO ×2 (09:47→19:56)
[2023-05-12] MEDS: Multivitamin TAB 1 TAB PO (09:47)
[2023-05-12] MEDS: cefTRIAXone 1 GM/50 ML BAG IVPB ×2 (09:48→11:39)
[2023-05-12 10:05] LABS: BE (Venous) 0 mmol/L (-2-3); HCO3 (Venous) 26 mmol/L (23-28); pCO2 (Venous) 48 mmHg (41-51); pH (Venous) 7.34 (7.31-7.41); pO2 (Venous) 145 mmHg
[2023-05-12] MEDS: Normal Saline Flush 10 ML SYR IVP ×2 (10:07→21:14)
[2023-05-12 10:09] LABS: O2 Sat (Venous) > 99 %
[2023-05-12] MEDS: Nicotine 14 MG/24 HR PATCH TD (10:14)
--- NOTE | 2023-05-12 10:48 | PGE_ITS ---
Date of Service Date of service: 05/12/23 Time of Service: 10:48 Assessment and Plan Assessment and plan (1) Septic shock: Status: Acute Assessment and plan: Due to pneumonia, present on admission. Off of vasopressors. Continue empiric ceftriaxone and azithromycin, but increase the dose of ceftriaxone to 2 grams daily. STill clinically dry, so I think IVF for this bag should be continued. No blood cultures were done. Obtain. Obtain sputum culture. Trend CRP/procalcitonin. Obtain pneumonia studies. WEan O2 as tolerated. Encourage pulmonary toilet. (2) Acute respiratory failure with hypoxia and hypercarbia: Status: Acute Assessment and plan: As above (3) Bilateral pneumonia: Status: Acute Assessment and plan: As above (4) Acute exacerbation of chronic obstructive pulmonary disease (COPD): Status: Acute Assessment and plan: As above (5) AKASH (acute kidney injury): Status: Acute Assessment and plan: Improved. Is clinically dry still, so will continue IVF for now. (6) Hypoglycemia: Status: Acute Assessment and plan: ?Adrenally insufficient. Continue steroids, but decrease dose to 40 mg daily (solumedrol). (7) Hypomagnesemia: Status: Resolved Assessment and plan: Repleted. Recheck in am (8) Tobacco abuse: Status: Acute Assessment and plan: Provide nicotine replacement. (9) DVT prophylaxis: Status: Acute Assessment and plan: SC enoxaparin (10) Discharge planning issues: Status: Resolved Assessment and plan: Full code Keep in the ICU. C/s PT. Total Critical Care Time 45 minutes. Subjective Subjective Interval history since last seen: Ms Roblero states she is feeling better today. She has more energy. She denies dizziness, CP, SOB, n/v. She says she has been sick for two weeks, that she wasn't patient enough to wait for the results of the home covid test two weeks ago. She has a cough productive of yellow sputum. She is on 3L of O2 by NC saturating 92%. She is not normally on oxygen. She got off of BiPAP this morning. She got off of norepinephrine at 8:30 this am. She does not have a central line. She states she has been smoking 1 ppd and requests a nicotine patch to help with the cravings. Exam Narrative Exam Narrative: General: Anxious female who is A&Ox3, NAD HEENT: EOMI, dry MM Heart: RRR, no m/r/g Lungs: Expiratory wheezing B Abdomen: soft, nontender, nondistended Extremities: no edema BLEs Objective Last Vital Signs Temp 37 C 05/12/23 08:40 Pulse 86 05/12/23 10:02 Resp 21 05/12/23 10:10 BP 108/63 05/12/23 10:02 Pulse Ox 92 05/12/23 10:10 Laboratory Results - last 24 hr 05/11/23 05/11/23 05/11/23 15:00 15:00 15:20 WBC 13.23 H RBC 3.22 L Hgb 10.1 L Hct 31.3 L MCV 97 H MCH 31.4 MCHC 32.3 RDW 14.1 Plt Count 76 L MPV 12.3 H Immature Gran % See Differential Neutrophils % 30.0 Band Neutrophils % 51 Lymphocytes % 8.0 Monocytes % 9.0 Eosinophils % 0.0 Basophils % 0.0 Metamyelocytes % 2 Nucleated RBC % 0.0 Absolute Neutrophils 10.72 H Absolute Lymphocytes 1.06 L Absolute Monocytes 1.19 H Absolute Eosinophils 0.00 Absolute Basophils 0.00 RBC Morphology Normal VBG pH VBG pCO2 VBG pO2 VBG HCO3 VBG Total CO2 VBG O2 Saturation VBG Base Excess VBG Lactate Sodium 142 Potassium 3.5 Chloride 107 Carbon Dioxide 27.5 Anion Gap 7.5 BUN 41 H Creatinine 1.9 H Est GFR (CKD-EPI 2020) 28.58 Glucose 56 L Calcium 8.2 L Magnesium 1.5 L Total Bilirubin 0.3 AST 21 ALT 15 Alkaline Phosphatase 66 Total Protein 5.5 L Albumin 2.4 L TSH Free T4 Urine Color Urine Clarity Urine pH Ur Specific [place] Urine Protein Urine Ketones Urine Blood Urine Nitrite Urine Bilirubin Urine Urobilinogen Ur Leukocyte Esterase Urine RBC Urine WBC Ur Epithelial Cells Urine Crystals Urine Bacteria Urine Casts Urine Mucus Urine Other Ur Culture Indicated? Urine Glucose COVID-19 Source NASOPHARYNX SARS-CoV-2 (PCR) Negative Influenza Type A (PCR) Negative Influenza Type B (PCR) Negative RSV (PCR) Negative 05/11/23 05/11/23 05/11/23 16:20 18:30 20:09 WBC RBC Hgb Hct MCV MCH MCHC RDW Plt Count MPV Immature Gran % Neutrophils % Band Neutrophils % Lymphocytes % Monocytes % Eosinophils % Basophils % Metamyelocytes % Nucleated RBC % Absolute Neutrophils Absolute Lymphocytes Absolute Monocytes Absolute Eosinophils Absolute Basophils RBC Morphology VBG pH 7.28 L VBG pCO2 60 H VBG pO2 33 VBG HCO3 28 VBG Total CO2 27 VBG O2 Saturation 54 VBG Base Excess 1 VBG Lactate Sodium 142 Potassium 3.7 Chloride 108 H Carbon Dioxide 28.4 Anion Gap 5.6 BUN 40 H Creatinine 1.7 H Est GFR (CKD-EPI 2020) 32.66 Glucose 81 Calcium 9.0 Magnesium Total Bilirubin AST ALT Alkaline Phosphatase Total Protein Albumin TSH Free T4 Urine Color Yellow Urine Clarity Clear Urine pH 5.5 Ur Specific [place] 1.010 Urine Protein Negative Urine Ketones Negative Urine Blood Trace-intact H Urine Nitrite Negative Urine Bilirubin Negative Urine Urobilinogen 0.2 Ur Leukocyte Esterase Negative Urine RBC 3-5 H Urine WBC 0-2 Ur Epithelial Cells Rare Urine Crystals Negative Urine Bacteria Negative Urine Casts Negative Urine Mucus Negative Urine Other Rare Transitional Ur Culture Indicated? No Urine Glucose Negative COVID-19 Source SARS-CoV-2 (PCR) Influenza Type A (PCR) Influenza Type B (PCR) RSV (PCR) 05/11/23 05/11/23 05/11/23 20:09 20:09 22:40 WBC RBC Hgb Hct MCV MCH MCHC RDW Plt Count MPV Immature Gran % Neutrophils % Band Neutrophils % Lymphocytes % Monocytes % Eosinophils % Basophils % Metamyelocytes % Nucleated RBC % Absolute Neutrophils Absolute Lymphocytes Absolute Monocytes Absolute Eosinophils Absolute Basophils RBC Morphology VBG pH 7.26 L 7.32 VBG pCO2 61 H* 51 VBG pO2 51 53 VBG HCO3 28 26 VBG Total CO2 27 25 VBG O2 Saturation 80 86 VBG Base Excess 1 0 VBG Lactate 1.3 Sodium Potassium Chloride Carbon Dioxide Anion Gap BUN Creatinine Est GFR (CKD-EPI 2020) Glucose Calcium Magnesium Total Bilirubin AST ALT Alkaline Phosphatase Total Protein Albumin TSH Free T4 Urine Color Urine Clarity Urine pH Ur Specific [place] Urine Protein Urine Ketones Urine Blood Urine Nitrite Urine Bilirubin Urine Urobilinogen Ur Leukocyte Esterase Urine RBC Urine WBC Ur Epithelial Cells Urine Crystals Urine Bacteria Urine Casts Urine Mucus Urine Other Ur Culture Indicated? Urine Glucose COVID-19 Source SARS-CoV-2 (PCR) Influenza Type A (PCR) Influenza Type B (PCR) RSV (PCR) 05/12/23 05/12/23 05/12/23 01:17 05:35 05:35 WBC RBC Hgb Hct MCV MCH MCHC RDW Plt Count MPV Immature Gran % Neutrophils % Band Neutrophils % Lymphocytes % Monocytes % Eosinophils % Basophils % Metamyelocytes % Nucleated RBC % Absolute Neutrophils Absolute Lymphocytes Absolute Monocytes Absolute Eosinophils Absolute Basophils RBC Morphology VBG pH 7.33 VBG pCO2 48 VBG pO2 60 VBG HCO3 26 VBG Total CO2 24 VBG O2 Saturation 90 VBG Base Excess 0 VBG Lactate Sodium 143 Potassium 4.3 Chloride 111 H Carbon Dioxide 27.0 Anion Gap 5.0 BUN 29 H Creatinine 1.2 H Est GFR (CKD-EPI 2020) 49.61 Glucose 131 H Calcium 9.2 Magnesium 2.6 H Total Bilirubin 0.2 AST 16 ALT 15 Alkaline Phosphatase 82 Total Protein 6.0 L Albumin 2.4 L TSH 0.32 L Free T4 1.28 Urine Color Urine Clarity Urine pH Ur Specific [place] Urine Protein Urine Ketones Urine Blood Urine Nitrite Urine Bilirubin Urine Urobilinogen Ur Leukocyte Esterase Urine RBC Urine WBC Ur Epithelial Cells Urine Crystals Urine Bacteria Urine Casts Urine Mucus Urine Other Ur Culture Indicated? Urine Glucose COVID-19 Source SARS-CoV-2 (PCR) Influenza Type A (PCR) Influenza Type B (PCR) RSV (PCR) 05/12/23 05/12/23 05:35 10:00 WBC 16.13 H RBC 3.58 L Hgb 11.2 Hct 35.0 L MCV 98 H MCH 31.3 MCHC 32.0 RDW 14.2 Plt Count 118 L D MPV 11.2 H Immature Gran % Neutrophils % Band Neutrophils % Lymphocytes % Monocytes % Eosinophils % Basophils % Metamyelocytes % Nucleated RBC % Absolute Neutrophils Absolute Lymphocytes Absolute Monocytes Absolute Eosinophils Absolute Basophils RBC Morphology VBG pH 7.34 VBG pCO2 48 VBG pO2 145 VBG HCO3 26 VBG Total CO2 VBG O2 Saturation > 99 VBG Base Excess 0 VBG Lactate Sodium Potassium Chloride Carbon Dioxide Anion Gap BUN Creatinine Est GFR (CKD-EPI 2020) Glucose Calcium Magnesium Total Bilirubin AST ALT Alkaline Phosphatase Total Protein Albumin TSH Free T4 Urine Color Urine Clarity Urine pH Ur Specific [place] Urine Protein Urine Ketones Urine Blood Urine Nitrite Urine Bilirubin Urine Urobilinogen Ur Leukocyte Esterase Urine RBC Urine WBC Ur Epithelial Cells Urine Crystals Urine Bacteria Urine Casts Urine Mucus Urine Other Ur Culture Indicated? Urine Glucose COVID-19 Source SARS-CoV-2 (PCR) Influenza Type A (PCR) Influenza Type B (PCR) RSV (PCR) Time Spent with Patient Time Spent with Patient: 35-49 minutes Time was spent: preparing to see the patient(eg.review tests), obtaining and/or reviewing separately otained hiistory, ordering medications,tests, procedures, referring, communicating with other health manager progressive care, indepentently interpreting results, counseling the patient and care coordination
[2023-05-12 10:58] LABS: Lab Add On Test DONE
[2023-05-12 11:30] LABS: Procalcitonin 2.3 ng/mL
[2023-05-12 11:31] LABS: C-Reactive Protein > 25.00 mg/dL (0.0-0.3)
[2023-05-12] MEDS: Enoxaparin 40 MG/0.4 ML SYR SC (11:40)
--- NOTE | 2023-05-12 12:12 | INITIAL_ITS ---
Date of service: 05/12/23 Time of Service: 12:12 Care Management Initial Assmt Initial Assessment REASON FOR HOSPITALIZATION:: Bilateral Lower Lobe Pneumonia, septic shock. PREVIOUS FUNCTIONAL STATUS/SOCIAL/FAMILY SUPPORTS:: Cindy lives in an apartm ent alone, at [facility] in [facility]. She has a daughter, Sophia, who is very supportive, but recently moved far away. Her son, Scot, is also supportive, but busy, and doesn't reach out to her often. She receives support from MAIA Faith, who checks on her frequently. She has a supervisor case loading at [facility], Nadia, who meets with her weekly. She has supportive friends in the area, and utilizes the [employer], [employer], [employer] and organizations in [place] that offer support with food. She is independent with her ADL's at baseline. CURRENT FUNCTIONAL STATUS:: Cindy was sitting up in bed when CM met with her. She was tearful at times, but pleasant and engaged well in conversation. She discussed her various community supports, and how appreciative she is of the community. She stated that her daughter moved away, which has been very hard for her. She has considered moving closer to her daughter, but has not been well enough. She stated that she used to have MOW, and would be interested in restarting it, if possible. CM will send a referral to [facility], and inform Rigoberto Garcia of her interest in this community service. Per report, Cindy's blood cultures are pending. She is on supplemental O2, which she does not use at baseline. CM will continue to follow. ADVANCE DIRECTIVES:: None on file; CM will offer forms. Has patient been provided with info about the portal/API?: Yes Did the patient sign up for the portal?: No CODE STATUS:: Full Code INSURANCE COVERAGE / FINANCIAL ISSUES:: [facility] MCR replacement; [employer]. CURRENT HOME/COMMUNITY SERVICES/EQUIPMENT:: [facility]; [facility] case management; various food supports ([employer], [employer], [employer], [employer]). PRIMARY CARE PHYSICIAN:: Shira Shin POTENTIAL DISCHARGE NEEDS:: Evaluations for further needs, follow up appointments. PATIENT/FAMILY EDUCATION NEEDS:: Review discharge instructions and limitations, discussion of self care needs including ask me three. ANTICIPATED BARRIERS TO DISCHARGE:: None identified. TRANSPORTATION:: Via private vehicle, RCT PLAN:: Anticipate Cindy will return home once medically cleared, likely with new services. She will be driven home via private vehicle, RCT, coordinated by CM. She will follow up with her PCP and discharge plan of care. CM will continue to follow. PFSH All Active Problems (Updated 05/12/23 @ 11:00 by Emilia Severino MD) DVT prophylaxis (Acute) Acute exacerbation of chronic obstructive pulmonary disease (COPD) (Acute) Tobacco abuse (Acute) Septic shock (Acute) Acute respiratory failure with hypoxia and hypercarbia (Acute) Bilateral pneumonia (Acute) AKASH (acute kidney injury) (Acute) Hypoglycemia (Acute) Lower extremity edema (Acute) Neck pain (Acute) Screening for colon cancer (Acute) Unintentional weight loss (Acute) Diarrhea (Acute) History of colon polyps (Acute) Bipolar 1 disorder, mixed (Acute) Suicidal ideation (Acute) Suicidal ideation (Acute) Tubulovillous adenoma (Acute ~12/01/20) Medical History (Updated 05/12/23 @ 11:00 by Emilia Severino MD) Anxiety Bipolar 1 disorder Chronic airway obstruction Chronic pain Diverticulitis Dizziness H/O adenomatous polyp of colon History of closed head injury Hypothyroidism Ischemic colitis Late effect of fracture of neck of femur Lesion of skin of nose Neuromuscular disorder Osteoarthritis, generalized Poor short term memory PTSD (post-traumatic stress disorder) Tremor Urinary incontinence Varicose veins of lower extremity Vitamin D deficiency Surgical History History of hemicolectomy (~12/14/20) History of hip replacement bilateral History of knee replacement left Hx of tubal ligation Social History Smoking/Tobacco Use Status: Current every day Tobacco Type: cigarettes Smoking risk assessment performed?: Yes Alcohol Intake: former Drug use: Daily Substance use type: marijuana Housing: apartment Do you feel safe at home: Yes Do you feel safe in your relationship?: Yes Additional Social history: lives alone
--- NOTE | 2023-05-12 13:21 | PT.INIE ---
Date of service: 05/12/23 Time of Service: 12:30 PT Notes Visit Reasons: Bilateral Lower Lobe Pneumonia,Septic Shock,Resp F Physical Therapy Inpatient Initial Evaluation Date: 05/12/2023 Referring Doctor: Emilia Severino MD PT Orders: PT CONSULT: Limited ability Precautions: Fall. Standard. Activity as tolerated. Patient Profile/Admitting Diagnosis: Cindy is a 67-year-old female who presented to the ED on 05/11/2023 due to cough and shortness of breath with complaints of chest congestion, vomiting, and diarrhea. Patient is admitted to ICU level of care for management of bilateral pneumonia, acute respiratory failure with hypoxia and hypercarbia, septic shock, chronic airway obstruction, acute kidney injury, hypoglycemia, hypomagnesemia, bipolar 1 disorder, and hypothyroidism. PMHX: All Active Problems?(Updated 05/12/23 @ 01:07 by Tono Meng) Hypomagnesemia (Acute) Septic shock (Acute) Acute respiratory failure with hypoxia and hypercarbia (Acute) Bilateral pneumonia (Acute) AKASH (acute kidney injury) (Acute) Hypoglycemia (Acute) Lower extremity edema (Acute) Neck pain (Acute) Screening for colon cancer (Acute) Unintentional weight loss (Acute) Diarrhea (Acute) History of colon polyps (Acute) Bipolar 1 disorder, mixed (Acute) Suicidal ideation (Acute) Suicidal ideation (Acute) Tubulovillous adenoma (Acute ~12/01/20) Medical History?(Updated 05/12/23 @ 01:07 by Tono Meng) Anxiety Bipolar 1 disorder Chronic airway obstruction Chronic pain Diverticulitis Dizziness H/O adenomatous polyp of colon History of closed head injury Hypothyroidism Ischemic colitis Late effect of fracture of neck of femur Lesion of skin of nose Neuromuscular disorder Osteoarthritis, generalized Poor short term memory PTSD (post-traumatic stress disorder) Tremor Urinary incontinence Varicose veins of lower extremity Vitamin D deficiency Surgical History? History of hemicolectomy (~12/14/20) History of hip replacement bilateralHistory of knee replacement left Hx of tubal ligation Social History/Home Situation: Patient lives in an apartment building with no steps to enter. Independent with all aspects of ADLs prior to surgery. Still drives. Equipment Owned/DME: None Subjective: Complained of chest pain and headache with coughing fit and productive cough when she sat at edge of bed. Nurse Debi chen. Objective: General Observation: Resting in bed. Telemetry monitoring in place. Fuentes catheter in place. Oxygen supplementation at 4 L/min. Mental Status: Alert and oriented as to person, place, time, and purpose. Able to pay attention, focus, and respond appropriately. Pain: Chest pain and headache as above from coughing fit Vital Signs: WNL as seen via tele throughout ROM: Right Upper Extremity: Shoulder Flexion WFL. Shoulder abduction WFL. Elbow flexion WFL. Wrist flexion WFL. Functional opening and closing of hand WFL. Left Upper Extremity: Shoulder Flexion WFL. Shoulder abduction WFL. Elbow flexion WFL. Wrist flexion WFL. Functional opening and closing of hand WFL. Right Lower Extremity: Hip flexion WFL. Hip abduction WFL. Knee flexion WFL. Ankle dorsiflexion WFL. Ankle plantarflexion WFL. Left Lower Extremity: Hip flexion WFL. Hip abduction WFL. Knee flexion WFL. Ankle dorsiflexion WFL. Ankle plantarflexion WFL. Strength: Right Upper Extremity: Shoulder flexors 4-/5. Shoulder abductors 4-/5. Elbow flexors 4-/5. Elbow extensors 4-/5. C[employer] strong. Left Upper Extremity: Shoulder flexors 4-/5. Shoulder abductors 4-/5. Elbow flexors 4-/5. Elbow extensors 4-/5. Crm Campaign Manager strong. Right Lower Extremity: Hip flexors 4-/5. Hip abductors 4-/5. Knee flexors 4-/5. Knee extensors 4-/5. Ankle dorsiflexors 4-/5. Ankle plantarflexors 4-/5. Left Lower Extremity: Hip flexors 4-/5. Hip abductors 4-/5. Knee flexors 4-/5. Knee extensors 4-/5. Ankle dorsiflexors 4-/5. Ankle plantarflexors 4-/5. Bed Mobility/Transfers: Supine to sit contact guard assist with HOB at 45 degrees Sit to stand contact guard assist with FWW, minimal cues provided for hand placement Stand to sit contact guard assist with FWW, minimal cues provided for hand placement Bed to reclining chair contact guard assist with FWW, minimal cues provided for hand placement and AD management Gait: 3 sidesteps to HOB using FWW to ensure that she is high enough prior to lying back down in bed. With coughing fit subsiding and chest pain complaint diminished, patient was able to to transfer from bedside to the chair with contact guard assist using FWW. Balance: Static Sitting: Normal Dynamic Sitting: Normal Static Standing: Fair Dynamic Standing: Fair Special Tests: Mobility Limitations Standardized Measure [facility] AM-PAC 6 clicks Basic Mobility Inpatient Short Form: Raw Score: 18 CMS Score: 47% deficit Informed Consent/Education: Patient was instructed in purpose of PT consult and plan of care. Agreeable to proceed with established PT POC to achieve personal goals. ASSESSMENT: Needed adequate time to rest due to long coughing fit when she sat up at edge of bed today. Complained of chest pain with headache while sitting and difficulty breathing when she attempted to lie back down in bed. Deferred any other activity and called for Nurse Debi to make sure that patient is given the intervention she needed. No cardiac event ensued. Patient felt better after significant amount of sputum was produced. Patient was left on bedside recliner feeling much better. Cindy is a 67-year-old female who presented to the ED on 05/11/2023 due to cough and shortness of breath with complaints of chest congestion, vomiting, and diarrhea. Patient is admitted to ICU level of care for management of bilateral pneumonia, acute respiratory failure with hypoxia and hypercarbia, septic shock, chronic airway obstruction, acute kidney injury, hypoglycemia, hypomagnesemia, bipolar 1 disorder, and hypothyroidism. Patient presents with clinical signs and symptoms consistent with current/admitting diagnoses that have resulted to mobility limitations, gait instability, generalized weakness, and overall ADL decline as demonstrated by the following impairment level findings: 1. Decreased strength to B UE/LE major muscle groups 2. Impaired sitting/standing balance 3. Impaired activity tolerance 4. Coughing fit 5. Shortness of breath Impairments are contributing to the following functional limitations: 1. Decline in bed mobility skills 2. Decline in transfer skills 3. Difficulty with ambulation without assistive device and physical assistance 4. Increased completion time for mobility ADL performance 5. Increased risk for falls 6. Difficulty with managing steps alone safely Patient is assessed as a [id number] moderate complexity based on the following: History: 67-year-old female with past medical history as indicated above Examination: Demonstrable impairment in strength, balance, and mobility level with underlying impairments and functional limitations as exhibited above as well as deficit score of 47% utilizing the [facility] Mobility Inpatient Short Form Presentation: Evolving Decision Makin moderate complexity Goals: Goals X1 week 1. Supine-Sit independent 2. Sit-Supine independent 3. Sit-Stand independent 4. Stand-Sit independent with FWW 5. Bed-Chair independent with FWW 6. Chair-Bed independent with FWW 7. Independent gait on level surface with use of FWW for at least 150 feet without report of pain nor dyspnea 8. Good static and dynamic standing balance/tolerance Plan of Care/Treatment Plan: 1-2x/day, 7 days/week x 1 week. Plan of care has been reviewed with the MATTRESS PACKER providing the service under Physical Therapy direction. Initiate Physical Therapy intervention for pain management as needed, strengthening, bed mobility, transfers, gait, stairs, balance training, and use of assistive device. DISCHARGE RECOMMENDATIONS: [] Home with no services [] [X] Home with services. Patient will benefit from home health PT services in order to progress mobility level using least restrictive assistive ambulatory device, assess home safety, identify additional equipment needs, and establish a functional maintenance program that will increase ability of patient to remain at home. [] Home with outpatient PT [] [] SNF for continued rehabilitation [] [] [facility] [] [] SNF versus LTC based on ability to participate and progress [] TREATMENT CODE/TIME: 9716 2 x 20 minutes for 1 unit , 41565 x 27 minutes for 2 units beginning at 12:30 PM. Thank you for the opportunity to participate in the care of this patient. Gertrude Tang PT, DPT, CLT [facility] [place], [place]
[2023-05-12] MEDS: AZITHROMYCIN 500 MG in Normal Saline 250 ML 250 MG IVPB (13:36)
[2023-05-12] MEDS: guaiFENesin/D-METHORPHAN HB 5 ML CUP PO ×2 (17:29→21:44)
[2023-05-12] MEDS: Divalproex 500 MG TABEC 1000 MG PO (19:57)
[2023-05-12] MEDS: OLANZapine 5 MG TAB PO (20:00)
[2023-05-12] MEDS: Mirtazapine 15 MG TAB PO (20:01)
[2023-05-12] MEDS: Famotidine 20 MG TAB PO (20:02)
[2023-05-13] VITALS (32 sets, daily range): BP systolic 92–160; BP diastolic 52–96; PULSE 64–113; RESP 4–30; TEMP 36.4–37.8; O2SAT 89–96
[2023-05-13] MEDS: Normal Saline Flush 10 ML SYR IVP ×2 (01:07→09:26)
[2023-05-13] MEDS: Albuterol/Ipratropium 3 ML UPD VIAL UPD ×5 (01:38→21:56)
[2023-05-13] MEDS: Acetaminophen 325 MG TAB PO ×2 (02:08→14:24)
[2023-05-13] MEDS: guaiFENesin/D-METHORPHAN HB 5 ML CUP PO ×5 (02:08→19:15)
[2023-05-13 06:49] LABS: Abs Immature Grans 0.43 10^3/uL (0.0-0.06); HCT 32.8 % (36.0-46.0); HGB 10.4 g/dL (11.2-15.7); MCH 31.6 pg (27.0-33.0); MCHC 31.7 % (32.0-36.0); MCV 100 fL (80-95); MPV 11.4 fL (8.0-11.0); Platelet Count 108 10^3/uL (130-400); RBC 3.29 10^6/uL (3.93-5.22); RDW 14.6 % (11.7-14.6); RDW-SD 53.1 fL; WBC 11.59 10^3/uL (4.4-10.8)
[2023-05-13 07:27] LABS: Absolute Lymphocyte Count 1.16 10^3/uL (1.2-3.4); Absolute Monocyte Count 0.58 10^3/uL (0.1-0.8); Anion Gap 8.6 mmol/L (3-11); BUN 20 mg/dL (7-18); Bands % 2; CO2 26.4 mmol/L (21.0-32.0); Calcium 9.8 mg/dL (8.5-10.1); Chloride 106 mmol/L (98-107); Diff Comment Manual Differential; Estimated GFR 61.75 (mL/min/1.73m2); Glucose 66 mg/dL (74-106); Magnesium 1.9 mg/dL (1.8-2.4); Metamyelocytes % 2; Potassium 3.6 mmol/L (3.5-5.1); RBC Morphology Normal; Sodium 141 mmol/L (136-145)
[2023-05-13 08:01] LABS: C-Reactive Protein 17.24 mg/dL (0.0-0.3)
[2023-05-13] MEDS: Venlafaxine 37.5 MG CAPCR PO (09:25)
[2023-05-13] MEDS: Vitamins B Comp w/C TAB 1 TAB PO (09:25)
[2023-05-13] MEDS: ARIPiprazole 5 MG TAB PO (09:25)
[2023-05-13] MEDS: guaiFENesin 600 MG TABCR PO ×2 (09:25→19:14)
[2023-05-13] MEDS: Multivitamin TAB 1 TAB PO (09:25)
[2023-05-13] MEDS: Divalproex 500 MG TABEC PO (09:25)
[2023-05-13] MEDS: Cholecalciferol (Vitamin D3) 1,000 UNIT TAB 1000 UNITS PO (09:26)
[2023-05-13] MEDS: methylPREDNISolone SUCC 40 MG VIAL IVP (09:26)
[2023-05-13] MEDS: Docusate Sodium 100 MG CAP PO ×2 (09:26→19:14)
[2023-05-13] MEDS: Benzonatate 100 MG CAP PO ×3 (09:26→19:14)
[2023-05-13] MEDS: Lidocaine 5% Patch 1 PATCH TP (09:27)
[2023-05-13] MEDS: cefTRIAXone 2 GM/50 ML BAG IVPB (09:27)
[2023-05-13] MEDS: Nicotine 14 MG/24 HR PATCH TD (09:58)
--- NOTE | 2023-05-13 10:11 | PGE_ITS ---
Date of Service Date of service: 05/13/23 Time of Service: 10:11 Assessment and Plan Assessment and plan (1) Septic shock: Status: Resolved Assessment and plan: resolved. Off norepinephrine since 08:37 am yesterday. clinically improving but will requiring some oxygen supplementation but even that is better, down to 1 lpm oxygen. Hemodynamically stable. can transfer to med/surg today. If continues to improve then probably home tomorrow. dc iv fluids. Etiology was CAP. Blood cutures still pending. Sputum gram stain w/ rare GPC and rare GNR, few WBC. Fluvid was negative on admission. Urine legionella Ag and Strep Ag and mycoplasma studies pending. I will dc solumedrol and switch to prednisone 40 mg daily and continue for 5 days (2) Acute respiratory failure with hypoxia and hypercarbia: Status: Acute Assessment and plan: as above (3) Bilateral pneumonia: Status: Acute Assessment and plan: continue DuoNeb aerosols but change to qid from q6hr (will allow her better sleep), continue prn albuterol, change solumedrol to prednisone, continue Ceftriaxone 2 gm daily along w/ Azithromycin 500 mg iv daily (4) Acute exacerbation of chronic obstructive pulmonary disease (COPD): Status: Acute Assessment and plan: as above. Add Spiriva to her maintenance regimen (5) AKASH (acute kidney injury): Status: Acute Assessment and plan: imroved. BUN 41>29>20; creatinine 1.9>1.7>1.2>1.0; iv fluids discontinued last night. monitor but no need for further iv fluids at this point (6) Hypoglycemia: Status: Acute Assessment and plan: glucose still low at 60 this a.m. continue steroids, monitor; no cortisol level was done. No hx of A.I. but may have been stress induced. TSH was ok (7) Hypomagnesemia: Status: Resolved Assessment and plan: monitor (8) Tobacco abuse: Status: Acute Assessment and plan: Provide nicotine replacement. (9) DVT prophylaxis: Status: Acute Assessment and plan: SC enoxaparin (10) Discharge planning issues: Status: Resolved Assessment and plan: Full code may transfer to med/surg today, she still needs tele; she had run of PSVT x 3 seconds. Subjective Subjective Interval history since last seen: Patient still has moist cough, but not producing much sputum. She is afebrile and down to 1 lpm NC oxygen. She has been off N.E. since yesterday. She would like to be moved to a larger room and be able to have visitors. She would like to return home but understands that she still needs to remain hospitalized for her pneumonia. Exam Narrative Exam Narrative: Middle aged female who appears older than her stated age of 67, she is sitting up in her chair, moist cough LUngs: diffuse expiratory wheezing and rhonchi Heart: RRR, no murmur or rub Abdomen: soft, nontender Legs/feet: 1+ edema of her feet and ankles but not her tibia; no cyanosis Fuentes draining clear yellow urine Objective Last Vital Signs Temp 36.7 C 05/13/23 04:00 Pulse 76 05/13/23 08:18 Resp 23 05/13/23 08:18 BP 129/86 05/13/23 06:02 Pulse Ox 93 05/13/23 08:10 Laboratory Results - last 24 hr 05/12/23 05/12/23 05/12/23 10:00 10:00 10:00 WBC RBC Hgb Hct MCV MCH MCHC RDW Plt Count MPV Immature Gran % Neutrophils % Band Neutrophils % Lymphocytes % Monocytes % Eosinophils % Basophils % Metamyelocytes % Nucleated RBC % Absolute Neutrophils Absolute Lymphocytes Absolute Monocytes Absolute Eosinophils Absolute Basophils RBC Morphology Sodium Potassium Chloride Carbon Dioxide Anion Gap BUN Creatinine Est GFR (CKD-EPI 2020) Glucose Calcium Magnesium C-Reactive Protein > 25.00 H Procalcitonin 2.3 TSH Add-On Test Request DONE 05/13/23 05/13/23 05/13/23 05:40 05:40 05:40 WBC 11.59 H RBC 3.29 L Hgb 10.4 L Hct 32.8 L MCV 100 H MCH 31.6 MCHC 31.7 L RDW 14.6 Plt Count 108 L MPV 11.4 H Immature Gran % 0.0 Neutrophils % 80.0 Band Neutrophils % 2 Lymphocytes % 10.0 Monocytes % 5.0 Eosinophils % 0.0 Basophils % 0.0 Metamyelocytes % 2 Nucleated RBC % 0.0 Absolute Neutrophils 9.50 H Absolute Lymphocytes 1.16 L Absolute Monocytes 0.58 Absolute Eosinophils 0.00 Absolute Basophils 0.00 RBC Morphology Normal Sodium 141 Potassium 3.6 Chloride 106 Carbon Dioxide 26.4 Anion Gap 8.6 BUN 20 H Creatinine 1.0 Est GFR (CKD-EPI 2020) 61.75 Glucose 66 L Calcium 9.8 Magnesium 1.9 C-Reactive Protein 17.24 H Procalcitonin TSH 1.50 Add-On Test Request Time Spent with Patient Time Spent with Patient: 35-49 minutes Time was spent: preparing to see the patient(eg.review tests), ordering medications,tests, procedures, referring, communicating with other health critical care clinical nurse specialist (Ghulam, her ICU nurse, team meeting), indepentently interpreting results, counseling the patient and care coordination
--- NOTE | 2023-05-13 11:32 | PT.INTREAT ---
PT Notes Visit Reasons: Bilateral Lower Lobe Pneumonia,Septic Shock,Resp F Inpatient Physical Therapy Treatment Note [facility] Date: 05/13/23 ??? Therapeutic Activities ([id number][]): Direct one-on-one instruction in dynamic activities to improve functional performance. ? BED MOBILITY/TRANSFERS? Supine-sit: SBA? Sit-stand:SBA ? Stand-sit: SBA ? Provided skilled cues and instruction on performance and technique throughout. GAIT? Assistive Device: No assist device? Weight bearing: Cull Assist: CGA? Distance:? Approx 80ft with 2 standing rests with 1L oxygen? ASSESSMENT:? Pt tolerated today's session fairly well. Pt was motivated to walk. PLAN: Cont as per PT POC. TREATMENT CODE/TIME: 11:05-11:30 (25) TAx2
[2023-05-13] MEDS: Benzocaine/Menthol LOZG 15/BOX 1 EACH SUC ×2 (11:35→14:24)
[2023-05-13] MEDS: Enoxaparin 40 MG/0.4 ML SYR SC (12:31)
[2023-05-13] MEDS: AZITHROMYCIN 500 MG in Normal Saline 250 ML 250 MG IVPB (14:00)
[2023-05-13] MEDS: Tiotropium Bromide-Respimat 10 PUFF INH 2 PUFF IH (15:03)
[2023-05-13 19:02] LABS: Legionella Ag Detection Urine Negative (Negative)
[2023-05-13] MEDS: Divalproex 500 MG TABEC 1000 MG PO (19:13)
[2023-05-13] MEDS: Famotidine 20 MG TAB PO (19:13)
[2023-05-13] MEDS: Mirtazapine 15 MG TAB PO (19:14)
[2023-05-13] MEDS: OLANZapine 5 MG TAB PO (19:18)
[2023-05-14] VITALS (15 sets, daily range): BP systolic 122–138; BP diastolic 68–83; PULSE 71–101; RESP 4–30; TEMP 36.8–37.6; O2SAT 90–97
[2023-05-14] MEDS: Albuterol 2.5 MG/3 ML INH SOLN VIAL UPD (00:25)
[2023-05-14] MEDS: LORazepam 0.5 MG TAB PO ×3 (03:09→22:26)
[2023-05-14] MEDS: guaiFENesin/D-METHORPHAN HB 5 ML CUP PO ×3 (03:09→22:27)
[2023-05-14] MEDS: Levothyroxine 25 MCG TAB PO (06:30)
[2023-05-14] MEDS: Divalproex 500 MG TABEC PO (07:56)
[2023-05-14] MEDS: Vitamins B Comp w/C TAB 1 TAB PO (07:56)
[2023-05-14] MEDS: cefTRIAXone 2 GM/50 ML BAG IVPB (07:56)
[2023-05-14] MEDS: Cholecalciferol (Vitamin D3) 1,000 UNIT TAB 1000 UNITS PO (07:57)
[2023-05-14] MEDS: Docusate Sodium 100 MG CAP PO ×2 (07:57→22:27)
[2023-05-14] MEDS: Venlafaxine 37.5 MG CAPCR PO (07:57)
[2023-05-14] MEDS: guaiFENesin 600 MG TABCR PO (07:57)
[2023-05-14] MEDS: Multivitamin TAB 1 TAB PO (07:57)
[2023-05-14] MEDS: Benzonatate 100 MG CAP PO ×3 (07:57→22:26)
[2023-05-14] MEDS: ARIPiprazole 5 MG TAB PO (07:57)
[2023-05-14] MEDS: predniSONE 20 MG TAB 40 MG PO (08:03)
[2023-05-14] MEDS: Tiotropium Bromide-Respimat 10 PUFF INH 2 PUFF IH (08:09)
[2023-05-14] MEDS: Albuterol/Ipratropium 3 ML UPD VIAL UPD ×4 (08:45→19:11)
--- NOTE | 2023-05-14 09:44 | PDOC.CMPRO ---
Date of service: 05/14/23 Time of Service: 09:44 Care Management Progress Note Progress Note Text Progress Note Text: S/O: Cindy was sitting up in her chair when CM met with her. She stated that she is doing ok today, but she is looking forward to returning home. She stated that she did not sleep well last night, and is hoping to have a better night's sleep tonight. She remains on supplemental O2, which she does not have at baseline. She remains on IV antibiotics, and is clinically improving, per MD. CM will continue to follow. A: Cindy is a 67 year old female admitted to [facility] on 05/11/23 for bilateral lower lobe pneumonia, septic shock. P: Anticipate Cindy will return home once medically cleared, likely with new services. She will be driven home via private vehicle, RCT, coordinated by CM. She will follow up with her PCP and discharge plan of care. CM will continue to follow.
[2023-05-14] MEDS: Acetaminophen 325 MG TAB PO ×2 (10:51→22:27)
[2023-05-14] MEDS: Enoxaparin 40 MG/0.4 ML SYR SC (11:43)
[2023-05-14] MEDS: AZITHROMYCIN 500 MG in Normal Saline 250 ML 250 MG IVPB (14:48)
--- NOTE | 2023-05-14 14:58 | PT.INTREAT ---
Date of service: 05/14/23 Time of Service: 14:58 PT Notes Visit Reasons: Bilateral Lower Lobe Pneumonia,Septic Shock,Resp F Physical Therapy Inpatient Treatment Note Date: 05/14/2023 Precautions: Fall. Standard. Activity as tolerated. Subjective: Feels much better. Happy to have moved out of the ICU. Hoping to go home without oxygen if safe to do so. Objective: General Observation: Resting on chair. ? Telemetry monitoring in place.? Oxygen supplementation at 1 L/min. Mental Status: Alert and oriented as to person, place, time, and purpose. Able to pay attention, focus, and respond appropriately. Pain: Denies Vital Signs: WNL as seen via tele throughout Bed Mobility/Transfers: Sit to stand stand by assist with FWW,? minimal cues provided for hand placement Stand to sit stand by assist with FWW,? minimal cues provided for hand placement Gait: 350 feet with 2 short standing rests using FWW with wheelchair follow and oxygen supp at 1 L/min with no report of undue shortness of breath. Patient denies headache, chest pain, and lightheadedness throughout. Balance: Static Sitting: Normal Dynamic Sitting: Normal Static Standing: Fair Dynamic Standing: Fair ASSESSMENT: Patient's activity tolerance and mobility performance improving. She will require HH PT in order to regain prior independent mobility level for patient to safely thirve at home alone. THERA EX: Guided patient with safe performance of seated exercises after walking activity and seated rest as follows: Chest expansion exercises with DBE x 5 LAQ x 10 Chest expansion exercises with DBE x 5 Seated marches x 10 Chest expansion exercises with DBE x 5 Seated hip abduction x 10 Chest expansion exercises with DBE x 5 PLAN: Progress mobility level, strength, and activity tolerance in anticipation of discharge to home when medically cleared by hospitalist. DISCHARGE RECOMMENDATIONS: [] ? Home with no services [] [X] ? Home with services.? Patient will benefit from home health PT services in order to progress mobility level using least restrictive assistive ambulatory device, assess home safety, identify additional equipment needs, and establish a functional maintenance program that will increase ability of patient to remain at home. [] ? Home with outpatient PT [] [] ? SNF for continued rehabilitation [] [] ? [facility] [] [] ? SNF versus LTC based on ability to participate and progress [] TREATMENT CODE/TIME: 25937 x 25 minutes for 2 units, 99629 x 16 minutes for 1 unit beginning at 14:58 PM.
--- NOTE | 2023-05-14 16:34 | PGE_ITS ---
Date of Service Date of service: 05/14/23 Time of Service: 16:34 Assessment and Plan Assessment and plan (1) Bilateral pneumonia: Status: Acute Assessment and plan: continue Ceftriaxone 2 gm daily along w/ Azithromycin 500 mg iv daily, and prednisone (2) Acute exacerbation of chronic obstructive pulmonary disease (COPD): Status: Acute Assessment and plan: as above. Add Spiriva to her maintenance regimen (3) AKASH (acute kidney injury): Status: Resolved Assessment and plan: imroved. BUN 41>29>20; creatinine 1.9>1.7>1.2>1.0; iv fluids discontinued last n ight. monitor but no need for further iv fluids at this point (4) Hypoglycemia: Status: Acute Assessment and plan: glucose still low at 60 this a.m. continue steroids, monitor; no cortisol level was done. No hx of A.I. but may have been stress induced. TSH was ok (5) Hypomagnesemia: Status: Resolved Assessment and plan: monitor (6) Tobacco abuse: Status: Acute Assessment and plan: Provide nicotine replacement. (7) DVT prophylaxis: Status: Acute Assessment and plan: SC enoxaparin (8) Discharge planning issues: Status: Resolved Assessment and plan: Full code will check exercise pulse oximetry tomorrow but anticipate dc home tomorrow Subjective Subjective Interval history since last seen: Patient states that her mucous had been yellow/green but is now clearing and her cough has improved, no longer incessant Exam Narrative Exam Narrative: Crystal sitting up in chair she is alert and oriented person place time circumstance. She is down to 1 L/min per nasal cannula. She has been using her I-S and Acapella. Lungs with scattered end expiratory wheezes worsening bases compared to the upper rosales. Heart is regular rate and rhythm Abdomen soft nontender Extremities without edema Objective Last Vital Signs Temp 37.2 C 05/14/23 14:42 Pulse 88 05/14/23 14:42 Resp 20 05/14/23 14:42 BP 122/75 05/14/23 14:42 Pulse Ox 93 05/14/23 14:42 Laboratory Results - last 24 hr 05/11/23 05/12/23 15:00 17:40 Urine Legionella Ag Negative Path Cons Comment SEE COMMENT Time Spent with Patient Time Spent with Patient: 25-34 minutes Time was spent: preparing to see the patient(eg.review tests), ordering medications,tests, procedures, referring, communicating with other health critical care unit nurse, indepentently interpreting results, counseling the patient and care coordination
[2023-05-14] MEDS: Famotidine 20 MG TAB PO (22:25)
[2023-05-14] MEDS: Divalproex 500 MG TABEC 1000 MG PO (22:25)
[2023-05-14] MEDS: Mirtazapine 15 MG TAB PO (22:26)
[2023-05-14] MEDS: guaiFENesin 600 MG TABCR 1200 MG PO (22:27)
[2023-05-14] MEDS: OLANZapine 5 MG TAB PO (22:27)
[2023-05-15] VITALS (13 sets, daily range): BP systolic 118–138; BP diastolic 78–84; PULSE 72–108; RESP 4–28; TEMP 36–36.3; O2SAT 85–99
--- NOTE | 2023-05-15 | DI.RAD_ITS ---
Exam(s) XR CHEST 2V PA LATERAL EXAM: XR CHEST 2V PA LATERAL CLINICAL HISTORY: dyspnea TECHNIQUE: 2D digital imaging was performed of the chest. Two images were obtained. PA and lateral views were obtained. COMPARISON: CR XR CHEST 2V PA LATERAL from 05/11/2023 FINDINGS: MEDIASTINUM: Normal. HEART: Normal. PULMONARY VASCULATURE: Normal. LUNGS: There has been improvement in the bilateral basilar infiltrates which have nearly completely r esolved compared to the prior examination. PLEURAL SPACE: There are tiny bilateral pleural effusions present. No pneumothorax. BONE:Within normal limits for the patient's age. OTHER FINDINGS:Normal. IMPRESSION: 1. Small residual infiltrates seen in the lung bases. This shows marked improvement compared to 05/11. 2. Tiny bilateral pleural effusions. DATA REPOSITORY: RADIATION DOSE DELIVERED:
[2023-05-15] MEDS: guaiFENesin/D-METHORPHAN HB 5 ML CUP PO ×2 (05:55→11:43)
[2023-05-15] MEDS: Levothyroxine 25 MCG TAB PO (05:56)
[2023-05-15] MEDS: Acetaminophen 325 MG TAB PO ×2 (06:05→11:43)
[2023-05-15] MEDS: Albuterol 2.5 MG/3 ML INH SOLN VIAL UPD (06:19)
[2023-05-15] MEDS: Lidocaine 5% Patch 1 PATCH TP (07:42)
[2023-05-15] MEDS: cefTRIAXone 2 GM/50 ML BAG IVPB (07:42)
[2023-05-15] MEDS: predniSONE 20 MG TAB 40 MG PO (07:43)
[2023-05-15] MEDS: Benzonatate 100 MG CAP PO ×2 (07:43→13:31)
[2023-05-15] MEDS: Multivitamin TAB 1 TAB PO (07:43)
[2023-05-15] MEDS: Cholecalciferol (Vitamin D3) 1,000 UNIT TAB 1000 UNITS PO (07:43)
[2023-05-15] MEDS: ARIPiprazole 5 MG TAB PO (07:43)
[2023-05-15] MEDS: guaiFENesin 600 MG TABCR 1200 MG PO (07:43)
[2023-05-15] MEDS: Divalproex 500 MG TABEC PO (07:43)
[2023-05-15] MEDS: Docusate Sodium 100 MG CAP PO (07:43)
[2023-05-15] MEDS: Venlafaxine 37.5 MG CAPCR PO (07:43)
[2023-05-15] MEDS: LORazepam 0.5 MG TAB PO (07:44)
[2023-05-15] MEDS: Vitamins B Comp w/C TAB 1 TAB PO (07:44)
[2023-05-15] MEDS: Tiotropium Bromide-Respimat 10 PUFF INH 2 PUFF IH (08:16)
[2023-05-15] MEDS: Albuterol/Ipratropium 3 ML UPD VIAL UPD ×3 (09:25→16:01)
[2023-05-15] MEDS: Enoxaparin 40 MG/0.4 ML SYR SC (11:44)
[2023-05-15 12:27] LABS: NT-proBNP 1179 pg/mL (<300)
[2023-05-15] MEDS: AZITHROMYCIN 500 MG in Normal Saline 250 ML 250 MG IVPB (13:31)
--- NOTE | 2023-05-15 13:47 | W.PM.PROGNOT ---
Date of Service Date of service: 05/15/23 Time of Service: 13:47 Assessment and Plan Assessment and plan (1) Bilateral pneumonia: Status: Acute Assessment and plan: continue Ceftriaxone 2 gm daily along w/ Azithromycin 500 mg iv daily, and prednisone (2) Acute exacerbation of chronic obstructive pulmonary disease (COPD): Status: Acute Assessment and plan: as above. Spiriva added to her regimen. I will also add inhaled LABA/ ICS (3) AKASH (acute kidney injury): Status: Resolved Assessment and plan: imroved. BUN 41>29>20; creatinine 1.9>1.7>1.2>1.0; IV fluids were discontinued couple days ago however I think she now appears to be volume overloaded and needs some IV diuresis. (4) Hypoglycemia: Status: Resolved (5) Hypomagnesemia: Status: Resolved Assessment and plan: monitor (6) Tobacco abuse: Status: Acute Assessment and plan: Provide nicotine replacement. (7) DVT prophylaxis: Status: Acute Assessment and plan: SC enoxaparin (8) Discharge planning issues: Status: Resolved Assessment and plan: Full code Patient is desiring to return home today. I have asked RT to set up home oxygen. Patient will be discharged home with 5 more days of oral antibiotics including cefpodoxime Subjective Subjective Interval history since last seen: Patient still w/ moist cough. She is insisting on being discharged today. She walked for RT to assess her oxygen needs. Her resting SPO2 was 93% on 1 lpm NC and she walked 150 ft requring 4 stops d/t dyspnea w/ her SPO2 dropping to as low as 85% before recovering to 90%. Patient still having significant wheezing after her aerols. I convinced patient to allow me to perform further tests and for RT to set up home oxygen before she leaves the hospital. I have ordered follow up CXR and echo to be done to evaluate for CHF. Pro-BNP was added to this am labs and was elevated at 1179. She normal takes lasix 10 mg daily at home but has been off this since admission. Exam Narrative Exam Narrative: Cindy is sitting up at the bedside she is fully dressed she is alert and oriented person place time circumstance of motion is anxious. Lungs with diffuse scattered expiratory wheezes bilaterally in all lung rosales Heart is regular rate and rhythm without appreciable murmur or rub no S3 gallop Abdomen soft nontender nondistended Lower extremities 1+ bilateral leg edema from the feet ankles and pretibial surfaces Objective Last Vital Signs Temp 36 C L 05/15/23 10:37 Pulse 88 05/15/23 12:54 Resp 20 05/15/23 12:43 BP 138/84 05/15/23 10:37 Pulse Ox 90 L 05/15/23 12:43 Laboratory Results - last 24 hr 05/15/23 11:42 NT-Pro-B Natriuret Pep 1179 H Time Spent with Patient Time Spent with Patient: 25-34 minutes Time was spent: preparing to see the patient(eg.review tests), ordering medications,tests, procedures, referring, communicating with other health critical care unit manager, indepentently interpreting results, counseling the patient and care coordination
[2023-05-15] MEDS: Budesonide/Formoterol 160/4.5 6 GM 60 PUFF INH IH (14:46)
[2023-05-15 14:50] LABS: Streptococcus Pneumoniae Ag, U Negative (Negative)
--- NOTE | 2023-05-15 14:59 | RESPIRATORY ---
Order placed on [facility] for home oxygen set up through [facility].
--- NOTE | 2023-05-15 15:48 | CHAPLAIN ---
Cindy Hearn was sitting up in the chair when I visited. She became teary soon after I introduced myself. She told me she has been in rooms here where her boyfriend had been a patient and seven months ago and was distraught about that. She said she is thinking about going home although the doctor would like her to stay another night. She said her sister and niece will check on her if she goes home. Nadiya explained that her main support is her daughter who moved to [place] in February, with Nadiya's grandchildren. Nadiya is considering moving there as well but hasn't made a decision. Nadiya shared traumatic experiences from her childhood, explained that she is bi-polar, and still very much grieving for her boyfriend. She sees a counselor at [facility] every two weeks and goes to a support group every week. We talked about her melina, and if God or the devil punishes people.
[2023-05-15] MEDS: Furosemide 20 MG/2 ML VIAL IVP (15:55)
--- NOTE | 2023-05-15 17:05 | PDOC.CMPRO ---
Date of service: 05/15/23 Time of Service: 17:05 Care Management Progress Note Progress Note Text Progress Note Text: S/O: Cindy is sitting in a chair when CM comes to meet with her. She states she is feeling better and intends on returning home today. She shares her boyfriend in this hospital on August 27, 2022 and says there are reminders of his in every room. She struggled with a deep depression following his and says she had finally pulled herself out of it but being here is causing the depression to return. She goes on to say her sister Debi, her nephew and his will be staying with her at her apartment for a couple of weeks to help support her. She additionally has an appointment at 3 pm tomorrow with her PCP and is meeting with her [facility] assistant case manager Nadia on at 11:30 am and she does not intend on missing those appointments. We spend some time discussing the importance of completing treatment to avoid going home, getting sicker and having to return to the hospital. Cindy states her condition has improved quite a bit since her arrival at the hospital and she is adamant she will continue to recover better at home with the support of her family members. A: Cindy is a 67 year old female admitted to [facility] on 05/11/2023 for bilateral lower lobe pneumonia and septic shock. P: Anticipate Cindy will sign out AMA as she is insistent on returning home today despite not being medically cleared. RT are assessing her need for new home O2. She will follow up with her community providers and plan of care and will be transported home by family via private vehicle when ready. CM will continue to follow.
--- NOTE | 2023-05-15 17:50 | PT.INTREAT ---
PT Notes Visit Reasons: Bilateral Lower Lobe Pneumonia,Septic Shock,Resp F Physical Therapy Inpatient Treatment Note Date: 05/15/2023 Precautions: Fall. Standard. Activity as tolerated. 1L of oxygen via NC. Subjective: Wondering is she can be home today. Feels much better. Agreeable to HH PT if cleared by MD to go home. Complained of headache after today's walk, Nurse Jordin updated. Objective: General Observation: Resting on chair. ? Telemetry monitoring in place.?? Oxygen supplementation at 1 L/min. Mental Status: Alert and oriented as to person, place, time, and purpose. Able to pay attention, focus, and respond appropriately. Pain: Headache after walk today Vital Signs: WNL as seen via tele throughout Bed Mobility/Transfers: Sit to supervision with FWW,? minimal cues provided for hand placement Stand to sit supervision with FWW,? minimal cues provided for hand placement Gait: 350 feet with 2 short standing rests using FWW and oxygen supp at 1 L/min with no report of undue shortness of breath.? Patient denies headache,? chest pain,? and lightheadedness throughout.? Stayed above 90% duirng the walk with oxygen supplemetation. Balance: Static Sitting: Normal Dynamic Sitting: Normal Static Standing: Fair Dynamic Standing: Fair ASSESSMENT: Patient's activity tolerance and mobility performance improving.? She will require HH PT in order to regain prior independent mobility level for patient to safely thrive at home alone. THERA EX: Guided patient with safe performance of seated exercises after walking activity and seated rest as follows: Chest expansion exercises with DBE x 5 LAQ x 10 Chest expansion exercises with DBE x 5 Seated marches x 10 Chest expansion exercises with DBE x 5 Seated hip abduction x 10 Chest expansion exercises with DBE x 5 PLAN: Progress mobility level,? strength,? and activity tolerance in anticipation of discharge to home when medically cleared by hospitalist. DISCHARGE RECOMMENDATIONS: [] ? Home with no services [] [X] ? Home with services.? Patient will benefit from home health PT services in order to progress mobility level using least restrictive assistive ambulatory device, assess home safety, identify additional equipment needs, and establish a functional maintenance program that will increase ability of patient to remain at home. [] ? Home with outpatient PT [] [] ? SNF for continued rehabilitation [] [] ? [facility] [] [] ? SNF versus LTC based on ability to participate and progress [] TREATMENT CODE/TIME: 96251 x 25 minutes for 2 units beginning at 11:15 AM.
--- NOTE | 2023-05-15 18:16 | DSE_ITS ---
Date of service: 05/15/23 Time of Service: 18:16 DS: Diagnosis Discharge Diagnosis (1) Bilateral pneumonia: Status: Resolved (2) Acute exacerbation of chronic obstructive pulmonary disease (COPD): Status: Resolved (3) AKASH (acute kidney injury): Status: Resolved (4) Hypoglycemia: Status: Resolved (5) Hypomagnesemia: Status: Resolved (6) Tobacco abuse: Status: Acute (7) DVT prophylaxis: Status: Deleted (8) Discharge planning issues: Status: Resolved Discharge Plan Disposition Patient Disposition: Home Condition: Improving Discharge Details Reason For Visit: Bilateral Lower Lobe Pneumonia,Septic Shock,Resp F Admit Date/Time: 05/11/23 19:06 Admit Provider: Tono Meng Attending Provider: Tono Meng Primary Care Provider: LA OLIVARES Hospital Course Hospital Course: 67-year-old female with history of COPD who presented with increasing cough dyspnea nausea vomiting and diarrhea was found to be with acute hypoxic and hypercarbic respiratory failure along with AKASH and decreased mentation all c onsistent with sepsis. Patient was found to be hypotensive and required IV fluid resuscitation and norepinephrine was admitted to the intensive care unit where she was treated with broad-spectrum antibiotics. Blood cultures came back no growth sputum grew normal jamey. Chest x-ray showed bilateral lower lobe infiltrates. Patient was treated with ceftriaxone 2 g IV daily for 5 days along with azithromycin 500 mg IV daily x5 days and she was treated with stress dose hydrocortisone. Patient's renal function recovered and her mentation improved and she was transferred out of the intensive care unit after she was weaned off of norepinephrine drip. She continued to receive antibiotic treatment along with aerosol treatments. On the day of discharge she had a follow-up chest x- ray showed near resolution of her infiltrates. Echocardiogram was performed to evaluate LV and RV function and she was found to have normal left ventricular and right ventricular function. Her Lasix which had been held was resumed. She was given a one-time dose of Lasix 20 mg IV because of increasing peripheral edema. She was started on Spiriva as well as Symbicort for maintenance therapy for COPD and she was discharged home in markedly improved condition. Because she had presented with sepsis and even though her chest x-ray showed near resolution of her pneumonia was felt that she should be treated for 5 more days of oral antibiotics with cefpodoxime. She was also given 5-day course of prednisone. She should continue the Spiriva and Symbicort on discharge and she can use her albuterol inhaler 2 puffs every 2-4 hours as needed. On the day of discharge she underwent an exercise pulse oximetry which demonstrated continued need for oxygen supplementation. She required 1 L/min per nasal cannula to maintain her oxygen saturation at 90% or better. Patient was able to return home and was feeling markedly better. Her daughter who lives in [place] was called and notified of the patient's plan for discharge. Her daughter indicated that she would call her mother daily to check on her condition. Patient was instructed that if she feels that she is getting worsening symptoms such as increased dyspnea fever chills she should return the emergency department. Patient was advised to refrain from further smoking. She was given a prescription for NicoDerm patch Home Meds and New Rx's Prescriptions: New budesonide-formoterol [Symbicort] 160-4.5 mcg/actuation Hfa Aerosol Inhaler 2 puff inhalation BID Qty: 10.2 0RF prednisone 20 mg Tablet 40 mg PO DAILY 5 Days Qty: 10 0RF Spiriva Respimat 2.5 mcg/actuation Mist 2 puff inhalation DAILY Qty: 4 0RF nicotine 14 mg/24 hr Patch 24 Hour 14 mg transdermal DAILY Qty: 14 0RF guaifenesin [Mucus Relief ER] 600 mg Tablet Extended Release 12hr 1,200 mg PO BID 5 Days Qty: 20 0RF cefpodoxime 200 mg tablet 200 mg PO BID 5 Days Qty: 10 0RF Rx Instructions: must administer with a meal/food Continued cholecalciferol (vitamin D3) 25 mcg (1,000 unit) capsule 25 mcg PO DAILY divalproex 500 mg tablet,delayed release (DR/EC) 500 - 1,000 mg PO BID Rx Instructions: 500mg qam 1000mg qpm mirtazapine 15 mg tablet 15 mg PO .QHS albuterol sulfate 90 mcg/actuation HFA aerosol inhaler 2 inh INHALATION PRN PRN vitamin B complex Capsule 1 cap PO DAILY docusate sodium 100 mg capsule 1 cap PO BID multivitamin with folic acid [Daily-Deonte (with folic acid)] 400 mcg tablet 1 tab PO DAILY furosemide 20 mg tablet 10 mg PO DAILY levothyroxine 25 mcg Tablet 25 mcg PO DAILY@0600 venlafaxine 75 mg Tablet Extended Release 24hr 37.5 mg PO DAILY olanzapine 15 mg tablet 5 mg PO HS aripiprazole 5 mg tablet 5 mg PO DAILY ibuprofen [IBU] 400 mg tablet 400 mg PO Q6H PRNQty: 20 0RF lidocaine [Lidoderm] 5 % adhesive patch,medicated 1 patch topical DAILY Qty: 15 0RF Rx Instructions: leave on most painful area for up to 12 hrs Discharge Instructions Instructions: Bacterial Pneumonia (DC) Stand Alone Forms: Nursing Discharge Form Referrals: LA OLIVARES [facility] [facility] [Primary Care Provider] - (call office for follow in next week) Activity:: Activity as Tolerated Equipment/Supplies:: Oxygen (L/min Below) Diet:: Normal Diet Discharge Orders Discharge Orders: Discharge Order (Routine); Ordered 05/15/23 Ordered By: Seth Allred Discharge Data Discharge Date/Time-TO BE ENTERED AT DEPARTURE: 05/15/23 18:22 DS: Summary Time Spent with Patient providing and/or coordinating discharge services: Greater than 30 minutes Status at Discharge Functional status at discharge: independent ambulation Overall status at discharge: patient is progressing back to baseline Mental Status: mental status grossly normal Speech and Movement: speech and movement normal Mood: congruent mood Affect: normal affect Exam Psych Mental Status: mental status grossly normal Speech and Movement: speech and movement normal Mood: congruent mood Affect: normal affect DS: Data Vitals/I&O Vitals and I&O: Vital Signs Temperature 36 C L 05/15/23 10:37 Temperature Source Tympanic 05/15/23 10:37 Pulse 88 05/15/23 12:54 Pulse Rhythm Regular 05/15/23 16:29 Pulse 97 H 05/13/23 14:00 Respiratory Rate 18 05/15/23 16:01 Respiratory Effort Short of Breath, Incrsd Work of Breathing 05/15/23 16:29 Respiratory Depth Shallow 05/15/23 16:29 Respiratory Pattern Tachypnea 05/15/23 16:29 Blood Pressure 138/84 05/15/23 10:37 Blood Pressure Mean 92 05/13/23 13:21 Blood Pressure Position Supine 05/12/23 03:36 Pulse Oximetry 90 L 05/15/23 12:43 Oxygen Delivery Method Nasal Cannula 05/15/23 12:43 Oxygen Flow Rate 1 05/15/23 12:43 Fraction of Inspired Oxygen (FIO2) 2 05/12/23 19:17 Pain Level 0 05/15/23 12:43 Intake & Output 05/14/23 05/15/23 05/15/23 23:59 11:59 23:59 Intake Total 500 / 560 60 / 97.5 37.5 / 97.5 Output Total 800 / 1550 100 / 100 Balance -300 / -990 -40 / -2.5 37.5 / -2.5 Weight 71.6 kg Intake: IV 260 / 320 60 / 97.5 37.5 / 97.5 Oral 240 / 240 Output: Urine 800 / 1550 100 / 100 Other: Urine Color Yellow Yellow Yellow Urine Appearance Clear Clear Clear Urine Odor Normal None Comment unmeasured, missed hat Stool Size Small Smear Small Stool Characteristics Soft Soft Soft Voiding Methods Bedside Commode Bedside Commode Toilet Data Completed and Pending Labs on day of discharge: Labs from last 24 hours 05/15/23 05/15/23 05/12/23 16:09 11:42 17:40 WBC Cancelled RBC Cancelled Hgb Cancelled Hct Cancelled MCV Cancelled MCH Cancelled MCHC Cancelled RDW Cancelled Plt Count Cancelled MPV Cancelled NT-Pro-B Natriuret Pep 1179 H Ur Strep pneumoniae Ag Negative Preliminary micro results at discharge 05/12/23 11:20 Blood Culture - Preliminary Blood NO GROWTH 72 HOURS 05/12/23 11:13 Blood Culture - Preliminary Blood NO GROWTH 72 HOURS PFSH All Active Problems (Updated 05/16/23 @ 00:06 by ASAD SIMPSON) Tobacco abuse (Acute) Lower extremity edema (Acute) Neck pain (Acute) Screening for colon cancer (Acute) Unintentional weight loss (Acute) Diarrhea (Acute) History of colon polyps (Acute) Bipolar 1 disorder, mixed (Acute) Suicidal ideation (Acute) Suicidal ideation (Acute) Tubulovillous adenoma (Acute ~12/01/20) Medical History (Updated 05/16/23 @ 00:06 by ASAD SIMPSON) Anxiety Bipolar 1 disorder Chronic airway obstruction Chronic pain Diverticulitis Dizziness H/O adenomatous polyp of colon History of closed head injury Hypothyroidism Ischemic colitis Late effect of fracture of neck of femur Lesion of skin of nose Neuromuscular disorder Osteoarthritis, generalized Poor short term memory PTSD (post-traumatic stress disorder) Tremor Urinary incontinence Varicose veins of lower extremity Vitamin D deficiency Surgical History History of hemicolectomy (~12/14/20) History of hip replacement bilateral History of knee replacement left Hx of tubal ligation Social History Smoking/Tobacco Use Status: Current every day Tobacco Type: cigarettes Smoking risk assessment performed?: Yes Alcohol Intake: former Drug use: Daily Substance use type: marijuana Housing: apartment Do you feel safe at home: Yes Do you feel safe in your relationship?: Yes Additional Social history: lives alone Time Spent with Patient Time Spent with Patient: <45 minutes Time was spent: preparing to see the patient(eg.review tests), ordering medications,tests, procedures, referring, communicating with other health healthcare network pricing consultant, indepentently interpreting results, counseling the patient and care coordination
--- NOTE | 2023-05-15 18:51 | NUR.NOTE ---
This afternoon, pt was having multiple loose stools. Attempted to send a stool sample, however unsuccessful because the sample was mixed with urine. RN encouraged the pt to call next time she feels she needs to have a bowel movement, so that assistance can be provided. The pt stated You people don't believe me! I was calling. I'm telling my niece to come pick me up. I want to leave this fucking place, this is bullshit. clinical trials nurse was notified. Respiratory was called to review O2 instructions with pt prior to discharge. After the pt spoke to the MD about discharge, she called her niece to pick her up. Pt was instructed to wait in the room until her discharge instructions were complete so that her medications and appointments can be reviewed before discharge. The pt attempted to leave without discharge instructions 3 times. During the third attempt, pt was standing in front of the elevator, and the discharge instructions were ready. Pt received medications, education materials, and follow up appointments but none of them were reviewed with pt's eagerness to leave. Nursing Note:
--- NOTE | 2023-05-16 05:29 | PT.INDS ---
PT Notes Visit Reasons: Bilateral Lower Lobe Pneumonia,Septic Shock,Resp F Physical Therapy Inpatient Discharge Summary Dates of Service: 05/12/2023 - 05/15/23 Date: 05/16/23 Referring Doctor: Emilia Severino MD PT Orders: PT CONSULT: Limited ability Precautions: Fall. Standard. Activity as tolerated. This document serves as a summary of care. No PT services were provided on this date. Patient Profile/Admitting Diagnosis: Cindy is a 67-year-old female who presented to the ED on 05/11/2023 due to cough and shortness of breath with complaints of chest congestion, vomiting, and diarrhea. Patient is admitted to ICU level of care for management of bilateral pneumonia, acute respiratory failure with hypoxia and hypercarbia, septic shock, chronic airway obstruction, acute kidney injury, hypoglycemia, hypomagnesemia, bipolar 1 disorder, and hypothyroidism. Patient participated in 4 sessions of PT intervention over the course of 4 days. She demonstrated improvement in mobility, however left hospital AMA prior to meeting PT goals. PMHX: All Active Problems?(Updated 05/12/23 @ 01:07 by Tono Meng) Hypomagnesemia (Acute) Septic shock (Acute) Acute respiratory failure with hypoxia and hypercarbia (Acute) Bilateral pneumonia (Acute) AKASH (acute kidney injury) (Acute) Hypoglycemia (Acute) Lower extremity edema (Acute) Neck pain (Acute) Screening for colon cancer (Acute) Unintentional weight loss (Acute) Diarrhea (Acute) History of colon polyps (Acute) Bipolar 1 disorder, mixed (Acute) Suicidal ideation (Acute) Suicidal ideation (Acute) Tubulovillous adenoma (Acute ~12/01/20) Medical History?(Updated 05/12/23 @ 01:07 by Tono Meng) Anxiety Bipolar 1 disorder Chronic airway obstruction Chronic pain Diverticulitis Dizziness H/O adenomatous polyp of colon History of closed head injury Hypothyroidism Ischemic colitis Late effect of fracture of neck of femur Lesion of skin of nose Neuromuscular disorder Osteoarthritis, generalized Poor short term memory PTSD (post-traumatic stress disorder) Tremor Urinary incontinence Varicose veins of lower extremity Vitamin D deficiency Surgical History? History of hemicolectomy (~12/14/20) History of hip replacement bilateralHistory of knee replacement left Hx of tubal ligation Social History/Home Situation: Patient lives in an apartment building with no steps to enter. Independent with all aspects of ADLs prior to surgery. Still drives. Equipment Owned/DME: None Subjective: none obtained Objective: ROM: Right Upper Extremity: Shoulder Flexion WFL. Shoulder abduction WFL. Elbow flexion WFL. Wrist flexion WFL. Functional opening and closing of hand WFL. Left Upper Extremity: Shoulder Flexion WFL. Shoulder abduction WFL. Elbow flexion WFL. Wrist flexion WFL. Functional opening and closing of hand WFL. Right Lower Extremity: Hip flexion WFL. Hip abduction WFL. Knee flexion WFL. Ankle dorsiflexion WFL. Ankle plantarflexion WFL. Left Lower Extremity: Hip flexion WFL. Hip abduction WFL. Knee flexion WFL. Ankle dorsiflexion WFL. Ankle plantarflexion WFL. Strength: Right Upper Extremity: Shoulder flexors 4-/5. Shoulder abductors 4-/5. Elbow flexors 4-/5. Elbow extensors 4-/5. Platen Press Operator Apprentice strong. Left Upper Extremity: Shoulder flexors 4-/5. Shoulder abductors 4-/5. Elbow flexors 4-/5. Elbow extensors 4-/5. Platen Press Operator Apprentice strong. Right Lower Extremity: Hip flexors 4-/5. Hip abductors 4-/5. Knee flexors 4-/5. Knee extensors 4-/5. Ankle dorsiflexors 4-/5. Ankle plantarflexors 4-/5. Left Lower Extremity: Hip flexors 4-/5. Hip abductors 4-/5. Knee flexors 4-/5. Knee extensors 4-/5. Ankle dorsiflexors 4-/5. Ankle plantarflexors 4-/5. Bed Mobility/Transfers: Supine to sit contact guard assist with HOB at 45 degrees Sit to stand supervision with FWW,? minimal cues provided for hand placement Stand to sit supervision with FWW,? minimal cues provided for hand placement Gait: 350 feet with 2 short standing rests using FWW and oxygen supp at 1 L/min Balance: Static Sitting: Normal Dynamic Sitting: Normal Static Standing: Fair Dynamic Standing: Fair ASSESSMENT: Cindy is a 67-year-old female who was admitted to the ICU on 05/11/2023 for management of bilateral pneumonia, acute respiratory failure with hypoxia and hypercarbia, septic shock, chronic airway obstruction, acute kidney injury, hypoglycemia, hypomagnesemia, bipolar 1 disorder, and hypothyroidism. Patient participated in 4 sessions of PT intervention over the course of 4 days. She demonstrated improvement in mobility, however left hospital AMA prior to meeting PT goals. Goals: Goals X1 week 1. Supine-Sit independent (Progressing Toward) 2. Sit-Supine independent (Progressing Toward) 3. Sit-Stand independent (Progressing Toward) 4. Stand-Sit independent with FWW (Progressing Toward) 5. Bed-Chair independent with FWW (Progressing Toward) 6. Chair-Bed independent with FWW(Progressing Toward) 7. Independent gait on level surface with use of FWW for at least 150 feet without report of pain nor dyspnea (MET) 8. Good static and dynamic standing balance/tolerance (Progressing Toward) Plan of Care/Treatment Plan: D/C from PT in acute care setting DISCHARGE RECOMMENDATIONS: Patient left the hospital AMA on 05/15/23. Recommend PT for further progress toward goals. TREATMENT CODE/TIME: none Thank you for the opportunity to participate in the care of this patient. Pina Almodovar PT, DPT [facility] [place], [place]
[2023-05-16 19:27] LABS: Mycoplasma Pneumoniae PCR Negative (Negative); Specimen source sputum
== END 2023-05-15 18:22 | disposition home or self-care (01) | DRG 871 ==
LOC: ER 19:31 → ICU 20:50 → MS 05-13 15:31
PROVIDERS: Internal Medicine; Admitting Provider Family Medicine; Emergency Provider Emergency Medicine; PCP Nurse Practitioner Family; Visit Provider Family Medicine
DX: A41.9 Sepsis, unspecified organism (principal); J18.9 Pneumonia, unspecified organism; J96.01 Acute respiratory failure with hypoxia; J96.02 Acute respiratory failure with hypercapnia; R65.21 Severe sepsis with septic shock; J44.0 Chronic obstructive pulmonary disease with (acute) lower respiratory infection; N17.9 Acute kidney failure, unspecified; J44.1 Chronic obstructive pulmonary disease with (acute) exacerbation; I47.1 Supraventricular tachycardia; E83.42 Hypomagnesemia; E03.9 Hypothyroidism, unspecified; F17.210 Nicotine dependence, cigarettes, uncomplicated; F31.9 Bipolar disorder, unspecified; F43.10 Post-traumatic stress disorder, unspecified; R41.3 Other amnesia; R32 Unspecified urinary incontinence; E55.9 Vitamin D deficiency, unspecified; G25.0 Essential tremor; M15.9 Polyosteoarthritis, unspecified; Z90.49 Acquired absence of other specified parts of digestive tract; Z96.643 Presence of artificial hip joint, bilateral; Z96.652 Presence of left artificial knee joint; F12.90 Cannabis use, unspecified, uncomplicated; E16.1 Other hypoglycemia
CPT/HCPCS: 36415; 36416; 80048; 80053; 82805; 82962; 84145; 85027; 87040; 87449; 87637; 93005; 94618; 94640; 96365; 97110; 97162; 97530; 99291; J1650; 71046; 81003; 81015; 83605; 83735; 83880; 84439; 84443; 85025; 86140; 87070; 87205; 87581; 87899; 93010; 93306; 94660; 94664; 94667; 94668; 94760; 99223; 99232; 99233; 99239; J0456; J0696; J1941; J2930; J7512; J7613; J7620

== ENCOUNTER 2023-05-21 16:40 | Emergency (ER) | payer MEDICARE, MEDICAID, SELFPAY ==
[2023-05-21 16:43] VITALS: BP 103/77; PULSE 80; RESP 20; TEMP 36.6; O2SAT 97
[2023-05-21 16:49] VITALS: RESP 15
--- NOTE | 2023-05-21 17:08 | ED.GENADUL_ITS ---
Discharge Plan Disposition Patient Disposition: Home Condition: Improving Discharge Details Clinical Impression: Fluid overload, Bilateral lower extremity edema, Anemia, Bilateral calf pain Primary Care Provider: LA OLIVARES ED Provider: Brie Buck Home Meds and New Rx's Prescriptions: New furosemide [Lasix] 40 mg tablet 40 mg PO DAILY Qty: 3 0RF Continued cholecalciferol (vitamin D3) 25 mcg (1,000 unit) capsule 25 mcg PO DAILY divalproex 500 mg tablet,delayed release (DR/EC) 500 - 1,000 mg PO BID Rx Instructions: 500mg qam 1000mg qpm mirtazapine 15 mg tablet 15 mg PO .QHS albuterol sulfate 90 mcg/actuation HFA aerosol inhaler 2 inh INHALATION PRN PRN vitamin B complex Capsule 1 cap PO DAILY docusate sodium 100 mg capsule 1 cap PO BID budesonide-formoterol [Symbicort] 160-4.5 mcg/actuation Hfa Aerosol Inhaler 2 puff inhalation BID Qty: 10.2 0RF Spiriva Respimat 2.5 mcg/actuation Mist 2 puff inhalation DAILY Qty: 4 0RF nicotine 14 mg/24 hr Patch 24 Hour 14 mg transdermal DAILY Qty: 14 0RF Patient Comments: No longer taking 05/21/23 CT multivitamin with folic acid [Daily-Deonte (with folic acid)] 400 mcg tablet 1 tab PO DAILY furosemide 20 mg tablet 10 mg PO DAILY levothyroxine 25 mcg Tablet 25 mcg PO DAILY@0600 venlafaxine 75 mg Tablet Extended Release 24hr 37.5 mg PO DAILY Patient Comments: No longer taking 05/21/23 CT olanzapine 15 mg tablet 5 mg PO HS aripiprazole 5 mg tablet 5 mg PO DAILY ibuprofen [IBU] 400 mg tablet 400 mg PO Q6H PRNQty: 20 0RF lidocaine [Lidoderm] 5 % adhesive patch,medicated 1 patch topical DAILY Qty: 15 0RF Patient Comments: No longer taking 05/21/23 CT Rx Instructions: leave on most painful area for up to 12 hrs venlafaxine [Effexor XR] 150 mg Capsule,Extended Release 24hr 150 mg PO DAILY Discharge Instructions Instructions: Furosemide (By mouth), Apixaban (By mouth), Heart Failure (ED) Additional Instructions: Your history and labs are concerning for fluid overload. This is likely associated iwth your heart, you will need to discuss further with your primary care. Please take the increased dose of Lasix for the next 4 days. You will need further testing for possible blood clot in your leg. Please take the blood thinner (Eliquis), once tonight and once tomorrow morning until we can get your ultrasound. This has been ordered for tomorrow. Please come back to the ER for the result and continued care. Please take care while on these medications as your risk of bleeding is increased. Please return for ultrasound tomorrow. CAll number on the top of your phone. Please encourse elevation of your legs. Return urgently with increased pain, fevers, shortness of breath. Follow up with primary care in one week. Referrals: LA OLIVARES, DANCE HISTORIAN [Primary Care Provider] - Medical Decision Making Patient is a pleasant 67-year-old female presenting with chief complaint of bilateral lower extremity edema, left greater than right. Patient does have past medical history significant for lower extremity edema, bipolar, anxiety, COPD, hypothyroid, PTSD, neuromuscular disorder. Is chronically on Lasix. Was recently admitted, has finished her abx for her pna as well as her steroids for COPD xacerbation. She does not have hx of DVT but uncle had PE. She is not anticoagulated. On exam, patient appears [id number]. Resting comfortably. She does sound wet at the bases of her lungs. Normal cardiac exam. BLE edema with 2+ distal pulses. Sensation intact. Capillary refill and pulses intact. LLE more edematous than RLE. Her calf pain is increased on the right compared to the left. Given her hx and bilateral nature, primarily concerned for CHF exacerbation. Will obtain BNP and CXR. Will beegin iduresis. MEDIASTINUM: Normal.? HEART: Normal. PULMONARY VASCULATURE: Normal. LUNGS: There has been improvement in the bilateral basilar infiltrates which have nearly completely resolved compared to the prior examination. ? PLEURAL SPACE: There are tiny bilateral pleural effusions present.? No pneumothorax.? BONE:Within normal limits for the patient's age.? OTHER FINDINGS:Normal.? IMPRESSION: 1. Small residual infiltrates seen in the lung bases.? This shows marked improvement compared to 05/11/2023. 2. Tiny bilateral pleural effusions.? Labs reviewed, elevated d-dimer. No leukocytosis or other acute abnormality. Patient feeling significantly better after her IV Lasix. Has had a significant amount of urine out and feels like her legs and her breathing are already improving. Is requesting discharge to home given the time of day. Her D-dimer was elevated above the age-adjusted normal, cannot rule out potential DVT. Will give patient dose of Eliquis for tonight and tomorrow morning with plan for her to come back tomorrow for outpatient ultrasound.. Discussed plan who agrees to this plan. Discussed concerns with the medications and risks of them. Return precautiosn discsussed. All of her questions and concerns were addressed, she is in agreement with this plan. HPI General Date/Time Provider Initiated Documentation: 05/21/23 16:44 . Limitations to Documentation: no limitations . Information obtained by: patient and RN notes reviewed . History of Present Illness 67 year old F presents to the emergency department with the chief complaint of BLE edema, described as moderate and similar to prior episodes, Quality is described as aching, and is localized to the left, right and lower extremity. Patient reports no radiation. Patient started experiencing this day(s) and it has been constant. Rest improves symptom(s), (elevation) No exacerbating factors reported . Patient notes denies chest pain, diaphoresis, fever/chills, malaise, nausea/vomiting, rash and shortness of breath. Patient did receive the following treatments prior to arrival, none Related Data Home Medications Medication Instructions Recorded Confirmed cholecalciferol (vitamin D3) 25 25 mcg PO DAILY 09/22/21 05/21/23 mcg (1,000 unit) capsule multivitamin with folic acid 400 1 tab PO DAILY 12/25/21 05/21/23 mcg tablet (Daily-Deonte (with folic acid)) albuterol sulfate 90 mcg/actuation 2 inh inhalation PRN PRN 01/27/22 05/21/23 aerosol inhaler docusate sodium 100 mg capsule 1 cap PO BID 01/27/22 05/21/23 mirtazapine 15 mg tablet 15 mg PO .QHS 01/27/22 05/21/23 vitamin B complex 1 cap PO DAILY 01/27/22 05/21/23 divalproex 500 mg tablet,delayed 500 - 1,000 mg PO BID 03/02/22 05/21/23 release furosemide 20 mg tablet 10 mg PO DAILY 04/12/22 05/21/23 levothyroxine 25 mcg tablet 25 mcg PO DAILY@0600 04/13/22 05/21/23 venlafaxine 75 mg tablet,extended 37.5 mg PO DAILY 04/13/22 05/11/23 release 24 hr aripiprazole 5 mg tablet 5 mg PO DAILY 06/01/22 05/21/23 olanzapine 15 mg tablet 5 mg PO HS 06/01/22 05/21/23 ibuprofen 400 mg tablet (IBU) 400 mg PO Q6H PRN #20 tabs 11/23/22 05/21/23 lidocaine 5 % topical patch 1 patch topical DAILY #15 ea 01/07/23 05/11/23 (Lidoderm) budesonide-formoterol HFA 160 2 puff inhalation BID #10.2 grams 05/15/23 05/21/23 mcg-4.5 mcg/actuation aerosol inhaler (Symbicort) nicotine 14 mg/24 hr daily 14 mg transdermal DAILY #14 ea 05/15/23 transdermal patch tiotropium bromide 2.5 2 puff inhalation DAILY #4 grams 05/15/23 05/21/23 mcg/actuation mist for inhalation (Spiriva Respimat) furosemide 40 mg tablet (Lasix) 40 mg PO DAILY #3 tabs 05/21/23 venlafaxine 150 mg 150 mg PO DAILY 05/21/23 05/21/23 capsule,extended release 24 hr (Effexor XR) Previous Rx's Medication Instructions Recorded ibuprofen 400 mg tablet (IBU) 400 mg PO Q6H PRN #20 tabs 11/23/22 lidocaine 5 % topical patch 1 patch topical DAILY #15 ea 01/07/23 (Lidoderm) budesonide-formoterol HFA 160 2 puff inhalation BID #10.2 grams 05/15/23 mcg-4.5 mcg/actuation aerosol inhaler (Symbicort) nicotine 14 mg/24 hr daily 14 mg transdermal DAILY #14 ea 05/15/23 transdermal patch tiotropium bromide 2.5 2 puff inhalation DAILY #4 grams 05/15/23 mcg/actuation mist for inhalation (Spiriva Respimat) furosemide 40 mg tablet (Lasix) 40 mg PO DAILY #3 tabs 05/21/23 Allergies Allergy/AdvReac Type Severity Reaction Status Date / Time acetaminophen [From Vicodin] Allergy Mild facial Verified 01/21/23 14:29 swelling bupropion [From Wellbutrin] Allergy Mild facial Verified 01/21/23 14:29 swelling doxycycline Allergy Mild unknown Verified 01/21/23 14:29 hydrocodone [From Vicodin] Allergy Mild facial Verified 01/21/23 14:29 swelling omeprazole Allergy Mild rash, Verified 01/21/23 14:29 upset stomach erythromycin base Allergy Unknown Unverified 01/21/23 14:29 propoxyphene HCl Allergy Unknown Unverified 01/21/23 14:29 [From Darvon] fluticasone AdvReac Mild dizziness Verified 01/21/23 14:29 [From Advair Diskus] levofloxacin [From Levaquin] AdvReac Mild dizziness Verified 01/21/23 14:29 morphine AdvReac Mild hallucinati Verified 01/21/23 14:29 on oxycodone AdvReac Mild hallucinati Verified 01/21/23 14:29 ons prednisone AdvReac Mild dizziness Verified 01/21/23 14:29 quetiapine [From Seroquel] AdvReac Mild dizziness Verified 01/21/23 14:29 risperidone AdvReac Mild sever Verified 01/21/23 14:29 nightmares salmeterol AdvReac Mild dizziness Verified 01/21/23 14:29 [From Advair Diskus] tramadol AdvReac Mild dizziness, Verified 01/21/23 14:29 hallucinations General Stated Complaint: Vascular SEB: 3 Review of Systems Constitutional Constitutional: Reports as per HPI, Denies chills, Denies fever(s), Denies heada cierra(s), Denies lethargy and Denies poor appetite ENT Ears, Nose, Mouth, and Throat: Denies dizziness and Denies headache(s) Cardiovascular Cardiovascular: Reports as per HPI, Denies chest pain, Denies diaphoresis, Reports pedal edema, Reports leg edema, Denies lightheadedness and Denies dyspnea Respiratory Respiratory: Reports as per HPI, Denies chest congestion, Denies cough, Denies pain on inspiration, Denies pain with cough and Denies dyspnea Gastrointestinal Gastrointestinal: Reports as per HPI, Denies abdominal pain, Denies diarrhea, Denies nausea and Denies vomiting Musculoskeletal Musculoskeletal: Reports as per HPI and Denies back pain Integumentary/Breasts Skin/Breast: Reports as per HPI and Denies rash Neurologic Neurologic: Reports as per HPI, Denies dizziness and Denies headache(s) PFSH All Active Problems (Updated 05/21/23 @ 18:53 by WHITNEY Sanford) Fluid overload (Acute) Bilateral lower extremity edema (Acute) Anemia (Chronic) Bilateral calf pain (Acute) Tobacco abuse (Acute) Lower extremity edema (Acute) Neck pain (Acute) Screening for colon cancer (Acute) Unintentional weight loss (Acute) Diarrhea (Acute) History of colon polyps (Acute) Bipolar 1 disorder, mixed (Acute) Suicidal ideation (Acute) Suicidal ideation (Acute) Tubulovillous adenoma (Acute ~12/01/20) Medical History (Updated 05/21/23 @ 18:53 by WHITNEY Sanford) Anxiety Bipolar 1 disorder Chronic airway obstruction Chronic pain Diverticulitis Dizziness H/O adenomatous polyp of colon History of closed head injury Hypothyroidism Ischemic colitis Late effect of fracture of neck of femur Lesion of skin of nose Neuromuscular disorder Osteoarthritis, generalized Poor short term memory PTSD (post-traumatic stress disorder) Tremor Urinary incontinence Varicose veins of lower extremity Vitamin D deficiency Surgical History History of hemicolectomy (~12/14/20) History of hip replacement bilateral History of knee replacement left Hx of tubal ligation Social History Smoking/Tobacco Use Status: Current every day Tobacco Type: cigarettes Smoking risk assessment performed?: Yes Alcohol Intake: former Drug use: Daily Substance use type: marijuana Housing: apartment Do you feel safe at home: Yes Do you feel safe in your relationship?: Yes Additional Social history: lives alone Exam Const General: cooperative, healthy appearing, comfortable, no acute distress and well developed Nutritional Appearance: average body habitus and well nourished Orientation: alert, awake and oriented x3 HENMT Head: normal to inspection Ears: hearing grossly normal bilaterally Mouth: moist mucous membranes Chest Chest: normal inspection of the chest, normal palpation of entire chest wall and no crepitus Resp Effort & Inspection: normal respiratory effort, able to speak in complete sentences and no respiratory distress Auscultation: no rales, rhonchi lower bilaterally and no wheezes Cardio Rate: regular rate Rhythm: regular rhythm Heart Sounds: S1 normal and S2 normal GI Inspection: normal to inspection, no edema and non-distended Palpation: soft, no hepatosplenomegaly, not firm, no guarding, not rigid and nontender Auscultation: normal bowel sounds Back/Spine/Pelvis Back: no CVA tenderness Thoracic/Lumbar Spine: thoracic and lumbar spine normal to inspection Skin General skin exam: no rashes or lesions noted Trauma: no lacerations or abrasions Neuro General: patient alert, patient awake and patient oriented x3 Cognition: normal cognition Speech: speech normal Gait: normal gait Extrem General: normal to inspection, capillary refill normal, normal gait, calf tenderness bilaterally and edema Laterality: bilateral Psych Appearance: grossly normal and well kempt Mental Status: mental status grossly normal Speech and Movement: speech and movement normal Course Vital Signs Vital signs: Vital Signs Temperature 36.6 C 05/21/23 16:43 Pulse 80 05/21/23 16:43 Respiratory Rate 20 05/21/23 16:43 Blood Pressure 103/77 05/21/23 16:43 Pulse Oximetry 97 05/21/23 16:43 Temperature 36.6 C 05/21/23 16:43 Temperature Source Oral 05/21/23 16:43 Pulse 80 05/21/23 16:43 Respiratory Rate 15 05/21/23 16:49 Respiratory Effort Short of Breath 05/21/23 16:49 Respiratory Depth Normal 05/21/23 16:49 Respiratory Pattern Normal 05/21/23 16:49 Blood Pressure 103/77 05/21/23 16:43 Blood Pressure Position Sitting 05/21/23 16:43 Pulse Oximetry 97 05/21/23 16:43 Oxygen Delivery Method Room Air 05/21/23 16:43 Oxygen Flow Rate 0 05/21/23 16:43 Pain Level 6 05/21/23 16:49
[2023-05-21 18:02] LABS: Abs Immature Grans 0.06 10^3/uL (0.0-0.06); Absolute Basophil Count 0.04 10^3/uL (0.0-0.2); Absolute Eosinophil Count 0.38 10^3/uL (0.0-0.7); Absolute Lymphocyte Count 2.42 10^3/uL (1.2-3.4); Absolute Monocyte Count 0.75 10^3/uL (0.1-0.8); Absolute Neutrophil Count 3.75 10^3/uL (1.2-6.7); Basophils % 0.5; Eosinophils % 5.1; HCT 29.3 % (36.0-46.0); HGB 9.6 g/dL (11.2-15.7); Immature Grans % 0.8; Lymphocytes % 32.7; MCH 31.7 pg (27.0-33.0); MCHC 32.8 % (32.0-36.0); MCV 97 fL (80-95); MPV 9.7 fL (8.0-11.0); Monocytes % 10.1; Neutrophils % 50.8; Platelet Count 387 10^3/uL (130-400); RBC 3.03 10^6/uL (3.93-5.22); RDW-SD 52.7 fL
[2023-05-21] MEDS: Furosemide 40 MG/4 ML VIAL IVP (18:15)
[2023-05-21 18:24] LABS: ALT 12 U/L (14-59); AST 17 U/L (15-37); Alkaline Phosphatase 80 U/L (46-116); Anion Gap 5.4 mmol/L (3-11); BUN 7 mg/dL (7-18); Bilirubin, Total 0.4 mg/dL (0.2-1.0); CO2 29.6 mmol/L (21.0-32.0); CREATININE 0.8 mg/dL (0.55-1.02); Chloride 105 mmol/L (98-107); Estimated GFR 80.71 (mL/min/1.73m2); Glucose 71 mg/dL (74-106); Magnesium 1.9 mg/dL (1.8-2.4); NT-proBNP 766 pg/mL (<300); Potassium 4.4 mmol/L (3.5-5.1); Sodium 140 mmol/L (136-145); Troponin I < 50 ng/L (<or=60)
[2023-05-21 18:34] LABS: D-Dimer 788 ng/mlFEU (<500)
[2023-05-21] MEDS: Furosemide 40 MG TAB PO (19:03)
[2023-05-21] MEDS: Apixaban 5 MG TAB 20 MG PO (19:03)
[2023-05-21 19:08] VITALS: BP 110/74; PULSE 76; RESP 16; O2SAT 98
--- NOTE | 2023-05-22 10:22 | NUR.NOTE ---
Outpt order given to Radiology for US DVT bilateral; extremity edema, pain, bilaterally. Nursing Note:
== END 2023-05-21 19:38 | disposition home or self-care (01) ==
PROVIDERS: Emergency Provider Physician Assistant; PCP Nurse Practitioner Family
DX: R22.43 Localized swelling, mass and lump, lower limb, bilateral (principal); E87.70 Fluid overload, unspecified; D64.9 Anemia, unspecified; F17.210 Nicotine dependence, cigarettes, uncomplicated; R06.02 Shortness of breath
CPT/HCPCS: 36415; 80053; 96374; 99283; 83735; 83880; 84484; 85025; 85379; J1940

== ENCOUNTER 2023-06-07 01:25 | Outpatient (CLI) | payer MEDICARE, MEDICAID, SELFPAY ==
[2023-06-07 11:43] LABS: VALPROIC ACID 59.1 ug/mL
[2023-06-07 12:18] LABS: NT-proBNP 682 pg/mL (<300)
== END 2023-06-07 01:26 | disposition home or self-care (01) ==
LOC: LBO 01:25
PROVIDERS: PCP Nurse Practitioner Family; Visit Provider Registered Nurse
DX: F60.3 Borderline personality disorder (principal)
CPT/HCPCS: 36415; 80164; 83036; 83880

== ENCOUNTER 2023-06-08 21:02 | Emergency (ER) | payer MEDICARE, MEDICAID, SELFPAY ==
--- NOTE | 2023-06-08 21:00 | RT.EKG_ITS ---
APPROVED REPORT Exam: Resting ECG Reason for Exam: SOB Patient Location: E HR:69 bpm ECG Measurements Heart Rate 69 AXIS MO 115 P 75 QRSd 83 QRS 69 QT 367 T 62 QTc 394 Conclusion Sinus rhythm...normal P axis, V-rate 60- [address] depression, lateral precordial leads, nonspecific
--- NOTE | 2023-06-08 21:08 | ED.GENADUL_ITS ---
Discharge Plan Disposition Patient Disposition: Home Condition: Good Discharge Details Clinical Impression: Acute exacerbation of chronic obstructive pulmonary disease (COPD) Primary Care Provider: LA OLIVARES ED Provider: Alistair Abbasi Meds and New Rx's Prescriptions: New levofloxacin 750 mg tablet 750 mg PO DAILY Qty: 4 0RF Rx Instructions: next dose morning of 06/10 prednisone 20 mg tablet 40 mg PO DAILY Qty: 6 0RF Rx Instructions: next dose 06/10 morning Continued cholecalciferol (vitamin D3) 25 mcg (1,000 unit) capsule 25 mcg PO DAILY divalproex 500 mg tablet,delayed release (DR/EC) 500 - 1,000 mg PO BID Rx Instructions: 500mg qam 1000mg qpm mirtazapine 15 mg tablet 15 mg PO .QHS vitamin B complex Capsule 1 cap PO DAILY budesonide-formoterol [Symbicort] 160-4.5 mcg/actuation Hfa Aerosol Inhaler 2 puff inhalation BID Qty: 10.2 0RF Spiriva Respimat 2.5 mcg/actuation Mist 2 puff inhalation DAILY Qty: 4 0RF multivitamin with folic acid [Daily-Deonte (with folic acid)] 400 mcg tablet 1 tab PO DAILY furosemide 20 mg tablet 10 mg PO DAILY levothyroxine 25 mcg Tablet 25 mcg PO DAILY@0600 olanzapine 15 mg tablet 5 mg PO HS aripiprazole 5 mg tablet 5 mg PO DAILY ibuprofen [IBU] 400 mg tablet 400 mg PO Q6H PRNQty: 20 0RF venlafaxine [Effexor XR] 150 mg Capsule,Extended Release 24hr 150 mg PO DAILY Changed albuterol sulfate 90 mcg/actuation HFA aerosol inhaler 2 inh INHALATION Q4H PRNQty: 0 0RF Discharge Instructions Instructions: COPD (Chronic Obstructive Pulmonary Disease) (ED) Additional Instructions: You were seen for increased cough with sputum production and shortness of breath. Your evaluation was reassuring with slight decrease in oxygen levels with ambulation which recovered quickly, unremarkable laboratory studies, negative chest CT. Given your recent hospitalization and your increased cough with sputum production and shortness of breath we will treat you with a short course of antibiotic and prednisone for presumed COPD exacerbation. You should continue your other medications as before. Use the albuterol inhaler with spacer every 4 hours for wheezing or shortness of breath. Follow-up with your primary care provider next week for recheck. Return to the ED for any increasing shortness of breath, confusion, chest pain, abdominal pain, vomiting, other concerns. Referrals: LA OLIVARES, [employer] CHIEF [Primary Care Provider] - 5 days Medical Decision Making Patient presenting to ED with complaint of cough with increased sputum production, shortness of breath. Noted to possibly have some increased swelling to the left lower extremity compared to right. Denies any type of chest pain. Denies leg pain and has no calf tenderness. Room air saturations here are mid 90s. She has rhonchi bilaterally. She was admitted with pneumonia last month. She is mildly tachycardic. Her EKG has some mild ST depression in the lateral precordial leads otherwise nonspecific changes and not significantly different from before. Plan for IV, laboratory studies, CTA of the chest given the left lower extremity swelling though feel PE unlikely. Patient laboratory studies with normal white count. She has baseline anemia. Chemistries unremarkable other than slightly low mag at 1.6. Kidney function is normal. Troponin is negative. Nasal swab negative for COVID, flu, RSV. CTA preliminary read with no pulmonary embolus and no infiltrates. Patient able to ambulate through the ED with no real problems though did desaturate to 88%. Recovered quickly once back to room. She does have oxygen at home. On further questioning patient regarding legs, she feels the left leg has always been a little bigger than right. I think at this point patient can go home on short burst of prednisone, 5 day course of levofloxacin (since recently hospitalized and treated with ceftriaxone and azithromycin), albuterol rescue inhaler and follow up with PCP next week. Return precautions provided. Medical Records Medical records reviewed: Yes I reviewed the patient's medical records. Medical records narrative: last month's admission Lab Data Lab results reviewed: Yes I reviewed the patient's lab results. ECG Data Attestation: I personally reviewed and interpreted this ECG (s) as follows: Prior ECG tracings: available for review Interpretation: see EKG HPI General Mode of arrival: ambulatory . Date/Time Provider Initiated Documentation: 06/08/23 21:05 . Limitations to Documentation: no limitations . Information obtained by: patient . HPI Narrative: Patient presents to ED from urgent care with complaint of shortness of breath and cough over the last couple of days. Patient reports no chest pain, fever, back pain, abdominal pain, vomiting. She has had diarrhea for the last day. She has history of COPD. She reports having oxygen at home but not always requiring it. Reports increased sputum production that is yellow in color. She was admitted here last month for sepsis and pneumonia. Related Data Home Medications Medication Instructions Recorded Confirmed cholecalciferol (vitamin D3) 25 25 mcg PO DAILY 09/22/21 06/08/23 mcg (1,000 unit) capsule multivitamin with folic acid 400 1 tab PO DAILY 12/25/21 06/08/23 mcg tablet (Daily-Deonte (with folic acid)) mirtazapine 15 mg tablet 15 mg PO .QHS 01/27/22 06/08/23 vitamin B complex 1 cap PO DAILY 01/27/22 06/08/23 divalproex 500 mg tablet,delayed 500 - 1,000 mg PO BID 03/02/22 06/08/23 release furosemide 20 mg tablet 10 mg PO DAILY 04/12/22 06/08/23 levothyroxine 25 mcg tablet 25 mcg PO DAILY@0600 04/13/22 06/08/23 aripiprazole 5 mg tablet 5 mg PO DAILY 06/01/22 06/08/23 olanzapine 15 mg tablet 5 mg PO HS 06/01/22 06/08/23 ibuprofen 400 mg tablet (IBU) 400 mg PO Q6H PRN #20 tabs 11/23/22 06/08/23 budesonide-formoterol HFA 160 2 puff inhalation BID #10.2 grams 05/15/23 06/08/23 mcg-4.5 mcg/actuation aerosol inhaler (Symbicort) tiotropium bromide 2.5 2 puff inhalation DAILY #4 grams 05/15/23 06/08/23 mcg/actuation mist for inhalation (Spiriva Respimat) venlafaxine 150 mg 150 mg PO DAILY 05/21/23 06/08/23 capsule,extended release 24 hr (Effexor XR) albuterol sulfate 90 mcg/actuation 2 inh inhalation Q4H PRN #0 grams 06/09/23 06/08/23 aerosol inhaler levofloxacin 750 mg tablet 750 mg PO DAILY #4 tabs 06/09/23 prednisone 20 mg tablet 40 mg (2 x 20 mg) PO DAILY #6 tabs 06/09/23 Previous Rx's Medication Instructions Recorded ibuprofen 400 mg tablet (IBU) 400 mg PO Q6H PRN #20 tabs 11/23/22 budesonide-formoterol HFA 160 2 puff inhalation BID #10.2 grams 05/15/23 mcg-4.5 mcg/actuation aerosol inhaler (Symbicort) tiotropium bromide 2.5 2 puff inhalation DAILY #4 grams 05/15/23 mcg/actuation mist for inhalation (Spiriva Respimat) albuterol sulfate 90 mcg/actuation 2 inh inhalation Q4H PRN #0 grams 06/09/23 aerosol inhaler levofloxacin 750 mg tablet 750 mg PO DAILY #4 tabs 06/09/23 prednisone 20 mg tablet 40 mg (2 x 20 mg) PO DAILY #6 tabs 06/09/23 Allergies Allergy/AdvReac Type Severity Reaction Status Date / Time acetaminophen [From Vicodin] Allergy Mild facial Verified 06/08/23 21:54 swelling bupropion [From Wellbutrin] Allergy Mild facial Verified 06/08/23 21:54 swelling doxycycline Allergy Mild unknown Verified 06/08/23 21:54 hydrocodone [From Vicodin] Allergy Mild facial Verified 06/08/23 21:54 swelling omeprazole Allergy Mild rash, Verified 06/08/23 21:54 upset stomach erythromycin base Allergy Unknown Unverified 06/08/23 21:54 propoxyphene HCl Allergy Unknown Unverified 06/08/23 21:54 [From Darvon] fluticasone AdvReac Mild dizziness Verified 06/08/23 21:54 [From Advair Diskus] levofloxacin [From Levaquin] AdvReac Mild dizziness Verified 06/08/23 21:54 morphine AdvReac Mild hallucinati Verified 06/08/23 21:54 on oxycodone AdvReac Mild hallucinati Verified 06/08/23 21:54 ons prednisone AdvReac Mild dizziness Verified 06/08/23 21:54 quetiapine [From Seroquel] AdvReac Mild dizziness Verified 06/08/23 21:54 risperidone AdvReac Mild sever Verified 06/08/23 21:54 nightmares salmeterol AdvReac Mild dizziness Verified 06/08/23 21:54 [From Advair Diskus] tramadol AdvReac Mild dizziness, Verified 06/08/23 21:54 hallucinations General SBE: 3 Review of Systems Narrative: per HPI PFSH All Active Problems (Updated 06/09/23 @ 00:02 by Alistair Abbasi MD) Acute exacerbation of chronic obstructive pulmonary disease (COPD) (Acute) Bilateral calf pain (Acute) Anemia (Chronic) Bilateral lower extremity edema (Acute) Fluid overload (Acute) Tobacco abuse (Acute) Lower extremity edema (Acute) Neck pain (Acute) Screening for colon cancer (Acute) Unintentional weight loss (Acute) Diarrhea (Acute) History of colon polyps (Acute) Bipolar 1 disorder, mixed (Acute) Suicidal ideation (Acute) Suicidal ideation (Acute) Tubulovillous adenoma (Acute ~12/01/20) Medical History Bipolar 1 disorder H/O adenomatous polyp of colon Urinary incontinence History of closed head injury Vitamin D deficiency Chronic pain Varicose veins of lower extremity Chronic airway obstruction Ischemic colitis Osteoarthritis, generalized Poor short term memory Tremor Late effect of fracture of neck of femur Neuromuscular disorder Diverticulitis Dizziness Lesion of skin of nose Hypothyroidism PTSD (post-traumatic stress disorder) Anxiety Surgical History Hx of tubal ligation History of hemicolectomy (~12/14/20) History of knee replacement left History of hip replacement bilateral Social History Smoking/Tobacco Use Status: Current every day Tobacco Type: cigarettes Smoking risk assessment performed?: Yes Alcohol Intake: former Drug use: Daily Substance use type: marijuana Housing: apartment Do you feel safe at home: Yes Do you feel safe in your relationship?: Yes Additional Social history: lives alone Exam Narrative Exam Narrative: Const: WDWN female in NAD. HEENT: NC/AT. Normal facial exam. Eyes: Normal conjunctiva and sclera. Neck: Supple. Trachea midline. Lungs: Normal respiratory effort. Lungs with rhonchi in both bases. Cor: RRR without murmur/gallop. Good radial pulses. GI: Soft. NT/ND. No guarding or rebound. Neuro: A+O x 3. Normal speech, mentation, gait. Cranial nerves II - XII grossly intact. No gross motor or sensory deficit. Ext: No C/C. LLE looks a little swollen compared to RLE, no calf tenderness on either side. Skin: Warm and dry without rash.
[2023-06-08 21:10] VITALS: BP 116/53; PULSE 73; RESP 26; TEMP 37.1; O2SAT 98
--- NOTE | 2023-06-08 21:15 | DI.CT_ITS ---
Exam(s) CT CHEST PE CTA EXAM: CT CHEST PE CTA CLINICAL HISTORY: SOB, swollen LLE. TECHNIQUE: Imaging Protocol: Axial CT angiography was performed with multi-slice acquisition and mu lti-planar reconstructions as well as axial, coronal and sagittal MIP reconstructions. CONTRAST MATERIAL: Intravenous: Omnipaque 350 Contrast volume:100 ml COMPARISON: CT CT CHEST/ABD/PEL W from 01/10/2023 CR XR CHEST 2V PA LATERAL from 05/15/2023 FINDINGS: Exam mildly limited by motion, greater at the lung bases.. Pulmonary Arteries: No evidence of filling defect to suggest pulmonary emboli. Tracheobronchial tree: Patent where visualized. Mediastinum and Nicol: No dominant adenopathy or fluid collection. Pulmonary parenchyma: Dependent changes. No consolidation or dominant measurable mass. Pleura: No effusion or pneumothorax. Heart: The heart is not dilated. No coronary artery calcifications are seen. No pericardial effusio n. Aorta: Thoracic aorta non-dilated. No aneurysm. No dissection. Upper abdomen: Unremarkable. Bones: Degenerative changes in the spine. Tubes, Catheters, and Lines: None IMPRESSION: No evidence of pulmonary embolism or other acute abnormality.. RADIATION DOSE DELIVERED: Total DLP DATA REPOSITORY: All CT scans at this facility are submitted to the National Radiology Data Registry (NRDR) Dose Index Registry (DIR) with the [employer] (A[employer]). RADIATION OPTIMIZATION: All CT scans at this facility use at least one of these dose optimization te chniques: automated exposure control; mA and/or kV adjustment per patient size (includes targeted exa ms where dose is matched to clinical indication); or iterative reconstruction.
[2023-06-08 21:36] LABS: Abs Immature Grans 0.03 10^3/uL (0.0-0.06); Absolute Basophil Count 0.03 10^3/uL (0.0-0.2); Absolute Eosinophil Count 0.24 10^3/uL (0.0-0.7); Absolute Lymphocyte Count 1.61 10^3/uL (1.2-3.4); Absolute Monocyte Count 1.01 10^3/uL (0.1-0.8); Absolute Neutrophil Count 3.97 10^3/uL (1.2-6.7); Basophils % 0.4; Eosinophils % 3.5; HCT 31.7 % (36.0-46.0); HGB 10.4 g/dL (11.2-15.7); Immature Grans % 0.4; Lymphocytes % 23.4; MCHC 32.8 % (32.0-36.0); MCV 95 fL (80-95); MPV 9.6 fL (8.0-11.0); Monocytes % 14.7; Neutrophils % 57.6; Platelet Count 277 10^3/uL (130-400); RBC 3.35 10^6/uL (3.93-5.22); RDW 13.5 % (11.7-14.6); RDW-SD 47.1 fL; WBC 6.89 10^3/uL (4.4-10.8)
[2023-06-08 21:48] LABS: Magnesium 1.6 mg/dL (1.8-2.4)
[2023-06-08] MEDS: Lactated Ringers 500 ML IV (21:49)
[2023-06-08 21:52] LABS: ALT 11 U/L (14-59); AST 9 U/L (15-37); Albumin 2.8 g/dL (3.4-5.0); Alkaline Phosphatase 80 U/L (46-116); Anion Gap 7.5 mmol/L (3-11); BUN 7 mg/dL (7-18); Bilirubin, Total 0.3 mg/dL (0.2-1.0); CO2 29.5 mmol/L (21.0-32.0); CREATININE 0.9 mg/dL (0.55-1.02); Calcium 9.2 mg/dL (8.5-10.1); Chloride 100 mmol/L (98-107); Estimated GFR 70.07 (mL/min/1.73m2); Glucose 93 mg/dL (74-106); Potassium 3.8 mmol/L (3.5-5.1); Sodium 137 mmol/L (136-145); Total Protein 6.7 g/dL (6.4-8.2)
[2023-06-08 22:05] LABS: Troponin I < 50 ng/L (<or=60)
[2023-06-08 22:13] LABS: COVID-19 PCR Negative (Negative); Influenza A PCR Negative (Negative); Influenza B PCR Negative (Negative); RSV PCR Negative (Negative)
[2023-06-08 22:16] LABS: Source Nasopharynx
[2023-06-08] MEDS: Omnipaque 350 MG/ML 100 ML BTL IJ (23:15)
--- NOTE | 2023-06-08 23:52 | DI.VRAD_ITS ---
PROCEDURE INFORMATION: Exam: CTA Chest With Contrast Exam date and time: 06/08/2023 11:05 PM Age: 67 years old Clinical indication: Shortness of breath TECHNIQUE: Imaging protocol: Computed tomographic angiography of the chest with contrast. Exam focused on the arteries. 3D rendering (Not supervised by radiologist): MIP and/or 3D reconstructed images were created by the technologist. COMPARISON: CT CHEST PE CTA 12/25/2021 8:04 PM FINDINGS: Limitations: Motion artifact. Pulmonary arteries: No pulmonary emboli. Aorta: No aortic aneurysm. No aortic dissection. Lungs: Nonspecific bilateral dependent pleuroparenchymal changes. No infiltrates. Bibasilar linear opacities of atelectasis and/or fibrosis. Pleural spaces: Unremarkable. No pneumothorax. No pleural effusion. Heart: No cardiomegaly. No pericardial effusion. Lymph nodes: Unremarkable. No enlarged lymph nodes. Bones/joints: Degenerative changes within thoracic spine. Soft tissues: Punctate calcification within right breast. IMPRESSION: No pulmonary emboli. Dictated and Authenticated by: Jasper Child MD. Ordering:SHAMA Sainz MD
[2023-06-09] MEDS: Albuterol HFA 8 GM 60 PUFF INH IH (00:24)
[2023-06-09] MEDS: predniSONE 20 MG TAB 40 MG PO (00:25)
[2023-06-09] MEDS: Inhaler, Assist Device 1 EACH MC (00:26)
[2023-06-09] MEDS: levoFLOXacin 500 MG, levoFLOXacin 250 MG 750 MG PO (00:32)
[2023-06-09 00:33] VITALS: BP 115/49; PULSE 65; RESP 22; TEMP 37.1; O2SAT 96
--- NOTE | 2023-06-11 13:24 | NUR.NOTE ---
Accessed this patients chart to check if the Emergency Room Discharge note was in the chart. The discharge summary was in the chart. Nursing for Shira Kip called and was inquiring about a medication that the Pt was recommended to take after discharge. The call was transferred to Medical Records.
== END 2023-06-09 00:33 | disposition home or self-care (01) ==
PROVIDERS: Emergency Provider Emergency Medicine; PCP Nurse Practitioner Family
DX: J44.1 Chronic obstructive pulmonary disease with (acute) exacerbation; F17.200 Nicotine dependence, unspecified, uncomplicated; Z79.899 Other long term (current) drug therapy
CPT/HCPCS: 71275; 80053; 87637; 93005; 94640; 99285; 83735; 84484; 85025; 93010; 99284; J3490; J7512